=== PATIENT | male | born 1965 | race Caucasian/White ===

== ENCOUNTER 2016-11-23 16:35 | Emergency (ER) | payer OTHER ==
[2016-11-23] MEDS ORDERED: ACETAMINOPHEN 325 MG TABLET (FP) PO ONE (16:45)
[2016-11-23 16:46] VITALS: BP 141/89; PULSE 79; TEMP 98; BMI 30.9
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
[2016-11-23] MEDS ORDERED: ACETAMINOPHEN 325 MG TABLET (FP) ONE (17:52)
[2016-11-23] MEDS ORDERED: KETOROLAC TROMETHAMINE 60 MG/2 ML VIAL IM ONE (19:11)
[2016-11-23] MEDS ORDERED: oxyCODONE HCL 5 MG TABLET PO ONE (19:11)
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
[2016-11-23] MEDS ORDERED: KETOROLAC TROMETHAMINE 60 MG/2 ML VIAL ONE (19:21)
[2016-11-23] MEDS ORDERED: oxyCODONE HCL 5 MG TABLET ONE ×2 (19:23→19:39)
== END 2016-11-23 21:29 | disposition home or self-care (01) ==
LOC: JERFT 16:35
PROC: 3E0233Z Introduction of Anti-inflammatory into Muscle, Percutaneous Approach (ICD-10-PCS; principal; 2016-11-23)
DX: G44.309 Post-traumatic headache, unspecified, not intractable (principal); M25.562 Pain in left knee; M25.561 Pain in right knee; V43.62XA Car passenger injured in collision with other type car in traffic accident, initial encounter; Y92.414 Local residential or business street as the place of occurrence of the external cause; Y93.89 Activity, other specified; Y99.8 Other external cause status; I10 Essential (primary) hypertension; Z86.73 Personal history of transient ischemic attack (TIA), and cerebral infarction without residual deficits
CPT/HCPCS: 70450-TC; 73562-TC-RT; 96372; 99281-25

== ENCOUNTER 2017-01-16 14:52 | Emergency (ER) | payer OTHER ==
[2017-01-16 15:02] VITALS: BMI 30.9
--- NOTE | 2017-01-16 16:11 | PDOC ---
Attending Attestation - Resident Resident Name: Home Mitchell - ED Attending Attestation I have performed the following: I have examined & evaluated the patient, The case was reviewed & discussed with the resident, I agree w/resident's findings & plan, Exceptions are as noted - HPI HPI: 51 yo M s/p recent R knee replacement presents with R knee pain, significant leg swelling. He denies fever, chills. +Bloody drainage from the surgical site. He was evaluated by the clinic 2 days ago, but now it has become significantly more swollen with blistering of the skin. - Physicial Exam PE: GENERAL: Awake, alert, in no acute distress. Patient somnolent (intermittently falling asleep) c/w history of lack of sleep last night. HEAD: No signs of trauma EYES: PERRLA, EOMI, sclera anicteric, conjunctiva clear ENT: Auricles normal inspection, hearing grossly normal, nares patent, oropharynx clear without exudates. Moist mucosa NECK: Normal ROM, supple, no lymphadenopathy, JVD, or masses LUNGS: Breath sounds equal, clear to auscultation bilaterally. No wheezes, and no crackles HEART: Regular rate and rhythm, normal S1 and S2, no murmurs, rubs or gallops ABDOMEN: Soft, nontender, normoactive bowel sounds. No guarding, no rebound. No masses EXTREMITIES: RLE with significant edema, skin is tense. +Bloody drainage from the R knee wound. Dec ROM due to pain. Remainder of extremities with normal range of motion, no edema. No clubbing or cyanosis. No cords, erythema, or tenderness NEUROLOGICAL: Cranial nerves II through XII grossly intact. Normal speech, normal gait SKIN: Warm, Dry, normal turgor, no rashes or lesions noted. - Medical Decision Making Patient with significant swelling of the RLE s/p knee replacement. High suspicion for surgical site infection, possibly infected hardware. Will contact covering physician at [facility], as he had his surgery at [facility].
[2017-01-16 16:54] LABS: BASOPHIL 0.3 % (0-2.0); EOSINOPHIL 2.9 % (0-4.5); MCH 28.9 pg (25.7-33.7); MCHC 33.3 g/dl (32.0-35.9); MEAN CELL VOLUME 86.8 fl (80-96); NEUTROPHILS 57.6 % (42.8-82.8); PLATELET COUNT 195 K/MM3 (134-434); RDW 14.2 % (11.9-15.9); WHITE BLOOD COUNT 3.9 K/mm3 (4.0-10.0)
[2017-01-16 17:17] LABS: ANION GAP 7 (8-16); BILIRUBIN,TOTAL 0.3 mg/dL (0.2-1.0); CALCIUM 8.8 mg/dL (8.5-10.1); CO2 31 mmol/L (21-32); GLUCOSE,RANDOM 109 mg/dL (74-106); SGOT/AST 29 U/L (15-37); SGPT/ALT 22 U/L (12-78); TOT PROT 7.6 g/dl (6.4-8.2)
[2017-01-16 17:18] LABS: ALK PHOS 77 U/L (45-117)
--- NOTE | 2017-01-16 17:36 | PDOC ---
History of Present Illness - General Chief Complaint: Edema Stated Complaint: POST-SURG INFECTION Time Seen by Provider: 01/16/17 15:30 - History of Present Illness Initial Comments: 01/16/17 17:25 51M with pmh of TIA on plavix and HTN presents with right leg pain and edema following knee replacement surgery on Wednesday01/11/17. The patient complained of blisters 2 days ago on the right knee, claims that he went to the [facility] yesterday and was told he just needed to follow up with his appointment with his surgeon Dr. Fernandez on 01/21/2017. Because the swelling didn't go down he then went this am to the [place] ED where he was told that he might have a blood clot and that he should go the nearest ED fopr evaluation. He presented here afebrile but with right leg edema, erythema and warmth, with blisters draining fluid, and seemingly altered mental status due to sleepiness.. 01/16/17 17:48 01/16/17 19:01 Past History - Past Medical History Allergies/Adverse Reactions: Allergies Allergy/AdvReac Type Severity Reaction Status Date / Time No Known Drug Allergies Allergy Verified 01/16/17 17:49 bananas and vicoden together Allergy Uncoded 01/16/17 14:58 Home Medications: Ambulatory Orders Amlodipine Besylate 10 mg PO DAILY 01/16/17 Carvedilol 3.125 mg PO BID 01/16/17 Clopidogrel Bisulfate [Plavix] 150 mg PO DAILY 01/16/17 Hydrochlorothiazide 40 mg PO BID 01/16/17 CVA: Yes (tia) HTN: Yes - Psycho/Social/Smoking Cessation Hx Anxiety: No Suicidal Ideation: No Smoking History: Current some day smoker Have you smoked in the past 12 months: Yes Number of Cigarettes Smoked Daily: 20 Information on smoking cessation initiated: No 'Breaking Loose' booklet given: 11/23/16 Hx Alcohol Use: No Drug/Substance Use Hx: No Review of Systems - Review of Systems Constitutional: No: Chills, Diaphoresis, Fever HEENTM: No: Symptoms Reported Respiratory: No: Cough, Shortness of Breath, Stridor, Wheezing Cardiac (ROS): No: Chest Pain, Lightheadedness, Palpitations, Syncope, Chest Tightness ABD/GI: No: Symptoms Reported Musculoskeletal: Yes: See HPI Integumentary: Yes: See HPI Neurological: No: Headache, Paresthesia, Tingling *Physical Exam - Vital Signs Last Vital Signs Temp Pulse Resp BP Pulse Ox 98.0 F 75 18 114/63 100 01/16/17 14:58 01/16/17 14:58 01/16/17 14:58 01/16/17 14:58 01/16/17 14:58 - Physical Exam General Appearance: Yes: Nourished, Appropriately Dressed HEENT: positive: EOMI, REDDY, Normal ENT Inspection Respiratory/Chest: positive: Lungs Clear, Normal Breath Sounds. negative: Chest Tender Cardiovascular: positive: Regular Rhythm, Regular Rate, S1, S2 Vascular Pulses: Dorsalis-Pedis (R): 1+, Doralis-Pedis (L): 2+ Gastrointestinal/Abdominal: positive: Normal Bowel Sounds, Protuberent. negative: Tender Extremity: positive: Pedal Edema, Swelling, Erythema, Other (R knee with Warmth and drainage). negative: Coldness, Cyanosis ED Treatment Course - LABORATORY CBC & Chemistry Diagram: 01/16/17 16:13 01/16/17 16:13 - ADDITIONAL ORDERS Additional order review: Laboratory Results 01/16/17 16:13 Sodium 135 L Potassium 3.2 L Chloride 97 L Carbon Dioxide 31 Anion Gap 7 L BUN 21 H Creatinine 1.0 Creat Clearance w eGFR > 60 Random Glucose 109 H Calcium 8.8 Total Bilirubin 0.3 AST 29 ALT 22 Alkaline Phosphatase 77 Total Protein 7.6 Albumin 3.0 L 01/16/17 16:13 RBC 3.57 L MCV 86.8 MCHC 33.3 RDW 14.2 MPV 9.0 Neutrophils % 57.6 Lymphocytes % 19.7 Monocytes % 19.5 H Eosinophils % 2.9 Basophils % 0.3 - RADIOLOGY Radiology Studies Ordered: Category Date Time Status KNEE 2 POS-RIGHT [RAD] Stat Radiology 01/16/17 16:09 Taken Medical Decision Making - Medical Decision Making 01/16/17 17:48 51M with pmh of TIA on plavix and HTN presents with right leg pain, edema, drainage following knee replacement surgery on Wednesday01/11/17. Suspecting right knee septic joint. R/o with labs and imaging. Transfering to [facility] after talking to the to the Orthopedic surgeon occupational therapist's assistant Dr. Espinoza for surgery. Currently waiting for a bed. Patient put on 1g Vancomycin in the meantime Pain controled with Morphine IVPB 01/16/17 18:27 01/16/17 18:59 01/16/17 19:00 Potassium 3.2 corrected with 40meq Potassium acetate 270mls@62.5mls/hr Bed approved at [facility] waiting for transfer 01/16/17 19:01 01/16/17 19:03 PAtient signout out to Dr. Armando Moe *DC/Admit/Observation/Transfer Diagnosis at time of Disposition: Postoperative surgical complication involving skin, Postoperative surgical complication involving musculoskeletal system associated with musculoskeletal procedure Diagnosis at time of Disposition: (Ruled Out): Postoperative surgical complication involving skin associated with dermatologic procedure - Discharge Dispostion Disposition: TRANSFER ACUTE CARE/OTHER HOSP Condition at time of disposition: Stable - Referrals Referrals: STAFF,NOT ON [Primary Care Provider] - - Transfer to Acute Care Facility Receiving Facility: [facility] Accepting Physician:: Dr. Espinoza
[2017-01-16] MEDS ORDERED: VANCOMYCIN 1 GRAM (PRE-DOCKED) 250 ML IVPB ONE ×2 (17:42→18:02)
[2017-01-16] MEDS ORDERED: POTASSIUM ACETATE IVPB ONE (17:45)
[2017-01-16] MEDS ORDERED: SODIUM CHLORIDE IVPB ONE (17:45)
[2017-01-16] MEDS ORDERED: morphine CARPU-JECT 4 MG/1 ML DISP.SYRIN ONE (18:09)
[2017-01-16] MEDS ORDERED: morphine CARPU-JECT 4 MG/1 ML DISP.SYRIN IVPUSH ONE (18:10)
[2017-01-16 20:20] VITALS: BP 116/74; PULSE 72
[2017-01-16 20:24] VITALS: TEMP 98
--- NOTE | 2017-01-17 17:46 | EKG ---
Test Reason : Blood Pressure : / mmHG Vent. Rate : 069 BPM Atrial Rate : 069 BPM P-R Int : 166 ms QRS Dur : 110 ms QT Int : 426 ms P-R-T Axes : 059 046 049 degrees QTc Int : 456 ms NORMAL SINUS RHYTHM POSSIBLE LEFT ATRIAL ENLARGEMENT NONSPECIFIC T WAVE ABNORMALITY ABNORMAL ECG NO PREVIOUS ECGS AVAILABLE AND REPEAT INDICATED Confirmed by CHRISTY DORAN MD ([id number]) on 01/17/2017 5:46:17 PM Referred By: Confirmed By:CHRISTY DORAN MD
== END 2017-01-16 20:23 | disposition short-term general hospital (02) ==
LOC: JER 14:52
PROC: 3E03329 Introduction of Other Anti-infective into Peripheral Vein, Percutaneous Approach (ICD-10-PCS; principal; 2017-01-16)
PROC: 3E0337Z Introduction of Electrolytic and Water Balance Substance into Peripheral Vein, Percutaneous Approach (ICD-10-PCS; 2017-01-16)
PROC: 3E033NZ Introduction of Analgesics, Hypnotics, Sedatives into Peripheral Vein, Percutaneous Approach (ICD-10-PCS; 2017-01-16)
DX: M96.89 Other intraoperative and postprocedural complications and disorders of the musculoskeletal system (principal); Z96.651 Presence of right artificial knee joint
CPT/HCPCS: 36415; 73560-TC-RT; 80053; 85025; 85651; 87040; 87076; 87186; 93005; 93010; 96365; 96366; 96367; 96374; 99284-25

== ENCOUNTER 2017-02-14 13:28 | Observation (INO) | payer OTHER ==
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
[2017-02-14 14:05] VITALS: TEMP 97.8
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
[2017-02-14 14:34] LABS: BASOPHIL 1.1 % (0-2.0); EOSINOPHIL 1.2 % (0-4.5); MCH 28.7 pg (25.7-33.7); MCHC 33.2 g/dl (32.0-35.9); MEAN CELL VOLUME 86.3 fl (80-96); MEAN PLT VOLUME 9.2 fl (7.5-11.1); NEUTROPHILS 65.5 % (42.8-82.8); PLATELET COUNT 242 K/MM3 (134-434); RDW 14.2 % (11.9-15.9); WHITE BLOOD COUNT 6.7 K/mm3 (4.0-10.0)
[2017-02-14 15:00] LABS: ALBUMIN 1.1 g/dl (3.4-5.0); ANION GAP 6 (8-16); CALCIUM 9.4 mg/dL (8.5-10.1); CO2 33 mmol/L (21-32); GLUCOSE,RANDOM 89 mg/dL (74-106)
[2017-02-14 15:04] LABS: BILIRUBIN,TOTAL 0.5 mg/dL (0.2-1.0); CREATININE 1.4 mg/dL (0.7-1.3); SGOT/AST 13 U/L (15-37); SGPT/ALT 17 U/L (12-78); TOT PROT 8.3 g/dl (6.4-8.2)
[2017-02-14 15:06] LABS: ALK PHOS 45 U/L (45-117); CPK 109 IU/L (39-308); TROPONIN I 0.02 ng/ml (0.00-0.05)
[2017-02-14 15:13] LABS: INR 1.2 (0.82-1.09); PROTHROMBIN TIME (PATIENT) 13.2 SEC (9.98-11.88)
[2017-02-14 15:25] LABS: MAGNESIUM 2.2 mg/dL (1.8-2.4)
[2017-02-14] MEDS ORDERED: POTASSIUM CHLORIDE TABS 20 MEQ TABLET.ER (FP) PO ONE ×2 (16:03→16:21)
[2017-02-14] MEDS ORDERED: oxyCODONE HCL 5 MG TABLET PO ONE (16:09)
[2017-02-14] MEDS ORDERED: oxyCODONE HCL 5 MG TABLET ONE (16:20)
[2017-02-14] MEDS ORDERED: ASPIRIN 81 MG CHEWABLE TABLETS PO ONE (16:24)
[2017-02-14] MEDS ORDERED: ASPIRIN 81 MG CHEWABLE TABLETS ONE (16:30)
[2017-02-14 19:09] VITALS: BP 146/96; PULSE 76; BMI 30.9
--- NOTE | 2017-02-14 19:29 | EKG ---
Test Reason : Blood Pressure : / mmHG Vent. Rate : 074 BPM Atrial Rate : 074 BPM P-R Int : 166 ms QRS Dur : 110 ms QT Int : 428 ms P-R-T Axes : 037 011 034 degrees QTc Int : 475 ms NORMAL SINUS RHYTHM NON-SPECIFIC INTRA-VENTRICULAR CONDUCTION DELAY NONSPECIFIC T WAVE ABNORMALITY PROLONGED QT ABNORMAL ECG WHEN COMPARED WITH ECG OF 16-JAN-2017 16:26, NO SIGNIFICANT CHANGE WAS FOUND Confirmed by AMADO JOLLEY, KENNETH ([id number]) on 02/14/2017 7:28:41 PM Referred By: Confirmed By:KENNETH FISCHER MD
[2017-02-14 19:53] LABS: URINE MARIJUANA THC POSITIVE ng/ml (CUTOFF=50)
== END 2017-02-14 21:42 | disposition left against medical advice (07) ==
LOC: JER 13:28 → JERBED 17:35 → UNDOADMOB 17:58
PROVIDERS: ADMIT Family Medicine; ATTEND Family Medicine
DX: R79.89 Other specified abnormal findings of blood chemistry (principal); N17.9 Acute kidney failure, unspecified; I10 Essential (primary) hypertension; I25.2 Old myocardial infarction; M54.9 Dorsalgia, unspecified; G89.29 Other chronic pain; F17.210 Nicotine dependence, cigarettes, uncomplicated; Z86.73 Personal history of transient ischemic attack (TIA), and cerebral infarction without residual deficits; Z79.01 Long term (current) use of anticoagulants; Z98.61 Coronary angioplasty status; Z96.651 Presence of right artificial knee joint
CPT/HCPCS: 36415; 71010-TC; 80053; 80307; 83735; 84484; 85025; 85610; 93005; 93010; 99284-25; G0378

== ENCOUNTER 2017-04-09 16:45 | Emergency (ER) | payer OTHER ==
[2017-04-09 16:50] VITALS: BP 133/85; PULSE 90; TEMP 98.1; BMI 29.9
[2017-04-09] MEDS ORDERED: KETOROLAC TROMETHAMINE 60 MG/2 ML VIAL IM ONE (17:16)
--- NOTE | 2017-04-09 17:16 | PDOC ---
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 Patient states he knows his back when out and is requesting a Toradol injection. History of chronic left-sided sciatica now experiencing pain to left groin which he states he has frequently when his back was out. No neurosensory deficits, no bowel or bladder difficulty incontinence or urinary retention, no saddle anesthesia, no footdrop. No history of IVDU or history of cancer. Patient is on chronic pain management today he does not takes medication because he did not have pain this morning. REVIEW OF SYSTEMS: GENERAL: Afebrile, denies any weakness RESPIRATORY: No cough, wheezing, or hemoptysis. CARDIAC: No chest pain or shortness of breath MUSCULOSKELETAL: Pain to generalized lower back. No point tenderness. Pain worse on left and right SKIN : No erythema, no bruising, no deformity. GI/: Denies any abdominal pain, no urinary difficulty, incontinence or urinary retention. RECTAL: Denies any difficulty this A.m. NEUROLOGICAL: Denies any numbness or tingling. No neurosensory deficits. PHYSICAL EXAM: GENERAL: The patient is awake, alert, and fully oriented, in no acute distress. RESPIRATORY: Lungs clear bilaterally, no rhonchi wheezes or crackles CARDIAC: S1-S2 audible, no murmur rub or gallop MUSCULOSKELETAL: Pain to generalized lower back, nonradiating, no tingling or sensory deficit. Less than 2 second cap refill, +4 popliteal and pedal pulses. GI/: Abdomen soft, nontender, nondistended. No rebound tenderness. No masses palpable. MUSCULOSKELETAL: No spinal point tenderness. Normal reflexive and no deficits to sensation or strength. RECTAL: Patient refused SKIN: Warm, Dry, normal turgor, no erythema, no edema no bruising. Past History - Past Medical History Allergies/Adverse Reactions: Allergies Allergy/AdvReac Type Severity Reaction Status Date / Time No Known Drug Allergies Allergy Severe Verified 04/09/17 16:47 bananas and vicoden together Allergy Severe ANAPHYLAXIS Uncoded 04/09/17 16:47 . Home Medications: Ambulatory Orders Carvedilol 3.125 mg PO BID 01/16/17 Clopidogrel Bisulfate [Plavix] 150 mg PO DAILY 01/16/17 Hydrochlorothiazide 40 mg PO BID 01/16/17 Gabapentin [Neurontin -] 300 mg PO Q8H 02/14/17 Oxycodone HCl [Oxycodone HCl ER] 30 mg PO QID 02/14/17 CVA: Yes (tia) HTN: Yes Other medical history: SCIATICA. BACK PROBLEMS. - Suicide/Smoking/Psychosocial Hx Smoking History: Current every day smoker Have you smoked in the past 12 months: Yes Number of Cigarettes Smoked Daily: 10 Information on smoking cessation initiated: No 'Breaking Loose' booklet given: 11/23/16 Hx Alcohol Use: No Drug/Substance Use Hx: Yes (MARIJUANA.) Substance Use Type: Marijuana *Physical Exam - Vital Signs Last Vital Signs Temp Pulse Resp BP Pulse Ox 98.1 F 90 18 133/85 100 04/09/17 16:47 04/09/17 16:47 04/09/17 16:47 04/09/17 16:47 04/09/17 16:47 Medical Decision Making - Medical Decision Making 04/09/17 17:07 A/P, back pain chronic in nature with recent exacerbation 90 minutes prior to arrival. I stop checked his report was requested by: Shahnaz Maldonado | Reference #: [id number] You have not added a HYUN number. Keeping your HYUN number(s) up to date on the My HYUN Numbers page will enable the separation of your prescriptions from others ' in the search results. 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 01/12/2017 01/12/2017 oxycodone hcl 5 mg tablet 60 10 Dinah Welch Z OS [employer] PRO[employer]MER 12/14/2016 12/14/2016 oxycodone hcl 30 mg tablet 120 30 TriRamses morse A, M D 11/13/2016 11/14/2016 oxycodone hcl 30 mg tablet 120 30 Ramses Olivera A, M D 10/30/2016 10/30/2016 oxycodone hcl 30 mg tablet 60 15 Ramses Olivera A, M D 10/23/2016 10/23/2016 oxycodone hcl 30 mg tablet 21 7 Ramses Olivera A, M D 10/16/2016 10/17/2016 oxycodone hcl 15 mg tablet 42 7 Ramses Olivera A, M D 08/17/2016 08/17/2016 oxycodone-acetaminophen 5-325 mg tab 8 2 Rod Martínez S (RPA-C) 07/27/2016 07/28/2016 oxycodone-acetaminophen 10-325 mg tab 12 3 Rod Martínez S (RPA-C) 06/26/2016 06/27/2016 oxycodone-acetaminophen 5-325 mg tab 18 6 Ashanti Massey MD Patient Name: Damon Rob Date: 1965 Address: [address] [place] [address] Sex: Male Rx Written Rx Dispensed Drug Quantity Days Supply Prescriber Name 09/09/2016 09/11/2016 oxycodone-acetaminophen 10-325 mg tab 90 30 Tasca, Mitesh 08/19/2016 08/19/2016 oxycodone-acetaminophen 10-325 mg tab 90 30 Tasca, Mitesh 06/29/2016 07/22/2016 tramadol hcl 50 mg tablet 30 30 Marlon Banerjee 06/29/2016 06/29/2016 oxycodone-acetaminophen 10-325 mg tab 45 23 ChrissMarlon selby 05/29/2016 05/29/2016 tramadol hcl 50 mg tablet 30 30 ChrissMarlon selby 05/29/2016 05/29/2016 oxycodone-acetaminophen 10-325 mg tab 90 30 Chriss, Marlon George 04/30/2016 04/30/2016 tramadol hcl 50 mg tablet 30 30 Chriss, Marlon George 04/30/2016 04/30/2016 oxycodone-acetaminophen 10-325 mg tab 90 30 ChrissMarlon selby Patient Name: Damon Rob Date: 1965 Address: [address] [place] [address] Sex: Male 04/09/17 17:20 Toradol 60 mg IM and 2 Percocet given to patient while in emergency department will reassess and discharged home to continue chronic pain management. Patient states that this pain is chronic in nature and unchanged. Patient states he feels relief after given medication, will DC patient home to follow-up with his chronic pain medicine physician Patient ambulating with steady gait, no difficulty noted upon discharge. *DC/Admit/Observation/Transfer Diagnosis at time of Disposition: Chronic low back pain Qualifiers: Back pain laterality: bilateral Sciatica presence: without sciatica Qualified Code(s): M54.5 - Low back pain - Discharge Dispostion Disposition: HOME Condition at time of disposition: Good Admit: No - Patient Instructions Additional Instructions: 1. Please return to the emergency department with any numbness, tingling, weakness, numbness or tingling to groin or legs, or loss of bowel or bladder function. 2. Use pain medication as ordered. 3. Please is to followup in the office of for evaluation within a week if no improvement. 4. Ice or heat 5. Refrain from lifting anything above 10 pounds, until pain resolved."
[2017-04-09] MEDS ORDERED: KETOROLAC TROMETHAMINE 60 MG/2 ML VIAL ONE (17:28)
== END 2017-04-09 18:03 | disposition home or self-care (01) ==
LOC: JERFT 16:45
PROC: 3E0233Z Introduction of Anti-inflammatory into Muscle, Percutaneous Approach (ICD-10-PCS; principal; 2017-04-09)
DX: M54.5 Low back pain (principal); I10 Essential (primary) hypertension; X50.0XXA Overexertion from strenuous movement or load, initial encounter; Y93.89 Activity, other specified; Y92.89 Other specified places as the place of occurrence of the external cause; Y99.8 Other external cause status
CPT/HCPCS: 96372; 99281-25

== ENCOUNTER 2017-07-16 23:54 | Emergency (ER) | payer OTHER ==
[2017-07-17 00:40] VITALS: BP 152/96; PULSE 88; TEMP 98.1; BMI 30.6
--- NOTE | 2017-07-17 00:40 | PDOC ---
History of Present Illness - General Chief Complaint: Pain, Acute Stated Complaint: KNEE INJURY Time Seen by Provider: 07/17/17 00:38 History Source: Patient Exam Limitations: No Limitations - History of Present Illness Initial Comments: 07/17/17 01:20 Patient is a 52-year-old male with past medical history of hypertension, TIA on a/c, chronic back pain, who presents to the emergency department tonight complaining of left knee pain. Patient states that he felt a strain sensation in his knee yesterday when he stood up. He states that it felt like a stabbing pain. Denies fall or trauma. He states the pain got worse over the course of the day and that he can not take the pain anymore. Denies recent travel, currently on Plavix. Denies numbness and tingling in the foot, weakness, trauma. Pt has history of R total knee replacement. Past History - Travel Traveled outside of the country in the last 30 days: No Close contact w/someone who was outside of country & ill: No - Past Medical History Allergies/Adverse Reactions: Allergies Allergy/AdvReac Type Severity Reaction Status Date / Time No Known Drug Allergies Allergy Severe Verified 07/17/17 00:40 bananas and vicoden together Allergy Severe ANAPHYLAXIS Uncoded 07/17/17 00:40 . Home Medications: Ambulatory Orders Carvedilol 3.125 mg PO BID 01/16/17 Clopidogrel Bisulfate [Plavix] 150 mg PO DAILY 01/16/17 Hydrochlorothiazide 40 mg PO BID 01/16/17 Gabapentin [Neurontin -] 300 mg PO Q8H 02/14/17 Oxycodone HCl [Oxycodone HCl ER] 30 mg PO QID 02/14/17 Oxycodone HCl/Acetaminophen [Percocet 10-325 mg Tablet] 1 each PO Q6H PRN #12 tablet MDD 4 07/17/17 CVA: Yes (tia) HTN: Yes - Suicide/Smoking/Psychosocial Hx Smoking History: Current some day smoker Have you smoked in the past 12 months: Yes Number of Cigarettes Smoked Daily: 10 Information on smoking cessation initiated: No 'Breaking Loose' booklet given: 11/23/16 Hx Alcohol Use: No Drug/Substance Use Hx: No Substance Use Type: Marijuana Review of Systems - Review of Systems Able to Perform ROS?: Yes Comments:: 07/17/17 04:22 CONSTITUTIONAL: Absent: fever, chills, diaphoresis, generalized weakness, malaise, loss of appetite HEENT: Absent: rhinorrhea, nasal congestion, throat pain, throat swelling, difficulty swallowing, mouth swelling, ear pain, eye pain, visual Changes CARDIOVASCULAR: Absent: chest pain, loss of consciousness, palpitations, irregular heart rate, peripheral edema RESPIRATORY: Absent: cough, shortness of breath, dyspnea with exertion, orthopnea, wheezing, stridor, hemoptysis GASTROINTESTINAL: Absent: abdominal pain, abdominal distension, nausea, vomiting, diarrhea, constipation, melena, hematochezia GENITOURINARY: Absent: dysuria, frequency, urgency, hesitancy, hematuria, flank pain, genital pain MUSCULOSKELETAL: Present: L knee pain Absent: myalgia, arthralgia, joint swelling SKIN: Absent: rash, itching, pallor HEMATOLOGIC/IMMUNOLOGIC: Absent: easy bleeding, easy bruising, lymphadenopathy, frequent infections ENDOCRINE: Absent: unexplained weight gain, unexplained weight loss, heat intolerance, cold intolerance NEUROLOGIC: Absent: headache, focal weakness or paresthesias, dizziness, unsteady gait, seizure, mental status changes, bladder or bowel incontinence PSYCHIATRIC: Absent: anxiety, depression, suicidal or homicidal ideation, hallucinations. Is the patient limited Armenian proficient: No *Physical Exam - Vital Signs Last Vital Signs Temp Pulse Resp BP Pulse Ox 98.1 F 88 19 152/96 99 07/17/17 00:37 07/17/17 00:37 07/17/17 00:37 07/17/17 00:37 07/17/17 00:37 - Physical Exam Comments: 07/17/17 04:22 GENERAL: The patient is awake, alert, and fully oriented, in no acute distress. HEAD: Normal with no signs of trauma. EYES: Pupils equal, round and reactive to light, extraocular movements intact, sclera anicteric, conjunctiva clear. EXTREMITIES: TTP of the L Lateral knee. Pt. refuses special testing of knee d/t pain. Limited ROM with flexion and extension d/t pain. No calf pain, (-) patel test. No obvious swelling of the L knee. PMS intact with 2+ DP pulse. Normal range of motion at all other joints, no edema. NEUROLOGICAL: Normal speech, normal gait. PSYCH: Normal mood, normal affect. SKIN: Warm, Dry, normal turgor, no rashes or lesions noted. *DC/Admit/Observation/Transfer Diagnosis at time of Disposition: Knee pain, left Qualifiers: Chronicity: acute Qualified Code(s): M25.562 - Pain in left knee - Discharge Dispostion Disposition: HOME Condition at time of disposition: Good Admit: No - Prescriptions Prescriptions: Oxycodone HCl/Acetaminophen [Percocet 10-325 mg Tablet] 1 each PO Q6H PRN #12 tablet MDD 4 PRN Reason: Pain - Referrals - Patient Instructions Printed Discharge Instructions: DI for Knee Pain Additional Instructions: Your x-ray today showed no broken bones, there seems to be some decreased joint space. Please follow-up with your orthopedist this week (Dr. Fernandez). You were prescribed Percocet as needed for breakthrough pain. Please do not drive or operate heavy machinery after taking this medication as it may make you sleepy. He may use heat to the area to help with her pain is well. You were also given a knee immobilizer and crutches. Return to the emergency department if you have worsening pain, numbness and tingling in your foot, changes in the way you walk, or any new or concerning symptoms. - Post Discharge Activity Forms/Work/School Notes: Back to Work
[2017-07-17] MEDS ORDERED: KETOROLAC TROMETHAMINE 60 MG/2 ML VIAL IM ONE (01:04)
[2017-07-17] MEDS ORDERED: KETOROLAC TROMETHAMINE 60 MG/2 ML VIAL ONE (01:11)
== END 2017-07-17 04:16 | disposition home or self-care (01) ==
LOC: JER 23:54 → SUPCPDRO 23:54 → JER 07-17 04:16
PROC: 3E0233Z Introduction of Anti-inflammatory into Muscle, Percutaneous Approach (ICD-10-PCS; principal; 2017-07-16)
DX: M25.562 Pain in left knee (principal); I10 Essential (primary) hypertension; M54.89 Other dorsalgia; G89.29 Other chronic pain; Z86.73 Personal history of transient ischemic attack (TIA), and cerebral infarction without residual deficits; Z79.01 Long term (current) use of anticoagulants
CPT/HCPCS: 73560-TC-LT; 96372; 99282-25

== ENCOUNTER 2018-02-26 03:50 | Emergency (ER) | payer OTHER ==
[2018-02-26 04:09] VITALS: TEMP 98.4; BMI 28.5
[2018-02-26] MEDS ORDERED: oxyCODONE HCL 5 MG TABLET PO ONE (04:24)
[2018-02-26] MEDS ORDERED: KETOROLAC TROMETHAMINE 30 MG/1 ML VIAL IM ONE (04:24)
[2018-02-26] MEDS ORDERED: oxyCODONE HCL 5 MG TABLET ONE (04:27)
[2018-02-26] MEDS ORDERED: KETOROLAC TROMETHAMINE 30 MG/1 ML VIAL ONE (04:27)
--- NOTE | 2018-02-26 04:32 | PDOC ---
History of Present Illness - General Chief Complaint: Back Pain Stated Complaint: LOWER BACK PAIN Time Seen by Provider: 02/26/18 04:09 History Source: Patient Exam Limitations: No Limitations - History of Present Illness Initial Comments: 02/26/18 04:25 CHIEF COMPLAINT: Lower back pain HISTORY OF PRESENT ILLNESS: This is a 52-year-old male with past medical history of hypertension and lower back pain status post lumbar surgery presents emergency Department with acute on chronic lower back pain status post slipping off step. Patient states while walking on a step. Was loose's caused him to slip off the urine landing on the step below. Patient states when he tried to brace himself fall experienced a sudden onset sharp pain to his lower back. States the pain radiates from the back of his left leg. He denies any incontinence of bladder or bowel, urinary retention, saddle anesthesia, foot drop or numbness or tingling to bilateral lower extremities. REVIEW OF SYSTEMS: GENERAL: Afebrile, denies any weakness RESPIRATORY: No cough, wheezing, or hemoptysis. CARDIAC: No chest pain or shortness of breath MUSCULOSKELETAL: Pain to generalized lower back. No point tenderness. Pain worse on left compared to right. SKIN : No erythema, no bruising, no deformity. GI/: Denies any abdominal pain, no urinary difficulty, incontinence or urinary retention. RECTAL: Denies any difficulty this A.m. NEUROLOGICAL: Denies any numbness or tingling. No neurosensory deficits. PHYSICAL EXAM: GENERAL: The patient is awake, alert, and fully oriented, in no acute distress. RESPIRATORY: Lungs clear bilaterally, no rhonchi wheezes or crackles CARDIAC: S1-S2 audible, no murmur rub or gallop MUSCULOSKELETAL: Pain to generalized lower back, no tingling or sensory deficit. Less than 2 second cap refill, +2 pedal pulses. GI/: Abdomen soft, nontender, nondistended. No rebound tenderness. No masses palpable. MUSCULOSKELETAL: No spinal point tenderness. Normal reflexive and no deficits to sensation or strength. Pain to palpation of paraspinous muscles. RECTAL: Deferred patient with no neurological findings SKIN: Warm, Dry, normal turgor, no erythema, no edema no bruising. Past History - Past Medical History Allergies/Adverse Reactions: Allergies Allergy/AdvReac Type Severity Reaction Status Date / Time No Known Drug Allergies Allergy Severe Verified 02/26/18 04:09 bananas and vicoden together Allergy Severe ANAPHYLAXIS Uncoded 02/26/18 04:09 . Home Medications: Ambulatory Orders Carvedilol 3.125 mg PO BID 01/16/17 Clopidogrel Bisulfate [Plavix] 150 mg PO DAILY 01/16/17 Hydrochlorothiazide 40 mg PO BID 01/16/17 Gabapentin [Neurontin -] 300 mg PO Q8H 02/14/17 Oxycodone HCl/Acetaminophen [Percocet 10-325 mg Tablet] 1 each PO Q6H PRN #12 tablet MDD 4 07/17/17 CVA: Yes (tia) COPD: No HTN: Yes - Suicide/Smoking/Psychosocial Hx Smoking History: Never smoked Have you smoked in the past 12 months: No Number of Cigarettes Smoked Daily: 10 'Breaking Loose' booklet given: 11/23/16 Hx Alcohol Use: No Drug/Substance Use Hx: No Substance Use Type: Marijuana *Physical Exam - Vital Signs Last Vital Signs Temp Pulse Resp BP Pulse Ox 98.4 F 80 18 157/103 100 02/26/18 04:06 02/26/18 04:06 02/26/18 04:06 02/26/18 04:06 02/26/18 04:06 Medical Decision Making - Medical Decision Making 02/26/18 04:32 A/P: 52-year-old male with acute on chronic lower back pain Tender to palpation over bilateral paraspinous muscles No point tenderness over vertebral bodies. No step offs, deformities or crepitus present Full sensation noted to bilateral lower extremities Able to perform straight leg raises without difficulty I stop performed which reveals patient had a 30 day supply of oxycodone 30 mg tablets dispensed on 02/04/18. 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 He has not needed to take the medication frequently to control his pain. Patient is requesting Toradol injection and oxycodone for his back pain. Diagnosis acute on chronic lower back pain Toradol 30 mg IM now Oxycodone 10 mg orally now 02/26/18 05:37 Patient able to even unit. I will discharge patient home as he states his pain is currently 5/10 and describes as tolerable. 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 *DC/Admit/Observation/Transfer Diagnosis at time of Disposition: Low back pain Qualifiers: Chronicity: acute Back pain laterality: bilateral Sciatica presence: with sciatica Sciatica laterality: sciatica of left side Qualified Code(s): M54.42 - Lumbago with sciatica, left side - Discharge Dispostion Disposition: HOME Condition at time of disposition: Stable Decision to Admit order: No - Referrals - Patient Instructions Additional Instructions: Rest, no heavy lifting or exercise until pain is resolved Hot soaks to neck and low back as often as possible/hot showers or Jacuzzis Continue ibuprofen 2-200 mg tablets every 6 hours for the next 3 days then as needed for pain and swelling Follow up with Dr. Valle for continued evaluation of pain. If not significant improvement within 24 hours with medication and rest regime, followup with private physician for change in medications and /or therapy. - Post Discharge Activity
[2018-02-26 05:44] VITALS: BP 159/104; PULSE 72
== END 2018-02-26 05:44 | disposition home or self-care (01) ==
LOC: JER 03:50
PROC: 3E0233Z Introduction of Anti-inflammatory into Muscle, Percutaneous Approach (ICD-10-PCS; principal; 2018-02-26)
DX: M54.42 Lumbago with sciatica, left side (principal); W10.8XXA Fall (on) (from) other stairs and steps, initial encounter; Y93.89 Activity, other specified; Y92.89 Other specified places as the place of occurrence of the external cause; Y99.8 Other external cause status
CPT/HCPCS: 96372; 99282-25

== ENCOUNTER 2018-03-12 13:21 | Inpatient (IN) | payer OTHER ==
[2018-03-12 13:59] LABS: BASO % 0.8 % (0-2.0); EOS % 1.8 % (0-4.5); HEMATOCRIT 37.1 % (35.4-49); HEMOGLOBIN 12.9 GM/dL (11.7-16.9); LYMPH % 24.8 % (8-40); MCH 30.1 pg (25.7-33.7); MCHC 34.7 g/dl (32.0-35.9); MEAN CELL VOLUME 86.9 fl (80-96); MEAN PLT VOLUME 9.3 fl (7.5-11.1); MONO % 12.8 % (3.8-10.2); NEUT % 59.8 % (42.8-82.8); PLATELET COUNT 180 K/MM3 (134-434); RBC 4.27 M/mm3 (4.00-5.60); RDW 13.7 % (11.9-15.9); WHITE BLOOD COUNT 4.4 K/mm3 (4.0-10.0)
[2018-03-12 14:07] LABS: INR 1.08 (0.83-1.09); PROTHROMBIN TIME (PATIENT) 12.2 SEC (9.7-13.0)
[2018-03-12 14:09] LABS: ACTIVATED PTT 38.8 SECONDS (25.2-36.5)
[2018-03-12 14:24] LABS: ALBUMIN 3.4 g/dl (3.4-5.0); ALK PHOS 53 U/L (45-117); ANION GAP 5 MMOL/L (8-16); BILIRUBIN,TOTAL 0.3 mg/dL (0.2-1); BLOOD UREA NITROGEN 11 mg/dL (7-18); CALCIUM 8.5 mg/dL (8.5-10.1); CHLORIDE 104 mmol/L (98-107); CO2 30 mmol/L (21-32); GLUCOSE,RANDOM 91 mg/dL (74-106); MAGNESIUM 2.1 mg/dL (1.8-2.4); N-TERMINAL BNP 830.2 pg/ml (5-125); POTASSIUM 3.1 mmol/L (3.5-5.1); SGOT/AST 17 U/L (15-37); SGPT/ALT 17 U/L (13-61); SODIUM 139 mmol/L (136-145); TOT PROT 8.3 g/dl (6.4-8.2)
[2018-03-12] MEDS ORDERED: ALBUTEROL SO4 2.5/IPRATROPIUM 0.5 INH SOL 3 ML VIAL.NEB. NEB ONE ×4 (14:29→14:39)
[2018-03-12] MEDS ORDERED: KETOROLAC TROMETHAMINE 15 MG/ML VIAL IVPUSH ONE (14:31)
--- NOTE | 2018-03-12 14:31 | PDOC ---
History of Present Illness - General Chief Complaint: Shortness of Breath Stated Complaint: SOB Time Seen by Provider: 03/12/18 13:52 History Source: Patient Exam Limitations: No Limitations - History of Present Illness Initial Comments: 03/12/18 15:09 Liane is a 53 year old male with a past medical history of nonobstructive CAD s/p cath in 2009, hypertension, and lower back pain who presents to the emergency department for evaluation of a 2 day history of chest pain with associated productive cough and nasal congestion. The patient reports mild chest pain described as a pressure like sensation and tightness x 2 days. He states his chest pain is exacerbated with inspiration and states it feels like someone is sitting on my chest. Patient describes the sputum as clear in color. He reports associated symptoms of shortness of breath, dyspnea on exertion, nasal congestion, headache, nausea, and dizziness for the last 2 days. The patient also reports increasing lower back pain secondary to constant coughing. He reports smoking marijuana secondary to his chronic back pain. Patient reports taking Dayquil with minimal relief to his symptoms and endorses use of percocet 30mg for back pain, but denies taking percocet today. He states his pain felt similar to his symptoms when he had a heart attack prompting him to visit the emergency department for further evaluation. The patient denies sick contact, recent travels, blurry vision, changes to hearing, fevers, chills, vomiting, diarrhea, constipation, dysuria, hematuria, and urinary urgency/frequency. Allergies: NKDA, bananas and vicodin together. Social History: Patient admits smoking cigarettes daily. Reported marijuana use. No reported alcohol use. Surgical History: ankle, knee, shoulder. PCP: Not on staff. Past History - Past Medical History Allergies/Adverse Reactions: Allergies Allergy/AdvReac Type Severity Reaction Status Date / Time No Known Drug Allergies Allergy Severe Verified 02/26/18 04:09 bananas and vicoden together Allergy Severe ANAPHYLAXIS Uncoded 02/26/18 04:09 . Home Medications: Ambulatory Orders Carvedilol 3.125 mg PO BID 01/16/17 Clopidogrel Bisulfate [Plavix] 150 mg PO DAILY 01/16/17 Hydrochlorothiazide 40 mg PO BID 01/16/17 Gabapentin [Neurontin -] 300 mg PO Q8H 02/14/17 Oxycodone HCl/Acetaminophen [Percocet 10-325 mg Tablet] 1 each PO Q6H PRN #12 tablet MDD 4 07/17/17 CVA: Yes (tia) COPD: No HTN: Yes - Suicide/Smoking/Psychosocial Hx Smoking History: Current every day smoker Have you smoked in the past 12 months: Yes Number of Cigarettes Smoked Daily: 20 Information on smoking cessation initiated: No 'Breaking Loose' booklet given: 11/23/16 Hx Alcohol Use: No Drug/Substance Use Hx: Yes Substance Use Type: Marijuana Review of Systems - Review of Systems Able to Perform ROS?: Yes Comments:: 03/12/18 15:10 GENERAL/CONSTITUTIONAL: No fever or chills. No weakness. no sweats. HEAD, EYES, EARS, NOSE AND THROAT: (+)Nasal congestion. No change in vision or hearing. No ear pain or discharge. No sore throat or mouth pain. No difficulty swallowing. CARDIOVASCULAR: (+)chest pain. No palpitations, syncope or edema. RESPIRATORY: (+)SOB. (+)ARAGON. (+)cough. No wheezing, or hemoptysis. GASTROINTESTINAL (+)nausea. No vomiting. No diarrhea or constipation. No bloody stools. GENITOURINARY: No hematuria, dysuria, frequency, urgency or other changes. MUSCULOSKELETAL: (+)Lower back pain. No joint or muscle swelling or pain. No neck pain. SKIN: No rash or changes in skin color or lesions. NEUROLOGIC: (+)Headache. (+)Dizziness. No vertigo, loss of consciousness, or change in strength/sensation. No gait instability. HEMATOLOGIC/LYMPHATIC: No anemia, easy bruising/bleeding, or history of blood clots. ALLERGIC/IMMUNOLOGIC: No allergies All other systems reviewed and negative, or as documented in HPI. *Physical Exam - Vital Signs Last Vital Signs Temp Pulse Resp BP Pulse Ox 86 20 188/119 98 03/12/18 13:30 03/12/18 13:30 03/12/18 13:30 03/12/18 13:30 - Physical Exam Comments: 03/12/18 15:11 General: Well appearing, awake and alert, NAD. HEENT: NCAT, PERRL, EOMI, clear conjunctiva, anicteric, moist mucus membranes, clear oropharynx, no oral lesions.. Neck: neck supple, FROM Resp: (+)actively coughing. (+)poor inspiratory effort.(+)scant rhonchi with coughing. normal and even respirations. CVS: RRR, no murmurs, 2+ peripheral pulses throughout, no peripheral edema Abdomen: soft, NTND, no peritoneal signs. Back: nontender, normal inspection and ROM MSK: no edema, GARNETT x4, ROM intact. No clubbing or cyanosis. normal bulk and tone. Neuro: alert, oriented appropriately Skin: warm and well perfused, cap refill <2 sec, normal color ED Treatment Course - LABORATORY CBC & Chemistry Diagram: 03/12/18 13:44 03/12/18 13:44 - ADDITIONAL ORDERS Additional order review: Laboratory Results 03/12/18 03/12/18 13:44 13:44 PT with INR 12.20 INR 1.08 PTT (Actin FS) 38.8 H Sodium 139 Potassium 3.1 L Chloride 104 Carbon Dioxide 30 Anion Gap 5 L BUN 11 Creatinine 1.0 Creat Clearance w eGFR > 60 Random Glucose 91 Calcium 8.5 Magnesium 2.1 Total Bilirubin 0.3 AST 17 ALT 17 Alkaline Phosphatase 53 Troponin I 0.02 B-Natriuretic Peptide 830.2 H Total Protein 8.3 H Albumin 3.4 03/12/18 13:44 RBC 4.27 MCV 86.9 MCHC 34.7 RDW 13.7 MPV 9.3 Neutrophils % 59.8 D Lymphocytes % 24.8 D Monocytes % 12.8 H Eosinophils % 1.8 Basophils % 0.8 - RADIOLOGY Radiology Studies Ordered: Category Date Time Status CHEST X-RAY PORTABLE* [RAD] Stat Radiology 03/12/18 13:25 Taken Medical Decision Making - Medical Decision Making 03/12/18 15:14 53 YOM with h/o nonobstructive CAD, chronic back pain, HTN presenting with worsening nasal congestion, CP and SOB, cough x 2 days. DDx chest pain: ACS,angina. PUD, esophageal spasm, GERD, gastritis, costochondritis, pneumonia, pleurisy, viral syndrome/bronchitis, pericarditis/ myocarditis. dehydration, electrolyte/metabolic derangements. Vital signs reviewed, wnl. normal sats and no fevers Medical Plan: CBC, CMP, ECG, trops/card panel, CXR, bnp. sputum culture. Prior notes reviewed, including admissions, discharges and consultations. laboratory results and imaging reviewed, basic labs and lytes with mild hypo-K, which is repleted. also indeterminate bnp range, but no pulm edema/infiltrate on CXR. EKG normal sinus rhythm, no interval abnormalities, narrow QRS, ST and T wave segments and morphology normal. Nonspecific T wave abnormalities with new TWI in lateral leads in V5-6. CXR clear, no effusion, stable cardiac silhouette, no consolidation. ED course: given duonebs. potassium repleted. defer abx as no wbc ct, no fever, most likely viral etiology and symptoms, f/u sputum culture and respiratory support, monitoring and albuterol nebs Q4H for cough/SOB Dispo: Admit for acute bronchitis, cough/viral syndrome, CP/pleurisy and r/o ACS with CP on telemetry and serial trops/EKG. Discussed results and management plan with pt and family member at bedside, agree with impression and plan 03/12/18 16:53 *DC/Admit/Observation/Transfer Diagnosis at time of Disposition: URI (upper respiratory infection), Bronchitis Chest pain Qualifiers: Chest pain type: unspecified Qualified Code(s): R07.9 - Chest pain, unspecified - Discharge Dispostion Condition at time of disposition: Guarded Decision to Admit order: Yes Decision to Admit order Date/Time: 03/12/18 16:52 - Referrals - Patient Instructions - Post Discharge Activity
[2018-03-12] MEDS ORDERED: KETOROLAC TROMETHAMINE 15 MG/ML VIAL ONE (14:40)
[2018-03-12] MEDS ORDERED: POTASSIUM CHLORIDE TABS 20 MEQ TABLET.ER (FP) PO ONE ×2 (15:12→16:41)
--- NOTE | 2018-03-12 15:25 | EKG ---
Test Reason : Blood Pressure : / mmHG Vent. Rate : 081 BPM Atrial Rate : 081 BPM P-R Int : 158 ms QRS Dur : 108 ms QT Int : 408 ms P-R-T Axes : 056 033 058 degrees QTc Int : 473 ms NORMAL SINUS RHYTHM POSSIBLE LEFT ATRIAL ENLARGEMENT LEFT VENTRICULAR HYPERTROPHY NONSPECIFIC T WAVE ABNORMALITY PROLONGED QT ABNORMAL ECG WHEN COMPARED WITH ECG OF 11-JAN-2018 02:08, NO SIGNIFICANT CHANGE WAS FOUND Confirmed by MD Brian, Krunal ([id number]) on 03/12/2018 3:24:56 PM Referred By: Confirmed By:Krunal Torres MD
[2018-03-12] MEDS ORDERED: morphine CARPU-JECT 4 MG/1 ML DISP.SYRIN IVPUSH ONE (15:58)
[2018-03-12] MEDS ORDERED: ALBUTEROL SO4 0.5 % INH SOLN 2.5 MG/0.5 ML VIAL.NEB. NEB ONE (15:59)
[2018-03-12] MEDS ORDERED: ALBUTEROL SO4 0.5 % INH SOLN 2.5 MG/0.5 ML VIAL.NEB. NEB PRN (15:59)
--- NOTE | 2018-03-12 16:23 | HP ---
CHIEF COMPLAINT: shortness of breath, chest pain PCP: not on staff HISTORY OF PRESENT ILLNESS: Patient is a 53 year old male with a significant past medical history of nonobstructive CAD s/p cath in 2009, hypertension, chronic lower back pain and every day smoker. He presents of the ED today with chest pain, productive cough and chest congestion. He feels as though his chest is tight and coughs when attempting to take in a deep breath. Chest pain 9/10 and feels like something is sitting on his chest. He reports shortness of breath with physical exertion that began 2 days ago, worsened today. He is concerned over the chest pain as it feels like it did when he had an NC. Patient denies being around anyone sick, no recent travel, no recent surgeries, fever chills or any other discomfort. He smokes about 1 pack of cigarettes daily and also uses marijuana for chronic back pain. ER course was notable for: (1) negative trops (2) duonebs (3) EKG NSR narrow QRS, Nonspecific T wave abnormalities with new T wave inver. in lateral leads Recent Travel: denies PAST MEDICAL HISTORY: nonobstructive CAD s/p cath in 2009, hypertension, chronic lower back pain and every day smoker. PAST SURGICAL HISTORY: Social History: Smokin pack per day Alcohol: denies Drugs: marijuana Family History: Allergies No Known Drug Allergies Allergy (Severe, Verified 02/26/18 04:09) bananas and vicoden together Allergy (Severe, Uncoded 02/26/18 04:09) ANAPHYLAXIS. HOME MEDICATIONS: Home Medications Medication Instructions Recorded Carvedilol 3.125 mg PO BID 01/16/17 Clopidogrel Bisulfate [Plavix] 150 mg PO DAILY 01/16/17 Hydrochlorothiazide 40 mg PO BID 01/16/17 Gabapentin [Neurontin -] 300 mg PO Q8H 02/14/17 Oxycodone HCl/Acetaminophen 1 each PO Q6H PRN #12 tablet MDD 4 07/17/17 [Percocet 10-325 mg Tablet] PHYSICAL EXAMINATION Vital Signs - 24 hr 03/12/18 13:30 Pulse Rate 86 Respiratory 20 Rate Blood Pressure 188/119 O2 Sat by Pulse 98 Oximetry (%) GENERAL: Awake, alert, and fully oriented, in no acute distress. HEAD: Normal with no signs of trauma. EYES: Pupils equal, round and reactive to light, extraocular movements intact, sclera anicteric, conjunctiva clear. No lid lag. EARS, NOSE, THROAT: Ears normal, nares patent, oropharynx clear without exudates. Moist mucous membranes. NECK: Normal range of motion, supple without lymphadenopathy, JVD, or masses. LUNGS:wheezing anteriorly, chest tightness, diminished airway HEART: Regular rate and rhythm ABDOMEN: Soft, nontender, not distended, normoactive bowel sounds, no guarding, no rebound, no masses. No hepatomegaly or splenomegaly. MUSCULOSKELETAL: Normal range of motion at all joints. No bony deformities or tenderness. No CVA tenderness. UPPER EXTREMITIES: 2+ pulses, warm, well-perfused. No cyanosis. No clubbing. No peripheral edema. LOWER EXTREMITIES: 2+ pulses, warm, well-perfused. No calf tenderness. No peripheral edema. NEUROLOGICAL: Cranial nerves II-XII intact. Normal speech. Normal gait. PSYCHIATRIC: Cooperative. Good eye contact. Appropriate mood and affect. SKIN: Warm, dry, normal turgor, no rashes or lesions noted, normal capillary refill. Laboratory Results - last 24 hr 03/12/18 03/12/18 03/12/18 13:44 13:44 13:44 WBC 4.4 RBC 4.27 Hgb 12.9 Hct 37.1 MCV 86.9 MCH 30.1 MCHC 34.7 RDW 13.7 Plt Count 180 MPV 9.3 Absolute Neuts (auto) 2.6 Neutrophils % 59.8 D Lymphocytes % 24.8 D Monocytes % 12.8 H Eosinophils % 1.8 Basophils % 0.8 Nucleated RBC % 0 PT with INR 12.20 INR 1.08 PTT (Actin FS) 38.8 H Sodium 139 Potassium 3.1 L Chloride 104 Carbon Dioxide 30 Anion Gap 5 L BUN 11 Creatinine 1.0 Creat Clearance w eGFR > 60 Random Glucose 91 Calcium 8.5 Magnesium 2.1 Total Bilirubin 0.3 AST 17 ALT 17 Alkaline Phosphatase 53 Troponin I 0.02 B-Natriuretic Peptide 830.2 H Total Protein 8.3 H Albumin 3.4 ASSESSMENT/PLAN: Patient is a 53 year old male with a significant past medical history of nonobstructive CAD, chronic back pain, HTN presenting with worsening nasal congestion, chest pain and SOB with cough for two days. Card: ACS rule out/ Chest pain: monitor on tele trend troponins ASA 81mg daily echo consult cardiology. Pulm: Bronchitis/COPD exacerbation: Current everyday smoker. flu swab. start on solumedrol for wheezing and decreased airway on bilateral lungs. patient unable to take in a deep breath. gar[place] scheduled. Pulmonary consulted. fen tolerating po monitor K low salt diet prohy los <48 hours full code Visit type - Emergency Visit Emergency Visit: Yes ED Registration Date: 03/12/18 Care time: The patient presented to the Emergency Department on the above date and was hospitalized for further evaluation of their emergent condition. - New Patient This patient is new to me today: Yes Date on this admission: 03/12/18 - Critical Care Critical Care patient: No Hospitalist Screening - Colonoscopy Questionnaire Colonoscopy Questionnaire: Colonoscopy Questionnaire - Patient: 50 - 75 years old and never had a screening colonoscopy: Unknown History of colon or rectal polyps, or CA: Unknown History of IBD, Crohn's disease or UC: Unknown History of abdominal radiation therapy as a child: Unknown - Relative: 1 with colon or rectal CA, or polyps at age 60 or younger: Unknown Colon or rectal CA diagnosed at age 45 or younger: Unknown Multiple relatives with colon or rectal CA: Unknown - Outcome: Screening Result: Negative Screen
[2018-03-12] MEDS ORDERED: ALBUTEROL SO4 0.083% IH SOL 2.5 MG/3 ML VIAL.NEB. NEB ONE (16:41)
[2018-03-12] MEDS ORDERED: morphine SULFATE 4 MG/ML VIAL ONE (16:42)
[2018-03-12] MEDS ORDERED: ALBUTEROL SO4 0.083% IH SOL 2.5 MG/3 ML VIAL.NEB. NEB PRN (16:49)
[2018-03-12] MEDS ORDERED: oxyCODONE HCL 5 MG TABLET PO PRN (16:58)
[2018-03-12] MEDS ORDERED: LIDOCAINE 5% TOPICAL PATCH ONE (17:18)
[2018-03-12] MEDS: LIDOCAINE 5% TOPICAL PATCH TP SCH (17:22)
[2018-03-12] MEDS ORDERED: methylPREDNISolone NA SUCC 40 MG/1 ML VIAL ONE (18:42)
[2018-03-12] MEDS: methylPREDNISolone NA SUCC 40 MG/1 ML VIAL IVPUSH SCH (18:49)
[2018-03-12] MEDS ORDERED: oxyCODONE HCL 5 MG TABLET ONE (18:51)
[2018-03-12] MEDS ORDERED: oxyCODONE HCL 20 MG SUSTAINED ACTING TABLET PO SCH (20:20)
[2018-03-12] MEDS: ALBUTEROL SO4 0.083% IH SOL 2.5 MG/3 ML VIAL.NEB. NEB SCH (20:38)
[2018-03-12] MEDS: oxyCODONE HCL 20 MG SUSTAINED ACTING TABLET PO SCH (21:11)
[2018-03-12] MEDS: CARVEDILOL 3.125 MG TABLET (FP) PO SCH (21:11)
[2018-03-12] MEDS ORDERED: HYDROCHLOROTHIAZIDE 50 MG TABLET PO SCH (22:00)
[2018-03-13] MEDS: LIDOCAINE PATCH REMOVAL MC SCH ×2 (01:08→21:57)
[2018-03-13] MEDS: methylPREDNISolone NA SUCC 40 MG/1 ML VIAL IVPUSH SCH ×4 (01:40→20:59)
[2018-03-13] MEDS ORDERED: POTASSIUM CHLORIDE TABS 20 MEQ TABLET.ER (FP) PO ONE (07:39)
[2018-03-13] MEDS: ALBUTEROL SO4 0.083% IH SOL 2.5 MG/3 ML VIAL.NEB. NEB SCH (08:13)
[2018-03-13] MEDS ORDERED: FLU VACCINE QUAD 60 MCG/0.5 ML (MDV 18-19) IM ONE (10:00)
[2018-03-13] MEDS: oxyCODONE HCL 20 MG SUSTAINED ACTING TABLET PO SCH ×2 (10:09→21:01)
[2018-03-13] MEDS: LIDOCAINE 5% TOPICAL PATCH TP SCH (10:09)
[2018-03-13] MEDS: CLOPIDOGREL BISULFATE 75 MG TABLET (FP) PO SCH (10:09)
[2018-03-13] MEDS: amLODIPine BESYLATE 5 MG TABLET (FP) PO SCH (10:09)
[2018-03-13] MEDS: PANTOPRAZOLE 40 MG TABLET (FP) PO SCH (10:09)
[2018-03-13] MEDS: CARVEDILOL 3.125 MG TABLET (FP) PO SCH ×2 (10:09→20:59)
[2018-03-13 10:28] LABS: BASO % 0.4 % (0-2.0); EOS % 0.1 % (0-4.5); HEMATOCRIT 39.2 % (35.4-49); HEMOGLOBIN 13.4 GM/dL (11.7-16.9); LYMPH % 9.3 % (8-40); MCH 29.5 pg (25.7-33.7); MCHC 34.1 g/dl (32.0-35.9); MEAN CELL VOLUME 86.7 fl (80-96); MEAN PLT VOLUME 8.7 fl (7.5-11.1); MONO % 4.6 % (3.8-10.2); NEUT % 85.6 % (42.8-82.8); PLATELET COUNT 181 K/MM3 (134-434); RBC 4.52 M/mm3 (4.00-5.60); RDW 13.6 % (11.9-15.9); WHITE BLOOD COUNT 5.3 K/mm3 (4.0-10.0)
--- NOTE | 2018-03-13 10:38 | CON.CARD ---
Consult Consult Specialty:: Cardiology [facility] Reason for Consultation:: chest pain - History of Present Illness Chief Complaint: chest pain History of Present Illness: 53M h/o nonobstructive CAD s/p cath 2010, HTN, chronic low back pain, smoker p/ w chest pain, cough, chest congestion. Chest tightness happens with taking a deep breath or coughing and feels like something sitting on chest. He has dyspnea on exertion for the last two years that is worse on day of admission. Trop neg x 3. EKG showed LVH with nonspecific T wave changes, unchanged from prior. BP 188/119 in ER, improving. CXR no acute process. Has occasional chest pain when coughing. Sees semiconductor testing group leader Dr. Johnson as outpatient. Last stress test over a year and a half ago, does not remember last echo. - Past Medical History Cardio/Vascular: Yes: HTN - Alcohol/Substance Use Hx Alcohol Use: No - Smoking History Smoking history: Current every day smoker Have you smoked in the past 12 months: Yes Aproximately how many cigarettes per day: 20 Home Medications - Allergies Allergies/Adverse Reactions: Allergies Allergy/AdvReac Type Severity Reaction Status Date / Time No Known Drug Allergies Allergy Severe Verified 02/26/18 04:09 bananas and vicoden together Allergy Severe ANAPHYLAXIS Uncoded 02/26/18 04:09 . - Home Medications Home Medications: Ambulatory Orders Carvedilol 3.125 mg PO BID 01/16/17 Clopidogrel Bisulfate [Plavix] 150 mg PO DAILY 01/16/17 Hydrochlorothiazide 40 mg PO BID 01/16/17 Oxycodone HCl/Acetaminophen [Percocet 10-325 mg Tablet] 1 each PO Q6H PRN #12 tablet MDD 4 07/17/17 Amlodipine Besylate 5 mg PO DAILY 03/12/18 Family Disease History - Family Disease History Family History: Unremarkable Review of Systems - Review of Systems Constitutional: reports: No Symptoms Eyes: reports: No Symptoms HENT: reports: Nasal Congestion Neck: reports: No Symptoms Cardiovascular: reports: Chest Pain Respiratory: reports: Cough Gastrointestinal: reports: No Symptoms Genitourinary: reports: No Symptoms Musculoskeletal: reports: No Symptoms Integumentary: reports: No Symptoms Neurological: reports: No Symptoms Endocrine: reports: No Symptoms Hematology/Lymphatic: reports: No Symptoms Psychiatric: reports: No Symptoms Vital Signs: Vital Signs Temperature 98.8 F 03/13/18 01:44 Pulse Rate 75 03/13/18 05:19 Respiratory Rate 20 03/13/18 05:19 Blood Pressure 169/105 03/13/18 05:19 O2 Sat by Pulse Oximetry (%) 96 03/12/18 21:00 Constitutional: Yes: Well Nourished, No Distress Eyes: Yes: Conjunctiva Clear, EOM Intact HENT: Yes: Atraumatic, Normocephalic Neck: Yes: Supple, Trachea Midline Respiratory: Yes: Regular, Wheezes Gastrointestinal: Yes: Normal Bowel Sounds, Soft Cardiovascular: Yes: Regular Rate and Rhythm JVD: No Carotid Bruit: No Heart Sounds: Yes: S1, S2 Musculoskeletal: Yes: Back Pain Extremities: Yes: WNL Edema: No Peripheral Pulses WNL: No Peripheral Pulses: 2+ Left Doralis Pedis, 2+ Right Dorsalis Pedis Integumentary: Yes: WNL Neurological: Yes: Alert, Oriented ...Motor Strength: WNL Psychiatric: Yes: Alert, Oriented - Other Data Labs, Other Data: INR, PTT INR 1.08 (0.83-1.09) 03/12/18 13:44 Troponin, BNP 03/12/18 03/13/18 13:44 00:00 Troponin I 0.02 0.02 B-Natriuretic Peptide 830.2 H Troponin, BNP 03/12/18 03/13/18 13:44 00:00 Troponin I 0.02 0.02 B-Natriuretic Peptide 830.2 H Assessment/Plan EKG: LVH, nonspecific T wave changes, prolonged QTC 473 ms CXR: no acute process tele: sinus rhythm 53M h/o nonobstructive CAD s/p cath 2010, HTN, chronic low back pain, smoker p/ w chest pain, cough, chest congestion Chest pain, cough - neg trops, stable EKG without ischemic changes unlikely ACS - chest pain most likely pleuritic in setting of cough, less consistent with ACS - BNP 830 however clinical picture not c/w heart failure - on IV steroids, nebs for cough - echo ordered - pulm following, CT chest pending HTN - uncontrolled initially, now improving on home meds Current smoker - patient thinking about quitting Chronic low back pain - on pain meds per primary
--- NOTE | 2018-03-13 10:57 | PN ---
Progress Note (short form) - Note Progress Note: PULMONARY CONSULTATION DICTATED 03/13/18 IMP DYSPNEA ACUTE ASTHMATIC BRONCHITIS CHEST PAIN ASHD S/P [place] HTN TOBACCO ABUSE PLAN IV STEROIDS O2 INHALED BRONCHODILATORS ECHO TITRATE BP MEDS CHEST CT SMOKING CESSATION COUNSELED DR BENAVIDES Problem List - Problems (1) Acute asthmatic bronchitis Code(s): J45.909 - UNSPECIFIED ASTHMA, UNCOMPLICATED (2) URI (upper respiratory infection) Code(s): J06.9 - ACUTE UPPER RESPIRATORY INFECTION, UNSPECIFIED (3) Chronic low back pain Code(s): M54.5 - LOW BACK PAIN; G89.29 - OTHER CHRONIC PAIN Qualifiers: Back pain laterality: bilateral Sciatica presence: without sciatica Qualified Code(s): M54.5 - Low back pain (4) Tobacco abuse Code(s): Z72.0 - TOBACCO USE (5) Tobacco abuse counseling Code(s): Z71.6 - TOBACCO ABUSE COUNSELING (6) HTN (hypertension) Code(s): I10 - ESSENTIAL (PRIMARY) HYPERTENSION (7) Chest pain Code(s): R07.9 - CHEST PAIN, UNSPECIFIED Qualifiers: Chest pain type: unspecified Qualified Code(s): R07.9 - Chest pain, unspecified (8) Dyspnea Code(s): R06.00 - DYSPNEA, UNSPECIFIED (9) ASHD (arteriosclerotic heart disease) Code(s): I25.10 - ATHSCL HEART DISEASE OF [place] CORONARY ARTERY W/O ANG PCTRS
[2018-03-13 11:12] LABS: ANION GAP 6 MMOL/L (8-16); BLOOD UREA NITROGEN 13 mg/dL (7-18); CHLORIDE 104 mmol/L (98-107); CHOLESTEROL 160 mg/dL (50-200); CO2 29 mmol/L (21-32); CREATININE 0.9 mg/dL (0.55-1.3); GLUCOSE,RANDOM 138 mg/dL (74-106); MAGNESIUM 2.2 mg/dL (1.8-2.4); POTASSIUM 3.8 mmol/L (3.5-5.1); SODIUM 140 mmol/L (136-145); TRIGLYCERIDES 61 mg/dL (0-150)
[2018-03-13 11:13] LABS: ALBUMIN 3.1 g/dl (3.4-5.0); ALK PHOS 53 U/L (45-117); BILIRUBIN,TOTAL 0.3 mg/dL (0.2-1); HDL CHOLESTEROL 67 mg/dL (40-60); SGOT/AST 15 U/L (15-37); SGPT/ALT 17 U/L (13-61); TOT PROT 8.2 g/dl (6.4-8.2)
--- NOTE | 2018-03-13 12:30 | CONS ---
DATE OF CONSULTATION: 03/13/2018 REFERRING PROVIDER: ARIS Johnson The patient is a 53-year-old male with past medical history of nonobstructive cardiac disease, status post catheterization in 2009, status post [place], hypertension, chronic low back pain, history of tobacco use, approximately 1 pack per day for approximately 40 years, still smoking, admitted to [facility] with complaint of 2-day history of cough, chest congestion, and dyspnea. Patient states the symptoms started Wednesday. At the time, he developed cough and some chest tightness. He also he became markedly dyspneic with exertion, which he normally is able to ambulate without any problems, up inclines as well as at a rapid pace. He denies any chest pain but felt chest tightness. Denied any fevers, chills. Complained of some nausea, no vomiting. Denied any hemoptysis. His symptoms continued to worsen, at which time he presented to the emergency room. In the ER, he was found to be congested. He was started on IV steroids, inhaled bronchodilators. He was subsequently transferred up to medical telemetry for further management. As stated before, he has a history of tobacco use, currently still smoking. He denies any history of COPD or asthma. There is no history of pneumonia. He denies any history of occupational exposure to chemicals or fumes. There is no history of recent travel. There is no history of DVT or PE in the past. Medications prior to admission include Plavix, carvedilol, hydrochlorothiazide, gabapentin, oxycodone, and acetaminophen. Current medications include Lidoderm, Solu-Medrol 40 q.8, albuterol, Coreg, Norvasc, OxyContin, Plavix, Protonix, and hydrochlorothiazide. REVIEW OF SYSTEMS: Positive cough, positive chest congestion, positive dyspnea. No fever, no chills, no hemoptysis. No abdominal pain. No lower extremity edema. PHYSICAL EXAMINATION: General: The patient is a well-developed, well-nourished male, awake, alert, in no acute respiratory distress. Vital Signs: He is currently afebrile. Blood pressure is 169/105. Respiratory rate 20. O2 saturation is 96% on room air. HEENT: Normocephalic, atraumatic. Neck: Supple. Heart: Regular, S1, S2. Chest: Diffuse bilateral wheezes. Abdomen: Soft. Bowel sounds are positive. Extremities: No cyanosis, edema. LABORATORY DATA: WBC 5.3, hemoglobin 13.4, hematocrit 39.6, platelet count of 181,000. INR is 1.08. BUN is 11, creatinine 1.0. BNP is 830. Protein is 8.3. Troponin 0.02. Chest x-ray reveals no infiltrates and no effusions, poor inspiratory effort. IMPRESSION: 1. Chronic dyspnea, most likely acute asthmatic bronchitis, likely secondary to upper respiratory infection. 2. Chest pain. 3. Hypertension. 4. Tobacco abuse. PLAN: IV steroids, inhaled bronchodilators, supplemental O2, chest CT, continue cardiac workup. PFTs as outpatient. Smoking cessation counseled. MERLY BENAVIDES M.D. [id number]
--- NOTE | 2018-03-13 14:35 | PN ---
Physical Exam: SUBJECTIVE: Patient seen and examined at the bedside. Reports breathing improving, able to ambulate without getting short of breath. OBJECTIVE: Vital Signs Period Temp Pulse Resp BP Sys/Astorga Pulse Ox Last 24 Hr 97.9 F-98.8 F 75-89 18-20 145-172/78-105 96-97 GENERAL: Awake, alert, and fully oriented, in no acute distress. HEAD: Normal with no signs of trauma. EYES: Pupils equal, round and reactive to light, extraocular movements intact, sclera anicteric, conjunctiva clear. No lid lag. EARS, NOSE, THROAT: Ears normal, nares patent, oropharynx clear without exudates. Moist mucous membranes. NECK: Normal range of motion, supple without lymphadenopathy, JVD, or masses. LUNGS:wheezing anteriorly and posteriorly, chest tightness, diminished airway HEART: Regular rate and rhythm ABDOMEN: Soft, nontender, not distended, normoactive bowel sounds, no guarding, no rebound, no masses. No hepatomegaly or splenomegaly. MUSCULOSKELETAL: Normal range of motion at all joints. No bony deformities or tenderness. No CVA tenderness. UPPER EXTREMITIES: 2+ pulses, warm, well-perfused. No cyanosis. No clubbing. No peripheral edema. LOWER EXTREMITIES: 2+ pulses, warm, well-perfused. No calf tenderness. No peripheral edema. NEUROLOGICAL: Cranial nerves II-XII intact. Normal speech. Normal gait. PSYCHIATRIC: Cooperative. Good eye contact. Appropriate mood and affect. SKIN: Warm, dry, normal turgor, no rashes or lesions noted, normal capillary refill. Laboratory Results - last 24 hr 03/13/18 03/13/18 03/13/18 00:00 10:15 10:15 WBC 5.3 RBC 4.52 Hgb 13.4 Hct 39.2 MCV 86.7 MCH 29.5 MCHC 34.1 RDW 13.6 Plt Count 181 MPV 8.7 Absolute Neuts (auto) 4.5 Neutrophils % 85.6 H D Lymphocytes % 9.3 D Monocytes % 4.6 Eosinophils % 0.1 D Basophils % 0.4 Nucleated RBC % 0 Sodium 140 Potassium 3.8 Chloride 104 Carbon Dioxide 29 Anion Gap 6 L BUN 13 Creatinine 0.9 Creat Clearance w eGFR > 60 Random Glucose 138 H Calcium 9.0 Magnesium 2.2 Total Bilirubin 0.3 AST 15 ALT 17 Alkaline Phosphatase 53 Troponin I 0.02 Total Protein 8.2 Albumin 3.1 L Triglycerides 61 Cholesterol 160 Total LDL Cholesterol 88 HDL Cholesterol 67 H Active Medications Generic Name Dose Route Start Last Admin Trade Name Gaudencio PRN Reason Stop Dose Admin Albuterol/Ipratropium 1 amp 03/13/18 11:02 Duoneb - NEB Q4H PRN SHORTNESS OF BREATH Amlodipine Besylate 5 mg 03/13/18 10:00 03/13/18 10:09 Norvasc - PO 5 mg DAILY NILA Administration Budesonide/Formoterol Fumarate 2 puff 03/13/18 11:15 Symbicort 160/4.5mcg - IH BID NILA Carvedilol 3.125 mg 03/12/18 22:00 03/13/18 10:09 Coreg - PO 3.125 mg BID NILA Administration Clopidogrel Bisulfate 150 mg 03/13/18 10:00 03/13/18 10:09 Plavix - PO 150 mg DAILY NILA Administration Hydrochlorothiazide 40 mg 03/12/18 22:00 Hctz - PO BID [facility] Lidocaine 1 patch 03/12/18 17:00 03/13/18 10:09 Lidoderm Patch - TP 1 patch DAILY NILA Administration Methylprednisolone Sodium Succinate 60 mg 03/13/18 15:00 Solu-Medrol - IVPUSH Q6H-IV NILA Miscellaneous 1 each 03/12/18 22:00 03/13/18 01:08 Lidoderm Patch Removal MC Not Given DAILY@2200 [facility] Nicotine 14 mg 03/13/18 11:15 Nicoderm Patch - TD DAILY [facility] Oxycodone HCl 20 mg 03/12/18 22:00 03/13/18 10:09 Oxycontin - PO 20 mg BID NILA Administration Pantoprazole Sodium 40 mg 03/13/18 10:00 03/13/18 10:09 Protonix - PO 40 mg DAILY NILA Administration ASSESSMENT/PLAN: Patient is a 53 year old male with a significant past medical history of nonobstructive CAD, chronic back pain, HTN presenting with worsening nasal congestion, chest pain and SOB with cough for two days. Card: ACS rule out/ Chest pain: No events on telemonitoring. troponins negative to date. Echo for a.m. ASA 81mg daily Cardiology consulted, notes reviewed. Hypertension, elevated BP. start Hctz 25mg daily, increase Norvasc if no improvement.. Pulm: Bronchitis/COPD exacerbation: Current everyday smoker. flu swab negative On Solumedrol 60mg q8 per pulmonary. Patient breathing improved since admission but still having wheezing, on scheduled duonebs. CT chest ordered. Back pain, chronic On Lidoderm and oxycontin bid. fen tolerating po monitor K low salt diet prohy los <48 hours full code Visit type - Emergency Visit Emergency Visit: Yes ED Registration Date: 03/13/18 Care time: The patient presented to the Emergency Department on the above date and was hospitalized for further evaluation of their emergent condition. - New Patient This patient is new to me today: No - Critical Care Critical Care patient: No - Discharge Referral Referred to [facility] Med P.C.: No
[2018-03-13] MEDS: NICOTINE 14 MG/24 HOURS TOPICAL PATCH TD SCH ×2 (18:15→19:59)
[2018-03-13] MEDS: BUDESONIDE/FORMETEROL FUMARATE 160/4.5 mcg INHALER IH SCH ×2 (18:16→21:56)
[2018-03-13] MEDS: HYDROCHLOROTHIAZIDE 25 MG TABLET (FP) PO SCH (19:59)
[2018-03-13] MEDS: ALBUTEROL SO4 2.5/IPRATROPIUM 0.5 INH SOL 3 ML VIAL.NEB. NEB PRN (21:21)
[2018-03-14] MEDS: methylPREDNISolone NA SUCC 40 MG/1 ML VIAL IVPUSH SCH ×2 (03:25→22:43)
[2018-03-14] MEDS: ALBUTEROL SO4 2.5/IPRATROPIUM 0.5 INH SOL 3 ML VIAL.NEB. NEB PRN (06:40)
[2018-03-14 06:56] LABS: BASO % 0.1 % (0-2.0); HEMATOCRIT 38.4 % (35.4-49); LYMPH % 4.7 % (8-40); MCH 29.8 pg (25.7-33.7); MCHC 33.9 g/dl (32.0-35.9); MEAN CELL VOLUME 87.7 fl (80-96); MEAN PLT VOLUME 9.7 fl (7.5-11.1); NEUT % 93.2 % (42.8-82.8); PLATELET COUNT 189 K/MM3 (134-434); RBC 4.38 M/mm3 (4.00-5.60); RDW 14.2 % (11.9-15.9); WHITE BLOOD COUNT 10.4 K/mm3 (4.0-10.0)
[2018-03-14 07:38] LABS: BLOOD UREA NITROGEN 18 mg/dL (7-18); CREATININE 0.9 mg/dL (0.55-1.3); GLUCOSE,RANDOM 135 mg/dL (74-106); POTASSIUM 3.9 mmol/L (3.5-5.1); SODIUM 137 mmol/L (136-145)
[2018-03-14 07:39] LABS: ALBUMIN 3.1 g/dl (3.4-5.0); ALK PHOS 54 U/L (45-117); ANION GAP 8 MMOL/L (8-16); BILIRUBIN,TOTAL 0.2 mg/dL (0.2-1); CALCIUM 8.7 mg/dL (8.5-10.1); CHLORIDE 102 mmol/L (98-107); CO2 27 mmol/L (21-32); MAGNESIUM 2.2 mg/dL (1.8-2.4); SGOT/AST 12 U/L (15-37); SGPT/ALT 15 U/L (13-61); TOT PROT 8.2 g/dl (6.4-8.2)
[2018-03-14] MEDS: oxyCODONE HCL 20 MG SUSTAINED ACTING TABLET PO SCH ×2 (09:00→22:37)
[2018-03-14] MEDS ORDERED: oxyCODONE HCL 5 MG TABLET PO ONE (09:16)
--- NOTE | 2018-03-14 09:16 | PN ---
Physical Exam: SUBJECTIVE: Patient seen and examined at the bedside. feels well, in no acute distress. OBJECTIVE: Vital Signs Period Temp Pulse Resp BP Sys/Astorga Pulse Ox Last 24 Hr 98.3 F-98.5 F 75-79 18-20 170-178/100-113 96-96 GENERAL: Awake, alert, and fully oriented, in no acute distress. HEAD: Normal with no signs of trauma. EYES: Pupils equal, round and reactive to light, extraocular movements intact, sclera anicteric, conjunctiva clear. No lid lag. EARS, NOSE, THROAT: Ears normal, nares patent, oropharynx clear without exudates. Moist mucous membranes. NECK: Normal range of motion, supple without lymphadenopathy, JVD, or masses. LUNGS:wheezing anteriorly and posteriorly, chest tightness with coughing. HEART: Regular rate and rhythm ABDOMEN: Soft, nontender, not distended, normoactive bowel sounds, no guarding, no rebound, no masses. No hepatomegaly or splenomegaly. MUSCULOSKELETAL: Normal range of motion at all joints. No bony deformities or tenderness. No CVA tenderness. UPPER EXTREMITIES: 2+ pulses, warm, well-perfused. No cyanosis. No clubbing. No peripheral edema. LOWER EXTREMITIES: 2+ pulses, warm, well-perfused. No calf tenderness. No peripheral edema. NEUROLOGICAL: Cranial nerves II-XII intact. Normal speech. Normal gait. PSYCHIATRIC: Cooperative. Good eye contact. Appropriate mood and affect. SKIN: Warm, dry, normal turgor, no rashes or lesions noted, normal capillary refill. Laboratory Results - last 24 hr 03/13/18 03/13/18 03/14/18 10:15 10:15 05:30 WBC 5.3 10.4 H RBC 4.52 4.38 Hgb 13.4 13.0 Hct 39.2 38.4 MCV 86.7 87.7 MCH 29.5 29.8 MCHC 34.1 33.9 RDW 13.6 14.2 Plt Count 181 189 MPV 8.7 9.7 D Absolute Neuts (auto) 4.5 9.7 H Neutrophils % 85.6 H D 93.2 H Lymphocytes % 9.3 D 4.7 L D Monocytes % 4.6 2.0 L Eosinophils % 0.1 D 0.0 D Basophils % 0.4 0.1 Nucleated RBC % 0 0 Sodium 140 Potassium 3.8 Chloride 104 Carbon Dioxide 29 Anion Gap 6 L BUN 13 Creatinine 0.9 Creat Clearance w eGFR > 60 Random Glucose 138 H Calcium 9.0 Magnesium 2.2 Total Bilirubin 0.3 AST 15 ALT 17 Alkaline Phosphatase 53 Total Protein 8.2 Albumin 3.1 L Triglycerides 61 Cholesterol 160 Total LDL Cholesterol 88 HDL Cholesterol 67 H 03/14/18 06:00 WBC RBC Hgb Hct MCV MCH MCHC RDW Plt Count MPV Absolute Neuts (auto) Neutrophils % Lymphocytes % Monocytes % Eosinophils % Basophils % Nucleated RBC % Sodium 137 Potassium 3.9 Chloride 102 Carbon Dioxide 27 Anion Gap 8 BUN 18 Creatinine 0.9 Creat Clearance w eGFR > 60 Random Glucose 135 H Calcium 8.7 Magnesium 2.2 Total Bilirubin 0.2 AST 12 L ALT 15 Alkaline Phosphatase 54 Total Protein 8.2 Albumin 3.1 L Triglycerides Cholesterol Total LDL Cholesterol HDL Cholesterol Active Medications Generic Name Dose Route Start Last Admin Trade Name Freq PRN Reason Stop Dose Admin Albuterol/Ipratropium 1 amp 03/13/18 11:02 03/14/18 06:40 Duoneb - NEB 1 amp Q4H PRN Administration SHORTNESS OF BREATH Amlodipine Besylate 5 mg 03/13/18 10:00 03/13/18 10:09 Norvasc - PO 5 mg DAILY NILA Administration Budesonide/Formoterol Fumarate 2 puff 03/13/18 11:15 03/13/18 21:56 Symbicort 160/4.5mcg - IH 2 puff BID NILA Administration Carvedilol 3.125 mg 03/12/18 22:00 03/13/18 20:59 Coreg - PO 3.125 mg BID NILA Administration Clopidogrel Bisulfate 150 mg 03/13/18 10:00 03/13/18 10:09 Plavix - PO 150 mg DAILY NILA Administration Hydrochlorothiazide 25 mg 03/13/18 17:30 03/13/18 19:59 Hctz - PO 25 mg DAILY NILA Administration Lidocaine 1 patch 03/12/18 17:00 03/13/18 10:09 Lidoderm Patch - TP 1 patch DAILY NILA Administration Methylprednisolone Sodium Succinate 60 mg 03/13/18 15:00 03/14/18 03:25 Solu-Medrol - IVPUSH 60 mg Q6H-IV NILA Administration Miscellaneous 1 each 03/12/18 22:00 03/13/18 21:57 Lidoderm Patch Removal MC Not Given DAILY@2200 [facility] Nicotine 14 mg 03/13/18 11:15 03/13/18 19:59 Nicoderm Patch - TD 14 mg DAILY NILA Administration Oxycodone HCl 20 mg 03/12/18 22:00 03/13/18 21:01 Oxycontin - PO 20 mg BID NILA Administration Oxycodone HCl 10 mg 03/14/18 09:16 Roxicodone - PO 03/14/18 09:17 ONCE ONE Pantoprazole Sodium 40 mg 03/13/18 10:00 03/13/18 10:09 Protonix - PO 40 mg DAILY NILA Administration ASSESSMENT/PLAN: Patient is a 53 year old male with a significant past medical history of nonobstructive CAD, chronic back pain, HTN presenting with worsening nasal congestion, chest pain and SOB with cough for two days. Card: ACS ruled out Chest pain, resolved No events on telemonitoring. troponins negative to date. Echo pending. On ASA 81mg daily Cardiology following Hypertension, elevated BP. On Hctz 25mg daily, increased to Norvasc 10mg. Monitor BP Pulm: Bronchitis/COPD exacerbation: Current everyday smoker, states he will quit. flu swab negative On Solumedrol 60mg q6 per pulmonary. Patient breathing improved since admission but still having wheezing and coughing spells, on scheduled duonebs. Antitussives ordered. CT chest consistent with COPD exacerbation. Back pain, chronic On Lidoderm and oxycontin bid. fen tolerating po monitor K low salt diet prohy ambulatory heparin bid added since los >48 hours full code Visit type - Emergency Visit Emergency Visit: Yes ED Registration Date: 03/13/18 Care time: The patient presented to the Emergency Department on the above date and was hospitalized for further evaluation of their emergent condition. - New Patient This patient is new to me today: No - Critical Care Critical Care patient: No - Discharge Referral Referred to [facility] Med P.C.: No
--- NOTE | 2018-03-14 10:40 | PN ---
Progress Note (short form) - Note Progress Note: s: cough and congestion improving. no chest pain, palps, dizziness, edema tele: sinus rhythm Current Medications Albuterol/Ipratropium (Duoneb -) 1 amp NEB Q4H PRN PRN Reason: SHORTNESS OF BREATH Last Admin: 03/14/18 06:40 Dose: 1 amp Amlodipine Besylate (Norvasc -) 5 mg PO DAILY [facility] Last Admin: 03/13/18 10:09 Dose: 5 mg Budesonide/Formoterol Fumarate (Symbicort 160/4.5mcg -) 2 puff IH BID [facility] Last Admin: 03/13/18 21:56 Dose: 2 puff Carvedilol (Coreg -) 3.125 mg PO BID [facility] Last Admin: 03/13/18 20:59 Dose: 3.125 mg Clopidogrel Bisulfate (Plavix -) 150 mg PO DAILY [facility] Last Admin: 03/13/18 10:09 Dose: 150 mg Hydrochlorothiazide (Hctz -) 25 mg PO DAILY [facility] Last Admin: 03/13/18 19:59 Dose: 25 mg Lidocaine (Lidoderm Patch -) 1 patch TP DAILY [facility] Last Admin: 03/13/18 10:09 Dose: 1 patch Methylprednisolone Sodium Succinate (Solu-Medrol -) 60 mg IVPUSH Q6H-IV [facility] Last Admin: 03/14/18 03:25 Dose: 60 mg Miscellaneous (Lidoderm Patch Removal) 1 each MC DAILY@2200 [facility] Last Admin: 03/13/18 21:57 Dose: Not Given Nicotine (Nicoderm Patch -) 14 mg TD DAILY [facility] Last Admin: 03/13/18 19:59 Dose: 14 mg Oxycodone HCl (Oxycontin -) 20 mg PO BID [facility] Last Admin: 03/13/18 21:01 Dose: 20 mg Oxycodone HCl (Roxicodone -) 10 mg PO ONCE ONE Stop: 03/14/18 09:17 Pantoprazole Sodium (Protonix -) 40 mg PO DAILY [facility] Last Admin: 03/13/18 10:09 Dose: 40 mg Vital Signs: Vital Signs Period Temp Pulse Resp BP Sys/Astorga Pulse Ox Last 24 Hr 98.3 F-98.5 F 75-79 18-20 170-178/100-113 96-96 Constitutional: Yes: Well Nourished, No Distress Eyes: Yes: Conjunctiva Clear, EOM Intact HENT: Yes: Atraumatic, Normocephalic Neck: Yes: Supple, Trachea Midline Respiratory: Yes: Regular, Wheezes Gastrointestinal: Yes: Normal Bowel Sounds, Soft Cardiovascular: Yes: Regular Rate and Rhythm JVD: No Carotid Bruit: No Heart Sounds: Yes: S1, S2 Musculoskeletal: Yes: Back Pain Extremities: Yes: WNL Edema: No Peripheral Pulses WNL: No Peripheral Pulses: 2+ Left Doralis Pedis, 2+ Right Dorsalis Pedis Integumentary: Yes: WNL Neurological: Yes: Alert, Oriented ...Motor Strength: WNL Psychiatric: Yes: Alert, Oriented Assessment/Plan EKG: LVH, nonspecific T wave changes, prolonged QTC 473 ms CXR: no acute process tele: sinus rhythm 53M h/o nonobstructive CAD s/p cath 2010, HTN, chronic low back pain, smoker p/ w chest pain, cough, chest congestion Chest pain, cough - neg trops, stable EKG without ischemic changes unlikely ACS - chest pain most likely pleuritic in setting of cough, less consistent with ACS - BNP 830 however clinical picture not c/w heart failure - on IV steroids, nebs for cough - echo report pending - pulm following, CT chest shows mild COPD HTN - not controlled, HCTZ started yesterday, on amlodipine Current smoker - patient thinking about quitting Chronic low back pain - on pain meds per primary
--- NOTE | 2018-03-14 11:15 | PN ---
Progress Note, Physician History of Present Illness: PULMONARY ALERT,LESS CONGESTED,LESS DYSPNEIC.REMAINS HYPERTENSIVE - Current Medication List Current Medications: Active Medications Albuterol/Ipratropium (Duoneb -) 1 amp NEB Q4H PRN PRN Reason: SHORTNESS OF BREATH Last Admin: 03/14/18 06:40 Dose: 1 amp Amlodipine Besylate (Norvasc -) 5 mg PO DAILY [facility] Last Admin: 03/13/18 10:09 Dose: 5 mg Budesonide/Formoterol Fumarate (Symbicort 160/4.5mcg -) 2 puff IH BID [facility] Last Admin: 03/13/18 21:56 Dose: 2 puff Carvedilol (Coreg -) 3.125 mg PO BID [facility] Last Admin: 03/13/18 20:59 Dose: 3.125 mg Clopidogrel Bisulfate (Plavix -) 150 mg PO DAILY [facility] Last Admin: 03/13/18 10:09 Dose: 150 mg Hydrochlorothiazide (Hctz -) 25 mg PO DAILY [facility] Last Admin: 03/13/18 19:59 Dose: 25 mg Lidocaine (Lidoderm Patch -) 1 patch TP DAILY [facility] Last Admin: 03/13/18 10:09 Dose: 1 patch Methylprednisolone Sodium Succinate (Solu-Medrol -) 60 mg IVPUSH Q6H-IV [facility] Last Admin: 03/14/18 03:25 Dose: 60 mg Miscellaneous (Lidoderm Patch Removal) 1 each MC DAILY@2200 [facility] Last Admin: 03/13/18 21:57 Dose: Not Given Nicotine (Nicoderm Patch -) 14 mg TD DAILY [facility] Last Admin: 03/13/18 19:59 Dose: 14 mg Oxycodone HCl (Oxycontin -) 20 mg PO BID [facility] Last Admin: 03/13/18 21:01 Dose: 20 mg Oxycodone HCl (Roxicodone -) 10 mg PO ONCE ONE Stop: 03/14/18 09:17 Pantoprazole Sodium (Protonix -) 40 mg PO DAILY [facility] Last Admin: 03/13/18 10:09 Dose: 40 mg - Objective Vital Signs: Vital Signs Temperature 98.5 F 03/14/18 05:36 Pulse Rate 79 03/14/18 08:35 Respiratory Rate 18 03/14/18 08:36 Blood Pressure 175/103 03/14/18 08:35 O2 Sat by Pulse Oximetry (%) 96 03/14/18 08:36 Constitutional: Yes: Well Nourished, Calm Eyes: Yes: WNL HENT: Yes: WNL Neck: Yes: WNL Cardiovascular: Yes: Regular Rate and Rhythm, S1, S2 Respiratory: Yes: Wheezes (SCATTERED BILATERAL WHEEZES) Gastrointestinal: Yes: Normal Bowel Sounds, Soft Edema: No Labs: CBC, BMP 03/14/18 05:30 03/14/18 06:00 INR, PTT INR 1.08 (0.83-1.09) 03/12/18 13:44 Problem List - Problems (1) Acute asthmatic bronchitis Code(s): J45.909 - UNSPECIFIED ASTHMA, UNCOMPLICATED (2) URI (upper respiratory infection) Code(s): J06.9 - ACUTE UPPER RESPIRATORY INFECTION, UNSPECIFIED (3) Chronic low back pain Code(s): M54.5 - LOW BACK PAIN; G89.29 - OTHER CHRONIC PAIN Qualifiers: Back pain laterality: bilateral Sciatica presence: without sciatica Qualified Code(s): M54.5 - Low back pain (4) Tobacco abuse Code(s): Z72.0 - TOBACCO USE (5) Tobacco abuse counseling Code(s): Z71.6 - TOBACCO ABUSE COUNSELING (6) HTN (hypertension) Code(s): I10 - ESSENTIAL (PRIMARY) HYPERTENSION (7) Chest pain Code(s): R07.9 - CHEST PAIN, UNSPECIFIED Qualifiers: Chest pain type: unspecified Qualified Code(s): R07.9 - Chest pain, unspecified (8) Dyspnea Code(s): R06.00 - DYSPNEA, UNSPECIFIED (9) ASHD (arteriosclerotic heart disease) Code(s): I25.10 - ATHSCL HEART DISEASE OF [place] CORONARY ARTERY W/O ANG PCTRS Assessment/Plan IMP DYSPNEA improving ACUTE ASTHMATIC BRONCHITIS CHEST PAIN ASHD S/P FL HTN TOBACCO ABUSE PLAN STEROID TAPER O2 INHALED BRONCHODILATORS TITRATE BP MEDS SMOKING CESSATION COUNSELED YEARLY LOW DOSE CHEST CT FOR LUNG CANCER SCREENING OUTPATIENT PFTS DR BENAVIDES Problem List - Problems (1) Acute asthmatic bronchitis Code(s): J45.909 - UNSPECIFIED ASTHMA, UNCOMPLICATED (2) URI (upper respiratory infection) Code(s): J06.9 - ACUTE UPPER RESPIRATORY INFECTION, UNSPECIFIED (3) Chronic low back pain Code(s): M54.5 - LOW BACK PAIN; G89.29 - OTHER CHRONIC PAIN Qualifiers: Back pain laterality: bilateral Sciatica presence: without sciatica Qualified Code(s): M54.5 - Low back pain (4) Tobacco abuse Code(s): Z72.0 - TOBACCO USE (5) Tobacco abuse counseling Code(s): Z71.6 - TOBACCO ABUSE COUNSELING (6) HTN (hypertension) Code(s): I10 - ESSENTIAL (PRIMARY) HYPERTENSION (7) Chest pain Code(s): R07.9 - CHEST PAIN, UNSPECIFIED Qualifiers: Chest pain type: unspecified Qualified Code(s): R07.9 - Chest pain, unspecified (8) Dyspnea Code(s): R06.00 - DYSPNEA, UNSPECIFIED (9) ASHD (arteriosclerotic heart disease) Code(s): I25.10 - ATHSCL HEART DISEASE OF [place] CORONARY ARTERY W/O ANG PCTRS
[2018-03-14] MEDS: LIDOCAINE 5% TOPICAL PATCH TP SCH (11:20)
[2018-03-14] MEDS: amLODIPine BESYLATE 5 MG TABLET (FP) PO SCH (11:21)
[2018-03-14] MEDS: CARVEDILOL 3.125 MG TABLET (FP) PO SCH ×2 (11:21→22:38)
[2018-03-14] MEDS: HYDROCHLOROTHIAZIDE 25 MG TABLET (FP) PO SCH (11:21)
[2018-03-14] MEDS: NICOTINE 14 MG/24 HOURS TOPICAL PATCH TD SCH (11:21)
[2018-03-14] MEDS: CLOPIDOGREL BISULFATE 75 MG TABLET (FP) PO SCH (11:21)
[2018-03-14] MEDS: BUDESONIDE/FORMETEROL FUMARATE 160/4.5 mcg INHALER IH SCH ×2 (11:22→22:47)
[2018-03-14] MEDS: PANTOPRAZOLE 40 MG TABLET (FP) PO SCH (11:22)
[2018-03-14 12:06] LABS: ANISOCYTOSIS 0; MACROCYTOSIS 0; PLATELET ESTIMATE NORMAL
--- NOTE | 2018-03-14 16:41 | PN ---
Physical Exam: SUBJECTIVE: Patient seen and examined OBJECTIVE: Vital Signs Period Temp Pulse Resp BP Sys/Astorga Pulse Ox Last 24 Hr 97.8 F-98.5 F 75-89 18-20 173-185/102-113 96-96 GENERAL: The patient is awake, alert, and fully oriented, in no acute distress. HEAD: Normal with no signs of trauma. EYES: PERRL, extraocular movements intact, sclera anicteric, conjunctiva clear. No ptosis. ENT: Ears normal, nares patent, oropharynx clear without exudates, moist mucous membranes. NECK: Trachea midline, full range of motion, supple. LUNGS: Breath sounds equal, clear to auscultation bilaterally, no wheezes, no crackles, no accessory muscle use. HEART: Regular rate and rhythm, S1, S2 without murmur, rub or gallop. ABDOMEN: Soft, nontender, nondistended, normoactive bowel sounds, no guarding, no rebound, no hepatosplenomegaly, no masses. EXTREMITIES: 2+ pulses, warm, well-perfused, no edema. NEUROLOGICAL: Cranial nerves II through XII grossly intact. Normal speech, gait not observed. PSYCH: Normal mood, normal affect. SKIN: Warm, dry, normal turgor, no rashes or lesions noted Laboratory Results - last 24 hr 03/14/18 03/14/18 05:30 06:00 WBC 10.4 H RBC 4.38 Hgb 13.0 Hct 38.4 MCV 87.7 MCH 29.8 MCHC 33.9 RDW 14.2 Plt Count 189 MPV 9.7 D Absolute Neuts (auto) 9.7 H Neutrophils % 93.2 H Neutrophils % (Manual) 92.1 H Band Neutrophils % 0.0 Lymphocytes % 4.7 L D Lymphocytes % (Manual) 3.9 L Monocytes % 2.0 L Monocytes % (Manual) 4 Eosinophils % 0.0 D Eosinophils % (Manual) 0.0 Basophils % 0.1 Basophils % (Manual) 0.0 Myelocytes % (Man) 0 Promyelocytes % (Man) 0 Blast Cells % (Manual) 0 Nucleated RBC % 0 Metamyelocytes 0 Hypochromia 0 Platelet Estimate Normal Polychromasia 0 Poikilocytosis 0 Anisocytosis 0 Microcytosis 0 Macrocytosis 0 Sodium 137 Potassium 3.9 Chloride 102 Carbon Dioxide 27 Anion Gap 8 BUN 18 Creatinine 0.9 Creat Clearance w eGFR > 60 Random Glucose 135 H Calcium 8.7 Magnesium 2.2 Total Bilirubin 0.2 AST 12 L ALT 15 Alkaline Phosphatase 54 Total Protein 8.2 Albumin 3.1 L Active Medications Generic Name Dose Route Start Last Admin Trade Name Gaudencio PRN Reason Stop Dose Admin Albuterol/Ipratropium 1 amp 03/13/18 11:02 03/14/18 06:40 Duoneb - NEB 1 amp Q4H PRN Administration SHORTNESS OF BREATH Amlodipine Besylate 5 mg 03/13/18 10:00 03/14/18 11:21 Norvasc - PO 5 mg DAILY NILA Administration Budesonide/Formoterol Fumarate 2 puff 03/13/18 11:15 03/14/18 11:22 Symbicort 160/4.5mcg - IH 2 puff BID NILA Administration Carvedilol 3.125 mg 03/12/18 22:00 03/14/18 11:21 Coreg - PO 3.125 mg BID NILA Administration Clopidogrel Bisulfate 150 mg 03/13/18 10:00 03/14/18 11:21 Plavix - PO 150 mg DAILY NILA Administration Hydrochlorothiazide 25 mg 03/13/18 17:30 03/14/18 11:21 Hctz - PO 25 mg DAILY NILA Administration Lidocaine 1 patch 03/12/18 17:00 03/14/18 11:20 Lidoderm Patch - TP 1 patch DAILY NILA Administration Methylprednisolone Sodium Succinate 60 mg 03/14/18 18:00 Solu-Medrol - IVPUSH Q8H-IV NILA Miscellaneous 1 each 03/12/18 22:00 03/13/18 21:57 Lidoderm Patch Removal MC Not Given DAILY@2200 NILA Nicotine 14 mg 03/13/18 11:15 03/14/18 11:21 Nicoderm Patch - TD 14 mg DAILY NILA Administration Oxycodone HCl 20 mg 03/12/18 22:00 03/14/18 09:00 Oxycontin - PO 20 mg BID NILA Administration Pantoprazole Sodium 40 mg 03/13/18 10:00 03/14/18 11:22 Protonix - PO 40 mg DAILY NILA Administration ASSESSMENT/PLAN:
[2018-03-14] MEDS ORDERED: amLODIPine BESYLATE 5 MG TABLET (FP) PO ONE (16:44)
--- NOTE | 2018-03-14 17:32 | ECHO ---
Name: JIMMIE HARRELL Exam:Adult Echocardiogram Study Date: 03/14/2018 09:58 AM Age: 53 yrs Reason For Study: SOB Height: 72 in Weight: 220 lb BSA: 2.2 m2 MMode/2D Measurements & Calculations IVSd: 1.5 cm Ao root diam: 3.3 cm LVIDd: 5.2 cm LA dimension: 4.3 cm LVIDs: 3.6 cm LVPWd: 1.4 cm EDV(Teich): 126.7 ml LAV (MOD-bp): 98.6 ml ESV(Teich): 55.0 ml Doppler Measurements & Calculations MV E max kehinde: 84.4 cm/sec MR max kehinde: 467.7 cm/sec MV A max kehinde: 131.9 cm/sec MR max P.0 mmHg MV E/A: 0.64 MV dec time: 0.19 sec TR max kehinde: 230.8 cm/sec Med Peak E' Kehinde: 4.9 cm/sec TR max P.3 mmHg Med E/e': 17.1 Lat Peak E' Kehinde: 5.9 cm/sec Lat E/e': 14.4 PI Vmax: 161.5 cm/sec Procedure The study was technically adequate with some images being suboptimal in quality. Left Ventricle The left ventricle is normal in size. There is mild concentric left ventricular hypertrophy. The left ventricle is hyperdynamic. Ejection Fraction = >70%. Grade I diastolic dysfunction, (abnormal relaxat ion pattern). Right Ventricle The right ventricle is normal in size and function. Atria The left atrium is mildly dilated. Right atrial size is normal. Mitral Valve There is moderate to severe mitral annular calcification. The mitral valve is grossly normal. There i s trace to mild mitral regurgitation. Tricuspid Valve The tricuspid valve is not well visualized, but is grossly normal. There is trace tricuspid regurgita tion. There was insufficient TR detected to calculate RV systolic pressure. Aortic Valve The aortic valve opens well. The aortic valve is trileaflet. Trace aortic regurgitation. Pulmonic Valve The pulmonic valve is not well visualized. There is no pulmonic valvular regurgitation. Great Vessels The aortic root is normal size. Pericardium/Pleura There is no pericardial effusion. Interpretation Summary There is no comparison study available. The left ventricle is normal in size. Trace aortic regurgitation. The left atrium is mildly dilated. The right ventricle is normal in size and function. There is trace tricuspid regurgitation. There is trace to mild mitral regurgitation. Mikey Theodore MD 03/14/2018 05:32 PM
[2018-03-14] MEDS ORDERED: oxyCODONE HCL 5 MG TABLET ONE (17:37)
[2018-03-14] MEDS: LIDOCAINE PATCH REMOVAL MC SCH (22:38)
[2018-03-14] MEDS: HEPARIN NA (PORCINE) 5,000 UNITS/ML 1ML VIAL SQ SCH (22:38)
[2018-03-15] MEDS ORDERED: oxyCODONE HCL 5 MG TABLET PO ONE (00:41)
[2018-03-15] MEDS: methylPREDNISolone NA SUCC 40 MG/1 ML VIAL IVPUSH SCH ×3 (01:19→17:10)
[2018-03-15] MEDS: ALBUTEROL SO4 2.5/IPRATROPIUM 0.5 INH SOL 3 ML VIAL.NEB. NEB SCH ×4 (09:04→21:11)
[2018-03-15] MEDS: oxyCODONE HCL 20 MG SUSTAINED ACTING TABLET PO SCH (09:43)
[2018-03-15] MEDS: LIDOCAINE 5% TOPICAL PATCH TP SCH (09:50)
[2018-03-15] MEDS: amLODIPine BESYLATE 10 MG TABLET (FP) PO SCH (09:50)
[2018-03-15] MEDS: NICOTINE 14 MG/24 HOURS TOPICAL PATCH TD SCH (09:50)
[2018-03-15] MEDS: HEPARIN NA (PORCINE) 5,000 UNITS/ML 1ML VIAL SQ SCH ×2 (09:50→22:04)
[2018-03-15] MEDS: CLOPIDOGREL BISULFATE 75 MG TABLET (FP) PO SCH (09:50)
[2018-03-15] MEDS: CARVEDILOL 3.125 MG TABLET (FP) PO SCH (09:50)
[2018-03-15] MEDS: PANTOPRAZOLE 40 MG TABLET (FP) PO SCH (09:50)
[2018-03-15] MEDS: HYDROCHLOROTHIAZIDE 25 MG TABLET (FP) PO SCH (09:50)
--- NOTE | 2018-03-15 10:30 | PN ---
Progress Note (short form) - Note Progress Note: s: no chest pain, palps, dizziness, edema, dyspnea. improving cough tele: sinus rhythm, PVCs, sinus tachy Current Medications Albuterol/Ipratropium (Duoneb -) 1 amp NEB Q4H [facility] Last Admin: 03/15/18 09:04 Dose: 1 amp Amlodipine Besylate (Norvasc -) 10 mg PO DAILY [facility] Last Admin: 03/15/18 09:50 Dose: 10 mg Budesonide/Formoterol Fumarate (Symbicort 160/4.5mcg -) 2 puff IH BID [facility] Last Admin: 03/14/18 22:47 Dose: 2 puff Carvedilol (Coreg -) 3.125 mg PO BID [facility] Last Admin: 03/15/18 09:50 Dose: 3.125 mg Clopidogrel Bisulfate (Plavix -) 150 mg PO DAILY [facility] Last Admin: 03/15/18 09:50 Dose: 150 mg Guaifenesin (Robitussin Dm -) 10 ml PO Q8H PRN PRN Reason: COUGH Heparin Sodium (Porcine) (Heparin -) 5,000 unit SQ BID [facility] Last Admin: 03/15/18 09:50 Dose: 5,000 unit Hydrochlorothiazide (Hctz -) 25 mg PO DAILY [facility] Last Admin: 03/15/18 09:50 Dose: 25 mg Lidocaine (Lidoderm Patch -) 1 patch TP DAILY [facility] Last Admin: 03/15/18 09:50 Dose: 1 patch Miscellaneous (Lidoderm Patch Removal) 1 each MC DAILY@2200 [facility] Last Admin: 03/14/18 22:38 Dose: 1 each Nicotine (Nicoderm Patch -) 14 mg TD DAILY [facility] Last Admin: 03/15/18 09:50 Dose: 14 mg Oxycodone HCl (Oxycontin -) 20 mg PO BID [facility] Last Admin: 03/15/18 09:43 Dose: 20 mg Pantoprazole Sodium (Protonix -) 40 mg PO DAILY [facility] Last Admin: 03/15/18 09:50 Dose: 40 mg Prednisone (Deltasone -) 30 mg PO DAILY [facility] Stop: 03/17/18 10:01 Vital Signs: Vital Signs Period Temp Pulse Resp BP Sys/Astorga Pulse Ox Last 24 Hr 97.8 F-98.5 F 75-94 20-20 135-185/90-122 98 Constitutional: Yes: Well Nourished, No Distress Eyes: Yes: Conjunctiva Clear, EOM Intact HENT: Yes: Atraumatic, Normocephalic Neck: Yes: Supple, Trachea Midline Respiratory: Yes: Regular, Wheezes Gastrointestinal: Yes: Normal Bowel Sounds, Soft Cardiovascular: Yes: Regular Rate and Rhythm JVD: No Carotid Bruit: No Heart Sounds: Yes: S1, S2 Musculoskeletal: Yes: Back Pain Extremities: Yes: WNL Edema: No Peripheral Pulses WNL: No Peripheral Pulses: 2+ Left Doralis Pedis, 2+ Right Dorsalis Pedis Integumentary: Yes: WNL Neurological: Yes: Alert, Oriented ...Motor Strength: WNL Psychiatric: Yes: Alert, Oriented Assessment/Plan EKG: LVH, nonspecific T wave changes, prolonged QTC 473 ms CXR: no acute process echo: nl LV/RV size and function, tr AR, tr to mild MR tele: sinus rhythm 53M h/o nonobstructive CAD s/p cath 2010, HTN, chronic low back pain, smoker p/ w chest pain, cough, chest congestion Chest pain, cough - neg trops, stable EKG without ischemic changes unlikely ACS - chest pain most likely pleuritic in setting of cough, less consistent with ACS - BNP 830 however clinical picture not c/w heart failure - on IV steroids, nebs for cough - pulm following, CT chest shows mild COPD - echo nl LV function - no further cardiac workup as inpatient HTN - not controlled, HCTZ started yesterday, on amlodipine Current smoker - patient thinking about quitting Chronic low back pain - on pain meds per primary
--- NOTE | 2018-03-15 11:09 | PN ---
Progress Note, Physician History of Present Illness: pulmonary alert,feeling better,still congested - Current Medication List Current Medications: Active Medications Albuterol/Ipratropium (Duoneb -) 1 amp NEB Q4H [facility] Last Admin: 03/15/18 09:04 Dose: 1 amp Amlodipine Besylate (Norvasc -) 10 mg PO DAILY [facility] Last Admin: 03/15/18 09:50 Dose: 10 mg Budesonide/Formoterol Fumarate (Symbicort 160/4.5mcg -) 2 puff IH BID [facility] Last Admin: 03/14/18 22:47 Dose: 2 puff Carvedilol (Coreg -) 3.125 mg PO BID [facility] Last Admin: 03/15/18 09:50 Dose: 3.125 mg Clopidogrel Bisulfate (Plavix -) 150 mg PO DAILY [facility] Last Admin: 03/15/18 09:50 Dose: 150 mg Guaifenesin (Robitussin Dm -) 10 ml PO Q8H PRN PRN Reason: COUGH Heparin Sodium (Porcine) (Heparin -) 5,000 unit SQ BID [facility] Last Admin: 03/15/18 09:50 Dose: 5,000 unit Hydrochlorothiazide (Hctz -) 25 mg PO DAILY [facility] Last Admin: 03/15/18 09:50 Dose: 25 mg Lidocaine (Lidoderm Patch -) 1 patch TP DAILY [facility] Last Admin: 03/15/18 09:50 Dose: 1 patch Miscellaneous (Lidoderm Patch Removal) 1 each MC DAILY@2200 [facility] Last Admin: 03/14/18 22:38 Dose: 1 each Nicotine (Nicoderm Patch -) 14 mg TD DAILY [facility] Last Admin: 03/15/18 09:50 Dose: 14 mg Oxycodone HCl (Oxycontin -) 20 mg PO BID [facility] Last Admin: 03/15/18 09:43 Dose: 20 mg Pantoprazole Sodium (Protonix -) 40 mg PO DAILY [facility] Last Admin: 03/15/18 09:50 Dose: 40 mg Prednisone (Deltasone -) 30 mg PO DAILY [facility] Stop: 03/17/18 10:01 - Objective Vital Signs: Vital Signs Temperature 98.3 F 03/15/18 05:49 Pulse Rate 94 H 03/15/18 09:47 Respiratory Rate 20 03/15/18 05:49 Blood Pressure 135/90 03/15/18 05:49 O2 Sat by Pulse Oximetry (%) 98 03/15/18 09:47 Constitutional: Yes: Well Nourished, Calm Eyes: Yes: WNL HENT: Yes: WNL Neck: Yes: WNL Cardiovascular: Yes: Regular Rate and Rhythm, S1, S2 Respiratory: Yes: Wheezes (bilateral wheezes) Gastrointestinal: Yes: Normal Bowel Sounds, Soft Extremities: Yes: WNL Edema: No Labs: CBC, BMP 03/14/18 05:30 03/14/18 06:00 INR, PTT INR 1.08 (0.83-1.09) 03/12/18 13:44 Problem List - Problems (1) Acute asthmatic bronchitis Code(s): J45.909 - UNSPECIFIED ASTHMA, UNCOMPLICATED (2) URI (upper respiratory infection) Code(s): J06.9 - ACUTE UPPER RESPIRATORY INFECTION, UNSPECIFIED (3) Chronic low back pain Code(s): M54.5 - LOW BACK PAIN; G89.29 - OTHER CHRONIC PAIN Qualifiers: Back pain laterality: bilateral Sciatica presence: without sciatica Qualified Code(s): M54.5 - Low back pain (4) Tobacco abuse Code(s): Z72.0 - TOBACCO USE (5) Tobacco abuse counseling Code(s): Z71.6 - TOBACCO ABUSE COUNSELING (6) HTN (hypertension) Code(s): I10 - ESSENTIAL (PRIMARY) HYPERTENSION (7) Chest pain Code(s): R07.9 - CHEST PAIN, UNSPECIFIED Qualifiers: Chest pain type: unspecified Qualified Code(s): R07.9 - Chest pain, unspecified (8) Dyspnea Code(s): R06.00 - DYSPNEA, UNSPECIFIED (9) ASHD (arteriosclerotic heart disease) Code(s): I25.10 - ATHSCL HEART DISEASE OF [place] CORONARY ARTERY W/O ANG PCTRS Assessment/Plan IMP DYSPNEA improving ACUTE ASTHMATIC BRONCHITIS CHEST PAIN ASHD S/P CO HTN TOBACCO ABUSE PLAN STEROIDS O2 INHALED BRONCHODILATORS TITRATE BP MEDS SMOKING CESSATION COUNSELED YEARLY LOW DOSE CHEST CT FOR LUNG CANCER SCREENING OUTPATIENT PFTS DR BENAVIDES Problem List - Problems (1) Acute asthmatic bronchitis Code(s): J45.909 - UNSPECIFIED ASTHMA, UNCOMPLICATED (2) URI (upper respiratory infection) Code(s): J06.9 - ACUTE UPPER RESPIRATORY INFECTION, UNSPECIFIED (3) Chronic low back pain Code(s): M54.5 - LOW BACK PAIN; G89.29 - OTHER CHRONIC PAIN Qualifiers: Back pain laterality: bilateral Sciatica presence: without sciatica Qualified Code(s): M54.5 - Low back pain (4) Tobacco abuse Code(s): Z72.0 - TOBACCO USE (5) Tobacco abuse counseling Code(s): Z71.6 - TOBACCO ABUSE COUNSELING (6) HTN (hypertension) Code(s): I10 - ESSENTIAL (PRIMARY) HYPERTENSION (7) Chest pain Code(s): R07.9 - CHEST PAIN, UNSPECIFIED Qualifiers: Chest pain type: unspecified Qualified Code(s): R07.9 - Chest pain, unspecified (8) Dyspnea Code(s): R06.00 - DYSPNEA, UNSPECIFIED (9) ASHD (arteriosclerotic heart disease) Code(s): I25.10 - ATHSCL HEART DISEASE OF [place] CORONARY ARTERY W/O ANG PCTRS
[2018-03-15] MEDS: BUDESONIDE/FORMETEROL FUMARATE 160/4.5 mcg INHALER IH SCH ×2 (11:34→21:59)
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
--- NOTE | 2018-03-15 14:42 | PN ---
"Physical Exam: SUBJECTIVE: Patient seen and examined oob to chair. Concern he is not getting the amount of oxycodone he is prescribed at home. Verified his dosing with ISTOP. Still with cough productive of clear sputum. OBJECTIVE: Vital Signs Period Temp Pulse Resp BP Sys/Astorga Pulse Ox Last 24 Hr 98 F-98.5 F 75-94 20-28 135-180/90-122 98-98 GENERAL: The patient is awake, alert, and fully oriented, in no acute distress. LUNGS: Diffuse inspiratory and expiratory wheezing; cough with inspiration HEART: Regular rate and rhythm, S1, S2 ABDOMEN: Soft, nontender, nondistended EXTREMITIES: 2+ pulses, warm, well-perfused, no edema. NEUROLOGICAL: Cranial nerves II through XII grossly intact. Normal speech, steady gait Current Medications Generic Name Dose Route Start Last Admin Trade Name Freq PRN Reason Stop Dose Admin Albuterol/Ipratropium 1 amp 03/15/18 08:15 03/15/18 16:41 Duoneb - NEB 1 amp Q4H [facility] Administration Amlodipine Besylate 10 mg 03/15/18 10:00 03/15/18 09:50 Norvasc - PO 10 mg DAILY [facility] Administration Aspirin 81 mg 03/15/18 15:15 03/15/18 15:22 Ecotrin - PO 81 mg DAILY [facility] Administration Atorvastatin Calcium 40 mg 03/16/18 22:00 Lipitor - PO HS [facility] Budesonide/Formoterol Fumarate 2 puff 03/13/18 11:15 03/15/18 11:34 Symbicort 160/4.5mcg - IH 2 puff BID [facility] Administration Carvedilol 25 mg 03/15/18 22:00 Coreg - PO BID [facility] Cefuroxime Axetil 500 mg 03/15/18 22:00 Ceftin - PO BID [facility] Chlorthalidone 25 mg 03/15/18 17:45 [place] - PO DAILY [facility] Clopidogrel Bisulfate 75 mg 03/16/18 10:00 Plavix - PO DAILY [facility] Guaifenesin 10 ml 03/14/18 16:43 Robitussin Dm - PO Q8H PRN COUGH Heparin Sodium (Porcine) 5,000 unit 03/14/18 22:00 03/15/18 09:50 Heparin - SQ 5,000 unit BID [facility] Administration Lidocaine 1 patch 03/12/18 17:00 03/15/18 09:50 Lidoderm Patch - TP 1 patch DAILY [facility] Administration Methylprednisolone Sodium Succinate 40 mg 03/15/18 11:15 03/15/18 17:10 Solu-Medrol - IVPUSH 40 mg Q8H-IV [facility] Administration Miscellaneous 1 each 03/12/18 22:00 03/14/18 22:38 Lidoderm Patch Removal MC 1 each DAILY@2200 [facility] Administration Nicotine 14 mg 03/13/18 11:15 03/15/18 09:50 Nicoderm Patch - TD 14 mg DAILY [facility] Administration Oxycodone HCl 30 mg 03/15/18 15:00 03/15/18 15:22 Roxicodone - PO 30 mg TID [facility] Administration Pantoprazole Sodium 40 mg 03/13/18 10:00 03/15/18 09:50 Protonix - PO 40 mg DAILY [facility] Administration ASSESSMENT/PLAN 53 year-old male with a PMH significant for HTN, non-obstructive CAD (cath 2009) , chronic lower back pain, current smoker. Admitted for chest pain and COPD exacerbation/asthmatic bronchitis. Also with hypertensive urgency. Chest pain --serial troponins negative --ECG not suggestive of acute ischemic event --CXR unremarkable --ACS ruled out --Echo: mild cLVH, LV hyperdynamic EF 70%, Grade I diastolic dysfunction; RV normal; LAE; trace to mild MR; trace TR; trace AI --seen and evaluated by cardiology COPD exacerbation/asthmatic bronchitis --03/13 CT chest: mild to moderate COPD --still wheezing --continue IV steroids, Symbicort, duonebs --afebrile and no leukocytosis but sputum culture from 03/12 +beta hemolytic strep, pending further isolation; seen and evaluated by ID, start ceftin 500mg BID Hypertension --verified cardiac meds with hotel service supervisor's office and made changes to home med list --carvedilol 25mg BID, amlodipine 10mg daily, chlorthalidone 25mg daily Coronary artery disease --continue Plavix 75mg daily, ASA 81mg daily, atorvastatin, carvedilol Chronic low back pain --oxycodone 30mg q8h (see ISTOP below) Tobacco cessation --nicotine patch FEN Fluids: PO intake adequate ELectrolytes: replete as indicated Nutrition: low sodium DVT prophylaxis: subq heparin Dispo: continues to require inpatient care. Full code. This report was requested by: Enriqueta Park | Reference #: [id number] Others' Prescriptions Patient Name: Yasir Rob Date: 1965 Address: [address] [place] [address] Sex: Male Rx Written Rx Dispensed Drug Quantity Days Supply Prescriber Name 02/23/2018 03/03/2018 oxycodone hcl 30 mg tablet 90 30 Tasca, Mitesh JOLLEY 02/02/2018 02/04/2018 oxycodone hcl 30 mg tablet 90 30 Tasca, Mitesh JOLLEY 01/12/2018 01/12/2018 oxycodone hcl 30 mg tablet 90 30 Tasca, Mitesh JOLLEY 12/16/2017 12/16/2017 oxycodone hcl 30 mg tablet 90 30 Tasca, Mitesh 11/17/2017 11/22/2017 oxycodone hcl 30 mg tablet 90 30 Tasca, Mitesh JOLLEY 10/27/2017 10/27/2017 oxycodone hcl 30 mg tablet 90 30 Tasca, Mitesh JOLLEY 09/29/2017 09/29/2017 oxycodone hcl 30 mg tablet 90 30 Tasca, Mitesh JOLLEY 09/01/2017 09/01/2017 oxycodone hcl 30 mg tablet 90 30 Tasca, Mitesh 08/04/2017 08/04/2017 oxycodone hcl 30 mg tablet 90 30 Tasca, Mitesh JOLLEY 07/17/2017 07/17/2017 oxycodone-acetaminophen 10-325 mg tab 12 3 ScilianoAle (RPA-C) 07/02/2017 07/02/2017 oxycodone hcl 30 mg tablet 110 30 Ramses Olivera A, M D 06/02/2017 06/02/2017 oxycodone hcl 30 mg tablet 110 30 Damon Singh NP 05/03/2017 05/03/2017 oxycodone hcl 30 mg tablet 110 30 Damon Singh NP 04/02/2017 04/02/2017 oxycodone hcl 30 mg tablet 120 30 Damon Singh NP Visit type - Emergency Visit Emergency Visit: Yes ED Registration Date: 03/13/18 Care time: The patient presented to the Emergency Department on the above date and was hospitalized for further evaluation of their emergent condition. - New Patient This patient is new to me today: Yes Date on this admission: 03/15/18 - Critical Care Critical Care patient: No"
[2018-03-15] MEDS ORDERED: CARVEDILOL 6.25 MG TABLET (FP) PO SCH (14:45)
[2018-03-15] MEDS ORDERED: CARVEDILOL 25 MG TABLET (FP) PO SCH (14:59)
[2018-03-15] MEDS: ASPIRIN COATED 81 MG TABLET.EC PO SCH (15:22)
[2018-03-15] MEDS: oxyCODONE HCL 5 MG TABLET PO SCH ×2 (15:22→22:00)
[2018-03-15] MEDS ORDERED: CARVEDILOL 25 MG TABLET (FP) PO ONE (17:30)
[2018-03-15] MEDS ORDERED: CARVEDILOL 25 MG TABLET (FP) PO STA (17:30)
[2018-03-15] MEDS ORDERED: CHLORTHALIDONE 25 MG TABLET PO STA (17:31)
[2018-03-15] MEDS ORDERED: CHLORTHALIDONE 25 MG TABLET PO SCH ×2 (17:45)
[2018-03-15] MEDS ORDERED: PT OWN MED DRAWER 7, Y5N ONE (20:45)
[2018-03-15] MEDS: LIDOCAINE PATCH REMOVAL MC SCH (22:00)
[2018-03-15] MEDS: CARVEDILOL 25 MG TABLET (FP) PO SCH (22:01)
[2018-03-15] MEDS: CEFUROXIME AXETIL 500 MG TABLET PO SCH (22:01)
[2018-03-15] MEDS: CHLORTHALIDONE 25 MG TABLET PO SCH (22:02)
[2018-03-16] MEDS: ALBUTEROL SO4 2.5/IPRATROPIUM 0.5 INH SOL 3 ML VIAL.NEB. NEB SCH ×2 (00:07→05:34)
[2018-03-16] MEDS: methylPREDNISolone NA SUCC 40 MG/1 ML VIAL IVPUSH SCH ×3 (01:52→18:16)
[2018-03-16] MEDS: oxyCODONE HCL 5 MG TABLET PO SCH ×3 (05:49→21:25)
[2018-03-16 06:15] LABS: BASO % 0.1 % (0-2.0); HEMATOCRIT 39.7 % (35.4-49); HEMOGLOBIN 13.2 GM/dL (11.7-16.9); LYMPH % 10.7 % (8-40); MCH 29.2 pg (25.7-33.7); MCHC 33.2 g/dl (32.0-35.9); MEAN CELL VOLUME 88.1 fl (80-96); MEAN PLT VOLUME 9.6 fl (7.5-11.1); MONO % 5.1 % (3.8-10.2); NEUT % 84.1 % (42.8-82.8); PLATELET COUNT 185 K/MM3 (134-434); RBC 4.51 M/mm3 (4.00-5.60); RDW 13.6 % (11.9-15.9); WHITE BLOOD COUNT 8.8 K/mm3 (4.0-10.0)
[2018-03-16 06:47] LABS: ALBUMIN 3.1 g/dl (3.4-5.0); ALK PHOS 50 U/L (45-117); ANION GAP 8 MMOL/L (8-16); BILIRUBIN,TOTAL 0.2 mg/dL (0.2-1); BLOOD UREA NITROGEN 22 mg/dL (7-18); CALCIUM 9.1 mg/dL (8.5-10.1); CHLORIDE 102 mmol/L (98-107); CO2 30 mmol/L (21-32); CREATININE 0.8 mg/dL (0.55-1.3); GLUCOSE,RANDOM 108 mg/dL (74-106); MAGNESIUM 2.3 mg/dL (1.8-2.4); POTASSIUM 3.7 mmol/L (3.5-5.1); SGOT/AST 21 U/L (15-37); SGPT/ALT 28 U/L (13-61); SODIUM 139 mmol/L (136-145); TOT PROT 7.6 g/dl (6.4-8.2)
[2018-03-16] MEDS ORDERED: predniSONE 10 MG TABLET (UD) PO SCH (10:00)
[2018-03-16] MEDS ORDERED: CHLORTHALIDONE 25 MG TABLET PO SCH (10:00)
[2018-03-16] MEDS: ASPIRIN COATED 81 MG TABLET.EC PO SCH (10:10)
[2018-03-16] MEDS: amLODIPine BESYLATE 10 MG TABLET (FP) PO SCH (10:10)
[2018-03-16] MEDS: HEPARIN NA (PORCINE) 5,000 UNITS/ML 1ML VIAL SQ SCH ×2 (10:10→21:25)
[2018-03-16] MEDS: CLOPIDOGREL BISULFATE 75 MG TABLET (FP) PO SCH (10:10)
[2018-03-16] MEDS: CARVEDILOL 25 MG TABLET (FP) PO SCH ×2 (10:10→21:26)
[2018-03-16] MEDS: PANTOPRAZOLE 40 MG TABLET (FP) PO SCH (10:10)
[2018-03-16] MEDS: LIDOCAINE 5% TOPICAL PATCH TP SCH (10:11)
[2018-03-16] MEDS: CHLORTHALIDONE 25 MG TABLET PO SCH (10:11)
[2018-03-16] MEDS: NICOTINE 14 MG/24 HOURS TOPICAL PATCH TD SCH (10:11)
[2018-03-16] MEDS: BUDESONIDE/FORMETEROL FUMARATE 160/4.5 mcg INHALER IH SCH ×2 (10:12→21:27)
[2018-03-16] MEDS: CEFUROXIME AXETIL 500 MG TABLET PO SCH ×2 (10:12→21:27)
[2018-03-16] MEDS: ALBUTEROL SO4 0.083% IH SOL 2.5 MG/3 ML VIAL.NEB. NEB PRN (10:35)
--- NOTE | 2018-03-16 10:38 | PN ---
Progress Note (short form) - Note Progress Note: s: no chest pain, palps, dizziness, edema, dyspnea. improving cough tele: sinus rhythm, PVCs, sinus tachy Current Medications Albuterol/Ipratropium (Duoneb -) 1 amp NEB Q4H [facility] Last Admin: 03/16/18 05:34 Dose: Not Given Amlodipine Besylate (Norvasc -) 10 mg PO DAILY [facility] Last Admin: 03/16/18 10:10 Dose: 10 mg Aspirin (Ecotrin -) 81 mg PO DAILY [facility] Last Admin: 03/16/18 10:10 Dose: 81 mg Atorvastatin Calcium (Lipitor -) 40 mg PO HS [facility] Budesonide/Formoterol Fumarate (Symbicort 160/4.5mcg -) 2 puff IH BID [facility] Last Admin: 03/16/18 10:12 Dose: 2 puff Carvedilol (Coreg -) 25 mg PO BID [facility] Last Admin: 03/16/18 10:10 Dose: 25 mg Cefuroxime Axetil (Ceftin -) 500 mg PO BID [facility] Last Admin: 03/16/18 10:12 Dose: 500 mg Chlorthalidone (Hygroton -) 25 mg PO DAILY [facility] Last Admin: 03/16/18 10:11 Dose: 25 mg Clopidogrel Bisulfate (Plavix -) 75 mg PO DAILY [facility] Last Admin: 03/16/18 10:10 Dose: 75 mg Guaifenesin (Robitussin Dm -) 10 ml PO Q8H PRN PRN Reason: COUGH Heparin Sodium (Porcine) (Heparin -) 5,000 unit SQ BID [facility] Last Admin: 03/16/18 10:10 Dose: 5,000 unit Lidocaine (Lidoderm Patch -) 1 patch TP DAILY [facility] Last Admin: 03/16/18 10:11 Dose: 1 patch Methylprednisolone Sodium Succinate (Solu-Medrol -) 40 mg IVPUSH Q8H-IV [facility] Last Admin: 03/16/18 10:11 Dose: 40 mg Miscellaneous (Lidoderm Patch Removal) 1 each MC DAILY@2200 [facility] Last Admin: 03/15/18 22:00 Dose: 1 each Nicotine (Nicoderm Patch -) 14 mg TD DAILY [facility] Last Admin: 03/16/18 10:11 Dose: 14 mg Oxycodone HCl (Roxicodone -) 30 mg PO TID [facility] Last Admin: 03/16/18 05:49 Dose: 30 mg Pantoprazole Sodium (Protonix -) 40 mg PO DAILY [facility] Last Admin: 03/16/18 10:10 Dose: 40 mg Vital Signs: Vital Signs Period Temp Pulse Resp BP Sys/Astorga Pulse Ox Last 24 Hr 98.2 F-98.5 F 68-92 17-20 153-189/92-144 98 Constitutional: Yes: Well Nourished, No Distress Eyes: Yes: Conjunctiva Clear, EOM Intact HENT: Yes: Atraumatic, Normocephalic Neck: Yes: Supple, Trachea Midline Respiratory: Yes: Regular, Wheezes Gastrointestinal: Yes: Normal Bowel Sounds, Soft Cardiovascular: Yes: Regular Rate and Rhythm JVD: No Carotid Bruit: No Heart Sounds: Yes: S1, S2 Musculoskeletal: Yes: Back Pain Extremities: Yes: WNL Edema: No Peripheral Pulses WNL: No Peripheral Pulses: 2+ Left Doralis Pedis, 2+ Right Dorsalis Pedis Integumentary: Yes: WNL Neurological: Yes: Alert, Oriented ...Motor Strength: WNL Psychiatric: Yes: Alert, Oriented Assessment/Plan EKG: LVH, nonspecific T wave changes, prolonged QTC 473 ms CXR: no acute process echo: nl LV/RV size and function, tr AR, tr to mild MR tele: sinus rhythm 53M h/o nonobstructive CAD s/p cath 2010, HTN, chronic low back pain, smoker p/ w chest pain, cough, chest congestion Chest pain, cough - neg trops, stable EKG without ischemic changes unlikely ACS - chest pain most likely pleuritic in setting of cough, less consistent with ACS - BNP 830 however clinical picture not c/w heart failure - on IV steroids, nebs for cough - pulm following, CT chest shows mild COPD - echo nl LV function - no further cardiac workup as inpatient, stable from cardiac perspective HTN - not controlled, HCTZ started yesterday, on amlodipine Current smoker - patient wants to quit Chronic low back pain - on pain meds per primary
--- NOTE | 2018-03-16 10:51 | PN ---
Progress Note, Physician History of Present Illness: pulmonary alert,feeling better,less dyspneic,less cough - Current Medication List Current Medications: Active Medications Albuterol/Ipratropium (Duoneb -) [address] [facility] Last Admin: 03/16/18 05:34 Dose: Not Given Amlodipine Besylate (Norvasc -) [address] [facility] Last Admin: 03/16/18 10:10 Dose: 10 mg Aspirin (Ecotrin -) [address] [facility] Last Admin: 03/16/18 10:10 Dose: 81 mg Atorvastatin Calcium (Lipitor -) 40 mg PO [facility] Budesonide/Formoterol Fumarate (Symbicort 160/4.5mcg -) [address] [facility] Last Admin: 03/16/18 10:12 Dose: 2 puff Carvedilol (Coreg -) [address] [facility] Last Admin: 03/16/18 10:10 Dose: 25 mg Cefuroxime Axetil (Ceftin -) [address] [facility] Last Admin: 03/16/18 10:12 Dose: 500 mg Chlorthalidone (Hygroton -) [address] [facility] Last Admin: 03/16/18 10:11 Dose: 25 mg Clopidogrel Bisulfate (Plavix -) [address] [facility] Last Admin: 03/16/18 10:10 Dose: 75 mg Guaifenesin (Robitussin Dm -) 10 ml PO Q8H PRN PRN Reason: COUGH Heparin Sodium (Porcine) (Heparin -) 5,[address] [facility] Last Admin: 03/16/18 10:10 Dose: 5,000 unit Lidocaine (Lidoderm Patch -) [address] [facility] Last Admin: 03/16/18 10:11 Dose: 1 patch Methylprednisolone Sodium Succinate (Solu-Medrol -) 40 mg IVPUSH Q8H-IV [facility] Last Admin: 03/16/18 10:11 Dose: 40 mg Miscellaneous (Lidoderm Patch Removal) 1 each MC DAILY@2200 [facility] Last Admin: 03/15/18 22:00 Dose: 1 each Nicotine (Nicoderm Patch -) [address] [facility] Last Admin: 03/16/18 10:11 Dose: 14 mg Oxycodone HCl (Roxicodone -) [address] [facility] Last Admin: 03/16/18 05:49 Dose: 30 mg Pantoprazole Sodium (Protonix -) 40 mg PO DAILY [facility] Last Admin: 03/16/18 10:10 Dose: 40 mg - Objective Vital Signs: Vital Signs Temperature 98.5 F 03/16/18 10:08 Pulse Rate 77 03/16/18 10:08 Respiratory Rate 20 03/16/18 10:08 Blood Pressure 163/116 H 03/16/18 10:08 O2 Sat by Pulse Oximetry (%) 98 03/16/18 09:00 Constitutional: Yes: Well Nourished, Calm Eyes: Yes: WNL HENT: Yes: WNL Neck: Yes: WNL Cardiovascular: Yes: Regular Rate and Rhythm, S1, S2 Respiratory: Yes: Wheezes (less wheezes bilaterally) Gastrointestinal: Yes: Normal Bowel Sounds, Soft Extremities: Yes: WNL Edema: No Labs: CBC, BMP 03/16/18 05:30 03/16/18 05:30 INR, PTT INR 1.08 (0.83-1.09) 03/12/18 13:44 Problem List - Problems (1) Acute asthmatic bronchitis Code(s): J45.909 - UNSPECIFIED ASTHMA, UNCOMPLICATED (2) URI (upper respiratory infection) Code(s): J06.9 - ACUTE UPPER RESPIRATORY INFECTION, UNSPECIFIED (3) Chronic low back pain Code(s): M54.5 - LOW BACK PAIN; G89.29 - OTHER CHRONIC PAIN Qualifiers: Back pain laterality: bilateral Sciatica presence: without sciatica Qualified Code(s): M54.5 - Low back pain (4) Tobacco abuse Code(s): Z72.0 - TOBACCO USE (5) Tobacco abuse counseling Code(s): Z71.6 - TOBACCO ABUSE COUNSELING (6) HTN (hypertension) Code(s): I10 - ESSENTIAL (PRIMARY) HYPERTENSION (7) Chest pain Code(s): R07.9 - CHEST PAIN, UNSPECIFIED Qualifiers: Chest pain type: unspecified Qualified Code(s): R07.9 - Chest pain, unspecified (8) Dyspnea Code(s): R06.00 - DYSPNEA, UNSPECIFIED (9) ASHD (arteriosclerotic heart disease) Code(s): I25.10 - ATHSCL HEART DISEASE OF [place] CORONARY ARTERY W/O ANG PCTRS Assessment/Plan IMP DYSPNEA improving ACUTE ASTHMATIC BRONCHITIS improving LIKELY COPD CHEST PAIN ASHD S/P [place] HTN TOBACCO ABUSE PLAN STEROIDS SAME DOSE , START PREDNISONE 60 mg IN AM IF CONDITION CONTINUES TO IMPROVE O2 INHALED BRONCHODILATORS TITRATE BP MEDS SMOKING CESSATION COUNSELED YEARLY LOW DOSE CHEST CT FOR LUNG CANCER SCREENING OUTPATIENT PFTS DR BENAVIDES Problem List - Problems (1) Acute asthmatic bronchitis Code(s): J45.909 - UNSPECIFIED ASTHMA, UNCOMPLICATED (2) URI (upper respiratory infection) Code(s): J06.9 - ACUTE UPPER RESPIRATORY INFECTION, UNSPECIFIED (3) Chronic low back pain Code(s): M54.5 - LOW BACK PAIN; G89.29 - OTHER CHRONIC PAIN Qualifiers: Back pain laterality: bilateral Sciatica presence: without sciatica Qualified Code(s): M54.5 - Low back pain (4) Tobacco abuse Code(s): Z72.0 - TOBACCO USE (5) Tobacco abuse counseling Code(s): Z71.6 - TOBACCO ABUSE COUNSELING (6) HTN (hypertension) Code(s): I10 - ESSENTIAL (PRIMARY) HYPERTENSION (7) Chest pain Code(s): R07.9 - CHEST PAIN, UNSPECIFIED Qualifiers: Chest pain type: unspecified Qualified Code(s): R07.9 - Chest pain, unspecified (8) Dyspnea Code(s): R06.00 - DYSPNEA, UNSPECIFIED (9) ASHD (arteriosclerotic heart disease) Code(s): I25.10 - ATHSCL HEART DISEASE OF [place] CORONARY ARTERY W/O ANG PCTRS
[2018-03-16] MEDS: guaiFENesin/D-METHORPHAN HB 10 ML UNIT-DOSE CUPS PO PRN (13:36)
[2018-03-16] MEDS ORDERED: hydrALAZINE HCL 10 MG TABLET PO SCH (14:00)
[2018-03-16] MEDS: TIOTROPIUM BROMIDE 2.5 MCG (SPIRIVA) RESPIMAT INHALER IH SCH (15:48)
--- NOTE | 2018-03-16 20:24 | PN ---
Physical Exam: SUBJECTIVE: Patient seen and examined. Cough is better. OBJECTIVE: Vital Signs Period Temp Pulse Resp BP Sys/[place] Pulse Ox Last 24 Hr 79.1 F-98.5 F 68-83 16-20 153-180/102-116 98-98 GENERAL: The patient is awake, alert, and fully oriented, in no acute distress. LUNGS: Expiratory wheezing and rhonchi; no cough HEART: Regular rate and rhythm, S1, S2 ABDOMEN: Soft, nontender, nondistended EXTREMITIES: 2+ pulses, warm, well-perfused, no edema. NEUROLOGICAL: Cranial nerves II through XII grossly intact. Normal speech, steady gait Laboratory Results - last 24 hr 03/16/18 03/16/18 05:30 05:30 WBC 8.8 RBC 4.51 Hgb 13.2 Hct 39.7 MCV 88.1 MCH 29.2 MCHC 33.2 RDW 13.6 Plt Count 185 MPV 9.6 Absolute Neuts (auto) 7.4 Neutrophils % 84.1 H Lymphocytes % 10.7 D Monocytes % 5.1 D Eosinophils % 0.0 Basophils % 0.1 Nucleated RBC % 0 Sodium 139 Potassium 3.7 Chloride 102 Carbon Dioxide 30 Anion Gap 8 BUN 22 H Creatinine 0.8 Creat Clearance w eGFR > 60 Random Glucose 108 H Calcium 9.1 Magnesium 2.3 Total Bilirubin 0.2 AST 21 ALT 28 Alkaline Phosphatase 50 Total Protein 7.6 Albumin 3.1 L Active Medications Generic Name Dose Route Start Last Admin Trade Name Freq PRN Reason Stop Dose Admin Albuterol Sulfate 1 amp 03/16/18 10:52 03/16/18 10:35 Ventolin 0.083% Nebulizer Soln - NEB 1 amp Q4H PRN Administration SHORT OF BREATH/WHEEZING Amlodipine Besylate 10 mg 03/15/18 10:00 03/16/18 10:10 Norvasc - PO 10 mg DAILY [facility] Administration Aspirin 81 mg 03/15/18 15:15 03/16/18 10:10 Ecotrin - PO 81 mg DAILY [facility] Administration Atorvastatin Calcium 40 mg 03/16/18 22:00 Lipitor - PO HS [facility] Budesonide/Formoterol Fumarate 2 puff 03/13/18 11:15 03/16/18 10:12 Symbicort 160/4.5mcg - IH 2 puff BID [facility] Administration Carvedilol 25 mg 03/15/18 22:00 03/16/18 10:10 Coreg - PO 25 mg BID [facility] Administration Cefuroxime Axetil 500 mg 03/15/18 22:00 03/16/18 10:12 Ceftin - PO 500 mg BID [facility] Administration Chlorthalidone 50 mg 03/17/18 10:00 [place] - PO DAILY [facility] Clopidogrel Bisulfate 75 mg 03/16/18 10:00 03/16/18 10:10 Plavix - PO 75 mg DAILY [facility] Administration Guaifenesin 10 ml 03/14/18 16:43 03/16/18 13:36 Robitussin Dm - PO 10 ml Q8H PRN Administration COUGH Heparin Sodium (Porcine) 5,000 unit 03/14/18 22:00 03/16/18 10:10 Heparin - SQ 5,000 unit BID [facility] Administration Hydralazine HCl 10 mg 03/16/18 14:00 03/16/18 14:34 Apresoline - PO 10 mg TID [facility] Administration Lidocaine 1 patch 03/12/18 17:00 03/16/18 10:11 Lidoderm Patch - TP 1 patch DAILY [facility] Administration Methylprednisolone Sodium Succinate 40 mg 03/15/18 11:15 03/16/18 18:16 Solu-Medrol - IVPUSH 40 mg Q8H-IV [facility] Administration Miscellaneous 1 each 03/12/18 22:00 03/15/18 22:00 Lidoderm Patch Removal MC 1 each DAILY@2200 [facility] Administration Nicotine 14 mg 03/13/18 11:15 03/16/18 10:11 Nicoderm Patch - TD 14 mg DAILY [facility] Administration Oxycodone HCl 30 mg 03/15/18 15:00 03/16/18 13:36 Roxicodone - PO 30 mg TID [facility] Administration Pantoprazole Sodium 40 mg 03/13/18 10:00 03/16/18 10:10 Protonix - PO 40 mg DAILY [facility] Administration Tiotropium [place] 2 puff 03/16/18 11:00 03/16/18 15:48 Spiriva Respimat IH 2 puff DAILY [facility] Administration ASSESSMENT/PLAN 53 year-old male with a PMH significant for HTN, non-obstructive CAD (cath 2009) , chronic lower back pain, current smoker. Admitted for chest pain and COPD exacerbation/asthmatic bronchitis. Also with hypertensive urgency. Chest pain --serial troponins negative --ECG not suggestive of acute ischemic event --CXR unremarkable --ACS ruled out --Echo: mild cLVH, LV hyperdynamic EF 70%, Grade I diastolic dysfunction; RV normal; LAE; trace to mild MR; trace TR; trace AI --seen and evaluated by cardiology COPD exacerbation/asthmatic bronchitis --03/13 CT chest: mild to moderate COPD --continue IV steroids, Symbicort, duonebs --afebrile and no leukocytosis but sputum culture from 03/12 +beta hemolytic strep, pending further isolation; seen and evaluated by ID, continue ceftin 500mg BID (day #2) Hypertension --verified cardiac meds with [employer] office and made changes to home med list --carvedilol 25mg BID, amlodipine 10mg daily, chlorthalidone 25mg daily --start hydralazine 10mg q6h Coronary artery disease --continue Plavix 75mg daily, ASA 81mg daily, atorvastatin, carvedilol Chronic low back pain --oxycodone 30mg q8h Tobacco cessation --nicotine patch FEN Fluids: PO intake adequate ELectrolytes: replete as indicated Nutrition: low sodium DVT prophylaxis: subq heparin Dispo: continues to require inpatient care. Full code. Visit type - Emergency Visit Emergency Visit: Yes ED Registration Date: 03/13/18 Care time: The patient presented to the Emergency Department on the above date and was hospitalized for further evaluation of their emergent condition. - New Patient This patient is new to me today: No - Critical Care Critical Care patient: No
[2018-03-16] MEDS: LIDOCAINE PATCH REMOVAL MC SCH (21:25)
[2018-03-16] MEDS: hydrALAZINE HCL 10 MG TABLET PO SCH (21:26)
[2018-03-16] MEDS: ATORVASTATIN CA 40 MG TABLET (FP) PO SCH (21:26)
[2018-03-17] MEDS: methylPREDNISolone NA SUCC 40 MG/1 ML VIAL IVPUSH SCH ×3 (04:35→17:37)
[2018-03-17] MEDS: oxyCODONE HCL 5 MG TABLET PO SCH ×3 (06:04→21:25)
[2018-03-17] MEDS: hydrALAZINE HCL 10 MG TABLET PO SCH (06:05)
[2018-03-17] MEDS: CARVEDILOL 25 MG TABLET (FP) PO SCH ×3 (06:06→21:26)
[2018-03-17] MEDS ORDERED: hydrALAZINE HCL 50 MG TABLET (FP) PO STA (07:40)
[2018-03-17] MEDS ORDERED: PT OWN MED DRAWER 7, Y5N ONE (08:47)
[2018-03-17] MEDS: TIOTROPIUM BROMIDE 2.5 MCG (SPIRIVA) RESPIMAT INHALER IH SCH (10:37)
[2018-03-17] MEDS: BUDESONIDE/FORMETEROL FUMARATE 160/4.5 mcg INHALER IH SCH ×2 (10:37→21:30)
[2018-03-17] MEDS: LIDOCAINE 5% TOPICAL PATCH TP SCH (10:38)
--- NOTE | 2018-03-17 10:38 | PN ---
Progress Note, Physician History of Present Illness: PULMONARY ALERT,LESS CONGESTED,LESS COUGH - Current Medication List Current Medications: Active Medications Albuterol Sulfate (Ventolin 0.083% Nebulizer Soln -) 1 amp NEB Q4H PRN PRN Reason: SHORT OF BREATH/WHEEZING Last Admin: 03/16/18 10:35 Dose: 1 amp Amlodipine Besylate (Norvasc -) 10 mg PO DAILY [facility] Last Admin: 03/16/18 10:10 Dose: 10 mg Aspirin (Ecotrin -) 81 mg PO DAILY [facility] Last Admin: 03/16/18 10:10 Dose: 81 mg Atorvastatin Calcium (Lipitor -) 40 mg PO HS [facility] Last Admin: 03/16/18 21:26 Dose: 40 mg Budesonide/Formoterol Fumarate (Symbicort 160/4.5mcg -) 2 puff IH BID [facility] Last Admin: 03/16/18 21:27 Dose: 2 puff Carvedilol (Coreg -) 25 mg PO BID [facility] Last Admin: 03/17/18 06:06 Dose: 25 mg Cefuroxime Axetil (Ceftin -) 500 mg PO BID [facility] Last Admin: 03/16/18 21:27 Dose: 500 mg Chlorthalidone (Hygroton -) 50 mg PO DAILY [facility] Clopidogrel Bisulfate (Plavix -) 75 mg PO DAILY [facility] Last Admin: 03/16/18 10:10 Dose: 75 mg Guaifenesin (Robitussin Dm -) 10 ml PO Q8H PRN PRN Reason: COUGH Last Admin: 03/16/18 13:36 Dose: 10 ml Heparin Sodium (Porcine) (Heparin -) 5,000 unit SQ BID [facility] Last Admin: 03/16/18 21:25 Dose: 5,000 unit Hydralazine HCl (Apresoline -) 50 mg PO TID [facility] Lidocaine (Lidoderm Patch -) 1 patch TP DAILY [facility] Last Admin: 03/16/18 10:11 Dose: 1 patch Methylprednisolone Sodium Succinate (Solu-Medrol -) 40 mg IVPUSH Q8H-IV [facility] Last Admin: 03/17/18 04:35 Dose: 40 mg Miscellaneous (Lidoderm Patch Removal) 1 each MC DAILY@2200 [facility] Last Admin: 03/16/18 21:25 Dose: 1 each Nicotine (Nicoderm Patch -) 14 mg TD DAILY [facility] Last Admin: 03/16/18 10:11 Dose: 14 mg Oxycodone HCl (Roxicodone -) 30 mg PO TID [facility] Last Admin: 03/17/18 06:04 Dose: 30 mg Pantoprazole Sodium (Protonix -) 40 mg PO DAILY [facility] Last Admin: 03/16/18 10:10 Dose: 40 mg Tiotropium [place] (Spiriva Respimat) 2 puff IH DAILY [facility] Last Admin: 03/16/18 15:48 Dose: 2 puff - Objective Vital Signs: Vital Signs Temperature 98.2 F 03/17/18 05:55 Pulse Rate 79 03/17/18 09:07 Respiratory Rate 20 03/17/18 09:07 Blood Pressure 150/100 03/17/18 09:07 O2 Sat by Pulse Oximetry (%) 98 03/17/18 09:00 Constitutional: Yes: Well Nourished, Calm, Moderate Distress Eyes: Yes: WNL HENT: Yes: WNL Neck: Yes: WNL Cardiovascular: Yes: Regular Rate and Rhythm, S1, S2 Respiratory: Yes: Wheezes (SCATTERED MARIAM WHEEZES) Gastrointestinal: Yes: Normal Bowel Sounds, Soft Extremities: Yes: WNL Edema: No Labs: CBC, BMP Problem List - Problems (1) Acute asthmatic bronchitis Code(s): J45.909 - UNSPECIFIED ASTHMA, UNCOMPLICATED (2) URI (upper respiratory infection) Code(s): J06.9 - ACUTE UPPER RESPIRATORY INFECTION, UNSPECIFIED (3) Chronic low back pain Code(s): M54.5 - LOW BACK PAIN; G89.29 - OTHER CHRONIC PAIN Qualifiers: Back pain laterality: bilateral Sciatica presence: without sciatica Qualified Code(s): M54.5 - Low back pain (4) Tobacco abuse Code(s): Z72.0 - TOBACCO USE (5) Tobacco abuse counseling Code(s): Z71.6 - TOBACCO ABUSE COUNSELING (6) HTN (hypertension) Code(s): I10 - ESSENTIAL (PRIMARY) HYPERTENSION (7) Chest pain Code(s): R07.9 - CHEST PAIN, UNSPECIFIED Qualifiers: Chest pain type: unspecified Qualified Code(s): R07.9 - Chest pain, unspecified (8) Dyspnea Code(s): R06.00 - DYSPNEA, UNSPECIFIED (9) ASHD (arteriosclerotic heart disease) Code(s): I25.10 - ATHSCL HEART DISEASE OF [place] CORONARY ARTERY W/O ANG PCTRS Assessment/Plan IMP DYSPNEA improving ACUTE ASTHMATIC BRONCHITIS improving LIKELY COPD CHEST PAIN ASHD S/P [place] HTN TOBACCO ABUSE PLAN STEROIDS SAME DOSE O2 INHALED BRONCHODILATORS TITRATE BP MEDS SMOKING CESSATION COUNSELED YEARLY LOW DOSE CHEST CT FOR LUNG CANCER SCREENING OUTPATIENT PFTS DR BENAVIDES Problem List - Problems (1) Acute asthmatic bronchitis Code(s): J45.909 - UNSPECIFIED ASTHMA, UNCOMPLICATED (2) URI (upper respiratory infection) Code(s): J06.9 - ACUTE UPPER RESPIRATORY INFECTION, UNSPECIFIED (3) Chronic low back pain Code(s): M54.5 - LOW BACK PAIN; G89.29 - OTHER CHRONIC PAIN Qualifiers: Back pain laterality: bilateral Sciatica presence: without sciatica Qualified Code(s): M54.5 - Low back pain (4) Tobacco abuse Code(s): Z72.0 - TOBACCO USE (5) Tobacco abuse counseling Code(s): Z71.6 - TOBACCO ABUSE COUNSELING (6) HTN (hypertension) Code(s): I10 - ESSENTIAL (PRIMARY) HYPERTENSION (7) Chest pain Code(s): R07.9 - CHEST PAIN, UNSPECIFIED Qualifiers: Chest pain type: unspecified Qualified Code(s): R07.9 - Chest pain, unspecified (8) Dyspnea Code(s): R06.00 - DYSPNEA, UNSPECIFIED (9) ASHD (arteriosclerotic heart disease) Code(s): I25.10 - ATHSCL HEART DISEASE OF [place] CORONARY ARTERY W/O ANG PCTRS
[2018-03-17] MEDS: HEPARIN NA (PORCINE) 5,000 UNITS/ML 1ML VIAL SQ SCH ×2 (10:40→21:27)
[2018-03-17] MEDS: NICOTINE 14 MG/24 HOURS TOPICAL PATCH TD SCH (10:40)
[2018-03-17] MEDS: amLODIPine BESYLATE 10 MG TABLET (FP) PO SCH (10:41)
[2018-03-17] MEDS: CEFUROXIME AXETIL 500 MG TABLET PO SCH ×2 (10:45→21:31)
[2018-03-17] MEDS: PANTOPRAZOLE 40 MG TABLET (FP) PO SCH (10:46)
[2018-03-17] MEDS: ASPIRIN COATED 81 MG TABLET.EC PO SCH (10:46)
[2018-03-17] MEDS: CLOPIDOGREL BISULFATE 75 MG TABLET (FP) PO SCH (10:46)
[2018-03-17] MEDS: CHLORTHALIDONE 25 MG TABLET PO SCH (10:47)
--- NOTE | 2018-03-17 10:50 | PN ---
Progress Note (short form) - Note Progress Note: s: no chest pain, palps, dizziness, edema, dyspnea. improving cough tele: sinus rhythm Current Medications Generic Name Dose Route Start Last Admin Trade Name Freq PRN Reason Stop Dose Admin Albuterol Sulfate 1 amp 03/16/18 10:52 03/16/18 10:35 Ventolin 0.083% Nebulizer Soln - NEB 1 amp Q4H PRN Administration SHORT OF BREATH/WHEEZING Amlodipine Besylate 10 mg 03/15/18 10:00 03/16/18 10:10 Norvasc - PO 10 mg DAILY [facility] Administration Aspirin 81 mg 03/15/18 15:15 03/16/18 10:10 Ecotrin - PO 81 mg DAILY [facility] Administration Atorvastatin Calcium 40 mg 03/16/18 22:00 03/16/18 21:26 Lipitor - PO 40 mg HS [facility] Administration Budesonide/Formoterol Fumarate 2 puff 03/13/18 11:15 03/16/18 21:27 Symbicort 160/4.5mcg - IH 2 puff BID [facility] Administration Carvedilol 25 mg 03/15/18 22:00 03/17/18 06:06 Coreg - PO 25 mg BID [facility] Administration Cefuroxime Axetil 500 mg 03/15/18 22:00 03/16/18 21:27 Ceftin - PO 500 mg BID [facility] Administration Chlorthalidone 50 mg 03/17/18 10:00 [place] - PO DAILY [facility] Clopidogrel Bisulfate 75 mg 03/16/18 10:00 03/16/18 10:10 Plavix - PO 75 mg DAILY [facility] Administration Guaifenesin 10 ml 03/14/18 16:43 03/16/18 13:36 Robitussin Dm - PO 10 ml Q8H PRN Administration COUGH Heparin Sodium (Porcine) 5,000 unit 03/14/18 22:00 03/16/18 21:25 Heparin - SQ 5,000 unit BID [facility] Administration Hydralazine HCl 50 mg 03/17/18 14:00 Apresoline - PO TID [facility] Lidocaine 1 patch 03/12/18 17:00 03/16/18 10:11 Lidoderm Patch - TP 1 patch DAILY [facility] Administration Methylprednisolone Sodium Succinate 40 mg 03/15/18 11:15 03/17/18 04:35 Solu-Medrol - IVPUSH 40 mg Q8H-IV [facility] Administration Miscellaneous 1 each 03/12/18 22:00 03/16/18 21:25 Lidoderm Patch Removal MC 1 each DAILY@2200 [facility] Administration Nicotine 14 mg 03/13/18 11:15 03/16/18 10:11 Nicoderm Patch - TD 14 mg DAILY [facility] Administration Oxycodone HCl 30 mg 03/15/18 15:00 03/17/18 06:04 Roxicodone - PO 30 mg TID [facility] Administration Pantoprazole Sodium 40 mg 03/13/18 10:00 03/16/18 10:10 Protonix - PO 40 mg DAILY [facility] Administration Tiotropium [place] 2 puff 03/16/18 11:00 03/16/18 15:48 Spiriva Respimat IH 2 puff DAILY [facility] Administration Vital Signs: Vital Signs Period Temp Pulse Resp BP Sys/[place] Pulse Ox Last 24 Hr 79.1 F-98.6 F 74-84 16-20 148-184/100-116 98-98 Constitutional: Yes: Well Nourished, No Distress Eyes: Yes: Conjunctiva Clear Neck: Yes: Supple, Trachea Midline Respiratory: Yes: Regular, mild Wheezes Gastrointestinal: Yes: Normal Bowel Sounds, Soft Cardiovascular: Yes: Regular Rate and Rhythm JVD: No Heart Sounds: Yes: S1, S2 Edema: No Peripheral Pulses: 2+ Left Doralis Pedis, 2+ Right Dorsalis Pedis Integumentary: Yes:no jaundice diaphoresis Neurological: Yes: Alert, Oriented CBC, BMP 03/16/18 05:30 03/16/18 05:30 EKG: LVH, nonspecific T wave changes, prolonged QTC 473 ms CXR: no acute process echo: nl LV/RV size and function, tr AR, tr to mild MR a/p: 53M h/o nonobstructive CAD s/p cath 2010, HTN, chronic low back pain, smoker p/w chest pain, cough, chest congestion Chest pain, cough, copd - neg trops, stable EKG without ischemic changes unlikely ACS - chest pain most likely pleuritic in setting of cough, less consistent with ACS - BNP 830 however clinical picture not c/w heart failure - on IV steroids, nebs for cough - pulm following, CT chest shows mild COPD - echo nl LV function - no further cardiac workup as inpatient HTN - still elevated, agree with adding hydralazine to current meds Current smoker - patient wants to quit
[2018-03-17] MEDS: ALBUTEROL SO4 0.083% IH SOL 2.5 MG/3 ML VIAL.NEB. NEB PRN ×2 (11:20→22:21)
--- NOTE | 2018-03-17 11:28 | PN ---
Physical Exam: SUBJECTIVE: Patient seen and examined. Ambulating in the hallway earlier. OBJECTIVE: Vital Signs Period Temp Pulse Resp BP Sys/[place] Pulse Ox Last 24 Hr 79.1 F-98.6 F 74-84 16-20 148-184/100-116 98-98 GENERAL: The patient is awake, alert, and fully oriented, in no acute distress. LUNGS: Expiratory wheezing and rhonchi; no cough HEART: Regular rate and rhythm, S1, S2 ABDOMEN: Soft, nontender, nondistended EXTREMITIES: 2+ pulses, warm, well-perfused, no edema. NEUROLOGICAL: Cranial nerves II through XII grossly intact. Normal speech, steady gait Active Medications Generic Name Dose Route Start Last Admin Trade Name Freq PRN Reason Stop Dose Admin Albuterol Sulfate 1 amp 03/16/18 10:52 03/16/18 10:35 Ventolin 0.083% Nebulizer Soln - NEB 1 amp Q4H PRN Administration SHORT OF BREATH/WHEEZING Amlodipine Besylate 10 mg 03/15/18 10:00 03/17/18 10:41 Norvasc - PO 10 mg DAILY [facility] Administration Aspirin 81 mg 03/15/18 15:15 03/17/18 10:46 Ecotrin - PO 81 mg DAILY [facility] Administration Atorvastatin [place] 40 mg 03/16/18 22:00 03/16/18 21:26 Lipitor - PO 40 mg HS [facility] Administration Budesonide/Formoterol Fumarate 2 puff 03/13/18 11:15 03/17/18 10:37 Symbicort 160/4.5mcg - IH 2 puff BID [facility] Administration Carvedilol 25 mg 03/15/18 22:00 03/17/18 10:46 Coreg - PO 25 mg BID [facility] Administration Cefuroxime Axetil 500 mg 03/15/18 22:00 03/17/18 10:45 Ceftin - PO 500 mg BID [facility] Administration Chlorthalidone 50 mg 03/17/18 10:00 03/17/18 10:47 [place] - PO 50 mg DAILY [facility] Administration Clopidogrel Bisulfate 75 mg 03/16/18 10:00 03/17/18 10:46 Plavix - PO 75 mg DAILY [facility] Administration Guaifenesin 10 ml 03/14/18 16:43 03/16/18 13:36 Robitussin Dm - PO 10 ml Q8H PRN Administration COUGH Heparin Sodium (Porcine) 5,000 unit 03/14/18 22:00 03/17/18 10:40 Heparin - SQ 5,000 unit BID [facility] Administration Hydralazine HCl 50 mg 03/17/18 14:00 Apresoline - PO TID [facility] Lidocaine 1 patch 03/12/18 17:00 03/17/18 10:38 Lidoderm Patch - TP 1 patch DAILY [facility] Administration Methylprednisolone Sodium Succinate 40 mg 03/15/18 11:15 03/17/18 10:47 Solu-Medrol - IVPUSH 40 mg Q8H-IV [facility] Administration Miscellaneous 1 each 03/12/18 22:00 03/16/18 21:25 Lidoderm Patch Removal MC 1 each DAILY@2200 [facility] Administration Nicotine 14 mg 03/13/18 11:15 03/17/18 10:40 Nicoderm Patch - TD 14 mg DAILY [facility] Administration Oxycodone HCl 30 mg 03/15/18 15:00 03/17/18 06:04 Roxicodone - PO 30 mg TID [facility] Administration Pantoprazole Sodium 40 mg 03/13/18 10:00 03/17/18 10:46 Protonix - PO 40 mg DAILY [facility] Administration Tiotropium [place] 2 puff 03/16/18 11:00 03/17/18 10:37 Spiriva Respimat IH 2 puff DAILY [facility] Administration ASSESSMENT/PLAN: 53 year-old male with a PMH significant for HTN, non-obstructive CAD (cath 2009) , chronic lower back pain, current smoker. Admitted for chest pain and COPD exacerbation/asthmatic bronchitis. Also with refractory HTN. Chest pain --serial troponins negative --ECG not suggestive of acute ischemic event --CXR unremarkable --ACS ruled out --Echo: mild cLVH, LV hyperdynamic EF 70%, Grade I diastolic dysfunction; RV normal; LAE; trace to mild MR; trace TR; trace AI --seen and evaluated by cardiology COPD exacerbation/asthmatic bronchitis --03/13 CT chest: mild to moderate COPD --continue IV steroids, Symbicort, duonebs --afebrile and no leukocytosis --03/12 sputum culture +beta hemolytic strep, difficult to isolate group, micro still working on --continue ceftin 500mg BID (day #3) Hypertension --carvedilol 25mg BID, amlodipine 10mg daily, increase chlorthalidone to 50 daily --increase hydralazine to 50mg TID Coronary artery disease --continue Plavix 75mg daily, ASA 81mg daily, atorvastatin, carvedilol Chronic low back pain --oxycodone 30mg q8h Tobacco cessation --nicotine patch FEN Fluids: PO intake adequate ELectrolytes: replete as indicated Nutrition: low sodium DVT prophylaxis: subq heparin Dispo: continues to require inpatient care. Full code. Visit type - Emergency Visit Emergency Visit: Yes ED Registration Date: 03/13/18 Care time: The patient presented to the Emergency Department on the above date and was hospitalized for further evaluation of their emergent condition. - New Patient This patient is new to me today: No - Critical Care Critical Care patient: No
[2018-03-17] MEDS: hydrALAZINE HCL 50 MG TABLET (FP) PO SCH ×2 (13:22→21:27)
[2018-03-17] MEDS: guaiFENesin/D-METHORPHAN HB 10 ML UNIT-DOSE CUPS PO PRN (13:22)
[2018-03-17] MEDS: ATORVASTATIN CA 40 MG TABLET (FP) PO SCH (21:25)
[2018-03-17] MEDS: LIDOCAINE PATCH REMOVAL MC SCH (21:27)
[2018-03-18] MEDS: methylPREDNISolone NA SUCC 40 MG/1 ML VIAL IVPUSH SCH ×2 (03:41→10:12)
[2018-03-18] MEDS: guaiFENesin/D-METHORPHAN HB 10 ML UNIT-DOSE CUPS PO PRN (05:02)
[2018-03-18] MEDS: oxyCODONE HCL 5 MG TABLET PO SCH ×3 (05:54→21:24)
[2018-03-18] MEDS: hydrALAZINE HCL 50 MG TABLET (FP) PO SCH ×3 (05:55→21:23)
[2018-03-18] MEDS: TIOTROPIUM BROMIDE 2.5 MCG (SPIRIVA) RESPIMAT INHALER IH SCH (10:11)
[2018-03-18] MEDS: BUDESONIDE/FORMETEROL FUMARATE 160/4.5 mcg INHALER IH SCH ×2 (10:11→21:23)
[2018-03-18] MEDS: LIDOCAINE 5% TOPICAL PATCH TP SCH (10:12)
[2018-03-18] MEDS: NICOTINE 14 MG/24 HOURS TOPICAL PATCH TD SCH (10:12)
[2018-03-18] MEDS: HEPARIN NA (PORCINE) 5,000 UNITS/ML 1ML VIAL SQ SCH ×2 (10:12→21:24)
[2018-03-18] MEDS: CARVEDILOL 25 MG TABLET (FP) PO SCH ×2 (10:13→21:23)
[2018-03-18] MEDS: amLODIPine BESYLATE 10 MG TABLET (FP) PO SCH (10:14)
[2018-03-18] MEDS: CEFUROXIME AXETIL 500 MG TABLET PO SCH ×2 (10:14→21:24)
[2018-03-18] MEDS: ASPIRIN COATED 81 MG TABLET.EC PO SCH (10:14)
[2018-03-18] MEDS: CLOPIDOGREL BISULFATE 75 MG TABLET (FP) PO SCH (10:14)
[2018-03-18] MEDS: PANTOPRAZOLE 40 MG TABLET (FP) PO SCH (10:14)
[2018-03-18] MEDS: CHLORTHALIDONE 25 MG TABLET PO SCH (10:15)
--- NOTE | 2018-03-18 11:11 | PN ---
Physical Exam: SUBJECTIVE: Patient seen and examined. Sitting up in bed eating lunch. OBJECTIVE: Vital Signs Period Temp Pulse Resp BP Sys/Astorga Pulse Ox Last 24 Hr 98.0 F-98.4 F 80-92 18-20 151-176/106-115 97-97 GENERAL: The patient is awake, alert, and fully oriented, in no acute distress. LUNGS: Expiratory wheezing and rhonchi improved; no cough HEART: Regular rate and rhythm, S1, S2 ABDOMEN: Soft, nontender, nondistended EXTREMITIES: 2+ pulses, warm, well-perfused, no edema. NEUROLOGICAL: Cranial nerves II through XII grossly intact. Normal speech, steady gait Active Medications Generic Name Dose Route Start Last Admin Trade Name Freq PRN Reason Stop Dose Admin Albuterol Sulfate 1 amp 03/16/18 10:52 03/17/18 22:21 Ventolin 0.083% Nebulizer Soln - NEB 1 amp Q4H PRN Administration SHORT OF BREATH/WHEEZING Amlodipine Besylate 10 mg 03/15/18 10:00 03/18/18 10:14 Norvasc - PO 10 mg DAILY NILA Administration Aspirin 81 mg 03/15/18 15:15 03/18/18 10:14 Ecotrin - PO 81 mg DAILY NILA Administration Atorvastatin Calcium 40 mg 03/16/18 22:00 03/17/18 21:25 Lipitor - PO 40 mg HS NILA Administration Budesonide/Formoterol Fumarate 2 puff 03/13/18 11:15 03/18/18 10:11 Symbicort 160/4.5mcg - IH 2 puff BID NILA Administration Carvedilol 25 mg 03/15/18 22:00 03/18/18 10:13 Coreg - PO 25 mg BID NILA Administration Cefuroxime Axetil 500 mg 03/15/18 22:00 03/18/18 10:14 Ceftin - PO 500 mg BID NILA Administration Chlorthalidone 50 mg 03/17/18 10:00 03/18/18 10:15 [place]gro[place] - PO 50 mg DAILY NILA Administration Clopidogrel Bisulfate 75 mg 03/16/18 10:00 03/18/18 10:14 Plavix - PO 75 mg DAILY NILA Administration Guaifenesin 10 ml 03/14/18 16:43 03/18/18 05:02 Robitussin Dm - PO 10 ml Q8H PRN Administration COUGH Heparin Sodium (Porcine) 5,000 unit 03/14/18 22:00 03/18/18 10:12 Heparin - SQ 5,000 unit BID NILA Administration Hydralazine HCl 100 mg 03/18/18 09:20 Apresoline - PO TID NILA Lidocaine 1 patch 03/12/18 17:00 03/18/18 10:12 Lidoderm Patch - TP 1 patch DAILY NILA Administration Methylprednisolone Sodium Succinate 40 mg 03/19/18 06:00 Solu-Medrol - IVPUSH 03/19/18 18:01 Q12H NILA Miscellaneous 1 each 03/12/18 22:00 03/17/18 21:27 Lidoderm Patch Removal MC 1 each DAILY@2200 NILA Administration Nicotine 14 mg 03/13/18 11:15 03/18/18 10:12 Nicoderm Patch - TD 14 mg DAILY NILA Administration Oxycodone HCl 30 mg 03/15/18 15:00 03/18/18 05:54 Roxicodone - PO 30 mg TID NILA Administration Pantoprazole Sodium 40 mg 03/13/18 10:00 03/18/18 10:14 Protonix - PO 40 mg DAILY NILA Administration Tiotropium [place] 2 puff 03/16/18 11:00 03/18/18 10:11 Spiriva Respimat IH 2 puff DAILY NILA Administration ASSESSMENT/PLAN: 53 year-old male with a PMH significant for HTN, non-obstructive CAD (cath 2009) , chronic lower back pain, current smoker. Admitted for chest pain and COPD exacerbation/asthmatic bronchitis. Also with refractory HTN. Chest pain --serial troponins negative --ECG not suggestive of acute ischemic event --CXR unremarkable --ACS ruled out --Echo: mild cLVH, LV hyperdynamic EF 70%, Grade I diastolic dysfunction; RV normal; LAE; trace to mild MR; trace TR; trace AI --seen and evaluated by cardiology COPD exacerbation/asthmatic bronchitis --03/13 CT chest: mild to moderate COPD --tapering steroids, Symbicort, duonebs --afebrile and no leukocytosis --03/12 sputum culture +beta hemolytic strep, difficult to isolate group, micro still working on --continue ceftin 500mg BID (day #3) Hypertension, refractory --discussed with Dr. Coffey, increase hydralazine to 100mg TID, add ACEI so started lisinopril --continue carvedilol 25mg BID, amlodipine 10mg daily, chlorthalidone to 50 daily Coronary artery disease --continue Plavix 75mg daily, ASA 81mg daily, atorvastatin, carvedilol Chronic low back pain --oxycodone 30mg q8h Tobacco cessation --nicotine patch FEN Fluids: PO intake adequate ELectrolytes: replete as indicated Nutrition: low sodium DVT prophylaxis: subq heparin Dispo: continues to require inpatient care. Full code. Visit type - Emergency Visit Emergency Visit: Yes ED Registration Date: 03/13/18 Care time: The patient presented to the Emergency Department on the above date and was hospitalized for further evaluation of their emergent condition. - New Patient This patient is new to me today: No - Critical Care Critical Care patient: No
[2018-03-18] MEDS ORDERED: LISINOPRIL 10 MG TABLET (FP) PO SCH (11:15)
--- NOTE | 2018-03-18 11:17 | PN ---
Progress Note (short form) - Note Progress Note: s: no chest pain, palps, dizziness, edema, dyspnea. improving cough tele: sinus rhythm Current Medications Generic Name Dose Route Start Last Admin Trade Name Freq PRN Reason Stop Dose Admin Albuterol Sulfate 1 amp 03/16/18 10:52 03/17/18 22:21 Ventolin 0.083% Nebulizer Soln - NEB 1 amp Q4H PRN Administration SHORT OF BREATH/WHEEZING Amlodipine Besylate 10 mg 03/15/18 10:00 03/18/18 10:14 Norvasc - PO 10 mg DAILY NILA Administration Aspirin 81 mg 03/15/18 15:15 03/18/18 10:14 Ecotrin - PO 81 mg DAILY NILA Administration Atorvastatin Calcium 40 mg 03/16/18 22:00 03/17/18 21:25 Lipitor - PO 40 mg HS NILA Administration Budesonide/Formoterol Fumarate 2 puff 03/13/18 11:15 03/18/18 10:11 Symbicort 160/4.5mcg - IH 2 puff BID NILA Administration Carvedilol 25 mg 03/15/18 22:00 03/18/18 10:13 Coreg - PO 25 mg BID NILA Administration Cefuroxime Axetil 500 mg 03/15/18 22:00 03/18/18 10:14 Ceftin - PO 500 mg BID NILA Administration Chlorthalidone 50 mg 03/17/18 10:00 03/18/18 10:15 [place] - PO 50 mg DAILY NILA Administration Clopidogrel Bisulfate 75 mg 03/16/18 10:00 03/18/18 10:14 Plavix - PO 75 mg DAILY NILA Administration Guaifenesin 10 ml 03/14/18 16:43 03/18/18 05:02 Robitussin Dm - PO 10 ml Q8H PRN Administration COUGH Heparin Sodium (Porcine) 5,000 unit 03/14/18 22:00 03/18/18 10:12 Heparin - SQ 5,000 unit BID NILA Administration Hydralazine HCl 100 mg 03/18/18 09:20 Apresoline - PO TID [facility] Lidocaine 1 patch 03/12/18 17:00 03/18/18 10:12 Lidoderm Patch - TP 1 patch DAILY NILA Administration Lisinopril 10 mg 03/18/18 11:15 Prinivil PO DAILY [facility] Methylprednisolone Sodium Succinate 40 mg 03/19/18 06:00 Solu-Medrol - IVPUSH 03/19/18 18:01 Q12H [facility] Miscellaneous 1 each 03/12/18 22:00 03/17/18 21:27 Lidoderm Patch Removal MC 1 each DAILY@2200 NILA Administration Nicotine 14 mg 03/13/18 11:15 03/18/18 10:12 Nicoderm Patch - TD 14 mg DAILY NILA Administration Oxycodone HCl 30 mg 03/15/18 15:00 03/18/18 05:54 Roxicodone - PO 30 mg TID NILA Administration Pantoprazole Sodium 40 mg 03/13/18 10:00 03/18/18 10:14 Protonix - PO 40 mg DAILY NILA Administration Tiotropium [place] 2 puff 03/16/18 11:00 03/18/18 10:11 Spiriva Respimat IH 2 puff DAILY NILA Administration Vital Signs: Vital Signs Period Temp Pulse Resp BP Sys/[place]org[place] Pulse Ox Last 24 Hr 98.0 F-98.4 F 80-92 18-20 151-176/106-115 97-97 Constitutional: Yes: Well Nourished, No Distress Eyes: Yes: Conjunctiva Clear Neck: Yes: Supple, Trachea Midline Respiratory: Yes: Regular, mild Wheezes Gastrointestinal: Yes: Normal Bowel Sounds, Soft Cardiovascular: Yes: Regular Rate and Rhythm JVD: No Heart Sounds: Yes: S1, S2 Edema: No Peripheral Pulses: 2+ Left Doralis Pedis, 2+ Right Dorsalis Pedis Integumentary: Yes:no jaundice diaphoresis Neurological: Yes: Alert, Oriented CBC, BMP 03/16/18 05:30 03/16/18 05:30 EKG: LVH, nonspecific T wave changes, prolonged QTC 473 ms CXR: no acute process echo: nl LV/RV size and function, tr AR, tr to mild MR a/p: 53M h/o nonobstructive CAD s/p cath 2010, HTN, chronic low back pain, smoker p/w chest pain, cough, chest congestion Chest pain, cough, copd - neg trops, stable EKG without ischemic changes unlikely ACS - chest pain most likely pleuritic in setting of cough, less consistent with ACS - BNP 830 however clinical picture not c/w heart failure - on IV steroids, nebs for cough - pulm following, CT chest shows mild COPD - echo nl LV function - no further cardiac workup as inpatient HTN - still elevated, will increase hydralazine. can add lisinopril next if needed. Current smoker - patient wants to quit
--- NOTE | 2018-03-18 11:41 | PN ---
Progress Note, Physician History of Present Illness: PULMONARY ALERT,NO DISTRESS,-SOB,-COUGH.BP 176/106 - Current Medication List Current Medications: Active Medications Albuterol Sulfate (Ventolin 0.083% Nebulizer Soln -) 1 amp NEB Q4H PRN PRN Reason: SHORT OF BREATH/WHEEZING Last Admin: 03/17/18 22:21 Dose: 1 amp Amlodipine Besylate (Norvasc -) 10 mg PO DAILY [facility] Last Admin: 03/18/18 10:14 Dose: 10 mg Aspirin (Ecotrin -) 81 mg PO DAILY [facility] Last Admin: 03/18/18 10:14 Dose: 81 mg Atorvastatin Calcium (Lipitor -) 40 mg PO HS [facility] Last Admin: 03/17/18 21:25 Dose: 40 mg Budesonide/Formoterol Fumarate (Symbicort 160/4.5mcg -) 2 puff IH BID [facility] Last Admin: 03/18/18 10:11 Dose: 2 puff Carvedilol (Coreg -) 25 mg PO BID [facility] Last Admin: 03/18/18 10:13 Dose: 25 mg Cefuroxime Axetil (Ceftin -) 500 mg PO BID [facility] Last Admin: 03/18/18 10:14 Dose: 500 mg Chlorthalidone (Hygroton -) 50 mg PO DAILY [facility] Last Admin: 03/18/18 10:15 Dose: 50 mg Clopidogrel Bisulfate (Plavix -) 75 mg PO DAILY [facility] Last Admin: 03/18/18 10:14 Dose: 75 mg Guaifenesin (Robitussin Dm -) 10 ml PO Q8H PRN PRN Reason: COUGH Last Admin: 03/18/18 05:02 Dose: 10 ml Heparin Sodium (Porcine) (Heparin -) 5,000 unit SQ BID [facility] Last Admin: 03/18/18 10:12 Dose: 5,000 unit Hydralazine HCl (Apresoline -) 100 mg PO TID [facility] Lidocaine (Lidoderm Patch -) 1 patch TP DAILY [facility] Last Admin: 03/18/18 10:12 Dose: 1 patch Lisinopril (Prinivil) 10 mg PO DAILY [facility] Methylprednisolone Sodium Succinate (Solu-Medrol -) 40 mg IVPUSH Q12H [facility] Stop: 03/19/18 18:01 Miscellaneous (Lidoderm Patch Removal) 1 each MC DAILY@2200 [facility] Last Admin: 03/17/18 21:27 Dose: 1 each Nicotine (Nicoderm Patch -) 14 mg TD DAILY [facility] Last Admin: 03/18/18 10:12 Dose: 14 mg Oxycodone HCl (Roxicodone -) 30 mg PO TID [facility] Last Admin: 03/18/18 05:54 Dose: 30 mg Pantoprazole Sodium (Protonix -) 40 mg PO DAILY [facility] Last Admin: 03/18/18 10:14 Dose: 40 mg Tiotropium [place] (Spiriva Respimat) 2 puff IH DAILY [facility] Last Admin: 03/18/18 10:11 Dose: 2 puff - Objective Vital Signs: Vital Signs Temperature 98.3 F 03/18/18 05:27 Pulse Rate 80 03/18/18 05:27 Respiratory Rate 20 03/18/18 07:50 Blood Pressure 176/106 H 03/18/18 05:27 O2 Sat by Pulse Oximetry (%) 97 03/18/18 07:50 Constitutional: Yes: Well Nourished, Calm Eyes: Yes: WNL HENT: Yes: WNL Neck: Yes: WNL Cardiovascular: Yes: Regular Rate and Rhythm, S1, S2 Respiratory: Yes: Wheezes (FEW SCATTERED WHEEZES) Gastrointestinal: Yes: Normal Bowel Sounds, Soft Extremities: Yes: WNL Edema: No Labs: CBC, BMP 03/16/18 05:30 03/16/18 05:30 INR, PTT INR 1.08 (0.83-1.09) 03/12/18 13:44 Problem List - Problems (1) Acute asthmatic bronchitis Code(s): J45.909 - UNSPECIFIED ASTHMA, UNCOMPLICATED (2) URI (upper respiratory infection) Code(s): J06.9 - ACUTE UPPER RESPIRATORY INFECTION, UNSPECIFIED (3) Chronic low back pain Code(s): M54.5 - LOW BACK PAIN; G89.29 - OTHER CHRONIC PAIN Qualifiers: Back pain laterality: bilateral Sciatica presence: without sciatica Qualified Code(s): M54.5 - Low back pain (4) Tobacco abuse Code(s): Z72.0 - TOBACCO USE (5) Tobacco abuse counseling Code(s): Z71.6 - TOBACCO ABUSE COUNSELING (6) HTN (hypertension) Code(s): I10 - ESSENTIAL (PRIMARY) HYPERTENSION (7) Chest pain Code(s): R07.9 - CHEST PAIN, UNSPECIFIED Qualifiers: Chest pain type: unspecified Qualified Code(s): R07.9 - Chest pain, unspecified (8) Dyspnea Code(s): R06.00 - DYSPNEA, UNSPECIFIED (9) ASHD (arteriosclerotic heart disease) Code(s): I25.10 - ATHSCL HEART DISEASE OF [place] CORONARY ARTERY W/O ANG PCTRS Assessment/Plan IMP DYSPNEA improved ACUTE ASTHMATIC BRONCHITIS improved LIKELY COPD CHEST PAIN ASHD S/P [place] HTN TOBACCO ABUSE H/O MICHAELA PLAN PREDNISONE 60 PO DAILY O2 INHALED BRONCHODILATORS TITRATE BP MEDS SMOKING CESSATION COUNSELED YEARLY LOW DOSE CHEST CT FOR LUNG CANCER SCREENING OUTPATIENT PFTS SLEEP SCREEN DR BENAVIDES Problem List - Problems (1) Acute asthmatic bronchitis Code(s): J45.909 - UNSPECIFIED ASTHMA, UNCOMPLICATED (2) URI (upper respiratory infection) Code(s): J06.9 - ACUTE UPPER RESPIRATORY INFECTION, UNSPECIFIED (3) Chronic low back pain Code(s): M54.5 - LOW BACK PAIN; G89.29 - OTHER CHRONIC PAIN Qualifiers: Back pain laterality: bilateral Sciatica presence: without sciatica Qualified Code(s): M54.5 - Low back pain (4) Tobacco abuse Code(s): Z72.0 - TOBACCO USE (5) Tobacco abuse counseling Code(s): Z71.6 - TOBACCO ABUSE COUNSELING (6) HTN (hypertension) Code(s): I10 - ESSENTIAL (PRIMARY) HYPERTENSION (7) Chest pain Code(s): R07.9 - CHEST PAIN, UNSPECIFIED Qualifiers: Chest pain type: unspecified Qualified Code(s): R07.9 - Chest pain, unspecified (8) Dyspnea Code(s): R06.00 - DYSPNEA, UNSPECIFIED (9) ASHD (arteriosclerotic heart disease) Code(s): I25.10 - ATHSCL HEART DISEASE OF [place] CORONARY ARTERY W/O ANG PCTRS
[2018-03-18] MEDS ORDERED: LORazepam 0.5 MG TABLET PO ONE (12:46)
[2018-03-18] MEDS: VENLAFAXINE HCL 37.5 MG E.R. CAPSULE (FP) PO SCH (13:24)
[2018-03-18] MEDS: ALBUTEROL SO4 0.083% IH SOL 2.5 MG/3 ML VIAL.NEB. NEB PRN (20:42)
[2018-03-18] MEDS ORDERED: PT OWN MED DRAWER 7, Y5N ONE (21:12)
[2018-03-18] MEDS: ATORVASTATIN CA 40 MG TABLET (FP) PO SCH (21:23)
[2018-03-18] MEDS: LORazepam 0.5 MG TABLET PO SCH (21:24)
[2018-03-18] MEDS: LIDOCAINE PATCH REMOVAL MC SCH (21:44)
[2018-03-19] MEDS: CEFUROXIME INJECTION 750 MG in DEXTROSE 5%-WATER - 50 ML IVPB SCH ×2 (02:00→18:05)
[2018-03-19] MEDS ORDERED: methylPREDNISolone NA SUCC 40 MG/1 ML VIAL IVPUSH SCH (06:00)
[2018-03-19] MEDS: hydrALAZINE HCL 50 MG TABLET (FP) PO SCH (06:13)
[2018-03-19] MEDS: oxyCODONE HCL 5 MG TABLET PO SCH (06:13)
--- NOTE | 2018-03-19 09:22 | PN ---
Progress Note, Physician Chief Complaint: abdominal pain History of Present Illness: pt developed acute, severe localized epigastric pain this AM. feels like he is going to . no cp or back pain. abd pain not radiating. denies sob, palpitations, presyncope - Current Medication List Current Medications: Active Medications Albuterol Sulfate (Ventolin 0.083% Nebulizer Soln -) 1 amp NEB Q4H PRN PRN Reason: SHORT OF BREATH/WHEEZING Last Admin: 03/18/18 20:42 Dose: 1 amp Amlodipine Besylate (Norvasc -) 10 mg PO DAILY [facility] Last Admin: 03/18/18 10:14 Dose: 10 mg Aspirin (Ecotrin -) 81 mg PO DAILY [facility] Last Admin: 03/18/18 10:14 Dose: 81 mg Atorvastatin Calcium (Lipitor -) 40 mg PO HS [facility] Last Admin: 03/18/18 21:23 Dose: 40 mg Budesonide/Formoterol Fumarate (Symbicort 160/4.5mcg -) 2 puff IH BID [facility] Last Admin: 03/18/18 21:23 Dose: 2 puff Carvedilol (Coreg -) 25 mg PO BID [facility] Last Admin: 03/18/18 21:23 Dose: 25 mg Cefuroxime Axetil (Ceftin -) 500 mg PO BID [facility] Last Admin: 03/18/18 21:24 Dose: 500 mg Chlorthalidone (Hygroton -) 50 mg PO DAILY [facility] Last Admin: 03/18/18 10:15 Dose: 50 mg Clopidogrel Bisulfate (Plavix -) 75 mg PO DAILY [facility] Last Admin: 03/18/18 10:14 Dose: 75 mg Guaifenesin (Robitussin Dm -) 10 ml PO Q8H PRN PRN Reason: COUGH Last Admin: 03/18/18 05:02 Dose: 10 ml Heparin Sodium (Porcine) (Heparin -) 5,000 unit SQ BID [facility] Last Admin: 03/18/18 21:24 Dose: 5,000 unit Hydralazine HCl (Apresoline -) 100 mg PO TID [facility] Last Admin: 03/19/18 06:13 Dose: 100 mg Lidocaine (Lidoderm Patch -) 1 patch TP DAILY [facility] Last Admin: 03/18/18 10:12 Dose: 1 patch Lisinopril (Prinivil) 10 mg PO DAILY [facility] Last Admin: 03/18/18 12:11 Dose: 10 mg Lorazepam (Ativan -) 0.5 mg PO BID [facility] Last Admin: 03/18/18 21:24 Dose: 0.5 mg Miscellaneous (Lidoderm Patch Removal) 1 each MC DAILY@2200 [facility] Last Admin: 03/18/18 21:44 Dose: 1 each Nicotine (Nicoderm Patch -) 14 mg TD DAILY [facility] Last Admin: 03/18/18 10:12 Dose: 14 mg Oxycodone HCl (Roxicodone -) 30 mg PO TID [facility] Last Admin: 03/19/18 06:13 Dose: 30 mg Pantoprazole Sodium (Protonix -) 40 mg PO DAILY [facility] Last Admin: 03/18/18 10:14 Dose: 40 mg Tiotropium [place] (Spiriva Respimat) 2 puff IH DAILY [facility] Last Admin: 03/18/18 10:11 Dose: 2 puff Venlafaxine HCl (Effexor Xr -) 37.5 mg PO DAILY [facility] Last Admin: 03/18/18 13:24 Dose: Not Given - Objective Vital Signs: Vital Signs Temperature 98.2 F 03/19/18 06:00 Pulse Rate 83 03/19/18 06:00 Respiratory Rate 18 03/19/18 08:35 Blood Pressure 160/100 03/19/18 06:00 O2 Sat by Pulse Oximetry (%) 96 03/19/18 08:35 Constitutional: Yes: Well Nourished, Severe Distress Cardiovascular: Yes: Regular Rate and Rhythm, S1, S2. No: Gallop, Murmur Respiratory: Yes: Regular, CTA Bilaterally. No: Accessory Muscle Use Gastrointestinal: Yes: Tenderness, Epigastrium (severe). No: Distention, Palpable Mass, Pulsatile Mass Extremities: No: Cold Neurological: Yes: Alert, Oriented Psychiatric: No: Agitated Labs: CBC, BMP 03/16/18 05:30 03/16/18 05:30 INR, PTT INR 1.08 (0.83-1.09) 03/12/18 13:44 Assessment/Plan EKG: LVH, nonspecific T wave changes, prolonged QTC 473 ms CXR: no acute process echo 03/08: nl LV/RV size and function, tr AR, tr to mild MR tele: NSR a/p: 53M h/o nonobstructive CAD s/p cath 2009, HTN, chronic low back pain, smoker p/w chest pain, cough, chest congestion acute abdominal pain and tenderness: -localized pain with severe localized tenderness -BP 190s/100s at time of episode. repeate ECG (10:40 am): no ST-T abnormalities -pt in severe, acute distress with fear of impending doom -no palpable AAA and no thoracic or abdominal aorta aneurysm noted on CT chest done here during this admit -acute IV hydralazine given, and STAT CT chest/abd/pelvis with iv contrast ordered--pt on way down at time of this note (r/o acute dissection) -further plan depending on CT results Chest pain, cough, acute asthmatic bronchitis - neg trops, stable EKG without ischemic changes unlikely ACS - chest pain most likely pleuritic in setting of cough, less consistent with ACS - BNP 830 however clinical picture not c/w heart failure - on IV steroids, nebs for cough--tx per pulmonary team - pulm following, CT chest shows mild COPD - echo nl LV function - no further cardiac workup as inpatient resistant HTN with hypertensive urgency: - sbp's to 180s here, diastolics frequently in 110s range - currently on carvedilol 25 bid, hydralazine 100 TID (increased on 03/18), chlorthalidone 50 qd, lisinopril 10 qd, amlodipine 10 qd - will change lisinopril to high dose ARB (valsartan 320 while here--should go home on benicar (olmesartan) 40 qd for better efficacy/24 hr drug levels) - would like to add spironolactone for bp control, but will first draw plasma renin and aldosterone levels to screen for hyperaldo syndrome (prior to initiating spirono) - will change amlodipine to nifedipine ER 60 bid for more potency - consider change carvedilol to labetalol next for greater potency - prn iv hydralazine ordered to avoid excessive BP elevations - once pt bp controlled (suspect he may require spironolactone for adequate control), would rec titrating down hydralazine to lowest dose that controls bp, given unpredictable but known risk of severe auto-immune SAADIA with higher doses of hydralazine - needs outpt f/u with us to complete w/u for secondary causes of HTN, including would recommend renal artery dopplers Current smoker - patient wants to quit, cessation counselled here d/w'd plan with hospitalist kayleigh oleary
[2018-03-19] MEDS ORDERED: hydrALAZINE HCL 20 MG/ML VIAL IVPUSH PRN (09:34)
[2018-03-19] MEDS: CLOPIDOGREL BISULFATE 75 MG TABLET (FP) PO SCH (09:50)
[2018-03-19] MEDS: CHLORTHALIDONE 25 MG TABLET PO SCH (09:50)
[2018-03-19] MEDS: VENLAFAXINE HCL 37.5 MG E.R. CAPSULE (FP) PO SCH (09:51)
[2018-03-19] MEDS: CARVEDILOL 25 MG TABLET (FP) PO SCH (09:51)
[2018-03-19] MEDS: LORazepam 0.5 MG TABLET PO SCH (09:51)
[2018-03-19] MEDS: CEFUROXIME AXETIL 500 MG TABLET PO SCH (09:53)
[2018-03-19] MEDS: LIDOCAINE 5% TOPICAL PATCH TP SCH (09:54)
[2018-03-19] MEDS: NICOTINE 14 MG/24 HOURS TOPICAL PATCH TD SCH (09:55)
[2018-03-19] MEDS: PANTOPRAZOLE 40 MG TABLET (FP) PO SCH (09:55)
[2018-03-19] MEDS: TIOTROPIUM BROMIDE 2.5 MCG (SPIRIVA) RESPIMAT INHALER IH SCH (09:56)
[2018-03-19] MEDS: BUDESONIDE/FORMETEROL FUMARATE 160/4.5 mcg INHALER IH SCH ×2 (09:56→21:37)
[2018-03-19] MEDS: HEPARIN NA (PORCINE) 5,000 UNITS/ML 1ML VIAL SQ SCH ×2 (09:58→21:41)
[2018-03-19] MEDS: ASPIRIN COATED 81 MG TABLET.EC PO SCH (09:58)
[2018-03-19] MEDS ORDERED: NIFEdipine E.R 60 MG TABLET (UD) PO SCH (10:00)
[2018-03-19] MEDS ORDERED: SPIRONOLACTONE 25 MG TABLET (FP) PO SCH (10:00)
[2018-03-19] MEDS ORDERED: amLODIPine BESYLATE 10 MG TABLET (FP) PO SCH (10:00)
[2018-03-19] MEDS ORDERED: hydrALAZINE HCL 20 MG/ML VIAL ONE (10:33)
--- NOTE | 2018-03-19 11:26 | RAPID ---
Physical Examination Vital Signs: Vital Signs Temperature 98.2 F 03/19/18 06:00 Pulse Rate 83 03/19/18 06:00 Respiratory Rate 18 03/19/18 08:35 Blood Pressure 160/100 03/19/18 06:00 O2 Sat by Pulse Oximetry (%) 96 03/19/18 08:35 Patient seen and examined. BP 200/110, HR 77 A&Ox3, in extreme distress secondary to mid-epigastric pain, diaphoretic, vomiting Abd: exquisite tenderness over mid-epigastrum, +guarding ECG: sinus rhythm @ [address] chest, abdomen, pelvis Hydralazine 10mg IVP Morphine 4mg x 2 Preliminary wet read: no obvious bleeding or dissection Possible SBO v. ileus? Transfer to ICU BP management - nicardipine drip NGT Surgery consult Labs: CBC, BMP 03/16/18 05:30 03/16/18 05:30 Critical Care Total Critical Care Time (in minutes): 90 Critical Care Statement: The care of this patient involved high complexity decision making to prevent further life threatening deterioration of the patient 's condition and/or to evaluate & treat vital organ system(s) failure or risk of failure.
[2018-03-19] MEDS ORDERED: ONDANSETRON 4 MG/2 ML VIAL IVPUSH PRN (11:32)
--- NOTE | 2018-03-19 11:55 | CONSULT ---
Consultation: REQUESTING PROVIDER: Xavier CONSULT REQUEST: We have been asked to medically evaluate this patient for admission to the ICU. HISTORY OF PRESENT ILLNESS: Yasir Rob is a 53yo man with a H non-obstructive CAD s/p cath (2009), difficult to control HTN, current smoking, COPD diagnosed this admission. He initially presented to the ED on 03/12 complaining of chest pain/tightness. ACS workup at that time was negative, but he was found to be in a COPD exacerbation. His hospital course has been complicated by difficulty with blood pressure control. This morning, Mr Rob began to have severe 9/10 epigastric pain and retching , though he did not vomit. A rapid response was called on the floor. He was noted to be hypertensive to SBP in the 220s, diaphoretic, and appeared to be in distress. Due to concern for dissection, he was sent for immediate CT chest/abd/ pelvis and then transferred to the ICU. CT read was negative for acute aortic, cardiac, or pulmonary pathology but an enlarged stomach and dilated small bowel consistent with SBO vs ileus was noted. On arrival to the ICU, was hypertensive to 170/113, HR 82. An EKG was obtained without acute changes. An NGT was placed with initial output of copious clear gastric contents. REVIEW OF SYSTEMS: General: No fevers, no chills, no weight or appetite change, no malaise HEENT: No changes in vision, no changes in hearing, no congestion, no sore throat CV: See HPI, difficulty to control HTN Pulm: New COPD diagnosis, see HPI GI: +vomiting, +epigastric pain : No frequency, no urgency, no dysuria Musc: No back pain, no joint swelling, no recent injury Skin: No rash, no lesions, no erythema Endo: No excessive thirst, no heat/cold intolerance Heme: No unusual bruising or bleeding, no swollen glands Neuro: No syncope, no numbness/tingling, no focal weakness Vasc: No claudication Psych: No recent change in mood, no SI or HI PHYSICAL EXAMINATION Vital Signs - 24 hr 03/18/18 03/18/18 03/19/18 14:00 21:00 01:59 Temperature 98.4 F 98.2 F 98.2 F Pulse Rate 83 99 H 87 Respiratory 20 18 20 Rate Blood Pressure 155/98 152/119 H 140/83 O2 Sat by Pulse 93 L Oximetry (%) 03/19/18 03/19/18 03/19/18 06:00 08:35 11:33 Temperature 98.2 F 99.4 F Pulse Rate 83 82 Respiratory 18 18 18 Rate Blood Pressure 160/100 170/113 H O2 Sat by Pulse 96 Oximetry (%) 03/19/18 11:36 Temperature Pulse Rate Respiratory Rate Blood Pressure 169/102 H O2 Sat by Pulse Oximetry (%) General: Uncomfortable HEENT: PERRL, EOMI, MMM, voice normal Cards: RRR, hypertensive to 160's Pulm: Comfortable on room air Abd: Distended, mild diffuse tenderness. No rebound, no involuntary guarding, no sign of peritonitis : No CVA tenderness Ext: Atraumatic. No LE edema. ROM intact. Strength 5/5 and equal bilaterally Vasc: Extremities WWP. Skin: Normal color, no rashes or lesions Neuro: A&Ox3, CN grossly intact, normal speech, motor/sensory grossly intact and symmetric Psych: Mood appropriate to situation Laboratory Results - last 24 hr 03/19/18 03/19/18 10:18 10:39 POC Glucometer 109 TSH 4.01 H Active Medications Generic Name Dose Route Start Last Admin Trade Name Freq PRN Reason Stop Dose Admin Albuterol Sulfate 1 amp 03/16/18 10:52 03/18/18 20:42 Ventolin 0.083% Nebulizer Soln - NEB 1 amp Q4H PRN Administration SHORT OF BREATH/WHEEZING Aspirin 81 mg 03/15/18 15:15 03/19/18 09:58 Ecotrin - PO 81 mg DAILY NILA Administration Atorvastatin Calcium 40 mg 03/16/18 22:00 03/18/18 21:23 Lipitor - PO 40 mg HS NILA Administration Budesonide/Formoterol Fumarate 2 puff 03/13/18 11:15 03/19/18 09:56 Symbicort 160/4.5mcg - IH 2 puff BID NILA Administration Carvedilol 25 mg 03/15/18 22:00 03/19/18 09:51 Coreg - PO 25 mg BID NILA Administration Cefuroxime Axetil 500 mg 03/15/18 22:00 03/19/18 09:53 Ceftin - PO 500 mg BID NILA Administration Chlorthalidone 50 mg 03/17/18 10:00 03/19/18 09:50 Hygroton - PO 50 mg DAILY NILA Administration Clopidogrel Bisulfate 75 mg 03/16/18 10:00 03/19/18 09:50 Plavix - PO 75 mg DAILY NILA Administration Guaifenesin 10 ml 03/14/18 16:43 03/18/18 05:02 Robitussin Dm - PO 10 ml Q8H PRN Administration COUGH Heparin Sodium (Porcine) 5,000 unit 03/14/18 22:00 03/19/18 09:58 Heparin - SQ Not Given BID NILA Hydralazine HCl 100 mg 03/18/18 09:20 03/19/18 06:13 Apresoline - PO 100 mg TID NILA Administration Hydralazine HCl 10 mg 03/19/18 09:34 03/19/18 11:32 Apresoline Injection - IVPUSH 10 mg Q1H PRN Administration HYPERTENSION Nicardipine HCl 25 mg/ 250 mls @ 25 mls/hr 03/19/18 11:45 Dextrose IVPB TITR NILA Protocol 2.5 MG/HR Famotidine/Sodium Chloride 20 mg in 50 mls @ 100 mls/hr 03/19/18 12:00 Pepcid 20 Mg Premixed Ivpb - IVPB 03/19/18 12:29 ONCE ONE Lidocaine 1 patch 03/12/18 17:00 03/19/18 09:54 Lidoderm Patch - TP 1 patch DAILY NILA Administration Lorazepam 0.5 mg 03/18/18 22:00 03/19/18 09:51 Ativan - PO 0.5 mg BID NILA Administration Miscellaneous 1 each 03/12/18 22:00 03/18/18 21:44 Lidoderm Patch Removal MC 1 each DAILY@2200 NILA Administration Nicotine 14 mg 03/13/18 11:15 03/19/18 09:55 Nicoderm Patch - TD 14 mg DAILY NILA Administration Nifedipine 60 mg 03/19/18 10:00 Procardia Xl - PO BID NILA Oxycodone HCl 30 mg 03/15/18 15:00 03/19/18 06:13 Roxicodone - PO 30 mg TID NILA Administration Pantoprazole Sodium 40 mg 03/13/18 10:00 03/19/18 09:55 Protonix - PO 40 mg DAILY NILA Administration Tiotropium [place] 2 puff 03/16/18 11:00 09/29/18 09:56 Spiriva Respimat IH 2 puff DAILY NILA Administration Valsartan 320 mg 03/19/18 10:00 Diovan - PO DAILY NILA Venlafaxine HCl 37.5 mg 03/18/18 13:00 03/19/18 09:51 Effexor Xr - PO 37.5 mg DAILY NILA Administration ASSESSMENT/PLAN: Yasir Rob is a 53yo man with a PMH of CAD s/p cath, difficult to control HTN, current smoking, admitted on 03/12 with an exacerbation of previously diagnosed COPD. A rapid response was called this morning for severe epigastric pain, diaphoresis, SBP in the 220's. There was initially concern for aortic dissection, but CT indicated dilated small bowel concerning for obstruction vs ileus. He was transferred to the ICU for BP control and monitoring. Neuro: - Has been on oxycodone 30mg TID scheduled for chronic low back pain. Morphine 2mg Q4hr PRN while NPO. Limit narcotics as tolerated to encourage bowel motility as a large stool burden could be seen on CT. - Acetaminophen IV Q6 PRN for pain - Toradol 30 Q6 PRN if normal kidney function - Nicotine patch CV: - h/o CAD and persistent HTN - Initially SBP in the 200s on the floor, improved somewhat to 170/113 on arrival to the ICU. - Hydralazine 10 IV given with improvement to 169/102 - Hold ASA, plavix, atorvastatin while NPO - Holding carvedilol 25 BID, hydralazine 100 TID, nifedipine 60 BID, valsartan 320 daily, chlorthalidone - Nicardipine drip ordered. Goal SBP around 160. With chronic HTN, do not want to lower excessively - Lasix 20 IV daily - Continuous monitoring. Pulm: - New COPD diagnosis - Continue albuterol, symbicort, spiriva, cefuroxime 500 BID - IS 10x per hour Heme: - Monitor daily CBC - Repeat CBC, coags, type and screen sent GI: - c/o epigastric pain today with retching/vomiting - CT abd/pelvis with dilated small bowel concerning for SBO v ileus. No transition point noted - NGT placed, continue to wall suction. - NPO - Dr Napoles consulted - Famotidine IV given on arrival to ICU. Anti-emetics held due to QTc of 477 - Continue daily PPI while NGT in place - LFTs sent Renal: - Voiding spontaneously ID: - Cefuroxime for COPD exacerbation; switched to IV (750 Q8hr per pharmacy) - Final cultures pending Endo: - No issues Psych: - Started on venlafaxine yesterday for symptoms of anxiety and depression - Will hold while NPO, plan to restart - Restart IV ativan if needed for anxiety; was on 0.5mg BID on floor Musc: - OOB as tolerated PPx: - SQH - pantoprazole FEN: - NPO - SLIV, may consider fluids in the future - Replete lytes PRN. Repeat BMP sent. Dispo: - Monitor in ICU To be discussed with Dr Wall. Mouna Collado PGY1 Visit type - Emergency Visit Emergency Visit: No - New Patient This patient is new to me today: Yes Date on this admission: 03/19/18 - Critical Care Critical Care patient: Yes Total Critical Care Time (in minutes): 45 Critical Care Statement: The care of this patient involved high complexity decision making to prevent further life threatening deterioration of the patient 's condition and/or to evaluate & treat vital organ system(s) failure or risk of failure.
[2018-03-19] MEDS ORDERED: FAMOTIDINE 20 MG/50 ML IVPB 20 MG/50 ML MG IVPB ONE (12:00)
[2018-03-19] MEDS: NICARDIPINE 25 MG in DEXTROSE 5%-WATER - 240 ML IVPB SCH (12:00)
[2018-03-19] MEDS: NIFEdipine E.R 60 MG TABLET (UD) PO SCH (12:45)
[2018-03-19] MEDS: VALSARTAN 160 MG TABLET (UD) PO SCH (12:45)
[2018-03-19 12:54] LABS: HEMATOCRIT 46.5 % (35.4-49); HEMOGLOBIN 15.5 GM/dL (11.7-16.9); MCH 29.1 pg (25.7-33.7); MCHC 33.3 g/dl (32.0-35.9); MEAN CELL VOLUME 87.4 fl (80-96); MEAN PLT VOLUME 9.3 fl (7.5-11.1); PLATELET COUNT 237 K/MM3 (134-434); RBC 5.32 M/mm3 (4.00-5.60); RDW 13.9 % (11.9-15.9); WHITE BLOOD COUNT 14.6 K/mm3 (4.0-10.0)
[2018-03-19 12:56] LABS: COCAINE, UR NEGATIVE ng/ml (CUTOFF=300); METHADONE, UR NEGATIVE ng/ml (CUTOFF=300); PHENCYCLIDINE,URINE NEGATIVE ng/ml (CUTOFF=25); URINE AMPHETAMINES NEGATIVE ng/ml (CUTOFF=500); URINE BARBITURATES NEGATIVE ng/ml (CUTOFF=200); URINE BENZODIAZEPINES NEGATIVE ng/ml (CUTOFF=200)
[2018-03-19 13:07] LABS: OPIATES, URI POSITIVE ng/ml (CUTOFF=300)
[2018-03-19 13:08] LABS: INR 0.89 (0.83-1.09); PROTHROMBIN TIME (PATIENT) 10.5 SEC (9.7-13.0)
[2018-03-19] MEDS ORDERED: KETOROLAC TROMETHAMINE 30 MG/1 ML VIAL IVPUSH PRN (13:09)
[2018-03-19 13:10] LABS: ACTIVATED PTT 28.7 SECONDS (25.2-36.5)
[2018-03-19] MEDS ORDERED: BENZOCAINE/MENTH/CETYLPYRD CL 1 EACH LOZENGE MM PRN (13:13)
[2018-03-19] MEDS ORDERED: BISACODYL 10 MG SUPP.RECT RC ONE (13:18)
[2018-03-19 13:38] LABS: ALBUMIN 3.1 g/dl (3.4-5.0); ALK PHOS 50 U/L (45-117); ANION GAP 8 MMOL/L (8-16); BILIRUBIN,DIRECT 0.2 mg/dL (0.0-0.2); BILIRUBIN,TOTAL 0.3 mg/dL (0.2-1); BLOOD UREA NITROGEN 30 mg/dL (7-18); CALCIUM 8.9 mg/dL (8.5-10.1); CHLORIDE 98 mmol/L (98-107); CO2 30 mmol/L (21-32); CREATININE 0.9 mg/dL (0.55-1.3); GLUCOSE,RANDOM 112 mg/dL (74-106); MAGNESIUM 2.2 mg/dL (1.8-2.4); PHOSPHOROUS 3.4 mg/dL (2.5-4.9); POTASSIUM 3.3 mmol/L (3.5-5.1); SGOT/AST 20 U/L (15-37); SGPT/ALT 44 U/L (13-61); SODIUM 136 mmol/L (136-145); TOT PROT 7.6 g/dl (6.4-8.2)
[2018-03-19] MEDS: ACETAMINOPHEN 1000 MG/100 ML VIAL (NON FORMULARY) IVPB PRN ×2 (13:48→23:41)
[2018-03-19] MEDS ORDERED: KCL 10 MEQ IVPB 10 MEQ/100 ML INFUS.BAG IVPB SCH (14:15)
[2018-03-19] MEDS ORDERED: SODIUM CHLORIDE 1,000 ML IV SCH (14:30)
[2018-03-19] MEDS ORDERED: SODIUM CHLORIDE 1,000 ML with POTASSIUM CHLORIDE 40 MEQ IVPB SCH (14:30)
[2018-03-19] MEDS ORDERED: LACTATED RINGERS SOLUTION 1000 ML INFUS.BAG IV ONE (15:03)
[2018-03-19] MEDS ORDERED: POTASSIUM CHLORIDE 20 MEQ PREMIX IVPB 100 ML IVPB ONE (15:04)
[2018-03-19] MEDS ORDERED: morphine CARPU-JECT 2 MG/1 ML DISP.SYRIN IVPUSH PRN (15:05)
[2018-03-19] MEDS ORDERED: morphine SULFATE 4 MG/ML VIAL ONE (16:08)
[2018-03-19] MEDS: MORPHINE SULFATE 2 MG/ML VIAL IVPUSH PRN ×2 (16:37→20:26)
[2018-03-19] MEDS: SODIUM CHLORIDE 1,000 ML with POTASSIUM CHLORIDE 40 MEQ IV SCH (16:42)
--- NOTE | 2018-03-19 18:17 | CONSULT ---
Consult Consult Specialty:: General Surgery Referred by:: Dinah Park Reason for Consultation:: abdominal pain, CT with dilated small bowel and stomach - History of Present Illness Chief Complaint: epigastric pain, nausea, retching History of Present Illness: 53yoM smoker with nonobstructive CAD s/p cath/stent on asa/plavix, difficult to control HTN, HLD, chronic back pain, s/p lap chas and shoulder surgeries, was admitted last week with chest pain and SOB without GI complaints. Workup excluded acute cardiac source, and he was diagnosed with COPD with acute exacerbation and treated with antibiotics and steroids with improvement/ resolution of acute pulmonary issues. This morning, he had sudden onset of severe epigastric pain and tenderness with diaphoresis, acutely higher BP, with retching but no vomiting. CT C/A/P ruled out dissection, and he has no aneurysms. CT did show very dilated stomach and some small bowel, without clear transition point, and large stool burden distally. NGT was placed with clear output (volume unclear), and he was transferred to ICU for BP control with IV drips, which has improved some. Surgery was asked to evaluate. He is seen in the ICU with chacorta present. He describes epigastric localized pain and tenderness and states, "I have a hernia there too." On exam, diastasis is appreciated in the upper midline with localized tenderness. He feels dry/thirsty , and was sweating earlier, but is not febrile. He admits to using Rolaids at home sometimes, which he takes when he gets "hunger pains" in his upper mid and right abdomen if he hasn't eaten for a while, "to tide me over." He had colonoscopy about 5 years ago, and may be due for repeat, but has never had upper endoscopy. - History Source History Provided By: Patient, Medical Record, Caregiver Limitations to Obtaining History: No Limitations - Past Medical History Cardio/Vascular: Yes: CAD, HTN, Hyperlipdemia Pulmonary: Yes: COPD (new diagnosis this admission) Gastrointestinal: Yes: Constipation, GERD Musculoskeletal: Yes: Chronic low back pain - Past Surgical History Past Surgical History: Yes: Cholecystectomy (laparoscopic), Colonoscopy, Joint Replacement (right knee), Stent (coronary) Additional Surgical History: Left shoulder rotator cuff surgery. 2 back surgeries - Alcohol/Substance Use Hx Alcohol Use: Yes (rarely) History of Substance Use: reports: Marijuana (every other day), Prescription ( on chronic narcotics for back pain) - Smoking History Smoking history: Current every day smoker Have you smoked in the past 12 months: Yes Aproximately how many cigarettes per day: 20 - Social History Usual Living Arrangement: With Child ADL: Independent Occupation: disability, 2 kids History of Recent Travel: No Home Medications - Allergies Allergies/Adverse Reactions: Allergies Allergy/AdvReac Type Severity Reaction Status Date / Time No Known Drug Allergies Allergy Severe Verified 02/26/18 04:09 bananas and vicoden together Allergy Severe ANAPHYLAXIS Uncoded 02/26/18 04:09 . - Home Medications Home Medications: Ambulatory Orders Carvedilol 3.125 mg PO BID 01/16/17 Clopidogrel Bisulfate [Plavix] 150 mg PO DAILY 01/16/17 Hydrochlorothiazide 40 mg PO BID 01/16/17 Oxycodone HCl/Acetaminophen [Percocet 10-325 mg Tablet] 1 each PO Q6H PRN #12 tablet MDD 4 07/17/17 Amlodipine Besylate 5 mg PO DAILY 03/12/18 Family Disease History - Family Disease History Family History: Unable to Obtain Review of Systems - Review of Systems Constitutional: reports: Diaphoresis. denies: Chills, Fever Eyes: denies: Blurred Vision, Recent Change in Vision HENT: denies: Difficult Swallowing, Throat Pain Cardiovascular: denies: Chest Pain (not since admission), Palpitations Respiratory: reports: Cough (on admission/smoker's cough). denies: SOB (not like on admission) Gastrointestinal: reports: Abdominal Pain, Bloating, Constipation, Nausea. denies: Vomiting Genitourinary: denies: Burning, Dysuria Musculoskeletal: reports: Back Pain. denies: Joint Pain, Muscle Pain Integumentary: denies: Change in Color, Rash Neurological: denies: Dizziness, Headache Physical Exam Vital Signs: Vital Signs Temperature 99.4 F 03/19/18 11:33 Pulse Rate 78 03/19/18 17:30 Respiratory Rate 18 03/19/18 17:30 Blood Pressure 143/96 03/19/18 17:30 O2 Sat by Pulse Oximetry (%) 100 03/19/18 13:38 Constitutional: Yes: Well Nourished, Anxious, Mild Distress Eyes: Yes: Conjunctiva Clear, EOM Intact HENT: Yes: Atraumatic, Normocephalic, Other (NGT in place - advanced ~10cm to 70 at nares and resecured) Neck: Yes: Supple, Trachea Midline Cardiovascular: Yes: Pulse Irregular. No: Bradycardia, Tachycardia Respiratory: Yes: Regular, CTA Bilaterally. No: Wheezes Gastrointestinal: Yes: Normal Bowel Sounds, Soft, Distention, Hernia (tiny umbilical defect palpable), Tenderness, Epigastrium (focally epigastric - no rebound, worse with valsalva), Other (rectus diastasis in upper abdomen - not true hernia) ...Rectal Exam: Yes: Deferred Renal/: No: CVA Tenderness - Left, CVA Tenderness - Right Musculoskeletal: No: Joint Stiffness, Joint Swelling Extremities: No: Cool, Cyanosis Edema: No Peripheral Pulses WNL: Yes Integumentary: Yes: Tattoos. No: Jaundice, Rash Neurological: Yes: Alert, Oriented Psychiatric: Yes: Alert, Oriented Labs: CBC, BMP 03/19/18 12:42 03/19/18 12:42 CMP Sodium 136 mmol/L (136-145) 03/19/18 12:42 Potassium 3.3 mmol/L (3.5-5.1) L 03/19/18 12:42 Chloride 98 mmol/L (98-107) 03/19/18 12:42 Carbon Dioxide 30 mmol/L (21-32) 03/19/18 12:42 Anion Gap 8 MMOL/L (8-16) 03/19/18 12:42 BUN 30 mg/dL (7-18) H 03/19/18 12:42 Creatinine 0.9 mg/dL (0.55-1.3) 03/19/18 12:42 Creat Clearance w eGFR > 60 (>60) 03/19/18 12:42 POC Glucometer 109 UNITS (80-120) 03/19/18 10:39 Random Glucose 112 mg/dL (74-106) H 03/19/18 12:42 Lactic Acid 1.7 mmol/L (0.4-2.0) 03/19/18 15:45 Calcium 8.9 mg/dL (8.5-10.1) 03/19/18 12:42 Phosphorus 3.4 mg/dL (2.5-4.9) 03/19/18 12:42 Magnesium 2.2 mg/dL (1.8-2.4) 03/19/18 12:42 Total Bilirubin 0.3 mg/dL (0.2-1) 03/19/18 12:42 Direct Bilirubin 0.2 mg/dL (0.0-0.2) 03/19/18 12:42 AST 20 U/L (15-37) 03/19/18 12:42 ALT 44 U/L (13-61) 03/19/18 12:42 Alkaline Phosphatase 50 U/L (45-117) 03/19/18 12:42 Troponin I 0.02 ng/ml (0.00-0.05) 03/19/18 12:42 B-Natriuretic Peptide 830.2 pg/ml (5-125) H 03/12/18 13:44 Total Protein 7.6 g/dl (6.4-8.2) 03/19/18 12:42 Albumin 3.1 g/dl (3.4-5.0) L 03/19/18 12:42 Triglycerides 61 mg/dL (0-150) 03/13/18 10:15 Cholesterol 160 mg/dL (50-200) 03/13/18 10:15 Total LDL Cholesterol 88 mg/dL (5-100) 03/13/18 10:15 HDL Cholesterol 67 mg/dL (40-60) H 03/13/18 10:15 TSH 4.01 uIU/ml (0.358-3.74) H 03/19/18 10:18 lactate was 3.2, down after IVF bolus K+ low BUN elevated from 22 3 days ago, from normal prior to that wbc up a bit - steroids tapered off recently INR, PTT INR 0.89 (0.83-1.09) 03/19/18 12:42 Imaging - Results X-ray: Report Reviewed, Image Reviewed (NGT in stomach) Cat Scan: Report Reviewed, Image Reviewed (images personally reviewed - dilated , fluid-filled stomach with dilated proximal small bowel, no clear transition point or obstructing lesion, lots of stool in colon, no clear hiatal hernia, no free air or fluid) Problem List - Problems (1) Epigastric pain Code(s): R10.13 - EPIGASTRIC PAIN (2) Nausea alone Code(s): R11.0 - NAUSEA (3) Dehydration Code(s): E86.0 - DEHYDRATION (4) Hypokalemia Code(s): E87.6 - HYPOKALEMIA (5) HTN (hypertension) Code(s): I10 - ESSENTIAL (PRIMARY) HYPERTENSION Qualifiers: Hypertension type: essential hypertension Qualified Code(s): I10 - Essential (primary) hypertension (6) COPD (chronic obstructive pulmonary disease) Code(s): J44.9 - CHRONIC OBSTRUCTIVE PULMONARY DISEASE, UNSPECIFIED Qualifiers: COPD type: COPD with acute exacerbation Qualified Code(s): J44.1 - Chronic obstructive pulmonary disease with (acute) exacerbation (7) ASHD (arteriosclerotic heart disease) Code(s): I25.10 - ATHSCL HEART DISEASE OF [place] CORONARY ARTERY W/O ANG PCTRS (8) Tobacco abuse Assessment/Plan: would wean nicotine patch to off - may be contributing to hypertension Code(s): Z72.0 - TOBACCO USE (9) Chronic low back pain Code(s): M54.5 - LOW BACK PAIN; G89.29 - OTHER CHRONIC PAIN Qualifiers: Back pain laterality: bilateral Sciatica presence: without sciatica Qualified Code(s): M54.5 - Low back pain; G89.29 - Other chronic pain Assessment/Plan CT with distended stomach and proximal small bowel without clear transition point NG placed with ? "copious" clear output now with ~300ml clear/garcia output in canister still with nausea occasionally but much better than before pt does have h/o abdominal surgery (luna doherty 2005), so if element of obstruction present, NPO/NGT/IVF are appropriate treatment focal pain and tenderness present epigastrically - pt also has marked diastasis there pt is dehydrated significantly over 3 days since last labs - responded well to IV fluid bolus lactate down from 3.2 to 1.7, good urine output hypokalemia - needs IV replacement and trend labs also high TSH noted - ?hypothyroidism unclear if recent steroid course could somehow be related - ?PUD, increased wbc? also constipated on chronic narcotics - had BM after dulcolax suppository CT also showed large stool burden NGT courses with bowing to left of mediastinal structures - unclear why no clear hiatal hernia on CT blood pressure under better control on IV drips QT prolonged - limited ability to use antiemetics no clear acute indication for surgery at this time will follow with you Thank you for the opportunity to participate in the care of this patient. This patient is critically ill. Time spent reviewing chart, examining patient, talking with providers and/or family and documentation is 50 minutes.
[2018-03-19] MEDS: LIDOCAINE PATCH REMOVAL MC SCH (21:37)
[2018-03-19] MEDS: CHLORHEXIDINE GLUCONATE 4% CLEANSER FOR DECOLONIZATION TP SCH (21:38)
[2018-03-19] MEDS: MUPIROCIN 2% TOPICAL OINTMENT FOR DECOLONIZATION NS SCH (21:41)
[2018-03-19] MEDS ORDERED: CEFUROXIME INJECTION 750 MG in DEXTROSE 5%-WATER - 50 ML IVPB SCH (22:00)
--- NOTE | 2018-03-19 23:03 | EKG ---
Test Reason : Blood Pressure : / mmHG Vent. Rate : 079 BPM Atrial Rate : 079 BPM P-R Int : 150 ms QRS Dur : 112 ms QT Int : 416 ms P-R-T Axes : 057 033 057 degrees QTc Int : 477 ms NORMAL SINUS RHYTHM POSSIBLE LEFT ATRIAL ENLARGEMENT LEFT VENTRICULAR HYPERTROPHY NONSPECIFIC T WAVE ABNORMALITY PROLONGED QT ABNORMAL ECG WHEN COMPARED WITH ECG OF 12-MAR-2018 13:31, NO SIGNIFICANT CHANGE WAS FOUND Confirmed by DAVID JOLLEY, MICHEAL ([id number]) on 03/19/2018 11:02:56 PM Referred By: Norma FLORES Confirmed By:MICHEAL HERNANDEZ MD
[2018-03-20] MEDS: MORPHINE SULFATE 2 MG/ML VIAL IVPUSH PRN ×7 (02:00→22:15)
[2018-03-20 06:03] LABS: HEMATOCRIT 45.5 % (35.4-49); HEMOGLOBIN 15.2 GM/dL (11.7-16.9); MCH 29.4 pg (25.7-33.7); MCHC 33.4 g/dl (32.0-35.9); MEAN CELL VOLUME 88.2 fl (80-96); MEAN PLT VOLUME 9.1 fl (7.5-11.1); PLATELET COUNT 209 K/MM3 (134-434); RBC 5.16 M/mm3 (4.00-5.60); WHITE BLOOD COUNT 7.1 K/mm3 (4.0-10.0)
[2018-03-20 06:23] LABS: ALK PHOS 53 U/L (45-117); ANION GAP 4 MMOL/L (8-16); BILIRUBIN,TOTAL 0.5 mg/dL (0.2-1); BLOOD UREA NITROGEN 20 mg/dL (7-18); CALCIUM 8.6 mg/dL (8.5-10.1); CHLORIDE 96 mmol/L (98-107); CO2 33 mmol/L (21-32); CREATININE 0.8 mg/dL (0.55-1.3); GLUCOSE,RANDOM 80 mg/dL (74-106); MAGNESIUM 2.2 mg/dL (1.8-2.4); PHOSPHOROUS 4.6 mg/dL (2.5-4.9); POTASSIUM 4.1 mmol/L (3.5-5.1); SGOT/AST 58 U/L (15-37); SGPT/ALT 134 U/L (13-61); SODIUM 134 mmol/L (136-145); TOT PROT 7.3 g/dl (6.4-8.2)
[2018-03-20] MEDS: SODIUM CHLORIDE 1,000 ML with POTASSIUM CHLORIDE 40 MEQ IV SCH ×3 (09:34→19:07)
[2018-03-20] MEDS: CEFUROXIME INJECTION 750 MG in DEXTROSE 5%-WATER - 50 ML IVPB SCH (09:42)
[2018-03-20] MEDS: PANTOPRAZOLE SODIUM 40 MG VIAL IVPUSH SCH (09:43)
[2018-03-20] MEDS: BUDESONIDE/FORMETEROL FUMARATE 160/4.5 mcg INHALER IH SCH ×2 (09:43→22:14)
[2018-03-20] MEDS: FUROSEMIDE 40 MG/4 ML INJECTABLE VIAL IVPUSH SCH (09:43)
[2018-03-20] MEDS: HEPARIN NA (PORCINE) 5,000 UNITS/ML 1ML VIAL SQ SCH ×2 (09:44→22:12)
[2018-03-20] MEDS: LIDOCAINE 5% TOPICAL PATCH TP SCH (09:49)
[2018-03-20] MEDS ORDERED: PT OWN MED DRAWER 7, Y5N ONE ×3 (10:04→23:08)
[2018-03-20] MEDS: NICOTINE 14 MG/24 HOURS TOPICAL PATCH TD SCH (10:06)
[2018-03-20] MEDS: MUPIROCIN 2% TOPICAL OINTMENT FOR DECOLONIZATION NS SCH ×2 (10:06→22:08)
--- NOTE | 2018-03-20 11:11 | PN ---
Teaching Attending Note Name of Resident: Krunal Herman ATTENDING PHYSICIAN STATEMENT I saw and evaluated the patient. I reviewed the resident's note and discussed the case with the resident. I agree with the resident's findings and plan as documented. SUBJECTIVE: Pt seen and examined in the ICU. NGT in place, abdominal pain resolved. Denies shortness of breath or chest pain. No flatus or bowel movement. Remains on cardene gtt. OBJECTIVE: Vital Signs Period Temp Pulse Resp BP Sys/Astorga Pulse Ox Last 24 Hr 97.8 F-99.4 F 78-98 04-07 126-170/80-113 100-100 Intake & Output 03/17/18 03/18/18 03/19/18 03/20/18 23:59 23:59 23:59 23:59 Intake Total 689 741 7331 856 Output Total 3 1520 1520 Balance 430 417 -814 -829 Weight 97.386 kg Gen: NAD at rest Heart: RRR Lung: decreased breath sounds at the bases Abd: soft, nontender Ext: no edema CBC, BMP 03/20/18 05:30 03/20/18 05:30 Active Medications Acetaminophen (Ofirmev Injection -) 1,000 mg IVPB Q6H PRN PRN Reason: PAIN Last Admin: 03/19/18 23:41 Dose: 1,000 mg Albuterol Sulfate (Ventolin 0.083% Nebulizer Soln -) 1 amp NEB Q4H PRN PRN Reason: SHORT OF BREATH/WHEEZING Last Admin: 03/18/18 20:42 Dose: 1 amp Aspirin (Ecotrin -) 81 mg PO DAILY [facility] Last Admin: 03/19/18 09:58 Dose: 81 mg Atorvastatin Calcium (Lipitor -) 40 mg PO HS [facility] Last Admin: 03/18/18 21:23 Dose: 40 mg Benzocaine/Menthol (Cepacol Lozenge -) 1 each MM PRN PRN PRN Reason: SORE THROAT Budesonide/Formoterol Fumarate (Symbicort 160/4.5mcg -) 2 puff IH BID [facility] Last Admin: 03/20/18 09:43 Dose: 2 puff Carvedilol (Coreg -) 25 mg PO BID [facility] Last Admin: 03/19/18 09:51 Dose: 25 mg Cefuroxime Axetil (Ceftin -) 500 mg PO BID [facility] Last Admin: 03/19/18 09:53 Dose: 500 mg Chlorhexidine Gluconate (Hibiclens For Decolonization -) 1 applic TP HS [facility] Last Admin: 03/19/18 21:38 Dose: 1 applic Chlorthalidone (Hygroton -) 50 mg PO DAILY [facility] Last Admin: 03/19/18 09:50 Dose: 50 mg Clopidogrel Bisulfate (Plavix -) 75 mg PO DAILY [facility] Last Admin: 03/19/18 09:50 Dose: 75 mg Furosemide (Lasix Injection -) 20 mg IVPUSH DAILY [facility] Last Admin: 03/20/18 09:43 Dose: 20 mg Guaifenesin (Robitussin Dm -) 10 ml PO Q8H PRN PRN Reason: COUGH Last Admin: 03/18/18 05:02 Dose: 10 ml Heparin Sodium (Porcine) (Heparin -) 5,000 unit SQ BID [facility] Last Admin: 03/20/18 09:44 Dose: 5,000 unit Hydralazine HCl (Apresoline -) 100 mg PO TID [facility] Last Admin: 03/19/18 06:13 Dose: 100 mg Hydralazine HCl (Apresoline Injection -) 10 mg IVPUSH Q1H PRN PRN Reason: HYPERTENSION Last Admin: 03/19/18 11:32 Dose: 10 mg Nicardipine HCl 25 mg/ (Dextrose) 250 mls @ 25 mls/hr IVPB TITR [facility]; Protocol Last Titration: 03/19/18 16:00 Dose: 1.25 mg/hr, 12.5 mls/hr Cefuroxime Sodium 750 mg/ (Dextrose) 50 mls @ 100 mls/hr IVPB Q8H-IV NILA Last Admin: 03/20/18 09:42 Dose: 100 mls/hr Potassium Chloride 40 meq/ (Sodium Chloride) 1,020 mls @ 75 mls/hr IV ASDIR [facility] Last Admin: 03/20/18 09:34 Dose: 75 mls/hr Lidocaine (Lidoderm Patch -) 1 patch TP DAILY [facility] Last Admin: 03/20/18 09:49 Dose: 1 patch Lorazepam (Ativan -) 0.5 mg PO BID [facility] Last Admin: 03/19/18 09:51 Dose: 0.5 mg Miscellaneous (Lidoderm Patch Removal) 1 each MC DAILY@2200 [facility] Last Admin: 03/19/18 21:37 Dose: 1 each Morphine Sulfate (Morphine Sulfate) 2 mg IVPUSH Q4H PRN PRN Reason: PAIN LEVEL 7 - 10 Last Admin: 03/20/18 10:07 Dose: 2 mg Mupirocin (Bactroban Ointment (For Decolonization) -) 1 applic NS BID [facility] Stop: 03/24/18 21:59 Last Admin: 03/20/18 10:06 Dose: 1 applic Nicotine (Nicoderm Patch -) 14 mg TD DAILY [facility] Last Admin: 03/20/18 10:06 Dose: 14 mg Nifedipine (Procardia Xl -) 60 mg PO BID [facility] Last Admin: 03/19/18 12:45 Dose: Not Given Oxycodone HCl (Roxicodone -) 30 mg PO TID [facility] Last Admin: 03/19/18 06:13 Dose: 30 mg Pantoprazole Sodium (Protonix -) 40 mg PO DAILY [facility] Last Admin: 03/19/18 09:55 Dose: 40 mg Pantoprazole Sodium (Protonix Iv) 40 mg IVPUSH DAILY [facility] Last Admin: 03/20/18 09:43 Dose: 40 mg Tiotropium [place] (Spiriva Respimat) 2 puff IH DAILY [facility] Last Admin: 03/19/18 09:56 Dose: 2 puff Valsartan (Diovan -) 320 mg PO DAILY [facility] Last Admin: 03/19/18 12:45 Dose: Not Given Venlafaxine HCl (Effexor Xr -) 37.5 mg PO DAILY [facility] Last Admin: 03/19/18 09:51 Dose: 37.5 mg ASSESSMENT AND PLAN: Small Bowel Obstruction Acute Bronchitis improved COPD CAD h/o MICHAELA Smoker - continue NGT to low wall suction - pain control - titrate cardene gtt - inhaled bronchodilators - DVT prophylaxis - ICU monitoring while on cardene gtt
--- NOTE | 2018-03-20 11:22 | PN ---
Progress Note (short form) - Note Progress Note: s: no chest pain, palps, dizziness, edema, dyspnea. yesterday found to have sbo/ileus, now npo with ngt, abd pain a little better +cigs tele: sinus rhythm, occ pvcs Current Medications Generic Name Dose Route Start Last Admin Trade Name Freq PRN Reason Stop Dose Admin Acetaminophen 1,000 mg 03/19/18 13:09 03/19/18 23:41 Ofirmev Injection - IVPB 1,000 mg Q6H PRN Administration PAIN Albuterol Sulfate 1 amp 03/16/18 10:52 03/18/18 20:42 Ventolin 0.083% Nebulizer Soln - NEB 1 amp Q4H PRN Administration SHORT OF BREATH/WHEEZING Aspirin 81 mg 03/15/18 15:15 03/19/18 09:58 Ecotrin - PO 81 mg DAILY NILA Administration Atorvastatin Calcium 40 mg 03/16/18 22:00 03/18/18 21:23 Lipitor - PO 40 mg HS NILA Administration Benzocaine/Menthol 1 each 03/19/18 13:13 Cepacol Lozenge - MM PRN PRN SORE THROAT Budesonide/Formoterol Fumarate 2 puff 03/13/18 11:15 03/20/18 09:43 Symbicort 160/4.5mcg - IH 2 puff BID NILA Administration Carvedilol 25 mg 03/15/18 22:00 03/19/18 09:51 Coreg - PO 25 mg BID NILA Administration Cefuroxime Axetil 500 mg 03/15/18 22:00 03/19/18 09:53 Ceftin - PO 500 mg BID NILA Administration Chlorhexidine Gluconate 1 applic 03/19/18 22:00 03/19/18 21:38 Hibiclens For Decolonization - TP 1 applic HS NILA Administration Chlorthalidone 50 mg 03/17/18 10:00 03/19/18 09:50 Hygro[place] - PO 50 mg DAILY NILA Administration Clopidogrel Bisulfate 75 mg 03/16/18 10:00 03/19/18 09:50 Plavix - PO 75 mg DAILY NILA Administration Furosemide 20 mg 03/20/18 10:00 03/20/18 09:43 Lasix Injection - IVPUSH 20 mg DAILY NILA Administration Guaifenesin 10 ml 03/14/18 16:43 03/18/18 05:02 Robitussin Dm - PO 10 ml Q8H PRN Administration COUGH Heparin Sodium (Porcine) 5,000 unit 03/14/18 22:00 03/20/18 09:44 Heparin - SQ 5,000 unit BID NILA Administration Hydralazine HCl 100 mg 03/18/18 09:20 03/19/18 06:13 Apresoline - PO 100 mg TID NILA Administration Hydralazine HCl 10 mg 03/19/18 09:34 03/19/18 11:32 Apresoline Injection - IVPUSH 10 mg Q1H PRN Administration HYPERTENSION Nicardipine HCl 25 mg/ 250 mls @ 25 mls/hr 03/19/18 11:45 03/19/18 16:00 Dextrose IVPB 1.25 mg/hr TITR NILA 12.5 mls/hr Titration Protocol 2.5 MG/HR Cefuroxime Sodium 750 mg/ 50 mls @ 100 mls/hr 03/19/18 18:00 03/20/18 09:42 Dextrose IVPB 100 mls/hr Q8H-IV NILA Administration Potassium Chloride 40 meq/ 1,020 mls @ 75 mls/hr 03/19/18 15:21 03/20/18 09: 34 Sodium Chloride IV 75 mls/hr ASDIR NILA Administration Lidocaine 1 patch 03/12/18 17:00 03/20/18 09:49 Lidoderm Patch - TP 1 patch DAILY NILA Administration Lorazepam 0.5 mg 03/18/18 22:00 03/19/18 09:51 Ativan - PO 0.5 mg BID NILA Administration Miscellaneous 1 each 03/12/18 22:00 03/19/18 21:37 Lidoderm Patch Removal MC 1 each DAILY@2200 NILA Administration Morphine Sulfate 2 mg 03/19/18 16:10 03/20/18 10:07 Morphine Sulfate IVPUSH 2 mg Q4H PRN Administration PAIN LEVEL 7 - 10 Mupirocin 1 applic 03/19/18 22:00 03/20/18 10:06 Bactroban Ointment (For Decolonization) - NS 03/24/18 21:59 1 applic BID NILA Administration Nicotine 14 mg 03/13/18 11:15 03/20/18 10:06 Nicoderm Patch - TD 14 mg DAILY NILA Administration Nifedipine 60 mg 03/19/18 10:00 03/19/18 12:45 Procardia Xl - PO Not Given BID NILA Oxycodone HCl 30 mg 03/15/18 15:00 03/19/18 06:13 Roxicodone - PO 30 mg TID NILA Administration Pantoprazole Sodium 40 mg 03/13/18 10:00 03/19/18 09:55 Protonix - PO 40 mg DAILY NILA Administration Pantoprazole Sodium 40 mg 03/20/18 10:00 03/20/18 09:43 Protonix Iv IVPUSH 40 mg DAILY NILA Administration Tiotropium [place] 2 puff 03/16/18 11:00 03/19/18 09:56 Spiriva Respimat IH 2 puff DAILY NILA Administration Valsartan 320 mg 03/19/18 10:00 03/19/18 12:45 Diovan - PO Not Given DAILY NILA Venlafaxine HCl 37.5 mg 03/18/18 13:00 03/19/18 09:51 Effexor Xr - PO 37.5 mg DAILY NILA Administration Vital Signs: Vital Signs Period Temp Pulse Resp BP Sys/Astorga Pulse Ox Last 24 Hr 97.8 F-99.4 F 78-98 - 126-170/80-113 100-100 Constitutional: Yes: Well Nourished, No Distress Eyes: Yes: Conjunctiva Clear Neck: Yes: Supple, Trachea Midline Respiratory: Yes: Regular, mild Wheezes Gastrointestinal: Yes: abd mild tender, nd Cardiovascular: Yes: Regular Rate and Rhythm JVD: No Heart Sounds: Yes: S1, S2 Edema: No Peripheral Pulses: 2+ Left Doralis Pedis, 2+ Right Dorsalis Pedis Integumentary: Yes:no jaundice diaphoresis Neurological: Yes: Alert, Oriented CBC, BMP 03/20/18 05:30 03/20/18 05:30 EKG: LVH, nonspecific T wave changes, prolonged QTC 473 ms CXR: no acute process echo: nl LV/RV size and function, tr AR, tr to mild MR a/p: 53M h/o nonobstructive CAD s/p cath 2009, HTN, chronic low back pain, smoker p/w chest pain, cough, chest congestion sbo/ileus: -ngt in place, abd pain improving -plans per surgery Chest pain, cough, copd - neg trops, stable EKG without ischemic changes unlikely ACS - chest pain most likely pleuritic in setting of cough, less consistent with ACS - BNP 830 however clinical picture not c/w heart failure - on IV steroids, nebs for cough - pulm following, CT chest shows mild COPD - echo nl LV function - no further cardiac workup as inpatient resistant HTN with hypertensive urgency: - now npo so continue iv nicardipine gtt for now - resume po meds and transition off gtt when possible. was on carvedilol 25 bid , hydralazine 100 TID, chlorthalidone 50 qd, valsartan 320 (should go home on benicar (olmesartan) 40 qd for better efficacy/24 hr drug levels), nifedipine ER 60 bid - consider change carvedilol to labetalol next for greater potency - needs outpt f/u with us to complete w/u for secondary causes of HTN, including would recommend renal artery dopplers Current smoker - patient wants to quit
[2018-03-20] MEDS: TIOTROPIUM BROMIDE 2.5 MCG (SPIRIVA) RESPIMAT INHALER IH SCH (11:27)
[2018-03-20] MEDS ORDERED: SODIUM CHLORIDE 1,000 ML IV SCH (11:45)
--- NOTE | 2018-03-20 11:53 | PN ---
Physical Exam: SUBJECTIVE: Patient seen and examined wants NG tube out. Has not passed gas. low grade fever; cardene ggt OBJECTIVE: Vital Signs Period Temp Pulse Resp BP Sys/Astorga Pulse Ox Last 24 Hr 97.8 F-98.6 F 78-98 10- 126-169/80-108 100-100 GENERAL: The patient is awake, alert, and fully oriented, in no acute distress. with NGT LUNGS: decreased breath sounds bilatera HEART: Regular rate and rhythm, S1, S2 without murmur, rub or gallop. ABDOMEN: Soft, nontender, nondistended, no bowel sounds EXTREMITIES: 2+ pulses, warm, well-perfused, no edema. NEUROLOGICAL: Cranial nerves II through XII grossly intact. Normal speech, gait not observed. SKIN: Warm, dry, normal turgor, no rashes or lesions noted Laboratory Results - last 24 hr 03/19/18 03/19/18 03/19/18 11:30 12:42 12:42 WBC RBC Hgb Hct MCV MCH MCHC RDW Plt Count MPV PT with INR INR PTT (Actin FS) Sodium Potassium Chloride Carbon Dioxide Anion Gap BUN Creatinine Creat Clearance w eGFR Random Glucose Lactic Acid Calcium Phosphorus Magnesium Total Bilirubin Direct Bilirubin AST ALT Alkaline Phosphatase Troponin I 0.02 Total Protein Albumin Opiates Screen Positive A* Methadone Screen Negative Barbiturate Screen Negative Phencyclidine Screen Negative Ur Amphetamines Screen Negative MDMA (Ecstasy) Screen Negative Benzodiazepines Screen Negative Cocaine Screen Negative U Marijuana (THC) Screen Negative Blood Type O POSITIVE Antibody Screen Negative 03/19/18 03/19/18 03/19/18 12:42 12:42 12:42 WBC 14.6 H RBC 5.32 Hgb 15.5 Hct 46.5 D MCV 87.4 MCH 29.1 MCHC 33.3 RDW 13.9 Plt Count 237 D MPV 9.3 PT with INR INR PTT (Actin FS) Sodium 136 Potassium 3.3 L Chloride 98 Carbon Dioxide 30 Anion Gap 8 BUN 30 H Creatinine 0.9 Creat Clearance w eGFR > 60 Random Glucose 112 H Lactic Acid 3.2 H* Calcium 8.9 Phosphorus 3.4 Magnesium 2.2 Total Bilirubin 0.3 Direct Bilirubin 0.2 AST 20 ALT 44 Alkaline Phosphatase 50 Troponin I Total Protein 7.6 Albumin 3.1 L Opiates Screen Methadone Screen Barbiturate Screen Phencyclidine Screen Ur Amphetamines Screen MDMA (Ecstasy) Screen Benzodiazepines Screen Cocaine Screen U Marijuana (THC) Screen Blood Type Antibody Screen 03/19/18 03/19/18 03/19/18 12:42 15:45 15:45 WBC RBC Hgb Hct MCV MCH MCHC RDW Plt Count MPV PT with INR 10.50 INR 0.89 PTT (Actin FS) 28.7 Sodium Potassium Chloride Carbon Dioxide Anion Gap BUN Creatinine Creat Clearance w eGFR Random Glucose Lactic Acid 1.7 Calcium Phosphorus Magnesium Total Bilirubin Direct Bilirubin AST ALT Alkaline Phosphatase Troponin I Total Protein Albumin Opiates Screen Methadone Screen Barbiturate Screen Phencyclidine Screen Ur Amphetamines Screen MDMA (Ecstasy) Screen Benzodiazepines Screen Cocaine Screen U Marijuana (THC) Screen Blood Type O POSITIVE Antibody Screen 03/19/18 03/20/18 03/20/18 18:40 05:30 05:30 WBC 7.1 RBC 5.16 Hgb 15.2 Hct 45.5 MCV 88.2 MCH 29.4 MCHC 33.4 RDW 14.0 Plt Count 209 MPV 9.1 PT with INR INR PTT (Actin FS) Sodium 134 L Potassium 4.1 Chloride 96 L Carbon Dioxide 33 H Anion Gap 4 L BUN 20 H Creatinine 0.8 Creat Clearance w eGFR > 60 Random Glucose 80 Lactic Acid Calcium 8.6 Phosphorus 4.6 Magnesium 2.2 Total Bilirubin 0.5 Direct Bilirubin AST 58 H ALT 134 H Alkaline Phosphatase 53 Troponin I 0.02 Total Protein 7.3 Albumin 3.0 L Opiates Screen Methadone Screen Barbiturate Screen Phencyclidine Screen Ur Amphetamines Screen MDMA (Ecstasy) Screen Benzodiazepines Screen Cocaine Screen U Marijuana (THC) Screen Blood Type Antibody Screen Active Medications Generic Name Dose Route Start Last Admin Trade Name Freq PRN Reason Stop Dose Admin Acetaminophen 1,000 mg 03/19/18 13:09 03/19/18 23:41 Ofirmev Injection - IVPB 1,000 mg Q6H PRN Administration PAIN Albuterol Sulfate 1 amp 03/16/18 10:52 03/18/18 20:42 Ventolin 0.083% Nebulizer Soln - NEB 1 amp Q4H PRN Administration SHORT OF BREATH/WHEEZING Aspirin 81 mg 03/15/18 15:15 03/19/18 09:58 Ecotrin - PO 81 mg DAILY NILA Administration Atorvastatin Calcium 40 mg 03/16/18 22:00 03/18/18 21:23 Lipitor - PO 40 mg HS NILA Administration Benzocaine/Menthol 1 each 03/19/18 13:13 Cepacol Lozenge - MM PRN PRN SORE THROAT Budesonide/Formoterol Fumarate 2 puff 03/13/18 11:15 03/20/18 09:43 Symbicort 160/4.5mcg - IH 2 puff BID NILA Administration Carvedilol 25 mg 03/15/18 22:00 03/19/18 09:51 Coreg - PO 25 mg BID NILA Administration Cefuroxime Axetil 500 mg 03/15/18 22:00 03/19/18 09:53 Ceftin - PO 500 mg BID NILA Administration Chlorhexidine Gluconate 1 applic 03/19/18 22:00 03/19/18 21:38 Hibiclens For Decolonization - TP 1 applic HS NILA Administration Chlorthalidone 50 mg 03/17/18 10:00 03/19/18 09:50 [place] - PO 50 mg DAILY NILA Administration Clopidogrel Bisulfate 75 mg 03/16/18 10:00 03/19/18 09:50 Plavix - PO 75 mg DAILY NILA Administration Furosemide 20 mg 03/20/18 10:00 03/20/18 09:43 Lasix Injection - IVPUSH 20 mg DAILY NILA Administration Guaifenesin 10 ml 03/14/18 16:43 03/18/18 05:02 Robitussin Dm - PO 10 ml Q8H PRN Administration COUGH Heparin Sodium (Porcine) 5,000 unit 03/14/18 22:00 03/20/18 09:44 Heparin - SQ 5,000 unit BID NILA Administration Hydralazine HCl 100 mg 03/18/18 09:20 03/19/18 06:13 Apresoline - PO 100 mg TID NILA Administration Hydralazine HCl 10 mg 03/19/18 09:34 03/19/18 11:32 Apresoline Injection - IVPUSH 10 mg Q1H PRN Administration HYPERTENSION Nicardipine HCl 25 mg/ 250 mls @ 25 mls/hr 03/19/18 11:45 03/19/18 16:00 Dextrose IVPB 1.25 mg/hr TITR NILA 12.5 mls/hr Titration Protocol 2.5 MG/HR Cefuroxime Sodium 750 mg/ 50 mls @ 100 mls/hr 03/19/18 18:00 03/20/18 09:42 Dextrose IVPB 100 mls/hr Q8H-IV NILA Administration Potassium Chloride 40 meq/ 1,020 mls @ 75 mls/hr 03/19/18 15:21 03/20/18 09: 34 Sodium Chloride IV 75 mls/hr ASDIR NILA Administration Sodium Chloride 1,000 mls @ 125 mls/hr 03/20/18 11:45 Normal Saline - IV ASDIR NILA Lidocaine 1 patch 03/12/18 17:00 03/20/18 09:49 Lidoderm Patch - TP 1 patch DAILY NILA Administration Lorazepam 0.5 mg 03/18/18 22:00 03/19/18 09:51 Ativan - PO 0.5 mg BID NILA Administration Miscellaneous 1 each 03/12/18 22:00 03/19/18 21:37 Lidoderm Patch Removal MC 1 each DAILY@2200 NILA Administration Morphine Sulfate 2 mg 03/20/18 11:33 Morphine Sulfate IVPUSH Q3H PRN PAIN LEVEL 7 - 10 Mupirocin 1 applic 03/19/18 22:00 03/20/18 10:06 Bactroban Ointment (For Decolonization) - NS 03/24/18 21:59 1 applic BID NILA Administration Nicotine 14 mg 03/13/18 11:15 03/20/18 10:06 Nicoderm Patch - TD 14 mg DAILY NILA Administration Nifedipine 60 mg 03/19/18 10:00 03/19/18 12:45 Procardia Xl - PO Not Given BID NILA Oxycodone HCl 30 mg 03/15/18 15:00 03/19/18 06:13 Roxicodone - PO 30 mg TID NILA Administration Pantoprazole Sodium 40 mg 03/13/18 10:00 03/19/18 09:55 Protonix - PO 40 mg DAILY NILA Administration Pantoprazole Sodium 40 mg 03/20/18 10:00 03/20/18 09:43 Protonix Iv IVPUSH 40 mg DAILY NILA Administration Tiotropium [place] 2 puff 03/16/18 11:00 03/20/18 11:27 Spiriva Respimat IH 2 puff DAILY NILA Administration Valsartan 320 mg 03/19/18 10:00 03/19/18 12:45 Diovan - PO Not Given DAILY NILA Venlafaxine HCl 37.5 mg 03/18/18 13:00 03/19/18 09:51 Effexor Xr - PO 37.5 mg DAILY NILA Administration ASSESSMENT/PLAN: This is a 53 year old female with a history of hypertension, non obstructing CAD , COPD, + smoker who presented with cough and chest tightness. ACS ruled out. Found to have SBO. Currently with NGT, still draining bilious fluid. Surgery eval, no indication for surgery at this time. NPO. On nicardipine drip for HTN. #SBO #Acute bronchitis #COPD #CAD #HTN #tobacco use -cont NGT/suction -NPO -pain control -monitor for flatus -inhaled bronchodilators -cont nicardipine ggt while npo -empiric antibiotics for broncospasm -nicotine patch -low grade temp; monitor for up trend; -dvt ppl -GI ppl Disposiiton: ICU monitoring while on cardene drip Visit type - Emergency Visit Emergency Visit: Yes ED Registration Date: 03/13/18 Care time: The patient presented to the Emergency Department on the above date and was hospitalized for further evaluation of their emergent condition. - New Patient This patient is new to me today: Yes Date on this admission: 03/20/18 - Critical Care Critical Care patient: Yes Total Critical Care Time (in minutes): 45 Critical Care Statement: The care of this patient involved high complexity decision making to prevent further life threatening deterioration of the patient 's condition and/or to evaluate & treat vital organ system(s) failure or risk of failure.
[2018-03-20 13:53] VITALS: BMI 29.0
[2018-03-20] MEDS: hydrALAZINE HCL 50 MG TABLET (FP) PO SCH ×2 (14:00→22:09)
[2018-03-20] MEDS: oxyCODONE HCL 5 MG TABLET PO SCH ×2 (14:00→22:07)
--- NOTE | 2018-03-20 16:57 | PN ---
Physical Exam: SUBJECTIVE: Patient seen and examined at bedside. Fiancee present. NGT very uncomfortable. Hungry. OBJECTIVE: Vital Signs Period Temp Pulse Resp BP Sys/Astorga Pulse Ox Last 24 Hr 97.8 F-100.1 F 78-96 04-07 134-161/92-111 100 GENERAL: The patient is awake, alert, and fully oriented, in no acute distress. NGT in place. LUNGS: Expiratory wheezing and rhonchi; no cough HEART: Regular rate and rhythm, S1, S2 ABDOMEN: Soft, nontender, nondistended EXTREMITIES: 2+ pulses, warm, well-perfused, no edema. NEUROLOGICAL: Cranial nerves II through XII grossly intact. Normal speech Laboratory Results - last 24 hr 03/19/18 03/20/18 03/20/18 18:40 05:30 05:30 WBC 7.1 RBC 5.16 Hgb 15.2 Hct 45.5 MCV 88.2 MCH 29.4 MCHC 33.4 RDW 14.0 Plt Count 209 MPV 9.1 Sodium 134 L Potassium 4.1 Chloride 96 L Carbon Dioxide 33 H Anion Gap 4 L BUN 20 H Creatinine 0.8 Creat Clearance w eGFR > 60 Random Glucose 80 Calcium 8.6 Phosphorus 4.6 Magnesium 2.2 Total Bilirubin 0.5 AST 58 H ALT 134 H Alkaline Phosphatase 53 Troponin I 0.02 Total Protein 7.3 Albumin 3.0 L Active Medications Generic Name Dose Route Start Last Admin Trade Name Freq PRN Reason Stop Dose Admin Acetaminophen 1,000 mg 03/19/18 13:09 03/19/18 23:41 Ofirmev Injection - IVPB 1,000 mg Q6H PRN Administration PAIN Albuterol Sulfate 1 amp 03/16/18 10:52 03/18/18 20:42 Ventolin 0.083% Nebulizer Soln - NEB 1 amp Q4H PRN Administration SHORT OF BREATH/WHEEZING Aspirin 81 mg 03/15/18 15:15 03/19/18 09:58 Ecotrin - PO 81 mg DAILY NILA Administration Atorvastatin Calcium 40 mg 03/16/18 22:00 03/18/18 21:23 Lipitor - PO 40 mg HS NILA Administration Benzocaine/Menthol 1 each 03/19/18 13:13 Cepacol Lozenge - MM PRN PRN SORE THROAT Budesonide/Formoterol Fumarate 2 puff 03/13/18 11:15 03/20/18 09:43 Symbicort 160/4.5mcg - IH 2 puff BID NILA Administration Carvedilol 25 mg 03/15/18 22:00 03/19/18 09:51 Coreg - PO 25 mg BID NILA Administration Chlorhexidine Gluconate 1 applic 03/19/18 22:00 03/19/18 21:38 Hibiclens For Decolonization - TP 1 applic HS NILA Administration Chlorthalidone 50 mg 03/17/18 10:00 03/19/18 09:50 [place] - PO 50 mg DAILY NILA Administration Clopidogrel Bisulfate 75 mg 03/16/18 10:00 03/19/18 09:50 Plavix - PO 75 mg DAILY NILA Administration Furosemide 20 mg 03/20/18 10:00 03/20/18 09:43 Lasix Injection - IVPUSH 20 mg DAILY NILA Administration Guaifenesin 10 ml 03/14/18 16:43 03/18/18 05:02 Robitussin Dm - PO 10 ml Q8H PRN Administration COUGH Heparin Sodium (Porcine) 5,000 unit 03/14/18 22:00 03/20/18 09:44 Heparin - SQ 5,000 unit BID NILA Administration Hydralazine HCl 100 mg 03/18/18 09:20 03/20/18 14:00 Apresoline - PO Not Given TID NILA Nicardipine HCl 25 mg/ 250 mls @ 25 mls/hr 03/19/18 11:45 03/20/18 16:06 Dextrose IVPB 2 mg/hr TITR NILA 20 mls/hr Titration Protocol 2.5 MG/HR Potassium Chloride 40 meq/ 1,020 mls @ 75 mls/hr 03/19/18 15:21 03/20/18 16: 15 Sodium Chloride IV Not Given ASDIR NILA Lidocaine 1 patch 03/12/18 17:00 03/20/18 09:49 Lidoderm Patch - TP 1 patch DAILY NILA Administration Lorazepam 0.5 mg 03/18/18 22:00 03/19/18 09:51 Ativan - PO 0.5 mg BID NILA Administration Miscellaneous 1 each 03/12/18 22:00 03/19/18 21:37 Lidoderm Patch Removal MC 1 each DAILY@2200 NILA Administration Morphine Sulfate 2 mg 03/20/18 11:33 03/20/18 16:05 Morphine Sulfate IVPUSH 2 mg Q3H PRN Administration PAIN LEVEL 7 - 10 Mupirocin 1 applic 03/19/18 22:00 03/20/18 10:06 Bactroban Ointment (For Decolonization) - NS 03/24/18 21:59 1 applic BID NILA Administration Nicotine 14 mg 03/13/18 11:15 03/20/18 10:06 Nicoderm Patch - TD 14 mg DAILY NILA Administration Nifedipine 60 mg 03/19/18 10:00 03/19/18 12:45 Procardia Xl - PO Not Given BID NILA Oxycodone HCl 30 mg 03/15/18 15:00 03/20/18 14:00 Roxicodone - PO Not Given TID NILA Pantoprazole Sodium 40 mg 03/13/18 10:00 03/19/18 09:55 Protonix - PO 40 mg DAILY NILA Administration Pantoprazole Sodium 40 mg 03/20/18 10:00 03/20/18 09:43 Protonix Iv IVPUSH 40 mg DAILY NILA Administration Tiotropium [place] 2 puff 03/16/18 11:00 03/20/18 11:27 Spiriva Respimat IH 2 puff DAILY NILA Administration Valsartan 320 mg 03/19/18 10:00 03/19/18 12:45 Diovan - PO Not Given DAILY NILA Venlafaxine HCl 37.5 mg 03/18/18 13:00 03/19/18 09:51 Effexor Xr - PO 37.5 mg DAILY NILA Administration ASSESSMENT/PLAN 53 year-old male with a PMH significant for HTN, non-obstructive CAD (cath 2009) , chronic lower back pain, current smoker. Admitted for chest pain and COPD exacerbation/asthmatic bronchitis. Also with refractory HTN. Hospital course complicated by SBO and hospital-acquired pneumonia. Possible SBO --03/19 significant distension of stomach and left sided abdomen and small bowel; ileus v SBO --NGT put out total 2L dark brown fluid --surgery following --NPO --daily KUB Hospital-acquired pneumonia --new patchy infiltrate seen on 03/19 CT and 03/20 CXR --blood cultures, urine antigens to be collected and sent --stop cefuroxime, start vanc and zosyn Hypertension, refractory --on nicardipine drip COPD exacerbation/asthmatic bronchitis --03/13 CT chest: mild to moderate COPD --steroids tapered; continue Symbicort, duonebs Coronary artery disease --holding PO meds due to possible SBO Chest pain --serial troponins negative --ECG not suggestive of acute ischemic event --CXR unremarkable --ACS ruled out --Echo: mild cLVH, LV hyperdynamic EF 70%, Grade I diastolic dysfunction; RV normal; LAE; trace to mild MR; trace TR; trace AI --seen and evaluated by cardiology Chronic low back pain --oxycodone 30mg q8h Tobacco cessation --nicotine patch FEN Fluids: NS@125mL/hr ELectrolytes: replete as indicated Nutrition: NPO DVT prophylaxis: holding subq heparin in event of surgery; SCDs Dispo: continues to require inpatient care. Full code. Visit type - Emergency Visit Emergency Visit: Yes ED Registration Date: 03/13/18 Care time: The patient presented to the Emergency Department on the above date and was hospitalized for further evaluation of their emergent condition. - New Patient This patient is new to me today: No - Critical Care Critical Care patient: Yes Total Critical Care Time (in minutes): 45 Critical Care Statement: The care of this patient involved high complexity decision making to prevent further life threatening deterioration of the patient 's condition and/or to evaluate & treat vital organ system(s) failure or risk of failure.
--- NOTE | 2018-03-20 18:30 | PN ---
Progress Note, Physician History of Present Illness: Pt with epigastric pain and possible SB obstructive picture, with NG draining little less than a liter since yesterday's evaluation. Pt seen in bed in ICU, fiancee at bedside. States feeling better, less distended, less pain, passing gas, is hungry. BP has been better as well. No acute events overnight. - Current Medication List Current Medications: Active Medications Acetaminophen (Ofirmev Injection -) 1,000 mg IVPB Q6H PRN PRN Reason: PAIN Last Admin: 03/19/18 23:41 Dose: 1,000 mg Albuterol Sulfate (Ventolin 0.083% Nebulizer Soln -) 1 amp NEB Q4H PRN PRN Reason: SHORT OF BREATH/WHEEZING Last Admin: 03/18/18 20:42 Dose: 1 amp Aspirin (Ecotrin -) 81 mg PO DAILY [facility] Last Admin: 03/19/18 09:58 Dose: 81 mg Atorvastatin Calcium (Lipitor -) 40 mg PO HS [facility] Last Admin: 03/18/18 21:23 Dose: 40 mg Benzocaine/Menthol (Cepacol Lozenge -) 1 each MM PRN PRN PRN Reason: SORE THROAT Budesonide/Formoterol Fumarate (Symbicort 160/4.5mcg -) 2 puff IH BID [facility] Last Admin: 03/20/18 09:43 Dose: 2 puff Carvedilol (Coreg -) 25 mg PO BID [facility] Last Admin: 03/19/18 09:51 Dose: 25 mg Chlorhexidine Gluconate (Hibiclens For Decolonization -) 1 applic TP HS [facility] Last Admin: 03/19/18 21:38 Dose: 1 applic Chlorthalidone (Hygroton -) 50 mg PO DAILY [facility] Last Admin: 03/19/18 09:50 Dose: 50 mg Clopidogrel Bisulfate (Plavix -) 75 mg PO DAILY [facility] Last Admin: 03/19/18 09:50 Dose: 75 mg Furosemide (Lasix Injection -) 20 mg IVPUSH DAILY [facility] Last Admin: 03/20/18 09:43 Dose: 20 mg Guaifenesin (Robitussin Dm -) 10 ml PO Q8H PRN PRN Reason: COUGH Last Admin: 03/18/18 05:02 Dose: 10 ml Heparin Sodium (Porcine) (Heparin -) 5,000 unit SQ BID [facility] Last Admin: 03/20/18 09:44 Dose: 5,000 unit Hydralazine HCl (Apresoline -) 100 mg PO TID [facility] Last Admin: 03/20/18 14:00 Dose: Not Given Nicardipine HCl 25 mg/ (Dextrose) 250 mls @ 25 mls/hr IVPB TITR [facility]; Protocol Last Titration: 03/20/18 16:06 Dose: 2 mg/hr, 20 mls/hr Potassium Chloride 40 meq/ (Sodium Chloride) 1,020 mls @ 125 mls/hr IV ASDIR [facility] Vancomycin HCl 1,500 mg/ (Dextrose) 250 mls @ 166.667 mls/hr IVPB Q12H [facility]; Protocol Piperacillin Sod/Tazobactam (Sod 3.375 gm/ Dextrose) 50 mls @ 100 mls/hr IVPB Q8H-IV [facility]; Protocol Vancomycin HCl 1,500 mg/ (Dextrose) 500 mls @ 250 mls/hr IVPB Q12H [facility] Stop: 03/21/18 07:29 Piperacillin Sod/Tazobactam (Sod 3.375 gm/ Dextrose) 50 mls @ 100 mls/hr IVPB Q8H-IV [facility] Stop: 03/21/18 10:29 Lidocaine (Lidoderm Patch -) 1 patch TP DAILY [facility] Last Admin: 03/20/18 09:49 Dose: 1 patch Lorazepam (Ativan -) 0.5 mg PO BID [facility] Last Admin: 03/19/18 09:51 Dose: 0.5 mg Miscellaneous (Lidoderm Patch Removal) 1 each MC DAILY@2200 [facility] Last Admin: 03/19/18 21:37 Dose: 1 each Morphine Sulfate (Morphine Sulfate) 2 mg IVPUSH Q3H PRN PRN Reason: PAIN LEVEL 7 - 10 Last Admin: 03/20/18 16:05 Dose: 2 mg Mupirocin (Bactroban Ointment (For Decolonization) -) 1 applic NS BID [facility] Stop: 03/24/18 21:59 Last Admin: 03/20/18 10:06 Dose: 1 applic Nicotine (Nicoderm Patch -) 14 mg TD DAILY [facility] Last Admin: 03/20/18 10:06 Dose: 14 mg Nifedipine (Procardia Xl -) 60 mg PO BID [facility] Last Admin: 03/19/18 12:45 Dose: Not Given Oxycodone HCl (Roxicodone -) 30 mg PO TID [facility] Last Admin: 03/20/18 14:00 Dose: Not Given Pantoprazole Sodium (Protonix Iv) 40 mg IVPUSH DAILY [facility] Last Admin: 03/20/18 09:43 Dose: 40 mg Tiotropium [place]armco (Spiriva Respimat) 2 puff IH DAILY [facility] Last Admin: 03/20/18 11:27 Dose: 2 puff Valsartan (Diovan -) 320 mg PO DAILY [facility] Last Admin: 03/19/18 12:45 Dose: Not Given Venlafaxine HCl (Effexor Xr -) 37.5 mg PO DAILY [facility] Last Admin: 03/19/18 09:51 Dose: 37.5 mg - Objective Vital Signs: Vital Signs Temperature 99.2 F 03/20/18 14:00 Pulse Rate 85 03/20/18 16:00 Respiratory Rate 12 03/20/18 16:00 Blood Pressure 149/100 03/20/18 16:06 O2 Sat by Pulse Oximetry (%) 100 03/19/18 19:50 Vital Signs Period Temp Pulse Resp BP Sys/Astorga Pulse Ox Last 24 Hr 97.8 F-100.1 F 81-96 10-18 134-161/92-111 100 Constitutional: Yes: Well Nourished, No Distress, Calm Eyes: Yes: Conjunctiva Clear, EOM Intact HENT: Yes: Atraumatic, Normocephalic, Other (NG in place) Cardiovascular: Yes: Regular Rate and Rhythm (with PVC every 4th beat) Respiratory: Yes: Regular, CTA Bilaterally Gastrointestinal: Yes: Normal Bowel Sounds (increased in RLQ), Soft. No: Distention (minimal), Tenderness, Tenderness, Epigastrium (not truly tender along epigastric midline today) ...Rectal Exam: Yes: Deferred Extremities: No: Cool, Cyanosis Integumentary: Yes: Tattoos. No: Jaundice, Rash Neurological: Yes: Alert, Oriented Labs: CBC, BMP 03/20/18 05:30 03/20/18 05:30 INR, PTT INR 0.89 (0.83-1.09) 03/19/18 12:42 - ....Imaging Chest X-ray: Report Reviewed, Image Reviewed (image from am reviewed - NG in place, rotated; less inspiration than yesterday) Problem List - Problems (1) Epigastric pain Code(s): R10.13 - EPIGASTRIC PAIN (2) Nausea alone Assessment/Plan: resolved Code(s): R11.0 - NAUSEA (3) Dehydration Code(s): E86.0 - DEHYDRATION (4) Hypokalemia Code(s): E87.6 - HYPOKALEMIA (5) HTN (hypertension) Code(s): I10 - ESSENTIAL (PRIMARY) HYPERTENSION Qualifiers: Hypertension type: essential hypertension Qualified Code(s): I10 - Essential (primary) hypertension (6) COPD (chronic obstructive pulmonary disease) Code(s): J44.9 - CHRONIC OBSTRUCTIVE PULMONARY DISEASE, UNSPECIFIED Qualifiers: COPD type: COPD with acute exacerbation Qualified Code(s): J44.1 - Chronic obstructive pulmonary disease with (acute) exacerbation (7) ASHD (arteriosclerotic heart disease) Code(s): I25.10 - ATHSCL HEART DISEASE OF [place] CORONARY ARTERY W/O ANG PCTRS (8) Tobacco abuse Assessment/Plan: would wean nicotine patch to off - may be contributing to hypertension Code(s): Z72.0 - TOBACCO USE (9) Chronic low back pain Code(s): M54.5 - LOW BACK PAIN; G89.29 - OTHER CHRONIC PAIN Qualifiers: Back pain laterality: bilateral Sciatica presence: without sciatica Qualified Code(s): M54.5 - Low back pain; G89.29 - Other chronic pain Assessment/Plan CT with distended stomach and proximal small bowel without clear transition point NG with total ~1150ml mostly clear output, sumping well abdomen much less distended no further nausea, passing gas pt does have h/o abdominal surgery (luna doherty 2005), so if element of obstruction present, NPO/NGT/IVF are appropriate treatment focal pain and tenderness much improved pt was dehydrated significantly over 3 days since previous labs - responded well to IV fluid bolus yesterday BUN/Cr down a bit today but Lasix now ordered hypokalemia - needs IV replacement and trend labs also high TSH noted - ?hypothyroidism wbc back down also constipated on chronic narcotics - had BM after dulcolax suppository yesterday CT also showed large stool burden NGT courses with bowing to left of mediastinal structures - unclear why no clear hiatal hernia on CT blood pressure under better control on IV drips QT prolonged - limited ability to use antiemetics no clear acute indication for surgery at this time will follow with you will get AXR now if gas pattern still suspicious for possible obstructive process, will use enteral contrast down NGT in am and repeat films, possibly CT if contrast does not reach colon This patient is critically ill. Time spent reviewing chart, examining patient, talking with providers and/or family and documentation is 35 minutes.
[2018-03-20] MEDS ORDERED: PIPERACILLIN/TAZOBACTAM 3.375 GM VIAL IVPB ONE (19:02)
[2018-03-20] MEDS ORDERED: DEXTROSE 5%-WATER - 50 ML IVPB ONE (19:02)
[2018-03-20] MEDS: VANCOMYCIN 1,500 MG in DEXTROSE 5%-WATER - 500 ML IVPB SCH (19:08)
[2018-03-20] MEDS: PIPERACILLIN/TAZOB 3.375 GM 3.375 GM in DEXTROSE 5%-WATER - 50 ML IVPB SCH (19:08)
[2018-03-20 20:07] LABS: URINE APPEARANCE CLEAR; URINE BILIRUBIN NEGATIVE (<2.0 mg/dL); URINE COLOR LTYELLOW; URINE GLUCOSE (UA) NEGATIVE (NEGATIVE); URINE KETONE NEGATIVE (NEGATIVE); URINE LEUK ESTERASE NEGATIVE (NEGATIVE); URINE NITRITE NEGATIVE (NEGATIVE); URINE PROTEIN NEGATIVE (NEGATIVE); URINE UROBILINOGEN NEGATIVE mg/dL (0.2-1.0)
[2018-03-20] MEDS: CHLORHEXIDINE GLUCONATE 4% CLEANSER FOR DECOLONIZATION TP SCH (22:09)
[2018-03-20] MEDS: LORazepam 0.5 MG TABLET PO SCH (22:09)
[2018-03-20] MEDS: CARVEDILOL 25 MG TABLET (FP) PO SCH (22:09)
[2018-03-20] MEDS: NIFEdipine E.R 60 MG TABLET (UD) PO SCH (22:13)
[2018-03-20] MEDS: ATORVASTATIN CA 40 MG TABLET (FP) PO SCH (22:13)
[2018-03-20] MEDS: LIDOCAINE PATCH REMOVAL MC SCH (22:27)
[2018-03-21] MEDS ORDERED: DEXTROSE 5%-WATER - 50 ML IVPB ONE ×2 (00:32→10:29)
[2018-03-21] MEDS ORDERED: PIPERACILLIN/TAZOBACTAM 3.375 GM VIAL IVPB ONE ×2 (00:32→10:28)
[2018-03-21] MEDS: MORPHINE SULFATE 2 MG/ML VIAL IVPUSH PRN ×4 (01:37→10:35)
[2018-03-21] MEDS: PIPERACILLIN/TAZOB 3.375 GM 3.375 GM in DEXTROSE 5%-WATER - 50 ML IVPB SCH ×3 (02:47→18:19)
[2018-03-21] MEDS: VANCOMYCIN 1,500 MG in DEXTROSE 5%-WATER - 500 ML IVPB SCH (04:56)
[2018-03-21] MEDS: NICARDIPINE 25 MG in DEXTROSE 5%-WATER - 240 ML IVPB SCH ×2 (05:04→05:05)
[2018-03-21 05:41] LABS: BASO % 0.7 % (0-2.0); EOS % 0.8 % (0-4.5); HEMATOCRIT 45.4 % (35.4-49); HEMOGLOBIN 15.3 GM/dL (11.7-16.9); LYMPH % 15.4 % (8-40); MCH 29.5 pg (25.7-33.7); MCHC 33.8 g/dl (32.0-35.9); MEAN CELL VOLUME 87.4 fl (80-96); MEAN PLT VOLUME 9.1 fl (7.5-11.1); MONO % 15.8 % (3.8-10.2); NEUT % 67.3 % (42.8-82.8); PLATELET COUNT 233 K/MM3 (134-434); RBC 5.19 M/mm3 (4.00-5.60); RDW 13.9 % (11.9-15.9); WHITE BLOOD COUNT 9.4 K/mm3 (4.0-10.0)
--- NOTE | 2018-03-21 06:09 | EKG ---
Test Reason : Blood Pressure : / mmHG Vent. Rate : 082 BPM Atrial Rate : 082 BPM P-R Int : 150 ms QRS Dur : 102 ms QT Int : 410 ms P-R-T Axes : 041 001 055 degrees QTc Int : 479 ms SINUS RHYTHM WITH FREQUENT PREMATURE VENTRICULAR COMPLEXES POSSIBLE LEFT ATRIAL ENLARGEMENT LEFT VENTRICULAR HYPERTROPHY ABNORMAL ECG WHEN COMPARED WITH ECG OF 19-MAR-2018 11:36, PREMATURE VENTRICULAR COMPLEXES ARE NOW PRESENT Confirmed by DAVID JOLLEY, MICHEAL ([id number]) on 03/21/2018 6:09:13 AM Referred By: Norma FLORES Confirmed By:MICHEAL HERNANDEZ MD
[2018-03-21 06:19] LABS: ALK PHOS 53 U/L (45-117); ANION GAP 7 MMOL/L (8-16); BILIRUBIN,TOTAL 0.5 mg/dL (0.2-1); BLOOD UREA NITROGEN 19 mg/dL (7-18); CALCIUM 8.7 mg/dL (8.5-10.1); CHLORIDE 97 mmol/L (98-107); CO2 31 mmol/L (21-32); CREATININE 0.8 mg/dL (0.55-1.3); GLUCOSE,RANDOM 103 mg/dL (74-106); POTASSIUM 3.8 mmol/L (3.5-5.1); SGOT/AST 26 U/L (15-37); SGPT/ALT 86 U/L (13-61); SODIUM 135 mmol/L (136-145); TOT PROT 7.2 g/dl (6.4-8.2)
--- NOTE | 2018-03-21 06:31 | EKG ---
Test Reason : Blood Pressure : / mmHG Vent. Rate : 077 BPM Atrial Rate : 077 BPM P-R Int : 158 ms QRS Dur : 110 ms QT Int : 436 ms P-R-T Axes : 047 039 059 degrees QTc Int : 493 ms NORMAL SINUS RHYTHM PROLONGED QT ABNORMAL ECG WHEN COMPARED WITH ECG OF 12-MAR-2018 13:31, NO SIGNIFICANT CHANGE WAS FOUND Confirmed by MICHEAL HERNANDEZ MD ([id number]) on 03/21/2018 6:30:51 AM Referred By: Confirmed By:MICHEAL HERNANDEZ MD
[2018-03-21] MEDS: oxyCODONE HCL 5 MG TABLET PO SCH ×3 (06:38→16:17)
[2018-03-21] MEDS: hydrALAZINE HCL 50 MG TABLET (FP) PO SCH ×3 (06:38→21:31)
--- NOTE | 2018-03-21 07:42 | PN ---
Physical Exam: SUBJECTIVE: Patient seen and examined. Resting comfortably. Abdominal pain and nausea improved. OBJECTIVE: Vital Signs Period Temp Pulse Resp BP Sys/Astorga Pulse Ox Last 24 Hr 99 F-100.1 F 81-100 12-18 128-154/90-111 100-100 GENERAL: The patient is awake, alert, and fully oriented, in no acute distress. LUNGS: CTA, no cough HEART: Regular rate and rhythm, S1, S2 ABDOMEN: Soft, nontender, nondistended EXTREMITIES: 2+ pulses, warm, well-perfused, no edema. NEUROLOGICAL: Cranial nerves II through XII grossly intact. Normal speech Laboratory Results - last 24 hr 03/20/18 03/21/18 03/21/18 18:30 05:30 05:30 WBC 9.4 RBC 5.19 Hgb 15.3 Hct 45.4 MCV 87.4 MCH 29.5 MCHC 33.8 RDW 13.9 Plt Count 233 MPV 9.1 Absolute Neuts (auto) 6.3 Neutrophils % 67.3 Lymphocytes % 15.4 D Monocytes % 15.8 H D Eosinophils % 0.8 D Basophils % 0.7 D Nucleated RBC % 0 Sodium 135 L Potassium 3.8 Chloride 97 L Carbon Dioxide 31 Anion Gap 7 L BUN 19 H Creatinine 0.8 Creat Clearance w eGFR > 60 Random Glucose 103 Calcium 8.7 Total Bilirubin 0.5 AST 26 ALT 86 H Alkaline Phosphatase 53 Total Protein 7.2 Albumin 3.0 L Free T4 1.28 H Urine Color Ltyellow Urine Appearance Clear Urine pH 7.0 D Ur Specific [place] 1.015 Urine Protein Negative Urine Glucose (UA) Negative Urine Ketones Negative Urine Blood Negative Urine Nitrite Negative Urine Bilirubin Negative Urine Urobilinogen Negative Ur Leukocyte Esterase Negative Active Medications Generic Name Dose Route Start Last Admin Trade Name Freq PRN Reason Stop Dose Admin Acetaminophen 1,000 mg 03/19/18 13:09 03/19/18 23:41 Ofirmev Injection - IVPB 1,000 mg Q6H PRN Administration PAIN Albuterol Sulfate 1 amp 03/16/18 10:52 03/18/18 20:42 Ventolin 0.083% Nebulizer Soln - NEB 1 amp Q4H PRN Administration SHORT OF BREATH/WHEEZING Aspirin 81 mg 03/15/18 15:15 03/19/18 09:58 Ecotrin - PO 81 mg DAILY [facility] Administration Atorvastatin Calcium 40 mg 03/16/18 22:00 03/20/18 22:13 Lipitor - PO Not Given HS [facility] Benzocaine/Menthol 1 each 03/19/18 13:13 Cepacol Lozenge - MM PRN PRN SORE THROAT Budesonide/Formoterol Fumarate 2 puff 03/13/18 11:15 03/20/18 22:14 Symbicort 160/4.5mcg - IH 2 puff BID [facility] Administration Carvedilol 25 mg 03/15/18 22:00 03/20/18 22:09 Coreg - PO Not Given BID [facility] Chlorhexidine Gluconate 1 applic 03/19/18 22:00 03/20/18 22:09 Hibiclens For Decolonization - TP 1 applic HS [facility] Administration Chlorthalidone 50 mg 03/17/18 10:00 03/19/18 09:50 [place] - PO 50 mg DAILY [facility] Administration Clopidogrel Bisulfate 75 mg 03/16/18 10:00 03/19/18 09:50 Plavix - PO 75 mg DAILY [facility] Administration Furosemide 20 mg 03/20/18 10:00 03/20/18 09:43 Lasix Injection - IVPUSH 20 mg DAILY [facility] Administration Guaifenesin 10 ml 03/14/18 16:43 03/18/18 05:02 Robitussin Dm - PO 10 ml Q8H PRN Administration COUGH Heparin Sodium (Porcine) 5,000 unit 03/14/18 22:00 03/20/18 22:12 Heparin - SQ 5,000 unit BID [facility] Administration Hydralazine HCl 100 mg 03/18/18 09:20 03/21/18 06:38 Apresoline - PO Not Given TID [facility] Nicardipine HCl 25 mg/ 250 mls @ 25 mls/hr 03/19/18 11:45 03/21/18 05:05 Dextrose IVPB Not Given TITR [facility] Protocol 2.5 MG/HR Potassium Chloride 40 meq/ 1,020 mls @ 125 mls/hr 03/20/18 16:57 03/20/18 19: 07 Sodium Chloride IV 125 mls/hr ASDIR [facility] Administration Vancomycin HCl 1,500 mg/ 250 mls @ 166.667 mls/hr 03/20/18 17:15 Dextrose IVPB Q12H [facility] Protocol Piperacillin Sod/Tazobactam 50 mls @ 100 mls/hr 03/20/18 18:00 Sod 3.375 gm/ Dextrose IVPB Q8H-IV [facility] Protocol Piperacillin Sod/Tazobactam 50 mls @ 100 mls/hr 03/20/18 18:00 03/21/18 02:47 Sod 3.375 gm/ Dextrose IVPB 03/21/18 10:29 100 mls/hr Q8H-IV [facility] Administration Lidocaine 1 patch 03/12/18 17:00 03/20/18 09:49 Lidoderm Patch - TP 1 patch DAILY [facility] Administration Lorazepam 0.5 mg 03/18/18 22:00 03/20/18 22:09 Ativan - PO Not Given BID [facility] Miscellaneous 1 each 03/12/18 22:00 03/20/18 22:27 Lidoderm Patch Removal MC Not Given DAILY@2200 [facility] Morphine Sulfate 2 mg 03/20/18 11:33 03/21/18 05:03 Morphine Sulfate IVPUSH 2 mg Q3H PRN Administration PAIN LEVEL 7 - 10 Mupirocin 1 applic 03/19/18 22:00 03/20/18 22:08 Bactroban Ointment (For Decolonization) - NS 03/24/18 21:59 1 applic BID [facility] Administration Nicotine 14 mg 03/13/18 11:15 03/20/18 10:06 Nicoderm Patch - TD 14 mg DAILY [facility] Administration Nifedipine 60 mg 03/19/18 10:00 03/20/18 22:13 Procardia Xl - PO Not Given BID [facility] Oxycodone HCl 30 mg 03/15/18 15:00 03/21/18 06:38 Roxicodone - PO Not Given TID [facility] Pantoprazole Sodium 40 mg 03/20/18 10:00 03/20/18 09:43 Protonix Iv IVPUSH 40 mg DAILY [facility] Administration Tiotropium [place] 2 puff 03/16/18 11:00 03/20/18 11:27 Spiriva Respimat IH 2 puff DAILY [facility] Administration Valsartan 320 mg 03/19/18 10:00 03/19/18 12:45 Diovan - PO Not Given DAILY [facility] Venlafaxine HCl 37.5 mg 03/18/18 13:00 03/19/18 09:51 Effexor Xr - PO 37.5 mg DAILY [facility] Administration ASSESSMENT/PLAN: 53 year-old male with a PMH significant for HTN, non-obstructive CAD (cath 2009) , chronic lower back pain, current smoker. Admitted for chest pain and COPD exacerbation/asthmatic bronchitis. Also with refractory HTN. Hospital course complicated by SBO and hospital-acquired pneumonia. Possible SBO --03/19 significant distension of stomach and left sided abdomen and small bowel; ileus v SBO --NGT tube in place --repeat KUB pending --surgery following --NPO --daily KUB Hospital-acquired pneumonia --new patchy infiltrate seen on 03/19 CT and 03/20 CXR --blood cultures, urine antigens to be collected and sent --ICU team stopped antibiotics today Hypertension, refractory --on nicardipine drip, titrate off, then restart PO antihypertensives COPD exacerbation/asthmatic bronchitis --03/13 CT chest: mild to moderate COPD --steroids tapered; continue Symbicort, duonebs Coronary artery disease --holding PO meds due to possible SBO Chest pain --serial troponins negative --ECG not suggestive of acute ischemic event --CXR unremarkable --ACS ruled out --Echo: mild cLVH, LV hyperdynamic EF 70%, Grade I diastolic dysfunction; RV normal; LAE; trace to mild MR; trace TR; trace AI --seen and evaluated by cardiology Chronic low back pain --oxycodone 30mg q8h Tobacco cessation --nicotine patch FEN Fluids: NS@125mL/hr ELectrolytes: replete as indicated Nutrition: NPO DVT prophylaxis: holding subq heparin in event of surgery; SCDs Dispo: continues to require inpatient care. Full code. Visit type - Emergency Visit Emergency Visit: Yes ED Registration Date: 03/13/18 Care time: The patient presented to the Emergency Department on the above date and was hospitalized for further evaluation of their emergent condition. - New Patient This patient is new to me today: No - Critical Care Critical Care patient: Yes Total Critical Care Time (in minutes): 35 Critical Care Statement: The care of this patient involved high complexity decision making to prevent further life threatening deterioration of the patient 's condition and/or to evaluate & treat vital organ system(s) failure or risk of failure.
[2018-03-21] MEDS ORDERED: KCL 10 MEQ IVPB 10 MEQ/100 ML INFUS.BAG IVPB ONE (08:45)
[2018-03-21] MEDS ORDERED: NICOTINE 7 MG/24 HOURS TOPICAL PATCH TD SCH (10:00)
[2018-03-21] MEDS: PANTOPRAZOLE SODIUM 40 MG VIAL IVPUSH SCH (10:34)
[2018-03-21] MEDS: LORazepam 0.5 MG TABLET PO SCH ×2 (10:35→21:31)
[2018-03-21] MEDS: LIDOCAINE 5% TOPICAL PATCH TP SCH (10:35)
[2018-03-21] MEDS: MUPIROCIN 2% TOPICAL OINTMENT FOR DECOLONIZATION NS SCH (10:36)
[2018-03-21] MEDS ORDERED: NICARDIPINE 25 MG in DEXTROSE 5%-WATER - 240 ML IVPB SCH (11:21)
--- NOTE | 2018-03-21 11:33 | PN ---
Progress Note (short form) - Note Progress Note: s: no chest pain, palps, dizziness, edema, dyspnea. still has ngt for sbo/ ileus +cigs tele: sinus rhythm, occ pvcs Current Medications Generic Name Dose Route Start Last Admin Trade Name Freq PRN Reason Stop Dose Admin Acetaminophen 1,000 mg 03/19/18 13:09 03/19/18 23:41 Ofirmev Injection - IVPB 1,000 mg Q6H PRN Administration PAIN Albuterol Sulfate 1 amp 03/16/18 10:52 03/18/18 20:42 Ventolin 0.083% Nebulizer Soln - NEB 1 amp Q4H PRN Administration SHORT OF BREATH/WHEEZING Aspirin 81 mg 03/15/18 15:15 03/19/18 09:58 Ecotrin - PO 81 mg DAILY NILA Administration Atorvastatin Calcium 40 mg 03/16/18 22:00 03/20/18 22:13 Lipitor - PO Not Given HS NILA Benzocaine/Menthol 1 each 03/19/18 13:13 Cepacol Lozenge - MM PRN PRN SORE THROAT Bisacodyl 10 mg 03/21/18 11:18 Dulcolax Suppository - [place] 03/21/18 11:19 ONCE ONE Budesonide/Formoterol Fumarate 2 puff 03/13/18 11:15 03/20/18 22:14 Symbicort 160/4.5mcg - IH 2 puff BID NILA Administration Carvedilol 25 mg 03/15/18 22:00 03/20/18 22:09 Coreg - PO Not Given BID NILA Chlorhexidine Gluconate 1 applic 03/19/18 22:00 03/20/18 22:09 Hibiclens For Decolonization - TP 1 applic HS NILA Administration Chlorthalidone 50 mg 03/17/18 10:00 03/19/18 09:50 Hygroton - PO 50 mg DAILY NILA Administration Clopidogrel Bisulfate 75 mg 03/16/18 10:00 03/19/18 09:50 Plavix - PO 75 mg DAILY NILA Administration Furosemide 20 mg 03/20/18 10:00 03/20/18 09:43 Lasix Injection - IVPUSH 20 mg DAILY NILA Administration Guaifenesin 10 ml 03/14/18 16:43 03/18/18 05:02 Robitussin Dm - PO 10 ml Q8H PRN Administration COUGH Heparin Sodium (Porcine) 5,000 unit 03/14/18 22:00 03/20/18 22:12 Heparin - SQ 5,000 unit BID NILA Administration Hydralazine HCl 100 mg 03/18/18 09:20 03/21/18 06:38 Apresoline - PO Not Given TID NILA Potassium Chloride 40 meq/ 1,020 mls @ 125 mls/hr 03/20/18 16:57 03/20/18 19: 07 Sodium Chloride IV 125 mls/hr ASDIR NILA Administration Vancomycin HCl 1,500 mg/ 250 mls @ 166.667 mls/hr 03/20/18 17:15 Dextrose IVPB Q12H NILA Protocol Piperacillin Sod/Tazobactam 50 mls @ 100 mls/hr 03/20/18 18:00 Sod 3.375 gm/ Dextrose IVPB Q8H-IV NILA Protocol Potassium Chloride 10 meq in 100 mls @ 25 mls/hr 03/21/18 08:45 Potassium Chloride 10 Meq Premix Ivpb - IVPB 03/21/18 12:44 ONCE ONE Nicardipine HCl 25 mg/ 250 mls @ 25 mls/hr 03/21/18 11:21 Dextrose IVPB TITR NILA Protocol 2.5 MG/HR Lidocaine 1 patch 03/12/18 17:00 03/21/18 10:35 Lidoderm Patch - TP 1 patch DAILY NILA Administration Lorazepam 0.5 mg 03/18/18 22:00 03/21/18 10:35 Ativan - PO 0.5 mg BID NILA Administration Miscellaneous 1 each 03/12/18 22:00 03/20/18 22:27 Lidoderm Patch Removal MC Not Given DAILY@2200 [facility] Morphine Sulfate 2 mg 03/20/18 11:33 03/21/18 10:35 Morphine Sulfate IVPUSH 2 mg Q3H PRN Administration PAIN LEVEL 7 - 10 Mupirocin 1 applic 03/19/18 22:00 03/21/18 10:36 Bactroban Ointment (For Decolonization) - NS 03/24/18 21:59 1 applic BID NILA Administration Nicotine 7 mg 03/21/18 10:00 Nicoderm Patch - TD DAILY [facility] Nifedipine 60 mg 03/19/18 10:00 03/20/18 22:13 Procardia Xl - PO Not Given BID NILA Oxycodone HCl 30 mg 03/15/18 15:00 03/21/18 06:38 Roxicodone - PO Not Given TID NILA Pantoprazole Sodium 40 mg 03/20/18 10:00 03/21/18 10:34 Protonix Iv IVPUSH 40 mg DAILY NILA Administration Tiotropium [place] 2 puff 03/16/18 11:00 03/20/18 11:27 Spiriva Respimat IH 2 puff DAILY NILA Administration Valsartan 320 mg 03/19/18 10:00 03/19/18 12:45 Diovan - PO Not Given DAILY NILA Venlafaxine HCl 37.5 mg 03/18/18 13:00 03/19/18 09:51 Effexor Xr - PO 37.5 mg DAILY NILA Administration Vital Signs: Vital Signs Temp 98.7 F 03/21/18 10:00 Pulse 91 H 03/21/18 10:00 Resp 20 03/21/18 10:00 BP 151/98 03/21/18 10:00 Pulse Ox 100 03/21/18 09:00 Intake & Output 03/20/18 03/20/18 03/21/18 11:59 23:59 11:59 Intake Total 856 2010 1140 Output Total 1520 2000 800 Balance -664 10 340 Weight 214 lb 11.2 oz 214 lb 212 lb 3.2 oz Intake: IV 706 1960 840 Cardene - 25 mg In D5w - 106 260 240 ml @ 2.5 MG/HR 25 mls /hr IVPB TITR NILA Rx#: [id number] Normal Saline - 1,000 ml 1700 840 @ 125 mls/hr IV ASDIR NILA Rx#:[id number] Normal Saline - 1,000 ml 600 @ 75 mls/hr IVPB ASDIR NILA with KCl - 40 Meq Rx# :[id number] IVPB 150 50 300 Output: Gastric Drainage 520 400 300 Urine 1000 1600 500 Void 1000 1600 500 Other: Voiding Method Bedside Commode Urinal Urinal Height 6 ft Body Mass Index (BMI) 29.0 Weight Measurement Method Built [facility] Constitutional: Yes: Well Nourished, No Distress Eyes: Yes: Conjunctiva Clear Neck: Yes: Supple, Trachea Midline Respiratory: Yes: Regular, mild Wheezes Gastrointestinal: Yes: abd mild tender, nd Cardiovascular: Yes: Regular Rate and Rhythm JVD: No Heart Sounds: Yes: S1, S2 Edema: No Peripheral Pulses: 2+ Left Doralis Pedis, 2+ Right Dorsalis Pedis Integumentary: Yes:no jaundice diaphoresis Neurological: Yes: Alert, Oriented Laboratory Last Values WBC 9.4 K/mm3 (4.0-10.0) 03/21/18 05:30 RBC 5.19 M/mm3 (4.00-5.60) 03/21/18 05:30 Hgb 15.3 GM/dL (11.7-16.9) 03/21/18 05:30 Hct 45.4 % (35.4-49) 03/21/18 05:30 MCV 87.4 fl (80-96) 03/21/18 05:30 MCH 29.5 pg (25.7-33.7) 03/21/18 05:30 MCHC 33.8 g/dl (32.0-35.9) 03/21/18 05:30 RDW 13.9 % (11.9-15.9) 03/21/18 05:30 Plt Count 233 K/MM3 (134-434) 03/21/18 05:30 MPV 9.1 fl (7.5-11.1) 03/21/18 05:30 Absolute Neuts (auto) 6.3 K/mm3 (1.5-8.0) 03/21/18 05:30 Neutrophils % 67.3 % (42.8-82.8) 03/21/18 05:30 Neutrophils % (Manual) 92.1 % (42.8-82.8) H 03/14/18 05:30 Band Neutrophils % 0.0 % 03/14/18 05:30 Lymphocytes % 15.4 % (8-40) D 03/21/18 05:30 Lymphocytes % (Manual) 3.9 % (8-40) L 03/14/18 05:30 Monocytes % 15.8 % (3.8-10.2) H D 03/21/18 05:30 Monocytes % (Manual) 4 % (3.8-10.2) 03/14/18 05:30 Eosinophils % 0.8 % (0-4.5) D 03/21/18 05:30 Eosinophils % (Manual) 0.0 % (0-4.5) 03/14/18 05:30 Basophils % 0.7 % (0-2.0) D 03/21/18 05:30 Basophils % (Manual) 0.0 % (0-2.0) 03/14/18 05:30 Myelocytes % (Man) 0 % (0-2) 03/14/18 05:30 Promyelocytes % (Man) 0 % (0-2) 03/14/18 05:30 Blast Cells % (Manual) 0 % (0-0) 03/14/18 05:30 Nucleated RBC % 0 % (0-0) 03/21/18 05:30 Metamyelocytes 0 % (0-2) 03/14/18 05:30 Hypochromia 0 03/14/18 05:30 Platelet Estimate Normal 03/14/18 05:30 Polychromasia 0 03/14/18 05:30 Poikilocytosis 0 03/14/18 05:30 Anisocytosis 0 03/14/18 05:30 Microcytosis 0 03/14/18 05:30 Macrocytosis 0 03/14/18 05:30 PT with INR 10.50 SEC (9.7-13.0) 03/19/18 12:42 INR 0.89 (0.83-1.09) 03/19/18 12:42 PTT (Actin FS) 28.7 SECONDS (25.2-36.5) 03/19/18 12:42 Sodium 135 mmol/L (136-145) L 03/21/18 05:30 Potassium 3.8 mmol/L (3.5-5.1) 03/21/18 05:30 Chloride 97 mmol/L (98-107) L 03/21/18 05:30 Carbon Dioxide 31 mmol/L (21-32) 03/21/18 05:30 Anion Gap 7 MMOL/L (8-16) L 03/21/18 05:30 BUN 19 mg/dL (7-18) H 03/21/18 05:30 Creatinine 0.8 mg/dL (0.55-1.3) 03/21/18 05:30 Creat Clearance w eGFR > 60 (>60) 03/21/18 05:30 POC Glucometer 109 UNITS (80-120) 09/29/18 10:39 Random Glucose 103 mg/dL (74-106) 03/21/18 05:30 Lactic Acid 1.7 mmol/L (0.4-2.0) 03/19/18 15:45 Calcium 8.7 mg/dL (8.5-10.1) 03/21/18 05:30 Phosphorus 4.6 mg/dL (2.5-4.9) 03/20/18 05:30 Magnesium 2.2 mg/dL (1.8-2.4) 03/20/18 05:30 Total Bilirubin 0.5 mg/dL (0.2-1) 03/21/18 05:30 Direct Bilirubin 0.2 mg/dL (0.0-0.2) 03/19/18 12:42 AST 26 U/L (15-37) 03/21/18 05:30 ALT 86 U/L (13-61) H 03/21/18 05:30 Alkaline Phosphatase 53 U/L (45-117) 03/21/18 05:30 Troponin I 0.02 ng/ml (0.00-0.05) 03/19/18 18:40 B-Natriuretic Peptide 830.2 pg/ml (5-125) H 03/12/18 13:44 Total Protein 7.2 g/dl (6.4-8.2) 03/21/18 05:30 Albumin 3.0 g/dl (3.4-5.0) L 03/21/18 05:30 Triglycerides 61 mg/dL (0-150) 03/13/18 10:15 Cholesterol 160 mg/dL (50-200) 03/13/18 10:15 Total LDL Cholesterol 88 mg/dL (5-100) 03/13/18 10:15 HDL Cholesterol 67 mg/dL (40-60) H 03/13/18 10:15 TSH 4.01 uIU/ml (0.358-3.74) H 03/19/18 10:18 Free T4 1.28 ng/dl (0.76-1.16) H 03/21/18 05:30 Urine Color Ltyellow 03/20/18 18:30 Urine Appearance Clear 03/20/18 18:30 Urine pH 7.0 (5.0-8.0) D 03/20/18 18:30 Ur Specific [place] 1.015 (1.001-1.035) 03/20/18 18:30 Urine Protein Negative (NEGATIVE) 03/20/18 18:30 Urine Glucose (UA) Negative (NEGATIVE) 03/20/18 18:30 Urine Ketones Negative (NEGATIVE) 03/20/18 18:30 Urine Blood Negative (NEGATIVE) 03/20/18 18:30 Urine Nitrite Negative (NEGATIVE) 03/20/18 18:30 Urine Bilirubin Negative (<2.0 mg/dL) 03/20/18 18:30 Urine Urobilinogen Negative mg/dL (0.2-1.0) 03/20/18 18:30 Ur Leukocyte Esterase Negative (NEGATIVE) 03/20/18 18:30 Opiates Screen Positive ng/ml (RTCOON=195) A* 03/19/18 11:30 Methadone Screen Negative ng/ml (TYDFSY=178) 03/19/18 11:30 Barbiturate Screen Negative ng/ml (NCZRQR=835) 03/19/18 11:30 Phencyclidine Screen Negative ng/ml (CUTOFF=25) 03/19/18 11:30 Ur Amphetamines Screen Negative ng/ml (SOCIHX=117) 03/19/18 11:30 MDMA (Ecstasy) Screen Negative ng/ml (PKYGCK=666) 03/19/18 11:30 Benzodiazepines Screen Negative ng/ml (UIFKRB=581) 03/19/18 11:30 Cocaine Screen Negative ng/ml (NWQUEI=722) 03/19/18 11:30 U Marijuana (THC) Screen Negative ng/ml (CUTOFF=50) 03/19/18 11:30 Blood Type O POSITIVE 03/19/18 15:45 Antibody Screen Negative 03/19/18 12:42 EKG: LVH, nonspecific T wave changes, prolonged QTC 473 ms CXR: no acute process echo: nl LV/RV size and function, tr AR, tr to mild MR a/p: 53M h/o nonobstructive CAD s/p cath 2009, HTN, chronic low back pain, smoker p/w chest pain, cough, chest congestion sbo/ileus: -ngt in place, abd pain improving -plans per surgery Chest pain, cough, copd - neg trops, stable EKG without ischemic changes unlikely ACS - chest pain most likely pleuritic in setting of cough, less consistent with ACS - BNP 830 however clinical picture not c/w heart failure - on IV steroids, nebs for cough - pulm following, CT chest shows mild COPD - echo nl LV function - no further cardiac workup for now resistant HTN with hypertensive urgency: - now npo so continue iv nicardipine gtt for now - resume po meds and transition off gtt when possible. was on carvedilol 25 bid , hydralazine 100 TID, chlorthalidone 50 qd, valsartan 320 (should go home on benicar (olmesartan) 40 qd for better efficacy/24 hr drug levels), nifedipine ER 60 bid - consider change carvedilol to labetalol next for greater potency - needs outpt f/u with us to complete w/u for secondary causes of HTN, including would recommend renal artery dopplers Current smoker - patient wants to quit
[2018-03-21] MEDS: FUROSEMIDE 40 MG/4 ML INJECTABLE VIAL IVPUSH SCH (11:56)
[2018-03-21] MEDS: NIFEdipine E.R 60 MG TABLET (UD) PO SCH ×2 (11:57→21:32)
[2018-03-21] MEDS: ASPIRIN COATED 81 MG TABLET.EC PO SCH (11:57)
[2018-03-21] MEDS: VALSARTAN 160 MG TABLET (UD) PO SCH (11:57)
[2018-03-21] MEDS: HEPARIN NA (PORCINE) 5,000 UNITS/ML 1ML VIAL SQ SCH ×2 (11:58→21:39)
[2018-03-21] MEDS: CARVEDILOL 25 MG TABLET (FP) PO SCH ×2 (11:58→21:31)
[2018-03-21] MEDS ORDERED: BISACODYL 10 MG SUPP.RECT RC ONE (12:00)
--- NOTE | 2018-03-21 12:00 | PN ---
Teaching Attending Note Name of Resident: Mouna Collado ATTENDING PHYSICIAN STATEMENT I saw and evaluated the patient. I reviewed the resident's note and discussed the case with the resident. I agree with the resident's findings and plan as documented. SUBJECTIVE: Pt seen and examined in the ICU. Abdominal pain resolved. +flatus. Throat discomfort due to NGT. OBJECTIVE: Vital Signs Period Temp Pulse Resp BP Sys/Astorga Pulse Ox Last 24 Hr 98.7 F-99.2 F 81-100 12-20 128-151/90-111 100-100 Intake & Output 03/18/18 03/19/18 03/20/18 03/21/18 23:59 23:59 23:59 23:59 Intake Total 281 2517 2866 1140 Output Total 3 2800 3520 800 Balance 495 -882 -948 340 Weight 97.069 kg 96.252 kg Gen: NAD at rest Heart: RRR Lung: decreased breath sounds at the bases Abd: soft, nontender Ext: no edema CBC, BMP 03/21/18 05:30 03/21/18 05:30 Active Medications Acetaminophen (Ofirmev Injection -) 1,000 mg IVPB Q6H PRN PRN Reason: PAIN Last Admin: 03/19/18 23:41 Dose: 1,000 mg Albuterol Sulfate (Ventolin 0.083% Nebulizer Soln -) 1 amp NEB Q4H PRN PRN Reason: SHORT OF BREATH/WHEEZING Last Admin: 03/18/18 20:42 Dose: 1 amp Aspirin (Ecotrin -) 81 mg PO DAILY [facility] [place] Last Admin: 03/19/18 09:58 Dose: 81 mg Atorvastatin Calcium (Lipitor -) 40 mg PO HS [facility] Last Admin: 03/20/18 22:13 Dose: Not Given Benzocaine/Menthol (Cepacol Lozenge -) 1 each MM PRN PRN PRN Reason: SORE THROAT Bisacodyl (Dulcolax Suppository -) 10 mg RC ONCE ONE Stop: 03/21/18 12:01 Budesonide/Formoterol Fumarate (Symbicort 160/4.5mcg -) 2 puff IH BID [facility] [place] Last Admin: 03/20/18 22:14 Dose: 2 puff Carvedilol (Coreg -) 25 mg PO BID [facility] Last Admin: 03/20/18 22:09 Dose: Not Given Chlorhexidine Gluconate (Hibiclens For Decolonization -) 1 applic TP HS [facility] [place] Last Admin: 03/20/18 22:09 Dose: 1 applic Chlorthalidone (Hygroton -) 50 mg PO DAILY [facility] Last Admin: 03/19/18 09:50 Dose: 50 mg Clopidogrel Bisulfate (Plavix -) 75 mg PO DAILY [facility] [place] Last Admin: 03/19/18 09:50 Dose: 75 mg Furosemide (Lasix Injection -) 20 mg IVPUSH DAILY [facility] [place] Last Admin: 03/20/18 09:43 Dose: 20 mg Guaifenesin (Robitussin Dm -) 10 ml PO Q8H PRN PRN Reason: COUGH Last Admin: 03/18/18 05:02 Dose: 10 ml Heparin Sodium (Porcine) (Heparin -) 5,000 unit SQ BID [facility] [place] Last Admin: 03/20/18 22:12 Dose: 5,000 unit Hydralazine HCl (Apresoline -) 100 mg PO TID [facility] [place] Last Admin: 03/21/18 06:38 Dose: Not Given Potassium Chloride 40 meq/ (Sodium Chloride) 1,020 mls @ 125 mls/hr IV ASDIR [facility] [place] Last Admin: 03/20/18 19:07 Dose: 125 mls/hr Vancomycin HCl 1,500 mg/ (Dextrose) 250 mls @ 166.667 mls/hr IVPB Q12H [facility]; Protocol Piperacillin Sod/Tazobactam (Sod 3.375 gm/ Dextrose) 50 mls @ 100 mls/hr IVPB Q8H-IV NILA; Protocol Potassium Chloride (Potassium Chloride 10 Meq Premix Ivpb -) 10 meq in 100 mls @ 25 mls/hr IVPB ONCE ONE Stop: 03/21/18 12:44 Nicardipine HCl 25 mg/ (Dextrose) 250 mls @ 25 mls/hr IVPB TITR [facility] [place]; Protocol Lidocaine (Lidoderm Patch -) 1 patch TP DAILY [facility] Last Admin: 03/21/18 10:35 Dose: 1 patch Lorazepam (Ativan -) 0.5 mg PO BID [facility] Last Admin: 03/21/18 10:35 Dose: 0.5 mg Miscellaneous (Lidoderm Patch Removal) 1 each MC DAILY@2200 [facility] Last Admin: 03/20/18 22:27 Dose: Not Given Morphine Sulfate (Morphine Sulfate) 2 mg IVPUSH Q3H PRN PRN Reason: PAIN LEVEL 7 - 10 Last Admin: 03/21/18 10:35 Dose: 2 mg Mupirocin (Bactroban Ointment (For Decolonization) -) 1 applic NS BID [facility] [place] Stop: 03/24/18 21:59 Last Admin: 03/21/18 10:36 Dose: 1 applic Nicotine (Nicoderm Patch -) 7 mg TD DAILY [facility] [place] Nifedipine (Procardia Xl -) 60 mg PO BID [facility] [place] Last Admin: 03/20/18 22:13 Dose: Not Given Oxycodone HCl (Roxicodone -) 30 mg PO TID [facility] [place] Last Admin: 03/21/18 06:38 Dose: Not Given Pantoprazole Sodium (Protonix Iv) 40 mg IVPUSH DAILY [facility] [place] Last Admin: 03/21/18 10:34 Dose: 40 mg Tiotropium [place] (Spiriva Respimat) 2 puff IH DAILY [facility] Last Admin: 03/20/18 11:27 Dose: 2 puff Valsartan (Diovan -) 320 mg PO DAILY [facility] [place] Last Admin: 03/19/18 12:45 Dose: Not Given Venlafaxine HCl (Effexor Xr -) 37.5 mg PO DAILY [facility] [place] Last Admin: 03/19/18 09:51 Dose: 37.5 mg ASSESSMENT AND PLAN: Small Bowel Obstruction Acute Bronchitis improved COPD CAD h/o MICHAELA Smoker - contrast study today - pain control - start PO meds - titrate off cardene gtt - inhaled bronchodilators - DVT prophylaxis - can monitor on floor when off cardene gtt
[2018-03-21] MEDS ORDERED: PT OWN MED DRAWER 7, Y5N ONE ×2 (12:09→21:04)
[2018-03-21] MEDS: VENLAFAXINE HCL 37.5 MG E.R. CAPSULE (FP) PO SCH (12:13)
[2018-03-21] MEDS: CHLORTHALIDONE 25 MG TABLET PO SCH (12:14)
[2018-03-21] MEDS: CLOPIDOGREL BISULFATE 75 MG TABLET (FP) PO SCH (13:15)
[2018-03-21] MEDS: BUDESONIDE/FORMETEROL FUMARATE 160/4.5 mcg INHALER IH SCH ×2 (13:17→23:07)
[2018-03-21] MEDS: TIOTROPIUM BROMIDE 2.5 MCG (SPIRIVA) RESPIMAT INHALER IH SCH (13:17)
--- NOTE | 2018-03-21 14:40 | PN ---
Physical Exam: SUBJECTIVE: - Complains of being hungry, wants something to eat - No additional BM since the first evening in the ICU but passing flatus - Nausea and abdominal discomfort significantly improved OBJECTIVE: Vital Signs Period Temp Pulse Resp BP Sys/Astorga Pulse Ox Last 24 Hr 98.7 F-99 F 81-100 12-20 128-151/90-108 100-100 General: Uncomfortable HEENT: PERRL, EOMI, MMM, voice normal. NGT in place, blood-tinged output. Cards: RRR, no murmur noted Pulm: Comfortable on room air Abd: Mildly distended, soft, non-tender. No rebound or guarding. Ext: No LE edema. ROM intact. Strength 5/5 and equal bilaterally Vasc: Extremities WWP. Skin: Normal color, no rashes or lesions Neuro: A&Ox3, CN grossly intact, normal speech, motor/sensory grossly intact and symmetric Psych: Mood appropriate to situation Laboratory Results - last 24 hr 03/20/18 03/21/18 03/21/18 18:30 05:30 05:30 WBC 9.4 RBC 5.19 Hgb 15.3 Hct 45.4 MCV 87.4 MCH 29.5 MCHC 33.8 RDW 13.9 Plt Count 233 MPV 9.1 Absolute Neuts (auto) 6.3 Neutrophils % 67.3 Lymphocytes % 15.4 D Monocytes % 15.8 H D Eosinophils % 0.8 D Basophils % 0.7 D Nucleated RBC % 0 Sodium 135 L Potassium 3.8 Chloride 97 L Carbon Dioxide 31 Anion Gap 7 L BUN 19 H Creatinine 0.8 Creat Clearance w eGFR > 60 Random Glucose 103 Calcium 8.7 Total Bilirubin 0.5 AST 26 ALT 86 H Alkaline Phosphatase 53 Total Protein 7.2 Albumin 3.0 L Free T4 1.28 H Urine Color Ltyellow Urine Appearance Clear Urine pH 7.0 D Ur Specific [place] 1.015 Urine Protein Negative Urine Glucose (UA) Negative Urine Ketones Negative Urine Blood Negative Urine Nitrite Negative Urine Bilirubin Negative Urine Urobilinogen Negative Ur Leukocyte Esterase Negative Active Medications Generic Name Dose Route Start Last Admin Trade Name Freq PRN Reason Stop Dose Admin Acetaminophen 1,000 mg 03/19/18 13:09 03/19/18 23:41 Ofirmev Injection - IVPB 1,000 mg Q6H PRN Administration PAIN Albuterol Sulfate 1 amp 03/16/18 10:52 03/18/18 20:42 Ventolin 0.083% Nebulizer Soln - NEB 1 amp Q4H PRN Administration SHORT OF BREATH/WHEEZING Aspirin 81 mg 03/15/18 15:15 03/21/18 11:57 Ecotrin - PO 81 mg DAILY NILA Administration Atorvastatin Calcium 40 mg 03/16/18 22:00 03/20/18 22:13 Lipitor - PO Not Given HS NILA Benzocaine/Menthol 1 each 03/19/18 13:13 Cepacol Lozenge - MM PRN PRN SORE THROAT Budesonide/Formoterol Fumarate 2 puff 03/13/18 11:15 03/21/18 13:17 Symbicort 160/4.5mcg - IH 2 puff BID NILA Administration Carvedilol 25 mg 03/15/18 22:00 03/21/18 11:58 Coreg - PO 25 mg BID NILA Administration Chlorhexidine Gluconate 1 applic 03/19/18 22:00 03/20/18 22:09 Hibiclens For Decolonization - TP 1 applic HS NILA Administration Chlorthalidone 50 mg 03/17/18 10:00 03/21/18 12:14 [place] - PO 50 mg DAILY NILA Administration Clopidogrel Bisulfate 75 mg 03/16/18 10:00 03/21/18 13:15 Plavix - PO Not Given DAILY NILA Furosemide 20 mg 03/20/18 10:00 03/21/18 11:56 Lasix Injection - IVPUSH 20 mg DAILY NILA Administration Guaifenesin 10 ml 03/14/18 16:43 03/18/18 05:02 Robitussin Dm - PO 10 ml Q8H PRN Administration COUGH Heparin Sodium (Porcine) 5,000 unit 03/14/18 22:00 03/21/18 11:58 Heparin - SQ 5,000 unit BID NILA Administration Hydralazine HCl 100 mg 03/18/18 09:20 03/21/18 14:36 Apresoline - PO 100 mg TID NILA Administration Potassium Chloride 40 meq/ 1,020 mls @ 125 mls/hr 03/20/18 16:57 03/20/18 19: 07 Sodium Chloride IV 125 mls/hr ASDIR NILA Administration Vancomycin HCl 1,500 mg/ 250 mls @ 166.667 mls/hr 03/20/18 17:15 Dextrose IVPB Q12H NILA Protocol Piperacillin Sod/Tazobactam 50 mls @ 100 mls/hr 03/20/18 18:00 Sod 3.375 gm/ Dextrose IVPB Q8H-IV NILA Protocol Lidocaine 1 patch 03/12/18 17:00 03/21/18 10:35 Lidoderm Patch - TP 1 patch DAILY [facility]IL[facility] Administration Lorazepam 0.5 mg 03/18/18 22:00 03/21/18 10:35 Ativan - PO 0.5 mg BID NILA Administration Miscellaneous 1 each 03/12/18 22:00 03/20/18 22:27 Lidoderm Patch Removal MC Not Given DAILY@2200 [facility] Morphine Sulfate 2 mg 03/20/18 11:33 03/21/18 10:35 Morphine Sulfate IVPUSH 2 mg Q3H PRN Administration PAIN LEVEL 7 - 10 Mupirocin 1 applic 03/19/18 22:00 03/21/18 10:36 Bactroban Ointment (For Decolonization) - NS 03/24/18 21:59 1 applic BID NILA Administration Nicotine 7 mg 03/21/18 10:00 03/21/18 12:15 Nicoderm Patch - TD Not Given DAILY [facility] Nifedipine 60 mg 03/19/18 10:00 03/21/18 11:57 Procardia Xl - PO 60 mg BID NILA Administration Oxycodone HCl 30 mg 03/15/18 15:00 03/21/18 12:11 Roxicodone - PO 30 mg TID NILA Administration Pantoprazole Sodium 40 mg 03/20/18 10:00 03/21/18 10:34 Protonix Iv IVPUSH 40 mg DAILY NILA Administration Tiotropium [place] 2 puff 03/16/18 11:00 03/21/18 13:17 Spiriva Respimat IH 2 puff DAILY [facility]ILA Administration Valsartan 320 mg 03/19/18 10:00 03/21/18 11:57 Diovan - PO 320 mg DAILY [facility] Administration Venlafaxine HCl 37.5 mg 03/18/18 13:00 03/21/18 12:13 Effexor Xr - PO 37.5 mg DAILY [facility]ILA Administration ASSESSMENT/PLAN: Yasir Rob is a 53yo man with a PMH of CAD s/p cath, difficult to control HTN, current smoking, admitted on 03/12 with an exacerbation of previously diagnosed COPD. A rapid response was called this morning for severe epigastric pain, diaphoresis, SBP in the 220's. There was initially concern for aortic dissection, but CT indicated dilated small bowel concerning for obstruction vs ileus. He was transferred to the ICU for BP control and monitoring and has improved significantly over the past 2 days. His abdominal complaints have resolved, and his BP has been well controlled. If he is able to tolerate oral medications and transition off the nicardipine drip, he will be ready for transfer out of the ICU. Neuro: - Has been on oxycodone 30mg TID scheduled for chronic low back pain. Morphine 2mg Q4hr PRN while NPO. - Will trial oxycodone with NGT clamped today. d/c morphine if tolerating PO meds - Acetaminophen IV Q6 PRN for pain. Transition to PO as able - Nicotine patch decreased to 7 from 14 as pt reports wanting to quit smoking. CV: - h/o CAD and persistent HTN - Restart ASA, plavix, atorvastatin, carvedilol 25 BID, hydralazine 100 TID, nifedipine 60 BID, valsartan 320 daily, chlorthalidone - to be given with tube clamped - Nicardipine drip discontinued - Goal SBP around 160. With chronic HTN, do not want to lower excessively - Diuretics held as patient appeared dehydrated on arrival to the ICU - Continuous monitoring. Pulm: - COPD exacerbation - Continue albuterol, symbicort, spiriva - Per primary team, on vanc/zosyn for empiric pneumonia treatment but no obvious pneumonia on CXR - IS 10x per hour Heme: - Monitor daily CBC GI: - CT abd/pelvis with dilated small bowel concerning for SBO v ileus. No transition point noted - NGT placed on Wednesday. - Patient reports flatus. NGT clamped today to give meds, tolerating well. - KUB with contrast planned for today. Contrast given this morning; will obtain xray after 6-8 hours to allow for transition to colon. - Continue NPO except for meds. If no obstruction noted on KUB this evening, likely to start clears - Dr Napoles consulted - Continue daily PPI while NGT in place - Per patient, would like to restart home docusate and metamucil once on a diet Renal: - Voiding spontaneously ID: - Vanc/zosyn started per primary - Will d/c as no sign of pneumonia on chest xray Endo: - No issues Psych: - Restart venlafaxine for anxiety/depression - PO ativan PRN Musc: - OOB as tolerated PPx: - SQH - pantoprazole FEN: - NPO - SLIV, may consider fluids in the future - Replete lytes PRN. Repeat BMP sent. Dispo: - If successfully transitioned off nicardipine drip, transfer to floor. To be discussed with Dr Wall. Mouna Collado PGY1 Visit type - Emergency Visit Emergency Visit: No - New Patient This patient is new to me today: No - Critical Care Critical Care patient: Yes Total Critical Care Time (in minutes): 45 Critical Care Statement: The care of this patient involved high complexity decision making to prevent further life threatening deterioration of the patient 's condition and/or to evaluate & treat vital organ system(s) failure or risk of failure.
[2018-03-21] MEDS: SODIUM CHLORIDE 1,000 ML with POTASSIUM CHLORIDE 40 MEQ IV SCH ×2 (15:35→18:20)
[2018-03-21] MEDS ORDERED: BENZOCAINE/MENTH/CETYLPYRD CL 1 EACH LOZENGE MM PRN (17:31)
[2018-03-21] MEDS ORDERED: SODIUM CHLORIDE 1,000 ML with POTASSIUM CHLORIDE 40 MEQ IV SCH (17:31)
[2018-03-21] MEDS ORDERED: guaiFENesin/D-METHORPHAN HB 10 ML UNIT-DOSE CUPS PO PRN (17:31)
[2018-03-21] MEDS ORDERED: ALBUTEROL SO4 0.083% IH SOL 2.5 MG/3 ML VIAL.NEB. NEB PRN (17:31)
[2018-03-21] MEDS: VANCOMYCIN 1,500 MG in DEXTROSE 5%-WATER - 250 ML IVPB SCH (18:19)
--- NOTE | 2018-03-21 18:57 | PN ---
Progress Note, Physician History of Present Illness: Pt with epigastric pain and possible SB obstructive picture, with NG draining some clear/tejinder fluid. Pt seen in bed on floor, transferred from ICU, family at bedside. States feeling better, less distended, less pain, passing gas, is hungry. No acute events overnight. AXR after contrast given earlier today shows contrast in colon and some in small bowel, without obstructive gas pattern. - Current Medication List Current Medications: Active Medications Albuterol Sulfate (Ventolin 0.083% Nebulizer Soln -) 1 amp NEB Q4H PRN PRN Reason: SHORT OF BREATH/WHEEZING Aspirin (Ecotrin -) 81 mg PO DAILY [facility] Atorvastatin Calcium (Lipitor -) 40 mg PO HS NILA Benzocaine/Menthol (Cepacol Lozenge -) 1 each MM PRN PRN PRN Reason: SORE THROAT Budesonide/Formoterol Fumarate (Symbicort 160/4.5mcg -) 2 puff IH BID NIL[facility] Carvedilol (Coreg -) 25 mg PO BID N[facility] Clopidogrel Bisulfate (Plavix -) 75 mg PO DAILY [facility] Guaifenesin (Robitussin Dm -) 10 ml PO Q8H PRN PRN Reason: COUGH Heparin Sodium (Porcine) (Heparin -) 5,000 unit SQ BID N[facility] Hydralazine HCl (Apresoline -) 100 mg PO TID [facility] Potassium Chloride 40 meq/ (Sodium Chloride) 1,020 mls @ 125 mls/hr IV ASDIR NILA Last Admin: 03/21/18 18:18 Dose: Not Given Lorazepam (Ativan -) 0.5 mg PO BID [facility] Nicotine (Nicoderm Patch -) 7 mg TD DAILY [facility] Nifedipine (Procardia Xl -) 60 mg PO BID [facility] Oxycodone HCl (Roxicodone -) 30 mg PO TID [facility] Pantoprazole Sodium (Protonix Iv) 40 mg IVPUSH DAILY [facility] Tiotropium [place] (Spiriva Respimat) 2 puff IH DAILY [facility] Valsartan (Diovan -) 320 mg PO DAILY [facility] Venlafaxine HCl (Effexor Xr -) 37.5 mg PO DAILY [facility] - Objective Vital Signs: Vital Signs Temperature 98.1 F 03/21/18 18:01 Pulse Rate 84 03/21/18 18:01 Respiratory Rate 20 03/21/18 18:01 Blood Pressure 110/78 03/21/18 18:01 O2 Sat by Pulse Oximetry (%) 100 03/21/18 09:00 Constitutional: Yes: Well Nourished, No Distress, Calm Eyes: Yes: Conjunctiva Clear, EOM Intact HENT: Yes: Atraumatic, Normocephalic, Other (NG clamped - removed at bedside) Gastrointestinal: Yes: Soft, Other (diastasis in upper midline). No: Distention , Tenderness, Tenderness, Epigastrium ...Rectal Exam: Yes: Deferred Extremities: No: Cool, Cyanosis Integumentary: Yes: Tattoos. No: Jaundice, Rash Neurological: Yes: Alert, Oriented Labs: CBC, BMP 03/21/18 05:30 03/21/18 05:30 still relatively dehydrated - ....Imaging X-ray: Report Reviewed, Image Reviewed (images personally reviewed - contrast in right colon and some transverse, air in rectum, no dilated sb loops; discussed with Dr Benavides, XR) Problem List - Problems (1) Epigastric pain Assessment/Plan: not distended, no more pain or tenderness no further nausea, passing gas also constipated on chronic narcotics - no more BM since 2d ago, but had contrast this am, so loose stool anticipated NGT removed will start po - clears tonight and advance slowly as tolerated would stop IV fluids in am if tolerating po no surgery indicated will follow up for diet tolerance tomorrow Code(s): R10.13 - EPIGASTRIC PAIN (2) Dehydration Code(s): E86.0 - DEHYDRATION (3) Hypokalemia Code(s): E87.6 - HYPOKALEMIA (4) HTN (hypertension) Code(s): I10 - ESSENTIAL (PRIMARY) HYPERTENSION Qualifiers: Hypertension type: essential hypertension Qualified Code(s): I10 - Essential (primary) hypertension (5) COPD (chronic obstructive pulmonary disease) Code(s): J44.9 - CHRONIC OBSTRUCTIVE PULMONARY DISEASE, UNSPECIFIED Qualifiers: COPD type: COPD with acute exacerbation Qualified Code(s): J44.1 - Chronic obstructive pulmonary disease with (acute) exacerbation (6) ASHD (arteriosclerotic heart disease) Code(s): I25.10 - ATHSCL HEART DISEASE OF [place] CORONARY ARTERY W/O ANG PCTRS (7) Tobacco abuse Assessment/Plan: would wean nicotine patch to off - may be contributing to hypertension Code(s): Z72.0 - TOBACCO USE (8) Chronic low back pain Code(s): M54.5 - LOW BACK PAIN; G89.29 - OTHER CHRONIC PAIN Qualifiers: Back pain laterality: bilateral Sciatica presence: without sciatica Qualified Code(s): M54.5 - Low back pain; G89.29 - Other chronic pain
[2018-03-21] MEDS ORDERED: ACETAMINOPHEN 325 MG TABLET (FP) PO PRN (21:16)
[2018-03-21] MEDS: ATORVASTATIN CA 40 MG TABLET (FP) PO SCH (21:32)
[2018-03-21] MEDS ORDERED: oxyCODONE HCL 5 MG TABLET PO SCH (22:00)
[2018-03-22] MEDS: oxyCODONE HCL 5 MG TABLET PO PRN ×3 (02:40→20:13)
[2018-03-22] MEDS ORDERED: PT OWN MED DRAWER 7, Y5N ONE ×2 (02:50→08:56)
[2018-03-22] MEDS: hydrALAZINE HCL 50 MG TABLET (FP) PO SCH ×3 (06:32→22:25)
[2018-03-22 07:44] LABS: BASO % 0.6 % (0-2.0); EOS % 1.1 % (0-4.5); HEMATOCRIT 41.4 % (35.4-49); HEMOGLOBIN 13.5 GM/dL (11.7-16.9); LYMPH % 19.9 % (8-40); MCH 28.8 pg (25.7-33.7); MCHC 32.6 g/dl (32.0-35.9); MEAN CELL VOLUME 88.4 fl (80-96); MONO % 18.1 % (3.8-10.2); NEUT % 60.3 % (42.8-82.8); PLATELET COUNT 197 K/MM3 (134-434); RBC 4.69 M/mm3 (4.00-5.60); RDW 14.2 % (11.9-15.9); WHITE BLOOD COUNT 8.2 K/mm3 (4.0-10.0)
[2018-03-22 08:02] LABS: ANION GAP 12 MMOL/L (8-16); BLOOD UREA NITROGEN 30 mg/dL (7-18); CALCIUM 8.3 mg/dL (8.5-10.1); CHLORIDE 101 mmol/L (98-107); CO2 25 mmol/L (21-32); CREATININE 1.1 mg/dL (0.55-1.3); GLUCOSE,RANDOM 107 mg/dL (74-106); MAGNESIUM 2.6 mg/dL (1.8-2.4); PHOSPHOROUS 4.5 mg/dL (2.5-4.9); SODIUM 138 mmol/L (136-145)
[2018-03-22] MEDS: NIFEdipine E.R 60 MG TABLET (UD) PO SCH ×2 (09:10→22:25)
[2018-03-22] MEDS: PANTOPRAZOLE SODIUM 40 MG VIAL IVPUSH SCH (09:10)
[2018-03-22] MEDS: VALSARTAN 160 MG TABLET (UD) PO SCH (09:10)
[2018-03-22] MEDS: CLOPIDOGREL BISULFATE 75 MG TABLET (FP) PO SCH (09:10)
[2018-03-22] MEDS: CARVEDILOL 25 MG TABLET (FP) PO SCH ×2 (09:11→22:25)
[2018-03-22] MEDS: HEPARIN NA (PORCINE) 5,000 UNITS/ML 1ML VIAL SQ SCH ×2 (09:11→22:28)
[2018-03-22] MEDS: BUDESONIDE/FORMETEROL FUMARATE 160/4.5 mcg INHALER IH SCH ×2 (09:11→22:29)
[2018-03-22] MEDS: ASPIRIN COATED 81 MG TABLET.EC PO SCH (09:11)
[2018-03-22] MEDS: VENLAFAXINE HCL 37.5 MG E.R. CAPSULE (FP) PO SCH (09:11)
[2018-03-22] MEDS: NICOTINE 7 MG/24 HOURS TOPICAL PATCH TD SCH (09:11)
[2018-03-22] MEDS: LORazepam 0.5 MG TABLET PO SCH ×2 (09:11→22:28)
--- NOTE | 2018-03-22 10:59 | PN ---
Progress Note (short form) - Note Progress Note: Overall feeling better. Breathing feels at baseline. No abdominal pain. OBJECTIVE: Intake & Output 03/19/18 03/20/18 03/21/18 03/22/18 23:59 23:59 23:59 23:59 Intake Total 9327 2866 1640 625 Output Total 2803 1320 1999 Balance -449 -654 -100 625 Weight 214 lb 212 lb 3.2 oz 212 lb 14.4 oz Last Vital Signs Temp Pulse Resp BP Pulse Ox 98.5 F 79 20 106/64 98 03/22/18 05:45 03/22/18 05:45 03/22/18 05:45 03/22/18 05:45 03/21/18 21:00 Active Medications Acetaminophen (Tylenol -) 650 mg PO Q6H PRN PRN Reason: FEVER Albuterol Sulfate (Ventolin 0.083% Nebulizer Soln -) 1 amp NEB Q4H PRN PRN Reason: SHORT OF BREATH/WHEEZING Aspirin (Ecotrin -) 81 mg PO DAILY [facility] Last Admin: 03/22/18 09:11 Dose: 81 mg Atorvastatin Calcium (Lipitor -) 40 mg PO HS [facility] Last Admin: 03/21/18 21:32 Dose: 40 mg Benzocaine/Menthol (Cepacol Lozenge -) 1 each MM PRN PRN PRN Reason: SORE THROAT Budesonide/Formoterol Fumarate (Symbicort 160/4.5mcg -) 2 puff IH BID [facility] Last Admin: 03/22/18 09:11 Dose: 2 puff Carvedilol (Coreg -) 25 mg PO BID [facility] Last Admin: 03/22/18 09:11 Dose: 25 mg Clopidogrel Bisulfate (Plavix -) 75 mg PO DAILY [facility] Last Admin: 03/22/18 09:10 Dose: 75 mg Guaifenesin (Robitussin Dm -) 10 ml PO Q8H PRN PRN Reason: COUGH Heparin Sodium (Porcine) (Heparin -) 5,000 unit SQ BID [facility] Last Admin: 03/22/18 09:11 Dose: 5,000 unit Hydralazine HCl (Apresoline -) 100 mg PO TID [facility] Last Admin: 03/22/18 06:32 Dose: 100 mg Lorazepam (Ativan -) 0.5 mg PO BID [facility] Last Admin: 03/22/18 09:11 Dose: 0.5 mg Nicotine (Nicoderm Patch -) 7 mg TD DAILY [facility] Last Admin: 03/22/18 09:11 Dose: 7 mg Nifedipine (Procardia Xl -) 60 mg PO BID [facility] Last Admin: 03/22/18 09:10 Dose: 60 mg Oxycodone HCl (Roxicodone -) 30 mg PO TID PRN PRN Reason: PAIN LEVEL 7 - 10 Last Admin: 03/22/18 02:40 Dose: 30 mg Pantoprazole Sodium (Protonix Iv) 40 mg IVPUSH DAILY [facility] Last Admin: 03/22/18 09:10 Dose: 40 mg Tiotropium [place] (Spiriva Respimat) 2 puff IH DAILY [facility] Valsartan (Diovan -) 320 mg PO DAILY [facility] Last Admin: 03/22/18 09:10 Dose: 320 mg Venlafaxine HCl (Effexor Xr -) 37.5 mg PO DAILY [facility] Last Admin: 03/22/18 09:11 Dose: 37.5 mg Gen: NAD at rest Heart: RRR Lung: decreased breath sounds at the bases Abd: soft, nontender Ext: no edema Laboratory Results - last 24 hr 03/19/18 03/21/18 03/22/18 10:00 05:30 06:45 WBC 8.2 RBC 4.69 Hgb 13.5 Hct 41.4 MCV 88.4 MCH 28.8 MCHC 32.6 RDW 14.2 Plt Count 197 MPV 9.0 Absolute Neuts (auto) 4.9 Neutrophils % 60.3 Lymphocytes % 19.9 D Monocytes % 18.1 H Eosinophils % 1.1 Basophils % 0.6 Nucleated RBC % 0 Sodium Potassium Chloride Carbon Dioxide Anion Gap BUN Creatinine Creat Clearance w eGFR Random Glucose Calcium Phosphorus Magnesium Aldosterone 5.8 Free T3 2.5 03/22/18 06:45 WBC RBC Hgb Hct MCV MCH MCHC RDW Plt Count MPV Absolute Neuts (auto) Neutrophils % Lymphocytes % Monocytes % Eosinophils % Basophils % Nucleated RBC % Sodium 138 Potassium 4.0 Chloride 101 Carbon Dioxide 25 Anion Gap 12 BUN 30 H Creatinine 1.1 Creat Clearance w eGFR > 60 Random Glucose 107 H Calcium 8.3 L Phosphorus 4.5 Magnesium 2.6 H Aldosterone Free T3 ASSESSMENT AND PLAN: Resolved Small Bowel Obstruction Acute Bronchitis improved COPD CAD h/o MICHAELA Smoker - pain control - PO per surgery - BD TX - DVT prophylaxis - No smoking - On D/C: LAMA monotherapy or LAMA/LABA combination. Will need PFTs Dr Moreno
--- NOTE | 2018-03-22 11:25 | PN ---
Progress Note (short form) - Note Progress Note: s: no chest pain, palps, dizziness, edema, dyspnea. tolerating PO +cigs Current Medications Acetaminophen (Tylenol -) 650 mg PO Q6H PRN PRN Reason: FEVER Albuterol Sulfate (Ventolin 0.083% Nebulizer Soln -) 1 amp NEB Q4H PRN PRN Reason: SHORT OF BREATH/WHEEZING Aspirin (Ecotrin -) 81 mg PO DAILY [facility] Last Admin: 03/22/18 09:11 Dose: 81 mg Atorvastatin Calcium (Lipitor -) 40 mg PO HS [facility] Last Admin: 03/21/18 21:32 Dose: 40 mg Benzocaine/Menthol (Cepacol Lozenge -) 1 each MM PRN PRN PRN Reason: SORE THROAT Budesonide/Formoterol Fumarate (Symbicort 160/4.5mcg -) 2 puff IH BID [facility] Last Admin: 03/22/18 09:11 Dose: 2 puff Carvedilol (Coreg -) 25 mg PO BID [facility] Last Admin: 03/22/18 09:11 Dose: 25 mg Clopidogrel Bisulfate (Plavix -) 75 mg PO DAILY [facility] Last Admin: 03/22/18 09:10 Dose: 75 mg Guaifenesin (Robitussin Dm -) 10 ml PO Q8H PRN PRN Reason: COUGH Heparin Sodium (Porcine) (Heparin -) 5,000 unit SQ BID [facility] Last Admin: 03/22/18 09:11 Dose: 5,000 unit Hydralazine HCl (Apresoline -) 100 mg PO TID [facility] Last Admin: 03/22/18 06:32 Dose: 100 mg Lorazepam (Ativan -) 0.5 mg PO BID [facility] Last Admin: 03/22/18 09:11 Dose: 0.5 mg Nicotine (Nicoderm Patch -) 7 mg TD DAILY [facility] Last Admin: 03/22/18 09:11 Dose: 7 mg Nifedipine (Procardia Xl -) 60 mg PO BID [facility] Last Admin: 03/22/18 09:10 Dose: 60 mg Oxycodone HCl (Roxicodone -) 30 mg PO TID PRN PRN Reason: PAIN LEVEL 7 - 10 Last Admin: 03/22/18 11:04 Dose: 30 mg Pantoprazole Sodium (Protonix Iv) 40 mg IVPUSH DAILY [facility] Last Admin: 03/22/18 09:10 Dose: 40 mg Tiotropium [place] (Spiriva Respimat) 2 puff IH DAILY [facility] Valsartan (Diovan -) 320 mg PO DAILY [facility] Last Admin: 03/22/18 09:10 Dose: 320 mg Venlafaxine HCl (Effexor Xr -) 37.5 mg PO DAILY [facility] Last Admin: 03/22/18 09:11 Dose: 37.5 mg Vital Signs: Vital Signs Period Temp Pulse Resp BP Sys/[place]a Pulse Ox Last 24 Hr 98.1 F-98.8 F 79-90 20-20 106-139/64-98 98 Constitutional: Yes: Well Nourished, No Distress Eyes: Yes: Conjunctiva Clear Neck: Yes: Supple, Trachea Midline Respiratory: Yes: Regular, mild Wheezes Gastrointestinal: Yes: abd mild tender, nd Cardiovascular: Yes: Regular Rate and Rhythm JVD: No Heart Sounds: Yes: S1, S2 Edema: No Peripheral Pulses: 2+ Left Doralis Pedis, 2+ Right Dorsalis Pedis Integumentary: Yes:no jaundice diaphoresis Neurological: Yes: Alert, Oriented EKG: LVH, nonspecific T wave changes, prolonged QTC 473 ms CXR: no acute process echo: nl LV/RV size and function, tr AR, tr to mild MR a/p: 53M h/o nonobstructive CAD s/p cath 2009, HTN, chronic low back pain, smoker p/w chest pain, cough, chest congestion sbo/ileus: -ngt removed, pt taking PO, abd pain improving -plans per surgery Chest pain, cough, copd - neg trops, stable EKG without ischemic changes unlikely ACS - chest pain most likely pleuritic in setting of cough, less consistent with ACS - BNP 830 however clinical picture not c/w heart failure - on IV steroids, nebs for cough - pulm following, CT chest shows mild COPD - echo nl LV function - no further cardiac workup for now resistant HTN with hypertensive urgency: - now taking PO meds with improved BP control - was on carvedilol 25 bid, hydralazine 100 TID, chlorthalidone 50 qd, valsartan 320 (should go home on benicar (olmesartan) 40 qd for better efficacy/ 24 hr drug levels), nifedipine ER 60 bid - all resumed except chlorthalidone, monitor BP today, has been controlled - consider change carvedilol to labetalol if BP not controlled - needs outpt f/u with us to complete w/u for secondary causes of HTN, including would recommend renal artery dopplers Current smoker - patient wants to quit
--- NOTE | 2018-03-22 12:32 | PN ---
Progress Note, Physician History of Present Illness: Pt with epigastric pain and possible SB obstructive picture, now with NG out, no further pain or tenderness. Contrast went through on XR. Pt seen in bed on floor, feeling well. Tolerated clears and fulls, awaiting regular lunch. - Current Medication List Current Medications: Active Medications Acetaminophen (Tylenol -) 650 mg PO Q6H PRN PRN Reason: FEVER Albuterol Sulfate (Ventolin 0.083% Nebulizer Soln -) 1 amp NEB Q4H PRN PRN Reason: SHORT OF BREATH/WHEEZING Aspirin (Ecotrin -) 81 mg PO DAILY [facility] Last Admin: 03/22/18 09:11 Dose: 81 mg Atorvastatin Calcium (Lipitor -) 40 mg PO HS [facility] Last Admin: 03/21/18 21:32 Dose: 40 mg Benzocaine/Menthol (Cepacol Lozenge -) 1 each MM PRN PRN PRN Reason: SORE THROAT Budesonide/Formoterol Fumarate (Symbicort 160/4.5mcg -) 2 puff IH BID [facility] Last Admin: 03/22/18 09:11 Dose: 2 puff Carvedilol (Coreg -) 25 mg PO BID [facility] Last Admin: 03/22/18 09:11 Dose: 25 mg Clopidogrel Bisulfate (Plavix -) 75 mg PO DAILY [facility] Last Admin: 03/22/18 09:10 Dose: 75 mg Guaifenesin (Robitussin Dm -) 10 ml PO Q8H PRN PRN Reason: COUGH Heparin Sodium (Porcine) (Heparin -) 5,000 unit SQ BID [facility] Last Admin: 03/22/18 09:11 Dose: 5,000 unit Hydralazine HCl (Apresoline -) 100 mg PO TID [facility] Last Admin: 03/22/18 06:32 Dose: 100 mg Lorazepam (Ativan -) 0.5 mg PO BID [facility] Last Admin: 03/22/18 09:11 Dose: 0.5 mg Nicotine (Nicoderm Patch -) 7 mg TD DAILY [facility] Last Admin: 03/22/18 09:11 Dose: 7 mg Nifedipine (Procardia Xl -) 60 mg PO BID [facility] Last Admin: 03/22/18 09:10 Dose: 60 mg Oxycodone HCl (Roxicodone -) 30 mg PO TID PRN PRN Reason: PAIN LEVEL 7 - 10 Last Admin: 10/02/18 11:04 Dose: 30 mg Pantoprazole Sodium (Protonix Iv) 40 mg IVPUSH DAILY [facility] Last Admin: 03/22/18 09:10 Dose: 40 mg Tiotropium [place] (Spiriva Respimat) 2 puff IH DAILY [facility] Valsartan (Diovan -) 320 mg PO DAILY [facility] Last Admin: 03/22/18 09:10 Dose: 320 mg Venlafaxine HCl (Effexor Xr -) 37.5 mg PO DAILY [facility] Last Admin: 03/22/18 09:11 Dose: 37.5 mg - Objective Vital Signs: Vital Signs Temperature 98.5 F 03/22/18 09:00 Pulse Rate 82 03/22/18 09:00 Respiratory Rate 20 03/22/18 09:00 Blood Pressure 115/70 03/22/18 09:00 O2 Sat by Pulse Oximetry (%) 98 03/21/18 21:00 Constitutional: Yes: Well Nourished, No Distress, Calm Eyes: Yes: Conjunctiva Clear, EOM Intact HENT: Yes: Atraumatic, Normocephalic Gastrointestinal: Yes: Normal Bowel Sounds, Soft, Other (upper midline diastasis ). No: Distention, Tenderness, Tenderness, Epigastrium Extremities: No: Cool, Cyanosis Integumentary: Yes: Tattoos. No: Jaundice, Rash Neurological: Yes: Alert, Oriented Labs: CBC, BMP 03/22/18 06:45 03/22/18 06:45 better hydrated, Hb back to 13, but BUN/Cr up had diuretics yesterday Problem List - Problems (1) Epigastric pain Assessment/Plan: not distended, no more pain or tenderness no further nausea, passing gas tolerating po no surgery indicated will sign off, please recall if needed Code(s): R10.13 - EPIGASTRIC PAIN (2) Dehydration Code(s): E86.0 - DEHYDRATION (3) Hypokalemia Code(s): E87.6 - HYPOKALEMIA (4) HTN (hypertension) Code(s): I10 - ESSENTIAL (PRIMARY) HYPERTENSION Qualifiers: Hypertension type: essential hypertension Qualified Code(s): I10 - Essential (primary) hypertension (5) COPD (chronic obstructive pulmonary disease) Code(s): J44.9 - CHRONIC OBSTRUCTIVE PULMONARY DISEASE, UNSPECIFIED Qualifiers: COPD type: COPD with acute exacerbation Qualified Code(s): J44.1 - Chronic obstructive pulmonary disease with (acute) exacerbation (6) ASHD (arteriosclerotic heart disease) Code(s): I25.10 - ATHSCL HEART DISEASE OF [place] CORONARY ARTERY W/O ANG PCTRS (7) Tobacco abuse Assessment/Plan: would wean nicotine patch to off - may be contributing to hypertension Code(s): Z72.0 - TOBACCO USE (8) Chronic low back pain Code(s): M54.5 - LOW BACK PAIN; G89.29 - OTHER CHRONIC PAIN Qualifiers: Back pain laterality: bilateral Sciatica presence: without sciatica Qualified Code(s): M54.5 - Low back pain; G89.29 - Other chronic pain
--- NOTE | 2018-03-22 14:14 | PN ---
Physical Exam: SUBJECTIVE: Patient seen and examined. denies shortness of breath, no abdominal pain. tolerating diet. Tolerated clears and full diet, awaiting regular lunch. OBJECTIVE: Vital Signs Period Temp Pulse Resp BP Sys/[place] Pulse Ox Last 24 Hr 97.8 F-98.5 F 79-87 18-20 106-116/64-78 98 GENERAL: Awake, alert, and fully oriented, in no acute distress. HEAD: Normal with no signs of trauma. EYES: Pupils equal, round and reactive to light, extraocular movements intact, sclera anicteric, conjunctiva clear. No lid lag. EARS, NOSE, THROAT: Ears normal, nares patent, oropharynx clear without exudates. Moist mucous membranes. LUNGS: clear to auscultation bilaterally HEART: Regular rate and rhythm ABDOMEN: Soft, nontender, not distended, normoactive bowel sounds, no guarding, no rebound, no masses. No hepatomegaly or splenomegaly. MUSCULOSKELETAL: Normal range of motion at all joints. No bony deformities or tenderness. No CVA tenderness. UPPER EXTREMITIES: 2+ pulses, warm, well-perfused. No cyanosis. No clubbing. No peripheral edema. LOWER EXTREMITIES: 2+ pulses, warm, well-perfused. No calf tenderness. No peripheral edema. NEUROLOGICAL: Normal speech. Normal gait. PSYCHIATRIC: Cooperative. Good eye contact. Appropriate mood and affect. SKIN: Warm, dry, normal turgor, no rashes or lesions noted, normal capillary refill. Laboratory Results - last 24 hr 03/19/18 03/21/18 03/22/18 10:00 05:30 06:45 WBC 8.2 RBC 4.69 Hgb 13.5 Hct 41.4 MCV 88.4 MCH 28.8 MCHC 32.6 RDW 14.2 Plt Count 197 MPV 9.0 Absolute Neuts (auto) 4.9 Neutrophils % 60.3 Lymphocytes % 19.9 D Monocytes % 18.1 H Eosinophils % 1.1 Basophils % 0.6 Nucleated RBC % 0 Sodium Potassium Chloride Carbon Dioxide Anion Gap BUN Creatinine Creat Clearance w eGFR Random Glucose Calcium Phosphorus Magnesium Aldosterone 5.8 Free T3 2.5 03/22/18 06:45 WBC RBC Hgb Hct MCV MCH MCHC RDW Plt Count MPV Absolute Neuts (auto) Neutrophils % Lymphocytes % Monocytes % Eosinophils % Basophils % Nucleated RBC % Sodium 138 Potassium 4.0 Chloride 101 Carbon Dioxide 25 Anion Gap 12 BUN 30 H Creatinine 1.1 Creat Clearance w eGFR > 60 Random Glucose 107 H Calcium 8.3 L Phosphorus 4.5 Magnesium 2.6 H Aldosterone Free T3 Active Medications Generic Name Dose Route Start Last Admin Trade Name Freq PRN Reason Stop Dose Admin Acetaminophen 650 mg 03/21/18 21:16 Tylenol - PO Q6H PRN FEVER Albuterol Sulfate 1 amp 03/21/18 17:31 Ventolin 0.083% Nebulizer Soln - NEB Q4H PRN SHORT OF BREATH/WHEEZING Aspirin 81 mg 03/22/18 10:00 03/22/18 09:11 Ecotrin - PO 81 mg DAILY NILA Administration Atorvastatin Calcium 40 mg 03/21/18 22:00 03/21/18 21:32 Lipitor - PO 40 mg HS NILA Administration Benzocaine/Menthol 1 each 03/21/18 17:31 Cepacol Lozenge - MM PRN PRN SORE THROAT Budesonide/Formoterol Fumarate 2 puff 03/21/18 22:00 03/22/18 09:11 Symbicort 160/4.5mcg - IH 2 puff BID NILA Administration Carvedilol 25 mg 03/21/18 22:00 03/22/18 09:11 Coreg - PO 25 mg BID NILA Administration Clopidogrel Bisulfate 75 mg 03/22/18 10:00 03/22/18 09:10 Plavix - PO 75 mg DAILY NILA Administration Guaifenesin 10 ml 03/21/18 17:31 Robitussin Dm - PO Q8H PRN COUGH Heparin Sodium (Porcine) 5,000 unit 03/21/18 22:00 03/22/18 09:11 Heparin - SQ 5,000 unit BID NILA Administration Hydralazine HCl 100 mg 03/21/18 22:00 03/22/18 06:32 Apresoline - PO 100 mg TID NILA Administration Lorazepam 0.5 mg 03/21/18 22:00 03/22/18 09:11 Ativan - PO 0.5 mg BID NILA Administration Nicotine 7 mg 03/22/18 10:00 03/22/18 09:11 Nicoderm Patch - TD 7 mg DAILY [facility] Administration Nifedipine 60 mg 03/21/18 22:00 03/22/18 09:10 Procardia Xl - PO 60 mg BID NILA Administration Oxycodone HCl 30 mg 03/22/18 00:06 03/22/18 11:04 Roxicodone - PO 30 mg TID PRN Administration PAIN LEVEL 7 - 10 Pantoprazole Sodium 40 mg 03/22/18 10:00 03/22/18 09:10 Protonix Iv IVPUSH 40 mg DAILY NILA Administration Tiotropium [place] 2 puff 03/22/18 10:00 Spiriva Respimat IH DAILY [facility] Valsartan 320 mg 03/22/18 10:00 03/22/18 09:10 Diovan - PO 320 mg DAILY [facility] Administration Venlafaxine HCl 37.5 mg 03/22/18 10:00 03/22/18 09:11 Effexor Xr - PO 37.5 mg DAILY NIL[facility] Administration ASSESSMENT/PLAN: Patient is a 53 year old male with a significant past medical history of nonobstructive CAD, chronic back pain, and hypertension. Patient presents with COPD exacerbation on 03/13/2018. Hospitalization complicated after patient developed acute abdominal pain and was found to have an SBO. Patient was transferred to the ICU for close monitoring of both SBO and hypertensive urgency. Card: Chest pain, cough, resolved. no ekg changes. trops negative. no chest pain. echo reviewed. Hypertension, controlled. s/p nicardipine drip. On Diovan 320mg daily, Effexor XR 37.5mg daily, procardia 60mg XL bid, hydralazine 100mg tid, coreq 25mg bid. as per cardiology note, patient should go home on on benicar (olmesartan) 40 qd. Cardiology outpatient follow up to further explore cause of hypertension, will need renal artery dopplers. CAD: on Plavix 75mg daily, asa 81mg daily Pulm: Bronchitis/COPD exacerbation. resolved. Not short of breath. tolerating room air. treated with solumedrol during hospitalization. On bronchodilators. Current everyday smoker: cessation discussed. Muscular/skeletal: Back pain, chronic On Lidoderm and oxycontin 30 tid prn based on pain levels. GI: SBO, resolved. abdominal kub shows resolved SBO. No abdominal pain, no nausea or vomiting. tolerating PO meds. abodmen soft. fen tolerating po monitor K low salt diet prohy ambulatory heparin bid Visit type - Emergency Visit Emergency Visit: Yes ED Registration Date: 03/13/18 Care time: The patient presented to the Emergency Department on the above date and was hospitalized for further evaluation of their emergent condition. - New Patient This patient is new to me today: No - Critical Care Critical Care patient: No - Discharge Referral Referred to [facility] Med [facility] No
[2018-03-22] MEDS: DOCUSATE SODIUM 100 MG CAPSULE (FP) PO SCH (16:42)
[2018-03-22] MEDS: TIOTROPIUM BROMIDE 2.5 MCG (SPIRIVA) RESPIMAT INHALER IH SCH (16:43)
[2018-03-22] MEDS: LIDOCAINE 5% TOPICAL PATCH TP SCH (16:43)
[2018-03-22] MEDS ORDERED: LIDOCAINE PATCH REMOVAL MC SCH (22:00)
[2018-03-22] MEDS: ATORVASTATIN CA 40 MG TABLET (FP) PO SCH (22:28)
[2018-03-23 00:12] LABS: RENIN ACTIVITY(PRA) 0.59 ng/mL/hr (0.167-5.380)
[2018-03-23] MEDS: hydrALAZINE HCL 50 MG TABLET (FP) PO SCH ×2 (06:30→14:04)
[2018-03-23] MEDS: oxyCODONE HCL 5 MG TABLET PO PRN (06:33)
[2018-03-23 09:02] VITALS: BP 129/79; PULSE 92; TEMP 99.1
[2018-03-23] MEDS: HEPARIN NA (PORCINE) 5,000 UNITS/ML 1ML VIAL SQ SCH (09:16)
[2018-03-23] MEDS: ASPIRIN COATED 81 MG TABLET.EC PO SCH (09:17)
[2018-03-23] MEDS: VALSARTAN 160 MG TABLET (UD) PO SCH (09:17)
[2018-03-23] MEDS: NICOTINE 7 MG/24 HOURS TOPICAL PATCH TD SCH (09:17)
[2018-03-23] MEDS: PANTOPRAZOLE SODIUM 40 MG VIAL IVPUSH SCH (09:17)
[2018-03-23] MEDS: DOCUSATE SODIUM 100 MG CAPSULE (FP) PO SCH (09:17)
[2018-03-23] MEDS: LORazepam 0.5 MG TABLET PO SCH (09:17)
[2018-03-23] MEDS: CLOPIDOGREL BISULFATE 75 MG TABLET (FP) PO SCH (09:17)
[2018-03-23] MEDS: NIFEdipine E.R 60 MG TABLET (UD) PO SCH (09:17)
[2018-03-23] MEDS: LIDOCAINE 5% TOPICAL PATCH TP SCH (09:17)
[2018-03-23] MEDS: CARVEDILOL 25 MG TABLET (FP) PO SCH (09:17)
[2018-03-23] MEDS: BUDESONIDE/FORMETEROL FUMARATE 160/4.5 mcg INHALER IH SCH (09:18)
[2018-03-23] MEDS: VENLAFAXINE HCL 37.5 MG E.R. CAPSULE (FP) PO SCH (09:18)
[2018-03-23] MEDS: TIOTROPIUM BROMIDE 2.5 MCG (SPIRIVA) RESPIMAT INHALER IH SCH (09:18)
[2018-03-23 09:58] LABS: BASO % 0.3 % (0-2.0); HEMATOCRIT 40.1 % (35.4-49); HEMOGLOBIN 13.1 GM/dL (11.7-16.9); LYMPH % 14.2 % (8-40); MCH 28.8 pg (25.7-33.7); MCHC 32.6 g/dl (32.0-35.9); MEAN CELL VOLUME 88.4 fl (80-96); MEAN PLT VOLUME 8.9 fl (7.5-11.1); MONO % 13.6 % (3.8-10.2); NEUT % 70.9 % (42.8-82.8); PLATELET COUNT 194 K/MM3 (134-434); RBC 4.53 M/mm3 (4.00-5.60); RDW 14.3 % (11.9-15.9); WHITE BLOOD COUNT 9.2 K/mm3 (4.0-10.0)
[2018-03-23 10:43] LABS: ALBUMIN 2.9 g/dl (3.4-5.0); ALK PHOS 64 U/L (45-117); ANION GAP 12 MMOL/L (8-16); BILIRUBIN,TOTAL 0.5 mg/dL (0.2-1); BLOOD UREA NITROGEN 26 mg/dL (7-18); CALCIUM 8.3 mg/dL (8.5-10.1); CHLORIDE 102 mmol/L (98-107); CO2 24 mmol/L (21-32); CREATININE 1.1 mg/dL (0.55-1.3); GLUCOSE,RANDOM 131 mg/dL (74-106); MAGNESIUM 2.2 mg/dL (1.8-2.4); SGOT/AST 34 U/L (15-37); SGPT/ALT 62 U/L (13-61); SODIUM 138 mmol/L (136-145); TOT PROT 6.9 g/dl (6.4-8.2)
--- NOTE | 2018-03-23 10:53 | PN ---
Progress Note (short form) - Note Progress Note: s: no chest pain, palps, dizziness, edema, dyspnea. has cough, improving +cigs Current Medications Acetaminophen (Tylenol -) 650 mg PO Q6H PRN PRN Reason: FEVER Albuterol Sulfate (Ventolin 0.083% Nebulizer Soln -) 1 amp NEB Q4H PRN PRN Reason: SHORT OF BREATH/WHEEZING Aspirin (Ecotrin -) 81 mg PO DAILY [facility] Last Admin: 03/23/18 09:17 Dose: 81 mg Atorvastatin Calcium (Lipitor -) 40 mg PO HS [facility] Last Admin: 03/22/18 22:28 Dose: 40 mg Benzocaine/Menthol (Cepacol Lozenge -) 1 each MM PRN PRN PRN Reason: SORE THROAT Budesonide/Formoterol Fumarate (Symbicort 160/4.5mcg -) 2 puff IH BID [facility] Last Admin: 03/23/18 09:18 Dose: 2 puff Carvedilol (Coreg -) 25 mg PO BID [facility] Last Admin: 03/23/18 09:17 Dose: 25 mg Clopidogrel Bisulfate (Plavix -) 75 mg PO DAILY [facility] Last Admin: 03/23/18 09:17 Dose: 75 mg Docusate Sodium (Colace -) 100 mg PO DAILY [facility] Last Admin: 03/23/18 09:17 Dose: 100 mg Guaifenesin (Robitussin Dm -) 10 ml PO Q8H PRN PRN Reason: COUGH Heparin Sodium (Porcine) (Heparin -) 5,000 unit SQ BID [facility] Last Admin: 03/23/18 09:16 Dose: 5,000 unit Hydralazine HCl (Apresoline -) 100 mg PO TID [facility] Last Admin: 03/23/18 06:30 Dose: 100 mg Lidocaine (Lidoderm Patch -) 1 patch TP DAILY [facility] Last Admin: 03/23/18 09:17 Dose: 1 patch Lorazepam (Ativan -) 0.5 mg PO BID [facility] Last Admin: 03/23/18 09:17 Dose: 0.5 mg Miscellaneous (Lidoderm Patch Removal) 1 each MC DAILY@2200 [facility] Last Admin: 03/22/18 22:29 Dose: 1 each Nicotine (Nicoderm Patch -) 7 mg TD DAILY [facility] Last Admin: 03/23/18 09:17 Dose: 7 mg Nifedipine (Procardia Xl -) 60 mg PO BID [facility] Last Admin: 03/23/18 09:17 Dose: 60 mg Oxycodone HCl (Roxicodone -) 30 mg PO TID PRN PRN Reason: PAIN LEVEL 7 - 10 Last Admin: 03/23/18 06:33 Dose: 30 mg Pantoprazole Sodium (Protonix Iv) 40 mg IVPUSH DAILY [facility] Last Admin: 03/23/18 09:17 Dose: 40 mg Tiotropium [place] (Spiriva Respimat) 2 puff IH DAILY [facility] Last Admin: 03/23/18 09:18 Dose: 2 puff Valsartan (Diovan -) 320 mg PO DAILY [facility] Last Admin: 03/23/18 09:17 Dose: 320 mg Venlafaxine HCl (Effexor Xr -) 37.5 mg PO DAILY [facility] Last Admin: 03/23/18 09:18 Dose: 37.5 mg Vital Signs: Vital Signs Period Temp Pulse Resp BP Sys/[place]a Pulse Ox Last 24 Hr 97.8 F-99.1 F 72-92 18-18 99-129/54-79 Constitutional: Yes: Well Nourished, No Distress Eyes: Yes: Conjunctiva Clear Neck: Yes: Supple, Trachea Midline Respiratory: Yes: Regular, mild Wheezes Gastrointestinal: Yes: abd mild tender, nd Cardiovascular: Yes: Regular Rate and Rhythm JVD: No Heart Sounds: Yes: S1, S2 Edema: No Peripheral Pulses: 2+ Left Doralis Pedis, 2+ Right Dorsalis Pedis Integumentary: Yes:no jaundice diaphoresis Neurological: Yes: Alert, Oriented EKG: LVH, nonspecific T wave changes, prolonged QTC 473 ms CXR: no acute process echo: nl LV/RV size and function, tr AR, tr to mild MR a/p: 53M h/o nonobstructive CAD s/p cath 2010, HTN, chronic low back pain, smoker p/w chest pain, cough, chest congestion sbo/ileus: -ngt removed, pt taking PO, abd pain improving -plans per surgery Chest pain, cough, copd - neg trops, stable EKG without ischemic changes unlikely ACS - chest pain most likely pleuritic in setting of cough, less consistent with ACS - BNP 830 however clinical picture not c/w heart failure - on IV steroids, nebs for cough - pulm following, CT chest shows mild COPD - echo nl LV function - no further cardiac workup for now resistant HTN with hypertensive urgency: - now taking PO meds with improved BP control - was on carvedilol 25 bid, hydralazine 100 TID, chlorthalidone 50 qd, valsartan 320 (should go home on benicar (olmesartan) 40 qd for better efficacy/ 24 hr drug levels), nifedipine ER 60 bid - all resumed except chlorthalidone, monitor BP today, has been controlled - consider change carvedilol to labetalol if BP not controlled - needs outpt f/u with us to complete w/u for secondary causes of HTN, including would recommend renal artery dopplers Current smoker - patient wants to quit
--- NOTE | 2018-03-23 11:10 | DS ---
Physical Exam: SUBJECTIVE: Patient seen and examined. feels well, no nausea, no shortness of breath, tolerating diet. OBJECTIVE: Vital Signs Period Temp Pulse Resp BP Sys/[place]a Pulse Ox Last 24 Hr 97.8 F-99.1 F 72-92 18-18 99-129/54-79 98 PHYSICAL EXAM GENERAL: Awake, alert, and fully oriented, in no acute distress. HEAD: Normal with no signs of trauma. EYES: Pupils equal, round and reactive to light, extraocular movements intact, sclera anicteric, conjunctiva clear. No lid lag. EARS, NOSE, THROAT: Ears normal, nares patent, oropharynx clear without exudates. Moist mucous membranes. LUNGS: clear to auscultation bilaterally HEART: Regular rate and rhythm ABDOMEN: Soft, nontender, not distended, normoactive bowel sounds, no guarding, no rebound, no masses. No hepatomegaly or splenomegaly. MUSCULOSKELETAL: Normal range of motion at all joints. No bony deformities or tenderness. No CVA tenderness. UPPER EXTREMITIES: 2+ pulses, warm, well-perfused. No cyanosis. No clubbing. No peripheral edema. LOWER EXTREMITIES: 2+ pulses, warm, well-perfused. No calf tenderness. No peripheral edema. NEUROLOGICAL: Normal speech. Normal gait. PSYCHIATRIC: Cooperative. Good eye contact. Appropriate mood and affect. SKIN: Warm, dry, normal turgor, no rashes or lesions noted, normal capillary refill. LABS Laboratory Results - last 24 hr 03/19/18 03/23/18 03/23/18 10:00 09:35 09:35 WBC 9.2 RBC 4.53 Hgb 13.1 Hct 40.1 MCV 88.4 MCH 28.8 MCHC 32.6 RDW 14.3 Plt Count 194 MPV 8.9 Absolute Neuts (auto) 6.5 Neutrophils % 70.9 Lymphocytes % 14.2 D Monocytes % 13.6 H Eosinophils % 1.0 Basophils % 0.3 Nucleated RBC % 0 Sodium 138 Potassium 4.0 Chloride 102 Carbon Dioxide 24 Anion Gap 12 BUN 26 H Creatinine 1.1 Creat Clearance w eGFR > 60 Random Glucose 131 H Calcium 8.3 L Magnesium 2.2 Total Bilirubin 0.5 AST 34 ALT 62 H Alkaline Phosphatase 64 Total Protein 6.9 Albumin 2.9 L Renin Activity 0.590 HOSPITAL COURSE: Date of Admission:03/13/18 Date of Discharge: 03/23/18 ASSESSMENT/PLAN: Patient is a 53 year old male with a significant past medical history of nonobstructive CAD, chronic back pain, and hypertension. Patient presents with COPD exacerbation on 03/13/2018. Hospitalization complicated after patient developed acute abdominal pain and was found to have an SBO. Patient was transferred to the ICU for close monitoring of both SBO and hypertensive urgency. Hospitalization by problem list. Card: Chest pain, cough, resolved. no ekg changes. trops negative. no chest pain. echo nl LV/RV size and function, tr AR, tr to mild MR Hypertension, controlled. s/p nicardipine drip. will be sent home on Benicar, Effexor XR 37.5mg daily, procardia 60mg XL bid, hydralazine 100mg tid, coreq 25mg bid. Cardiology outpatient follow up to further explore cause of hypertension, will need renal artery dopplers. CAD: on Plavix 75mg daily, asa 81mg daily Pulm: Bronchitis/COPD exacerbation. resolved. Current everyday smoker: cessation discussed. Muscular/skeletal: Back pain, chronic On Lidoderm and oxycontin 30 tid prn based on pain levels. GI: SBO, resolved. abdominal kub shows resolved SBO. No abdominal pain, no nausea or vomiting. tolerating PO meds. abodmen soft. discharge home. full code. Will need close cardiology outpatient follow up. Minutes to complete discharge: 60 Discharge Summary Reason For Visit: CHEST PAIN Current Active Problems ASHD (arteriosclerotic heart disease) (Acute) Acute asthmatic bronchitis (Acute) Bronchitis (Acute) COPD (chronic obstructive pulmonary disease) (Acute) Chest pain (Acute) Dyspnea (Acute) Epigastric pain (Acute) HTN (hypertension) (Acute) Nausea alone (Acute) Tobacco abuse (Acute) Tobacco abuse counseling (Acute) URI (upper respiratory infection) (Acute) Condition: Improved - Instructions Diet, Activity, Other Instructions: Mr. Rob: You were admitted for COPD exacerbation and treated steriods. Your breathing has improved and you have completed treatment. Please follow up with Dr. Jaramillo as an outpatient for continued follow up of COPD. New medications: carvedilol 25mg twice daily - for high blood pressure treatment hydralazine 100mg three times per day 8 am 2pm and 8pm - - for high blood pressure treatment benicar (olmesartan) 40mg daily - - for high blood pressure treatment procardia/nifedipine ER 60mg twice daily - - for high blood pressure treatment plavix 75mg daily spiriva inhaler - for COPD symbicort inhaler for COPD Lipitor 40mg, high cholesterol medication Please discontinue taking any other blood pressure medications you have at home and follow up with Dr. Johnson for further workup. Please see Dr. Johnson, for workup of secondary causes of hypertension. Thank you. Please trevor me with any questions you may have. Nini Junior [place] [employer] [phone] [facility] Referrals: Miguel A Johnson MD [Non Staff, Medical] - ON STAFF,NOT [Primary Care Provider] - Disposition: HOME - Home Medications Comprehensive Discharge Medication List: Ambulatory Orders Carvedilol 3.125 mg PO BID 01/16/17 Clopidogrel Bisulfate [Plavix] 150 mg PO DAILY 01/16/17 Hydrochlorothiazide 40 mg PO BID 01/16/17 Oxycodone HCl/Acetaminophen [Percocet 10-325 mg Tablet] 1 each PO Q6H PRN #12 tablet MDD 4 07/17/17 Amlodipine Besylate 5 mg PO DAILY 03/12/18 This patient is new to me today: No Emergency Visit: Yes ED Registration Date: 03/13/18 Care time: The patient presented to the Emergency Department on the above date and was hospitalized for further evaluation of their emergent condition. Critical Care patient: No - Discharge Referral Referred to [facility] No
== END 2018-03-23 14:54 | disposition home or self-care (01) | DRG 191 ==
LOC: JER 13:21 → JERBED 15:58 → J4W 20:15 → OBSVTOIN 03-13 14:39 → JICU 03-19 11:15 → J7W 03-21 18:16
PROVIDERS: ADMIT Internal Medicine; ATTEND Nurse Practitioner Family
PROC: 0D9670Z Drainage of Stomach with Drainage Device, Via Natural or Artificial Opening (ICD-10-PCS; principal; 2018-03-19)
PROC: 0DP6X0Z Removal of Drainage Device from Stomach, External Approach (ICD-10-PCS; 2018-03-21)
DX: J44.0 Chronic obstructive pulmonary disease with (acute) lower respiratory infection (principal); K56.7 Ileus, unspecified; K56.699 Other intestinal obstruction unspecified as to partial versus complete obstruction; J44.1 Chronic obstructive pulmonary disease with (acute) exacerbation; I25.10 Atherosclerotic heart disease of native coronary artery without angina pectoris; I10 Essential (primary) hypertension; F17.210 Nicotine dependence, cigarettes, uncomplicated; M54.5 Low back pain; J20.9 Acute bronchitis, unspecified; I16.0 Hypertensive urgency; I34.0 Nonrheumatic mitral (valve) insufficiency; E86.0 Dehydration; E87.6 Hypokalemia; G47.33 Obstructive sleep apnea (adult) (pediatric); R07.9 Chest pain, unspecified; Y95 Nosocomial condition
CPT/HCPCS: 36415; 71045-TC-FY; 71250-TC; 71260-TC; 74018-TC-FY; 74177-TC; 80048; 80053; 80061; 80076; 80307; 81003; 82088; 82962; 83605; 83721; 83735; 83880; 84100; 84244; 84439; 84443; 84481; 84484; 85025; 85027; 85610; 85730; 86850; 86900; 86901; 87040; 87070; 87205; 87804; 93005; 93010; 93306-TC; 94640; 94761; 97116-GP; 97161-GP; 99283-25; G0378; J0131; J1644; J7030; J7620

== ENCOUNTER 2018-06-23 07:26 | Emergency (ER) | payer OTHER ==
[2018-06-23 07:53] VITALS: BMI 28.3
[2018-06-23] MEDS ORDERED: KETOROLAC TROMETHAMINE 60 MG/2 ML VIAL IM ONE (08:28)
--- NOTE | 2018-06-23 08:38 | PDOC ---
History of Present Illness - General Chief Complaint: Pain Stated Complaint: HIP LOWER BACK & GROIN PAIN Time Seen by Provider: 06/23/18 07:54 History Source: Patient Exam Limitations: No Limitations - History of Present Illness Initial Comments: 06/23/18 08:32 53-year-old male with history of hypertension, chronic low back pain presents with 1 day of atraumatic left hip pain. Patient was in his usual state of health , awoke yesterday morning with left hip discomfort described a sharp pain that radiates from his groin to his lateral hip and left low back, worse with movement and ambulation, only relieved with sitting or standing still. No injury , no strain, no fevers or chills, no history of recurring hip pain. This is unlike his chronic low back pain, the pain was unrelieved by meloxicam and Tylenol which he took this morning. Patient drove from [place] 2 days ago, as he often does. Presents for evaluation secondary to persistent pain. Denies any dysuria/hematuria/frequency/flank pain, no abdominal pain/vomiting/ obstipation, no redness or swelling. Past History - Past Medical History Allergies/Adverse Reactions: Allergies Allergy/AdvReac Type Severity Reaction Status Date / Time No Known Drug Allergies Allergy Severe Verified 06/23/18 07:32 bananas and vicoden together Allergy Severe ANAPHYLAXIS Uncoded 06/23/18 07:32 . Home Medications: Ambulatory Orders Oxycodone HCl/Acetaminophen [Percocet 10-325 mg Tablet] 1 each PO Q6H PRN #12 tablet MDD 4 07/17/17 Aspirin Coated [Ecotrin -] 81 mg PO DAILY tablet.ec 03/23/18 Atorvastatin Ca [Lipitor] 40 mg PO HS #30 tablet 03/23/18 Budesonide/Formeterol Fumarate [SYMBICORT 160/4.5mcg -] 2 puff IH BID #1 inhaler 03/23/18 Carvedilol [Coreg -] 25 mg PO BID #60 tablet 03/23/18 Clopidogrel Bisulfate [Plavix -] 75 mg PO DAILY #30 tablet 03/23/18 Nicotine [Nicoderm Cq] 1 each TD DAILY #30 patch.td24 03/23/18 Nifedipine ER [Procardia XL -] 60 mg PO BID #60 tab.er.24 03/23/18 Olmesartan Medoxomil [Benicar] 40 mg PO DAILY #60 tablet 03/23/18 Tiotropium [place] [Spiriva Respimat] 2 puff IH DAILY #1 inhaler 03/23/18 Venlafaxine HCl ER [Effexor Xr -] 37.5 mg PO DAILY cap.er.24h 03/23/18 Venlafaxine HCl ER [Effexor Xr -] 37.5 mg PO DAILY #30 cap.er.24h 03/23/18 hydrALAZINE HCL [Apresoline -] 100 mg PO TID #180 tablet 03/23/18 Meloxicam 15 mg PO DAILY PRN #30 tablet 06/23/18 CVA: Yes (tia) COPD: No HTN: Yes - Suicide/Smoking/Psychosocial Hx Smoking History: Never smoked Have you smoked in the past 12 months: Yes Number of Cigarettes Smoked Daily: 20 'Breaking Loose' booklet given: 11/23/16 Hx Alcohol Use: No Drug/Substance Use Hx: No Substance Use Type: Marijuana Hx Substance Use Treatment: No Review of Systems - Review of Systems Constitutional: No: Chills, Fever, Night Sweats ABD/GI: No: Constipated, Vomiting : No: Dysuria, Flank Pain, Hematuria, Incontinence Musculoskeletal: Yes: Joint Pain. No: Muscle Weakness Neurological: No: Numbness, Paresthesia, Tingling, Weakness All Other Systems: Reviewed and Negative *Physical Exam - Vital Signs Last Vital Signs Temp Pulse Resp BP Pulse Ox 98.6 F 83 17 148/103 H 95 06/23/18 07:33 06/23/18 07:33 06/23/18 07:33 06/23/18 07:33 06/23/18 07:33 - Physical Exam Comments: 06/23/18 08:34 afebrile. GENERAL: The patient is awake, alert, and fully oriented, in no acute distress until begins ranging L hip. HEAD: Normal with no signs of trauma. EYES: PERRL, EOMI. ENT: Moist mucous membranes. NECK: Normal range of motion, supple without JVD. HEART: Regular rate ABDOMEN: Soft/nontender/nondistended. BS wnl. No guarding or rebound. No palpable masses. EXTREMITIES: Normal except for L hip: full range of motion but with pain, antalgic gait favoring L hip, ttp along groin muscle and pinpoint at lateral L hip. no edema. 2+ distal pulses. No cords, erythema, or tenderness. No warmth/ erythema/effusion. No focal bony ttp. NEUROLOGICAL: Cranial nerves II through XII grossly intact. Normal speech, antalgic gait. 5/5 flex/extend at both hips/knees/ankles/toes. PSYCH: Normal mood, normal affect. SKIN: Warm, Dry, no rashes or lesions noted. Moderate Sedation - Procedure Monitoring Vital Signs: Procedure Monitoring Vital Signs Temperature 98.6 F 06/23/18 07:33 Pulse Rate 83 06/23/18 07:33 Respiratory Rate 17 06/23/18 07:33 Blood Pressure 148/103 H 06/23/18 07:33 O2 Sat by Pulse Oximetry (%) 95 06/23/18 07:33 ED Treatment Course - RADIOLOGY Radiology Studies Ordered: Category Date Time Status HIP & PELVIS-LEFT [RAD] Stat Radiology 06/23/18 08:28 Ordered Medical Decision Making - Medical Decision Making 06/23/18 08:37 53-year-old male immunocompetent with chronic low back pain presents with atraumatic left hip pain for 1 day, well-appearing with focal reproducible tenderness and positional exacerbations. Neurovascularly intact. Likely musculoskeletal hip strain versus bursitis, less likely fracture. Possibly radicular pain but also seems less likely. No evidence for infectious etiology. Left hip x-ray Toradol injection Reassess 06/23/18 10:02 markedly improved after toradol, ambulating much more comfortably without his cane. xray shows no acute pathology. agrees with d/c plan on meloxicam, understands return criteria, has f/u with his pcp. *DC/Admit/Observation/Transfer Diagnosis at time of Disposition: Left hip pain - Discharge Dispostion Disposition: HOME Condition at time of disposition: Improved - Prescriptions Prescriptions: Meloxicam 15 mg PO DAILY PRN #30 tablet PRN Reason: Pain - Referrals Referrals: Jessica Faulkner MD [Staff Physician] - Jack Rod DO [Staff Physician] - - Patient Instructions Printed Discharge Instructions: DI for Groin Strain Additional Instructions: Activity as tolerated. Stay hydrated. An x-ray today shows no acute abnormalities, the pain may be due to muscle or ligament sprain. Tylenol 1000 mg every 8 hours and/or meloxicam daily as prescribed for 3 days, then as needed for pain. Continue your medications as previously prescribed by your physician. You should follow up with your primary doctor as soon as possible regarding today's emergency department visit, consider calling Dr. Faulkner if you don't currently have a primary doctor. If symptoms persist, an MRI may be needed to further evaluate the cause. Return to the emergency department for any new or concerning symptoms, particularly worsening pain, fever/chills, redness or swelling, numbness or weakness. - Post Discharge Activity
[2018-06-23] MEDS ORDERED: KETOROLAC TROMETHAMINE 60 MG/2 ML VIAL ONE (08:46)
[2018-06-23 10:21] VITALS: BP 146/69; PULSE 89; TEMP 98.2
== END 2018-06-23 10:19 | disposition home or self-care (01) ==
LOC: JER 07:26
DX: M25.552 Pain in left hip (principal); M54.5 Low back pain; G89.29 Other chronic pain; I10 Essential (primary) hypertension; Z87.891 Personal history of nicotine dependence; Z86.73 Personal history of transient ischemic attack (TIA), and cerebral infarction without residual deficits
CPT/HCPCS: 73523-TC-FY; 99282-25

== ENCOUNTER 2018-07-03 21:15 | Emergency (ER) | payer OTHER ==
[2018-07-03 21:51] VITALS: PULSE 89; BMI 29.5
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
[2018-07-03] MEDS ORDERED: oxyCODONE HCL 5 MG TABLET PO ONE ×2 (23:17)
[2018-07-03] MEDS ORDERED: CLOPIDOGREL BISULFATE 75 MG TABLET (FP) PO ONE (23:19)
[2018-07-03] MEDS ORDERED: ATORVASTATIN CA 40 MG TABLET (FP) PO ONE (23:20)
[2018-07-03] MEDS ORDERED: AZITHROMYCIN 250 MG TABLET PO ONE (23:20)
[2018-07-04] MEDS ORDERED: oxyCODONE HCL 5 MG TABLET ONE (00:41)
[2018-07-04] MEDS ORDERED: CLOPIDOGREL BISULFATE 75 MG TABLET (FP) ONE (00:42)
[2018-07-04] MEDS ORDERED: AZITHROMYCIN 500 MG TABLET ONE (00:42)
[2018-07-04] MEDS ORDERED: ATORVASTATIN CA 40 MG TABLET (FP) ONE (00:42)
[2018-07-04 00:56] VITALS: BP 139/92; TEMP 98
[2018-07-04] MEDS ORDERED: ASPIRIN COATED 81 MG TABLET.EC PO SCH (10:00)
[2018-07-04] MEDS ORDERED: VARENICLINE TARTRATE 0.5 MG TAB PO ONE (23:44)
== END 2018-07-04 00:57 | disposition home or self-care (01) ==
LOC: JER 21:15 → JERFT 21:15 → JER 07-04 00:57
DX: M54.5 Low back pain (principal); G89.29 Other chronic pain; I10 Essential (primary) hypertension
CPT/HCPCS: 99281-25

== ENCOUNTER 2018-07-20 00:13 | Emergency (ER) | payer OTHER ==
[2018-07-20 00:27] VITALS: BP 143/98; TEMP 97.9; BMI 28.5
--- NOTE | 2018-07-20 00:37 | PDOC ---
Attending Attestation - HPI HPI: 07/20/18 01:03 The patient is a 53 year old male, with a significant past medical history of HTN, 2 episodes of TIA (2011), PR (2009), and chronic back pain who presents to the emergency department with tingling under his tongue and down his left arm that began at midnight. The patient notes his arm felt warm but his symptoms have now resolved. The patient denies vision changes. The patient denies facial drooping. The patient denies shortness of breath. He denies any weakness of the extremities. Allergies: NKDA Past surgical history: right knee replacement surgery Social history: Current everyday smoker (A pack a day). Marijuana use. Occasional alcohol use. - Physicial Exam PE: 07/20/18 01:03 Agreed with resident exam. <Satnam Mckoy - Last Filed: 07/20/18 01:03> - Medical Decision Making 07/20/18 02:[address] was reviewed by Dr. Bragg and over-read by Radiology. Impression: No acute pathology. <Alondra Van - Last Filed: 07/20/18 02:30> - Resident Resident Name: Armando Moe - ED Attending Attestation I have performed the following: I have examined & evaluated the patient, The case was reviewed & discussed with the resident, I agree w/resident's findings & plan - Medical Decision Making 53-year-old male with an episode of left facial and left arm tingling EKG showed no significant acute changes CT scan of the brain showed no acute pathology Due to patient's history and location of symptoms he was advised to stay for observation and serial enzymes, he is refusing stating he has to go home to get his children on the bus He has been asymptomatic in the emergency department Second troponin pending with plans for patient to sign out AGAINST MEDICAL ADVICE 07/20/18 03:26 <Shahnaz Bragg - Last Filed: 07/20/18 03:28> Attestations - Attestations 07/20/18 01:04 Documentation prepared by Satnam Mckoy, acting as medical scientist for Shahnaz Bragg DO, MD <Satnam Mckoy - Last Filed: 07/20/18 01:03>
[2018-07-20] MEDS ORDERED: ASPIRIN 81 MG CHEWABLE TABLETS PO ONE (00:49)
[2018-07-20] MEDS ORDERED: ASPIRIN 81 MG CHEWABLE TABLETS ONE (01:06)
[2018-07-20 01:32] LABS: EOS % 1.3 % (0-4.5); HEMATOCRIT 37.7 % (35.4-49); HEMOGLOBIN 13.1 GM/dL (11.7-16.9); LYMPH % 33.1 % (8-40); MCH 30.6 pg (25.7-33.7); MCHC 34.7 g/dl (32.0-35.9); MEAN CELL VOLUME 88.2 fl (80-96); MEAN PLT VOLUME 8.8 fl (7.5-11.1); MONO % 13.4 % (3.8-10.2); NEUT % 51.2 % (42.8-82.8); PLATELET COUNT 206 K/MM3 (134-434); RBC 4.28 M/mm3 (4.00-5.60); RDW 14.4 % (11.9-15.9); WHITE BLOOD COUNT 4.3 K/mm3 (4.0-10.0)
--- NOTE | 2018-07-20 01:38 | PDOC ---
History of Present Illness - General Chief Complaint: CVA/TIA Stated Complaint: POSSIBLE STROKE Time Seen by Provider: 07/20/18 00:35 History Source: Patient Exam Limitations: No Limitations - History of Present Illness Initial Comments: 07/20/18 01:47 Patient is a 53M with history of HTN, TIA (2011 x2), NE (2009 - no stents/cabg) here today complaining of a possible stroke. Patient states that he felt a tingling down his left arm with tingling around his tongue. He describes a sense of impending doom with this event. It lasted for less than 10 minutes, starting 20 minutes before arrival. Patient is asymptomatic at this time. Denies chest pain, shortness of breath, nausea, vomiting, fevers, and chills. Patient's girlfriend witnessed event, denies any confusion, word finding issues , facial droop, arm/leg weakness. Patient states that he takes aspirin and plavix at this time because of his cardiology history. Past History - Past Medical History Allergies/Adverse Reactions: Allergies Allergy/AdvReac Type Severity Reaction Status Date / Time No Known Drug Allergies Allergy Severe Verified 07/20/18 00:27 bananas and vicoden together Allergy Severe ANAPHYLAXIS Uncoded 07/20/18 00:27 . Home Medications: Ambulatory Orders Oxycodone HCl/Acetaminophen [Percocet 10-325 mg Tablet] 1 each PO Q6H PRN #12 tablet MDD 4 07/17/17 Aspirin Coated [Ecotrin -] 81 mg PO DAILY tablet.ec 03/23/18 Atorvastatin Ca [Lipitor] 40 mg PO HS #30 tablet 03/23/18 Budesonide/Formeterol Fumarate [SYMBICORT 160/4.5mcg -] 2 puff IH BID #1 inhaler 03/23/18 Carvedilol [Coreg -] 25 mg PO BID #60 tablet 03/23/18 Clopidogrel Bisulfate [Plavix -] 75 mg PO DAILY #30 tablet 03/23/18 Nicotine [Nicoderm Cq] 1 each TD DAILY #30 patch.td24 03/23/18 Nifedipine ER [Procardia XL -] 60 mg PO BID #60 tab.er.24 03/23/18 Olmesartan Medoxomil [Benicar] 40 mg PO DAILY #60 tablet 03/23/18 Tiotropium Jean [Spiriva Respimat] 2 puff IH DAILY #1 inhaler 03/23/18 Venlafaxine HCl ER [Effexor Xr -] 37.5 mg PO DAILY cap.er.24h 03/23/18 Venlafaxine HCl ER [Effexor Xr -] 37.5 mg PO DAILY #30 cap.er.24h 03/23/18 hydrALAZINE HCL [Apresoline -] 100 mg PO TID #180 tablet 03/23/18 Meloxicam 15 mg PO DAILY PRN #30 tablet 06/23/18 CVA: Yes (tia) COPD: No HTN: Yes - Suicide/Smoking/Psychosocial Hx Smoking History: Current every day smoker Have you smoked in the past 12 months: Yes Number of Cigarettes Smoked Daily: 20 Information on smoking cessation initiated: No 'Breaking Loose' booklet given: 11/23/16 Hx Alcohol Use: No Drug/Substance Use Hx: No Substance Use Type: Marijuana Hx Substance Use Treatment: No Review of Systems - Review of Systems Able to Perform ROS?: Yes Comments:: 07/20/18 01:51 GENERAL/CONSTITUTIONAL: No fever or chills. No weakness. HEAD, EYES, EARS, NOSE AND THROAT: No change in vision. No sore throat. CARDIOVASCULAR: No chest pain or shortness of breath RESPIRATORY: No cough, wheezing, or hemoptysis. GASTROINTESTINAL: No nausea, vomiting, diarrhea or constipation. GENITOURINARY: No dysuria, frequency, or change in urination. MUSCULOSKELETAL: No joint or muscle swelling or pain. No neck or back pain. SKIN: No rash NEUROLOGIC: No headache, vertigo, loss of consciousness, or change in strength, +tingling in arm/tongue ENDOCRINE: No increased thirst. No abnormal weight change HEMATOLOGIC/LYMPHATIC: No anemia, easy bleeding, or history of blood clots. ALLERGIC/IMMUNOLOGIC: No hives or skin allergy. *Physical Exam - Vital Signs Last Vital Signs Temp Pulse Resp BP Pulse Ox 97.9 F 91 H 18 143/98 95 07/20/18 00:22 07/20/18 00:22 07/20/18 00:22 07/20/18 00:22 07/20/18 00:22 - Physical Exam Comments: 07/20/18 01:52 GENERAL: Awake, alert, and fully oriented, in no acute distress HEAD: No signs of trauma, normocephalic, atraumatic EYES: PERRLA, EOMI, sclera anicteric, conjunctiva clear ENT: Auricles normal inspection, hearing grossly normal, nares patent, oropharynx clear without exudates. Moist mucosa NECK: Normal ROM, supple, no lymphadenopathy, JVD, or masses LUNGS: No distress, speaks full sentences, clear to auscultation bilaterally HEART: Regular rate and rhythm, normal S1 and S2, no murmurs, rubs or gallops, peripheral pulses normal and equal bilaterally. ABDOMEN: Soft, nontender, normoactive bowel sounds. No guarding, no rebound. No masses EXTREMITIES: Normal inspection, Normal range of motion, no edema. No clubbing or cyanosis. NEUROLOGICAL: Cranial nerves II through XII grossly intact. Normal speech, normal gait, no focal sensorimotor deficits SKIN: Warm, Dry, normal turgor, no rashes or lesions noted. NIH Stroke Scale - Last Known Well Date/Time & Onset Date Last Known Well: 07/20/18 Time Last Known Well: 00:15 - Initial Evaluation Level of consciousness: Alert Ask patient the month and their age: Answers both correctly Ask patient to open & close eyes; make fist and let go: Obeys both correctly Best gaze (horizontal eye movement): Normal Visual field testing: No visual field loss Facial paresis (Show teeth/raise eyebrows/close eyes tight): Normal symmetrical movement Motor Function: Left Arm: Normal Motor Function: Right Arm: Normal (extends arm 90 (or 45) degrees for 10 seconds without drift Motor Function: Left Leg: Normal (extends leg 30 degrees for 5 seconds without drift) Motor Function: Right Leg: Normal (extends leg 30 degrees for 5 seconds without drift) Limb Ataxia: No ataxia Sensory(Use pinprick test arms,legs,trunk,face/side to side): Normal Best language (Describe picture, name items, read sentences): No Aphasia Dysarthria (read several words): Normal articulation Extinction and Inattention: No abnormality - Total Score NIH Stroke Scale Score: 0 Moderate Sedation - Procedure Monitoring Vital Signs: Procedure Monitoring Vital Signs Temperature 97.9 F 07/20/18 00:22 Pulse Rate 91 H 07/20/18 00:22 Respiratory Rate 18 07/20/18 00:22 Blood Pressure 143/98 07/20/18 00:22 O2 Sat by Pulse Oximetry (%) 95 01/30/19 00:22 Critical Care Time/MDM Note - Medical Decision Making Note: 07/20/18 01:52 Patient is 53M with history of NE, TIAx2, HTN here today with arm/tongue changes , now resolved. Vitals normal and stable. Ddx includes, but is not limited to: TIA, acs, nerve compression. Presentation not typical for TIA. Dr Dietrich contacted from neuro, agrees with TIA workup. States that if negative patient can be discharged on aspirin 162 and plavix, will see patient on Wednesday. EKG shows normal sinus rhythm with rate of 88. No st elevations/depressions. Normal axis. Normal intervals. J point elevation same as in 03/20 in V2/V3. No significant t wave abnormalities. 07/20/18 02:02 CXR clear 07/20/18 03:48 CBC, CMP normal. Trop detectable, but 0.03. Patient offered admission, states that he does not want further workup because he has to take care of his children. Second trop drawn, patient leaving before result. Instructed to come back. Given instructions from neuro. *DC/Admit/Observation/Transfer Diagnosis at time of Disposition: TIA (transient ischemic attack) - Discharge Dispostion Disposition: AGAINST MEDICAL ADVICE Condition at time of disposition: Stable Decision to Admit order: No - Referrals Referrals: Viktoria Dietrich MD [Staff Physician] - - Patient Instructions Printed Discharge Instructions: DI for Transient Ischemic Attack Additional Instructions: Please take 162mg of aspirin instead of the 81mg dose. Please call neurology tomorrow to set an appointment, they will see you Wednesday. Please return at any time for further evaluation. - Post Discharge Activity
[2018-07-20 01:41] VITALS: PULSE 87
[2018-07-20 01:45] LABS: INR 1.03 (0.83-1.09); PROTHROMBIN TIME (PATIENT) 12.2 SEC (9.7-13.0)
[2018-07-20 02:00] LABS: ALBUMIN 3.6 g/dl (3.4-5.0); ALK PHOS 51 U/L (45-117); ANION GAP 5 MMOL/L (8-16); BILIRUBIN,TOTAL 0.3 mg/dL (0.2-1); BLOOD UREA NITROGEN 16 mg/dL (7-18); CALCIUM 8.5 mg/dL (8.5-10.1); CHLORIDE 106 mmol/L (98-107); CO2 30 mmol/L (21-32); CREATININE 1.1 mg/dL (0.55-1.3); GLUCOSE,RANDOM 88 mg/dL (74-106); MAGNESIUM 2.2 mg/dL (1.8-2.4); POTASSIUM 3.2 mmol/L (3.5-5.1); SGOT/AST 17 U/L (15-37); SGPT/ALT 19 U/L (13-61); SODIUM 141 mmol/L (136-145); TOT PROT 7.9 g/dl (6.4-8.2)
--- NOTE | 2018-07-20 14:57 | EKG ---
Test Reason : Blood Pressure : / mmHG Vent. Rate : 088 BPM Atrial Rate : 088 BPM P-R Int : 162 ms QRS Dur : 110 ms QT Int : 398 ms P-R-T Axes : 050 033 066 degrees QTc Int : 481 ms NORMAL SINUS RHYTHM MINIMAL VOLTAGE CRITERIA FOR LVH, MAY BE NORMAL VARIANT NONSPECIFIC T WAVE ABNORMALITY PROLONGED QT ABNORMAL ECG WHEN COMPARED WITH ECG OF 20-MAR-2018 13:01, PREMATURE VENTRICULAR COMPLEXES ARE NO LONGER PRESENT Confirmed by ZARA PEDERSON MD ([id number]) on 07/20/2018 2:56:36 PM Referred By: Confirmed By:ZARA PEDERSON MD
== END 2018-07-20 05:30 | disposition left against medical advice (07) ==
LOC: JER 00:13
DX: G45.9 Transient cerebral ischemic attack, unspecified (principal); I25.2 Old myocardial infarction; I10 Essential (primary) hypertension; F17.210 Nicotine dependence, cigarettes, uncomplicated
CPT/HCPCS: 36415; 70450-TC; 71045-TC-FY; 80053; 82550; 83735; 84484; 85025; 85610; 93005; 93010; 99284-25

== ENCOUNTER 2018-09-18 15:13 | Emergency (ER) | payer OTHER ==
[2018-09-18 15:19] VITALS: BP 137/94; PULSE 74; TEMP 98.3; BMI 32.5
[2018-09-18] MEDS ORDERED: KETOROLAC TROMETHAMINE 60 MG/2 ML VIAL IM ONE (16:21)
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
[2018-09-18] MEDS ORDERED: KETOROLAC TROMETHAMINE 60 MG/2 ML VIAL ONE (16:42)
== END 2018-09-18 16:59 | disposition home or self-care (01) ==
LOC: JERFT 15:13
PROC: 3E0233Z Introduction of Anti-inflammatory into Muscle, Percutaneous Approach (ICD-10-PCS; principal; 2018-09-18)
DX: M54.41 Lumbago with sciatica, right side (principal); G89.29 Other chronic pain; I10 Essential (primary) hypertension; Z86.73 Personal history of transient ischemic attack (TIA), and cerebral infarction without residual deficits
CPT/HCPCS: 96372; 99281-25

== ENCOUNTER 2018-12-04 11:15 | Emergency (ER) | payer OTHER ==
[2018-12-04 11:29] VITALS: BP 150/106; PULSE 83; TEMP 98.4; BMI 27.8
--- NOTE | 2018-12-04 11:31 | PDOC ---
History of Present Illness - General Chief Complaint: Pain Stated Complaint: LOWER BACK PAIN Time Seen by Provider: 12/04/18 11:31 History Source: Patient - History of Present Illness Initial Comments: 12/04/18 12:58 Chief complaint: Back pain Patient 53-year-old male with a history of chronic back problems, in pain management, and has history of hypertension, cardiac stent, on Plavix was recently taken off aspirin who is complaining of his typical right lower back pain since Wednesday. He took ibuprofen 800 mg once on Wednesday. He came to the ER today could see usually gets Toradol. Patient states that his pain management doctor gives him oxycodone 30 mg which she takes on the days when he really needs it but it makes him a little drowsy. Patient states he's going to a barbecue today and does not want to be drowsy. Patient denies any numbness, incontinence, saddle anesthesia. Patient denies any other complaints, fever, feeling ill. He states this is his typical pain GENERAL/CONSTITUTIONAL: No fever, weakness. dizziness HEAD, EYES, EARS, NOSE AND THROAT: No change in vision. No ear pain or discharge. No sore throat. CARDIOVASCULAR: No chest pain RESPIRATORY: No shortness of breath or cough GASTROINTESTINAL: No pain, nausea, vomiting, diarrhea or constipation GENITOURINARY: No dysuria MUSCULOSKELETAL: No neck, +back pain SKIN: No rash NEUROLOGIC: No headache, vertigo, loss of consciousness, or loss of sensation. GENERAL: The patient is awake, alert, and fully oriented, in no acute distress. HEAD: Normal with no signs of trauma. EYES: Pupils equal, round and reactive to light, sclera anicteric, conjunctiva clear. ENT: pharynx: no erythema, no exudate, uvula midline NECK: supple CHEST: clear, nontender, rr ABD: soft, nontender Back: Right SI tenderness into the buttocks EXTREMITIES: Normal range of motion, no edema. NEUROLOGICAL: Normal speech, normal gait. Drinks 5 out of 5 upper and lower extremities, bilaterally, neurovascular intact SKIN: Warm, Dry Past History - Past Medical History Allergies/Adverse Reactions: Allergies Allergy/AdvReac Type Severity Reaction Status Date / Time No Known Drug Allergies Allergy Severe Verified 12/04/18 11:29 bananas and vicoden together Allergy Severe ANAPHYLAXIS Uncoded 12/04/18 11:29 . Home Medications: Ambulatory Orders Oxycodone HCl/Acetaminophen [Percocet 10-325 mg Tablet] 1 each PO Q6H PRN #12 tablet MDD 4 07/17/17 Carvedilol [Coreg -] 25 mg PO BID #60 tablet 03/23/18 Nicotine [Nicoderm Cq] 1 each TD DAILY #30 patch.td24 03/23/18 Amlodipine Besylate [Norvasc -] 10 mg PO DAILY 09/18/18 CVA: Yes (tia) COPD: No HTN: Yes - Suicide/Smoking/Psychosocial Hx Smoking History: Current every day smoker Have you smoked in the past 12 months: Yes Number of Cigarettes Smoked Daily: 10 Information on smoking cessation initiated: No 'Breaking Loose' booklet given: 11/23/16 Hx Alcohol Use: No Drug/Substance Use Hx: No Substance Use Type: Marijuana Hx Substance Use Treatment: No *Physical Exam - Vital Signs Last Vital Signs Temp Pulse Resp BP Pulse Ox 98.4 F 83 18 150/106 H 99 12/04/18 11:26 12/04/18 11:26 12/04/18 11:26 12/04/18 11:26 12/04/18 11:26 Medical Decision Making - Medical Decision Making 12/04/18 13:03 53-year-old male with history of hypertension, cardiac stents, on Plavix who came into the ER for pain management of his chronic lower back pain for which she usually takes oxycodone 30 mg from his pain management doctor. He's had an exacerbation of pain since Wednesday. Patient is going to a barbecue today and does not want to be sedated from the oxycodone. He came in requesting Toradol shot and Percocet 10 mg 1 dose and no prescription. Discussed with patient the interaction of Plavix and Toradol. Patient took ibuprofen on Wednesday, none since. This gives discussed the risk of GI bleed and how Toradol was not the best medicine for him. Offered to give him the Percocet 10 mg. Patient insisted on getting Toradol. He states he's never had GI bleeding from this in the past and he does not do it very often. Discussed with Dr. Kirby. As long as patient understands risks, will give Toradol 30 mg IM 1 dose and instruct patient he shouldn't take any other NSAIDs or aspirin which doctor has taken him off recently. Patient's i stop was reviewed. Consistent with patient's story. Patient has appointment with pain management doctor on Wednesday and patient encouraged to discuss other options rather than NSAIDs, Toradol for exacerbation Discussed issues, findings, results, applicable medications and treatments and follow-up. All these were understood and all questions were answered *DC/Admit/Observation/Transfer Diagnosis at time of Disposition: Chronic low back pain Qualifiers: Back pain laterality: right Sciatica presence: without sciatica Qualified Code( s): M54.5 - Low back pain - Discharge Dispostion Disposition: HOME - Referrals - Patient Instructions Printed Discharge Instructions: DI for Low Back Pain Additional Instructions: Do not take any more ibuprofen, Advil or Aleve. As we discussed, the Toradol can increase risk of internal bleeding, return to the ER if black stool feeling dizzy or any other concerns. Follow-up with your pain management doctor on Wednesday and with your processing technician for monitoring of your blood pressure as instructed by him. No heavy lifting or bending Return to the nearest ER if numbness, weakness, severe pain, problems with urinating or having bowel movements. - Post Discharge Activity
[2018-12-04] MEDS ORDERED: KETOROLAC TROMETHAMINE 30 MG/1 ML VIAL IM ONE (11:56)
[2018-12-04] MEDS ORDERED: KETOROLAC TROMETHAMINE 30 MG/1 ML VIAL ONE (11:57)
== END 2018-12-04 12:02 | disposition home or self-care (01) ==
LOC: JERFT 11:15
PROC: 3E0233Z Introduction of Anti-inflammatory into Muscle, Percutaneous Approach (ICD-10-PCS; principal; 2018-12-04)
DX: M54.5 Low back pain (principal); I25.10 Atherosclerotic heart disease of native coronary artery without angina pectoris; I10 Essential (primary) hypertension; Z95.5 Presence of coronary angioplasty implant and graft; Z79.01 Long term (current) use of anticoagulants; F17.210 Nicotine dependence, cigarettes, uncomplicated; Z86.73 Personal history of transient ischemic attack (TIA), and cerebral infarction without residual deficits
CPT/HCPCS: 96372; 99281-25

== ENCOUNTER 2018-12-05 06:31 | Emergency (ER) | payer OTHER ==
[2018-12-05 06:44] VITALS: TEMP 98.5; BMI 29.8
[2018-12-05] MEDS ORDERED: ACETAMINOPHEN 325 MG TABLET (FP) PO ONE (07:30)
[2018-12-05] MEDS ORDERED: LIDOCAINE 5% TOPICAL PATCH TP ONE (07:30)
[2018-12-05] MEDS ORDERED: KETOROLAC TROMETHAMINE 30 MG/1 ML VIAL IVPUSH ONE (07:30)
--- NOTE | 2018-12-05 07:38 | PDOC ---
History of Present Illness - General Chief Complaint: Chest Pain Stated Complaint: CHEST PAIN Time Seen by Provider: 12/05/18 07:20 - History of Present Illness Initial Comments: The pt is a 53M w/ a history of HTN, previous cath, previous TIAs, and chronic low back pain who presents for evaluation of acute on chronic back pain for approximately 1 week. He states that the pain is R lower back/R buttock, described as spasm, intermittent, exacerbated by movement, and alleviated by Percocet/rest. He denies any new trauma or falls, changes in sensation or strength, or difficulty urinating. The pt also reports chest pain that occurred this morning while waiting for the ambulance. It occurred at rest, was described as non-radiating, substernal pressure associated with diaphoresis that resolved spontaneously. He was given an NTG SL by EMS but is unsure if the pain resolved before or after the NTG. Denies fevers/chills, MARIA, vision changes, SOB, abdominal pain, N/V/C/D, dysuria , hematuria, or blood in his stool. 12/05/18 07:33 Past History - Past Medical History Allergies/Adverse Reactions: Allergies Allergy/AdvReac Type Severity Reaction Status Date / Time No Known Drug Allergies Allergy Severe Verified 12/05/18 06:42 bananas and vicoden together Allergy Severe ANAPHYLAXIS Uncoded 12/05/18 06:42 . Home Medications: Ambulatory Orders Oxycodone HCl/Acetaminophen [Percocet 10-325 mg Tablet] 1 each PO Q6H PRN #12 tablet MDD 4 07/17/17 Carvedilol [Coreg -] 25 mg PO BID #60 tablet 03/23/18 Amlodipine Besylate [Norvasc -] 10 mg PO DAILY 09/18/18 CVA: Yes (tia) COPD: No HTN: Yes - Suicide/Smoking/Psychosocial Hx Smoking History: Former smoker Have you smoked in the past 12 months: No Number of Cigarettes Smoked Daily: 10 Information on smoking cessation initiated: No 'Breaking Loose' booklet given: 11/23/16 Hx Alcohol Use: No Drug/Substance Use Hx: No Substance Use Type: Marijuana Hx Substance Use Treatment: No Review of Systems - Review of Systems Able to Perform ROS?: Yes Comments:: GENERAL/CONSTITUTIONAL: No fever or chills. No weakness HEAD, EYES, EARS, NOSE AND THROAT: No change in vision. No ear pain or discharge. No sore throat CARDIOVASCULAR: No shortness of breath RESPIRATORY: Denies cough, hemoptysis GASTROINTESTINAL: No nausea, vomiting, diarrhea or constipation GENITOURINARY: No dysuria, frequency, or change in urination MUSCULOSKELETAL: +chronic low back pain SKIN: No rash NEUROLOGIC: No headache, vertigo, loss of consciousness, or change in strength/ sensation ENDOCRINE: No increased thirst. No abnormal weight change HEMATOLOGIC/LYMPHATIC: No anemia, easy bleeding, or history of blood clots ALLERGIC/IMMUNOLOGIC: No hives or skin allergy 12/05/18 07:31 Is the patient limited Wolof proficient: No *Physical Exam - Vital Signs Last Vital Signs Temp Pulse Resp BP Pulse Ox 98.5 F 76 19 147/93 98 12/05/18 06:35 12/05/18 06:35 12/05/18 06:35 12/05/18 06:35 12/05/18 06:35 - Physical Exam Comments: GENERAL: Awake, alert, and oriented to person/place/time, in no acute distress HEAD: No signs of trauma, normocephalic, atraumatic EYES: PERRLA, EOMI, sclera anicteric, conjunctiva clear ENT: Hearing grossly normal, nares patent, oropharynx clear without exudates. Moist mucosa LUNGS: No distress, speaks full sentences, clear to auscultation bilaterally HEART: Regular rate and rhythm, normal S1 and S2, no murmurs appreciated, peripheral pulses normal and equal bilaterally ABDOMEN: Soft, nontender, normoactive bowel sounds. No guarding, no rebound EXTREMITIES: +R gluteal TTP exacerbated with leg raise; moves all extremities independently NEUROLOGICAL: Cranial nerves II through XII grossly intact. Normal speech, no focal sensorimotor deficits SKIN: Warm, Dry 12/05/18 07:32 ED Treatment Course - LABORATORY CBC & Chemistry Diagram: 12/05/18 08:51 12/05/18 08:51 Medical Decision Making - Medical Decision Making The pt is a 53M w/ a history of CAD, HTN, HLD, preivous TIA, and chronic back pain that presents for evaluation of acute on chronic back pain as well as chest pain, the latter of which has since resolved. ED Course CMP, CBC, Trop I, UA CXR ECG Tylenol, Toradol, and Lidoderm patch for pain ECG w/ NSR, HR 68, QTc 463, evidence of LVH POCUS w/ evidence of LVH, EF grossly normal, no pericardial effusion 12/05/18 07:45 Ambulating independently in ED w/ stable gait. 12/05/18 12:28 No leukocytosis No anemia Hypokalemia, repleted No SAADIA LFTs unremarkable Trop I neg 12/05/18 18:25 Trop neg x2, pt w/o chest pain, SOB, or vision changes. Pt reports flank pain is improved. Plan for D/C w/ PCP f/u Discharge instructions and return precautions given Pt in agreement and verbalized understanding Dispo: home 12/05/18 18:55 *DC/Admit/Observation/Transfer Diagnosis at time of Disposition: Back pain Qualifiers: Back pain location: low back pain Chronicity: chronic Back pain laterality: right Sciatica presence: without sciatica Qualified Code(s): M54.5 - Low back pain - Discharge Dispostion Disposition: HOME Condition at time of disposition: Stable Decision to Admit order: No - Referrals Referrals: [facility] [place] [facility] at Section [Provider Group] ON STAFF,NOT [Primary Care Provider] - Rick Lew MD [Staff Physician] - - Patient Instructions Printed Discharge Instructions: DI for Low Back Pain Additional Instructions: You were seen in the Emergency Department for evaluation of back pain and chest pain. You labs were unremarkable. Please follow up with your primary care provider and maintain your appointment tomorrow. Review the handout provided at discharge. Return to the Emergency Department if you develop fevers/chills, chest pain, trouble breathing, nausea/vomiting, changes in sensation, trouble urinating, worsening symptoms, or any new/concerning symptoms. - Post Discharge Activity
--- NOTE | 2018-12-05 07:46 | PDOC ---
Attending Attestation - Resident Resident Name: Jassi Trevizo - ED Attending Attestation I have performed the following: I have examined & evaluated the patient, The case was reviewed & discussed with the resident, I agree w/resident's findings & plan, Exceptions are as noted - HPI HPI: 12/05/18 07:46 53y M hx of HTN, CAD (nonclussive cath in past), TIAs, chronic back pain presents with complaint of bcak pain for approx 1 week, pt describes the pain as onste of 12/28 last wednesday, but currently 02/28 - it is in the R lower back and seesm to radiates to his Hip/groin region. Notes the pain seeems worse when he is moving around. Pt notes some nausea yesterday, but non currently. No assoicated fever/chlls, vomiting, dysuria, hematuria, diarrhea, sob, diaphoresis. Pt endorsed a brief episode of CP this morning when waiting for the EMS that lasted for a few minutes that was not exertional, without associated sob/martinez. GENERAL: The patient is awake, alert, and fully oriented, Nontoxic, but appears to be uncomfortanble HEAD: Normocephalic, atraumatic. EYES: extraocular movements intact, sclera anicteric, conjunctiva clear. ENT: Normal voice, Moist mucous membranes. NECK: Normal range of motion, supple LUNGS: Breath sounds equal, clear to auscultation bilaterally. No wheezes, no rhonchi, no rales. HEART: Regular rate and rhythm, normal S1 and S2 without murmur, rub or gallop. ABDOMEN: Soft, nontender, normoactive bowel sounds. No guarding, no rebound. No CVA tenderness MSK: Moderate amoun tof tenderness ot palpation in R lower back EXTREMITIES: Normal range of motion, NEUROLOGICAL: No facial assymetry, Normal speech, PSYCH: Normal mood, normal affect. SKIN: Warm, Dry, normal turgor, ddx - msk vs kidney stones will ck basic labs, ua, cp - brief episode of cp - non exertional, no assoc sx, unlikely acs but will obtain screening ekg and trop q2h will give toradol for pain will erassess Heart Score/ECG Review - ECG Impressions Comment:: 12/05/18 07:57 Twelve-lead EKG was performed and reviewed by me. There is normal sinus rhythm with a normal rate. Rate of 68 Nonspecific intraventricular delay No acute ST changes appreciated
[2018-12-05] MEDS ORDERED: KETOROLAC TROMETHAMINE 30 MG/1 ML VIAL ONE (07:53)
[2018-12-05] MEDS ORDERED: ACETAMINOPHEN 325 MG TABLET (FP) ONE (07:53)
[2018-12-05] MEDS ORDERED: LIDOCAINE 5% TOPICAL PATCH ONE (07:53)
[2018-12-05 09:18] LABS: BASO % 0.5 % (0-2.0); EOS % 0.9 % (0-4.5); HEMATOCRIT 37.9 % (35.4-49); HEMOGLOBIN 12.8 GM/dL (11.7-16.9); LYMPH % 27.2 % (8-40); MCH 28.8 pg (25.7-33.7); MCHC 33.7 g/dl (32.0-35.9); MEAN CELL VOLUME 85.6 fl (80-96); MEAN PLT VOLUME 8.8 fl (7.5-11.1); MONO % 8.1 % (3.8-10.2); NEUT % 63.3 % (42.8-82.8); RBC 4.43 M/mm3 (4.00-5.60); RDW 15.8 % (11.9-15.9); WHITE BLOOD COUNT 5.4 K/mm3 (4.0-10.0)
[2018-12-05 09:41] LABS: PLATELET COUNT 249 K/MM3 (134-434)
[2018-12-05 09:51] LABS: ALBUMIN 3.3 g/dl (3.4-5.0); BILIRUBIN,TOTAL 0.3 mg/dL (0.2-1); BLOOD UREA NITROGEN 11.8 mg/dL (7-18); CALCIUM 8.9 mg/dL (8.5-10.1); CREATININE 0.9 mg/dL (0.55-1.3); POTASSIUM 3.2 mmol/L (3.5-5.1); TOT PROT 7.6 g/dl (6.4-8.2)
[2018-12-05 10:02] LABS: PH,URINE 7.5 (5.0-8.0); URINE APPEARANCE CLEAR; URINE BILIRUBIN NEGATIVE (NEGATIVE); URINE COLOR YELLOW; URINE GLUCOSE (UA) NEGATIVE (NEGATIVE); URINE KETONE NEGATIVE (NEGATIVE); URINE LEUK ESTERASE NEGATIVE (NEGATIVE); URINE NITRITE NEGATIVE (NEGATIVE); URINE PROTEIN TRACE (NEGATIVE); URINE UROBILINOGEN 0.2 mg/dL (0.2-1.0)
[2018-12-05] MEDS ORDERED: POTASSIUM CHLORIDE TABS 20 MEQ TABLET.ER (FP) PO ONE ×2 (10:02→12:25)
[2018-12-05] MEDS ORDERED: METHOCARBAMOL 750 MG TABLET PO ONE (11:45)
[2018-12-05] MEDS ORDERED: METHOCARBAMOL 500 MG TABLET ONE (12:25)
[2018-12-05 12:33] VITALS: BP 135/74; PULSE 77
--- NOTE | 2018-12-05 15:15 | EKG ---
Test Reason : Blood Pressure : / mmHG Vent. Rate : 068 BPM Atrial Rate : 068 BPM P-R Int : 154 ms QRS Dur : 118 ms QT Int : 436 ms P-R-T Axes : 053 017 046 degrees QTc Int : 463 ms SINUS RHYTHM WITH OCCASIONAL PREMATURE VENTRICULAR COMPLEXES POSSIBLE LEFT ATRIAL ENLARGEMENT NON-SPECIFIC INTRA-VENTRICULAR CONDUCTION DELAY NONSPECIFIC T WAVE ABNORMALITY PROLONGED QT ABNORMAL ECG WHEN COMPARED WITH ECG OF 20-JUL-2018 01:12, PREMATURE VENTRICULAR COMPLEXES ARE NOW PRESENT Confirmed by OSCAR RAMÍREZ MD ([id number]) on 12/05/2018 3:15:28 PM Referred By: Confirmed By:OSCAR RAMÍREZ MD
[2018-12-05] MEDS ORDERED: LIDOCAINE PATCH REMOVAL MC SCH (22:00)
== END 2018-12-05 12:40 | disposition home or self-care (01) ==
LOC: JER 06:31
PROC: 3E0333Z Introduction of Anti-inflammatory into Peripheral Vein, Percutaneous Approach (ICD-10-PCS; principal; 2018-12-05)
PROC: B246ZZZ Ultrasonography of Right and Left Heart (ICD-10-PCS; 2018-12-05)
DX: M54.5 Low back pain (principal); G89.29 Other chronic pain; E87.6 Hypokalemia; I10 Essential (primary) hypertension; Z86.73 Personal history of transient ischemic attack (TIA), and cerebral infarction without residual deficits
CPT/HCPCS: 36415; 71045-TC-FY; 80053; 81003; 84484; 85025; 93005; 93010; 93303; 96374; 99283-25

== ENCOUNTER 2019-04-30 01:22 | Emergency (ER) | payer OTHER ==
[2019-04-30 01:51] VITALS: PULSE 89; TEMP 98.3; BMI 27.1
--- NOTE | 2019-04-30 02:03 | PDOC ---
History of Present Illness - General Chief Complaint: Injury Stated Complaint: HIP PAIN Time Seen by Provider: 04/30/19 02:03 Past History - Past Medical History Allergies/Adverse Reactions: Allergies Allergy/AdvReac Type Severity Reaction Status Date / Time No Known Drug Allergies Allergy Severe Verified 12/05/18 06:42 bananas and vicoden together Allergy Severe ANAPHYLAXIS Uncoded 12/05/18 06:42 . Home Medications: Ambulatory Orders Oxycodone HCl/Acetaminophen [Percocet 10-325 mg Tablet] 1 each PO Q6H PRN #12 tablet MDD 4 07/17/17 Carvedilol [Coreg -] 25 mg PO BID #60 tablet 03/23/18 Amlodipine Besylate [Norvasc -] 10 mg PO DAILY 09/18/18 CVA: Yes (tia) COPD: No HTN: Yes - Immunization History Immunization Up to Date: Yes - Psycho Social/Smoking Cessation Hx Smoking History: Former smoker Have you smoked in the past 12 months: No Number of Cigarettes Smoked Daily: 10 If you are a former smoker, when did you quit?: 6 weeks ago Information on smoking cessation initiated: No 'Breaking Loose' booklet given: 11/23/16 Hx Alcohol Use: No Drug/Substance Use Hx: No Substance Use Type: Marijuana Hx Substance Use Treatment: No *Physical Exam - Vital Signs Last Vital Signs Temp Pulse Resp BP Pulse Ox 98.3 F 89 18 125/82 98 04/30/19 01:32 04/30/19 01:32 04/30/19 01:32 04/30/19 01:32 04/30/19 01:32 Discharge - Discharge Information Problems reviewed: Yes Clinical Impression/Diagnosis: Hip pain, right Condition: Stable Disposition: HOME - Admission No - Follow up/Referral Referrals: Alfredo Johnson [Primary Care Provider] - - Patient Discharge Instructions Patient Printed Discharge Instructions: DI for Hip Pain Additional Instructions: You were seen in the ER for hip pain and bruising. Your xrays were normal - no fracture in your hip or upper leg. We gave flexeril (a muscle relaxant) as well as medication for pain. The fall a few days ago may have caused the muscle tightness and hip pain. Please follow up with your primary care provider and pain specialist as soon as possible, in the next 3 days. Please return to the ER if you develop high fevers, weakness, confusion, chest pain, or trouble breathing. - Post Discharge Activity
--- NOTE | 2019-04-30 02:33 | PDOC ---
Attending Attestation - Resident Resident Name: Leighton Rojas - ED Attending Attestation I have performed the following: I have examined & evaluated the patient, The case was reviewed & discussed with the resident, I agree w/resident's findings & plan - HPI HPI: 04/30/19 02:40 Slip and fall 3 days ago right elbow and right hip. Pt has a bruise on his hamstring. - Physicial Exam PE: 04/30/19 04:12 Agree with resident exam - Medical Decision Making 04/30/19 04:12 XRAYS appear normal 04/30/19 04:28 Pt is in a considerable amount of pain. He is unable to extend the right hip and he has pain with palpation of the hip. 04/30/19 05:19 Patient Name: YASIR HARRELL THIS IS A PRELIMINARY REPORT FROM [facility] DATE OF SERVICE: 2019-04-30 02:45:39 IMAGES: 3 EXAM: Single view of the pelvis and 2 views of the right hip History: 54-year-old male, right hip pain status post fall a couple days ago Comparison: No available comparison exam Findings: The right proximal femur appears intact. Mild superior joint space narrowing in the right hip No evidence of acute pelvic fracture. The sacrum appears intact on limited frontal projection. Mild degenerative changes of the lumbar spine incompletely evaluated. The soft tissues are unremarkable. IMPRESSION: No acute findings. 04/30/19 05:19 Pt will be discharged home. 04/30/19 05:25 Patient Name: Yasir Harrell Date: 1965 Address: [address] [place] [address] Sex: Male Rx Written Rx Dispensed Drug Quantity Days Supply Prescriber Name 04/28/2019 04/28/2019 oxycodone hcl 30 mg tablet 90 30 BrownAle MD 03/24/2019 03/27/2019 oxycodone hcl 30 mg tablet 90 30 Ale Rodriguez MD 03/03/2019 03/03/2019 oxycodone hcl 30 mg tablet 90 30 Ale Rodriguez MD 02/03/2019 02/06/2019 oxycodone hcl 30 mg tablet 90 30 Ale Rodriguez MD 01/05/2019 01/09/2019 oxycodone hcl 30 mg tablet 90 30 Mitesh Valle 12/14/2018 12/14/2018 oxycodone hcl 30 mg tablet 90 30 BrownAle () 11/17/2018 11/17/2018 oxycodone hcl 30 mg tablet 90 30 Tasca, Mitesh JOLLEY 10/18/2018 10/18/2018 oxycodone hcl 30 mg tablet 90 30 Tasca, Mitesh 09/22/2018 09/22/2018 oxycodone hcl 30 mg tablet 90 30 Tasca, Mitesh 08/25/2018 08/25/2018 oxycodone hcl 30 mg tablet 90 30 Tasca, Mitesh 08/02/2018 08/02/2018 oxycodone hcl 30 mg tablet 90 30 Tasca, Mitesh 07/04/2018 07/04/2018 oxycodone hcl 30 mg tablet 90 30 Tasca, Mitesh 06/15/2018 06/15/2018 oxycodone hcl 30 mg tablet 90 30 Tasca, Mitesh JOLLEY 05/20/2018 05/20/2018 oxycodone hcl 30 mg tablet 90 30 TascaMitesh
[2019-04-30] MEDS ORDERED: CYCLOBENZAPRINE HCL 10 MG TABLET (FP) PO ONE (02:39)
[2019-04-30] MEDS ORDERED: CYCLOBENZAPRINE HCL 10 MG TABLET (FP) ONE (02:41)
[2019-04-30 02:47] VITALS: BP 125/83
[2019-04-30] MEDS ORDERED: LIDOCAINE 5% TOPICAL PATCH TP ONE (04:30)
[2019-04-30] MEDS ORDERED: LIDOCAINE 5% TOPICAL PATCH ONE (04:32)
[2019-04-30] MEDS ORDERED: LIDOCAINE PATCH REMOVAL MC SCH (22:00)
== END 2019-04-30 05:39 | disposition home or self-care (01) ==
LOC: JER 01:22
DX: M25.551 Pain in right hip (principal); W19.XXXA Unspecified fall, initial encounter; Y93.89 Activity, other specified; Y92.89 Other specified places as the place of occurrence of the external cause; Y99.8 Other external cause status; I10 Essential (primary) hypertension; Z86.73 Personal history of transient ischemic attack (TIA), and cerebral infarction without residual deficits; Z87.891 Personal history of nicotine dependence; Z91.018 Allergy to other foods; Z88.5 Allergy status to narcotic agent
CPT/HCPCS: 73523-TC-FY; 99282-25

== ENCOUNTER 2020-07-07 18:47 | Observation (INO) | payer OTHER ==
[2020-07-07] MEDS ORDERED: methylPREDNISolone NA SUCC 125 MG/2 ML VIAL IVPB ONE (20:03)
[2020-07-07] MEDS ORDERED: ASPIRIN 81 MG CHEWABLE TABLETS PO ONE (20:07)
[2020-07-07] MEDS ORDERED: ACETAMINOPHEN 1000 MG/100 ML VIAL (NON FORMULARY) IVPB ONE (20:11)
[2020-07-07] MEDS ORDERED: ALBUTEROL SO4 2.5/IPRATROPIUM 0.5 INH SOL 3 ML VIAL.NEB. NEB ONE (20:15)
[2020-07-07] MEDS ORDERED: ASPIRIN 81 MG CHEWABLE TABLETS ONE (20:16)
[2020-07-07] MEDS ORDERED: ACETAMINOPHEN INJECTION 100 ML IVPB ONE (20:16)
[2020-07-07] MEDS ORDERED: methylPREDNISolone NA SUCC 125 MG/2 ML VIAL ONE (20:16)
[2020-07-07 20:18] LABS: BASO % 0.7 % (0-2.0); EOS % 0.9 % (0-4.5); HEMOGLOBIN 12.6 GM/dL (11.7-16.9); LYMPH % 14.5 % (8-40); MCH 29.8 pg (25.7-33.7); MCHC 34.1 g/dl (32.0-35.9); MEAN CELL VOLUME 87.3 fl (80-96); MEAN PLT VOLUME 8.7 fl (7.5-11.1); MONO % 18.9 % (3.8-10.2); PLATELET COUNT 227 K/MM3 (134-434); RBC 4.24 M/mm3 (4.00-5.60); RDW 15.3 % (11.9-15.9); WHITE BLOOD COUNT 4.9 K/mm3 (4.0-10.0)
[2020-07-07 20:25] LABS: INR 1.11 (0.83-1.09); PROTHROMBIN TIME (PATIENT) 13.4 SEC (9.7-13.0)
[2020-07-07 20:27] LABS: ACTIVATED PTT 33.3 SECONDS (25.2-36.5)
[2020-07-07] MEDS: ALBUTEROL SO4 2.5/IPRATROPIUM 0.5 INH SOL 3 ML VIAL.NEB. NEB SCH ×2 (20:41→20:42)
[2020-07-07 20:45] LABS: ALBUMIN 3.4 g/dl (3.4-5.0); BLOOD UREA NITROGEN 22.5 mg/dL (7-18)
[2020-07-07 20:48] LABS: CREATININE 1.2 mg/dL (0.55-1.3)
[2020-07-07 20:50] LABS: BILIRUBIN,TOTAL 0.3 mg/dL (0.2-1)
[2020-07-08] MEDS ORDERED: ALBUTEROL SO4 2.5/IPRATROPIUM 0.5 INH SOL 3 ML VIAL.NEB. NEB PRN (02:30)
[2020-07-08] MEDS ORDERED: SODIUM CHLORIDE 1,000 ML with POTASSIUM CHLORIDE 40 MEQ IV SCH ×2 (03:00→20:13)
[2020-07-08 03:04] LABS: MAGNESIUM 1.9 mg/dL (1.8-2.4)
[2020-07-08 04:07] LABS: PH,URINE 5.5 (5.0-8.0); URINE APPEARANCE CLEAR; URINE BILIRUBIN NEGATIVE (NEGATIVE); URINE COLOR YELLOW; URINE GLUCOSE (UA) NEGATIVE (NEGATIVE); URINE KETONE NEGATIVE (NEGATIVE); URINE LEUK ESTERASE NEGATIVE (NEGATIVE); URINE NITRITE NEGATIVE (NEGATIVE); URINE PROTEIN TRACE (NEGATIVE); URINE UROBILINOGEN 0.2 mg/dL (0.2-1.0)
[2020-07-08 04:16] LABS: OPIATES, URI NEGATIVE ng/ml (CUTOFF=300); PHENCYCLIDINE,URINE NEGATIVE ng/ml (CUTOFF=25); URINE BENZODIAZEPINES NEGATIVE ng/ml (CUTOFF=200)
[2020-07-08 04:17] LABS: COCAINE, UR NEGATIVE ng/ml (CUTOFF=300)
[2020-07-08 04:38] LABS: METHADONE, UR NEGATIVE ng/ml (CUTOFF=300); URINE AMPHETAMINES NEGATIVE ng/ml (CUTOFF=500); URINE BARBITURATES NEGATIVE ng/ml (CUTOFF=200)
[2020-07-08 05:26] LABS: EPI CELLS 2 /uL (0-25.1); HYALINE CASTS 1 /uL (0-3.1); URINE BACTERIA 5 /uL (0-1359); URINE RBC 15 /uL (0-23.9); URINE WBC 2 /uL (0-25.8)
[2020-07-08 07:21] LABS: BASO % 0.2 % (0-2.0); HEMATOCRIT 38.3 % (35.4-49); HEMOGLOBIN 13.2 GM/dL (11.7-16.9); LYMPH % 10.9 % (8-40); MCH 29.8 pg (25.7-33.7); MCHC 34.5 g/dl (32.0-35.9); MEAN CELL VOLUME 86.5 fl (80-96); MEAN PLT VOLUME 8.7 fl (7.5-11.1); MONO % 2.7 % (3.8-10.2); NEUT % 86.2 % (42.8-82.8); PLATELET COUNT 242 K/MM3 (134-434); RBC 4.43 M/mm3 (4.00-5.60); RDW 15.4 % (11.9-15.9); WHITE BLOOD COUNT 3.8 K/mm3 (4.0-10.0)
[2020-07-08 07:31] LABS: POTASSIUM 3.5 mmol/L (3.5-5.1)
[2020-07-08 07:35] LABS: ALBUMIN 3.4 g/dl (3.4-5.0); BLOOD UREA NITROGEN 19.7 mg/dL (7-18); CALCIUM 9.2 mg/dL (8.5-10.1)
[2020-07-08 07:39] LABS: CREATININE 1.1 mg/dL (0.55-1.3); PHOSPHOROUS 4.6 mg/dL (2.5-4.9)
[2020-07-08 07:40] LABS: BILIRUBIN,TOTAL 0.8 mg/dL (0.2-1); TOT PROT 8.1 g/dl (6.4-8.2)
[2020-07-08] MEDS ORDERED: ENOXAPARIN NA (PORCINE) 40 MG/0.4 ML DISP.SYRIN SQ ONE (08:33)
[2020-07-08] MEDS ORDERED: methylPREDNISolone NA SUCC 40 MG/1 ML VIAL ONE (08:33)
[2020-07-08] MEDS ORDERED: AZITHROMYCIN IVPB 500 MG/250 ML BAG IVPB ONE (08:34)
[2020-07-08] MEDS: ENOXAPARIN NA (PORCINE) 40 MG/0.4 ML DISP.SYRIN SQ SCH (09:03)
[2020-07-08] MEDS: AZITHROMYCIN IVPB 500 MG/250 ML BAG IVPB SCH (09:04)
[2020-07-08] MEDS: BUDESONIDE/FORMETEROL FUMARATE 80/4.5 mcg INHALER IH SCH ×2 (09:04→22:42)
[2020-07-08] MEDS ORDERED: amLODIPine BESYLATE 5 MG TABLET (FP) ONE (09:46)
[2020-07-08] MEDS: CLOPIDOGREL BISULFATE 75 MG TABLET (FP) PO SCH (09:47)
[2020-07-08] MEDS: amLODIPine BESYLATE 10 MG TABLET (FP) PO SCH (09:47)
[2020-07-08] MEDS: CHLORTHALIDONE 25 MG TABLET PO SCH ×2 (09:48→22:41)
[2020-07-08] MEDS ORDERED: DEXAMETHASONE SOD PHOSPHATE 10 MG/1 ML VIAL IVPUSH SCH (10:00)
[2020-07-08] MEDS ORDERED: methylPREDNISolone NA SUCC 125 MG/2 ML VIAL IVPUSH SCH ×2 (10:00)
[2020-07-08] MEDS ORDERED: oxyCODONE HCL 40 MG SUSTAINED ACTING TABLET PO ONE (13:15)
[2020-07-08] MEDS: CARVEDILOL 12.5 MG TABLET (FP) PO SCH ×2 (13:28→22:40)
[2020-07-08] MEDS: hydrALAZINE HCL 50 MG TABLET (FP) PO SCH ×2 (13:28→22:42)
[2020-07-08] MEDS ORDERED: ALBUTEROL SO4 HFA INHALER IH PRN (15:59)
[2020-07-08 16:49] VITALS: BMI 27.3
[2020-07-08] MEDS ORDERED: PT OWN MED DRAWER 7, Y5N ONE (20:04)
[2020-07-08] MEDS ORDERED: oxyCODONE HCL 5 MG TABLET PO ONE (22:12)
[2020-07-09] MEDS: hydrALAZINE HCL 50 MG TABLET (FP) PO SCH ×3 (06:02→21:16)
[2020-07-09] MEDS ORDERED: oxyCODONE HCL 5 MG TABLET PO PRN ×2 (07:48→12:10)
[2020-07-09] MEDS ORDERED: PT OWN MED DRAWER 7, Y5N ONE (08:55)
[2020-07-09] MEDS: AZITHROMYCIN IVPB 500 MG/250 ML BAG IVPB SCH (09:02)
[2020-07-09] MEDS: CHLORTHALIDONE 25 MG TABLET PO SCH ×2 (09:03→21:16)
[2020-07-09] MEDS: CLOPIDOGREL BISULFATE 75 MG TABLET (FP) PO SCH (09:04)
[2020-07-09] MEDS: amLODIPine BESYLATE 10 MG TABLET (FP) PO SCH (09:04)
[2020-07-09] MEDS: ENOXAPARIN NA (PORCINE) 40 MG/0.4 ML DISP.SYRIN SQ SCH (09:04)
[2020-07-09] MEDS: CARVEDILOL 12.5 MG TABLET (FP) PO SCH ×2 (09:04→21:16)
[2020-07-09] MEDS: ACETAMINOPHEN 325 MG TABLET (FP) PO PRN ×2 (09:05→17:51)
[2020-07-09] MEDS: BUDESONIDE/FORMETEROL FUMARATE 80/4.5 mcg INHALER IH SCH ×2 (09:06→21:16)
[2020-07-09] MEDS ORDERED: OXYCODONE HCL 30 MG PO SCH (11:22)
[2020-07-09] MEDS: oxyCODONE HCL 5 MG TABLET PO PRN ×2 (12:23→22:48)
[2020-07-09 12:37] LABS: CALCIUM 8.4 mg/dL (8.5-10.1)
[2020-07-09 12:38] LABS: ALBUMIN 2.9 g/dl (3.4-5.0); BLOOD UREA NITROGEN 19.6 mg/dL (7-18)
[2020-07-09 12:41] LABS: CREATININE 0.9 mg/dL (0.55-1.3)
[2020-07-09 12:42] LABS: TOT PROT 6.9 g/dl (6.4-8.2)
[2020-07-09 12:43] LABS: BILIRUBIN,TOTAL 0.3 mg/dL (0.2-1)
[2020-07-09 12:59] LABS: POTASSIUM 2.9 mmol/L (3.5-5.1)
[2020-07-09] MEDS ORDERED: POTASSIUM CHLORIDE TABS 20 MEQ TABLET.ER (FP) PO ONE ×2 (13:03→23:49)
[2020-07-09] MEDS: ASCORBIC ACID 500 MG TABLET (FP) PO SCH ×2 (13:04→21:16)
[2020-07-09] MEDS: ZINC SULFATE 220 MG CAPSULE (FP) PO SCH (13:04)
[2020-07-09] MEDS: CHOLECALCIFEROL (VIT D3) 1,000 UNIT (25 MCG) TABLET PO SCH (13:04)
[2020-07-09] MEDS: KCL 10 MEQ IVPB 10 MEQ/100 ML INFUS.BAG IVPB SCH ×3 (14:16→16:00)
[2020-07-09] MEDS ORDERED: LACTATED RINGERS SOLUTION 1,000 ML/1,000 ML INFUS.BAG IV STA (20:32)
[2020-07-09 22:01] LABS: BASO % 0.1 % (0-2.0); HEMATOCRIT 34.3 % (35.4-49); HEMOGLOBIN 11.8 GM/dL (11.7-16.9); LYMPH % 18.1 % (8-40); MCH 29.9 pg (25.7-33.7); MCHC 34.4 g/dl (32.0-35.9); MEAN CELL VOLUME 86.8 fl (80-96); MEAN PLT VOLUME 8.9 fl (7.5-11.1); NEUT % 72.8 % (42.8-82.8); PLATELET COUNT 201 K/MM3 (134-434); RBC 3.95 M/mm3 (4.00-5.60); RDW 15.4 % (11.9-15.9); WHITE BLOOD COUNT 4.6 K/mm3 (4.0-10.0)
[2020-07-09 23:14] LABS: CALCIUM 8.8 mg/dL (8.5-10.1)
[2020-07-09 23:15] LABS: BLOOD UREA NITROGEN 17.8 mg/dL (7-18)
[2020-07-09 23:18] LABS: CREATININE 1.1 mg/dL (0.55-1.3)
[2020-07-09 23:20] LABS: BILIRUBIN,TOTAL 0.2 mg/dL (0.2-1); TOT PROT 7.2 g/dl (6.4-8.2)
[2020-07-09 23:24] LABS: POTASSIUM 2.9 mmol/L (3.5-5.1)
[2020-07-09 23:40] LABS: PH,URINE 5.5 (5.0-8.0); URINE APPEARANCE CLEAR; URINE BILIRUBIN NEGATIVE (NEGATIVE); URINE COLOR YELLOW; URINE GLUCOSE (UA) NEGATIVE (NEGATIVE); URINE KETONE NEGATIVE (NEGATIVE); URINE LEUK ESTERASE NEGATIVE (NEGATIVE); URINE NITRITE NEGATIVE (NEGATIVE); URINE PROTEIN NEGATIVE (NEGATIVE); URINE UROBILINOGEN 0.2 mg/dL (0.2-1.0)
[2020-07-10] MEDS: LACTATED RINGERS SOLUTION 1,000 ML/1,000 ML INFUS.BAG IV SCH ×2 (00:03→06:17)
[2020-07-10] MEDS: ACETAMINOPHEN 325 MG TABLET (FP) PO PRN (02:32)
[2020-07-10] MEDS: hydrALAZINE HCL 50 MG TABLET (FP) PO SCH ×2 (06:12→13:27)
[2020-07-10] MEDS ORDERED: POTASSIUM CHLORIDE TABS 20 MEQ TABLET.ER (FP) PO ONE (06:45)
[2020-07-10] MEDS ORDERED: LACTATED RINGERS SOLUTION 1,000 ML with POTASSIUM CHLORIDE 40 MEQ IV ONE ×3 (07:00→07:48)
[2020-07-10] MEDS ORDERED: LORazepam 1 MG TABLET PO PRN ×2 (08:39→11:52)
[2020-07-10 09:05] LABS: BASO % 0.2 % (0-2.0); EOS % 0.1 % (0-4.5); HEMATOCRIT 34.8 % (35.4-49); HEMOGLOBIN 11.9 GM/dL (11.7-16.9); LYMPH % 21.8 % (8-40); MCH 29.8 pg (25.7-33.7); MCHC 34.1 g/dl (32.0-35.9); MEAN CELL VOLUME 87.2 fl (80-96); MEAN PLT VOLUME 9.2 fl (7.5-11.1); MONO % 14.4 % (3.8-10.2); NEUT % 63.5 % (42.8-82.8); PLATELET COUNT 174 K/MM3 (134-434); RBC 3.99 M/mm3 (4.00-5.60); RDW 15.9 % (11.9-15.9); WHITE BLOOD COUNT 3.5 K/mm3 (4.0-10.0)
[2020-07-10] MEDS: AZITHROMYCIN IVPB 500 MG/250 ML BAG IVPB SCH (09:05)
[2020-07-10] MEDS: CHOLECALCIFEROL (VIT D3) 1,000 UNIT (25 MCG) TABLET PO SCH (09:06)
[2020-07-10] MEDS: ASCORBIC ACID 500 MG TABLET (FP) PO SCH (09:06)
[2020-07-10] MEDS: amLODIPine BESYLATE 10 MG TABLET (FP) PO SCH (09:06)
[2020-07-10] MEDS: CARVEDILOL 12.5 MG TABLET (FP) PO SCH (09:06)
[2020-07-10] MEDS: CLOPIDOGREL BISULFATE 75 MG TABLET (FP) PO SCH (09:06)
[2020-07-10] MEDS: ZINC SULFATE 220 MG CAPSULE (FP) PO SCH (09:06)
[2020-07-10] MEDS: oxyCODONE HCL 5 MG TABLET PO PRN (09:06)
[2020-07-10] MEDS: ENOXAPARIN NA (PORCINE) 40 MG/0.4 ML DISP.SYRIN SQ SCH (09:07)
[2020-07-10] MEDS: BUDESONIDE/FORMETEROL FUMARATE 80/4.5 mcg INHALER IH SCH (09:07)
[2020-07-10] MEDS: CHLORTHALIDONE 25 MG TABLET PO SCH (09:09)
[2020-07-10 09:30] LABS: POTASSIUM 3.6 mmol/L (3.5-5.1)
[2020-07-10 09:36] LABS: ALBUMIN 3.1 g/dl (3.4-5.0); BLOOD UREA NITROGEN 14.7 mg/dL (7-18)
[2020-07-10 09:41] LABS: BILIRUBIN,TOTAL 0.5 mg/dL (0.2-1); TOT PROT 7.2 g/dl (6.4-8.2)
[2020-07-10 11:27] LABS: INR 1.13 (0.83-1.09); PROTHROMBIN TIME (PATIENT) 13.8 SEC (9.7-13.0)
[2020-07-10 11:30] LABS: ACTIVATED PTT 36.4 SECONDS (25.2-36.5)
[2020-07-10 13:40] VITALS: BP 122/69; PULSE 89; TEMP 98.7
== END 2020-07-10 17:07 | disposition home or self-care (01) ==
LOC: JER 18:47 → JERBED 23:12 → J4S 07-08 11:35 → J6S 07-08 23:53
PROVIDERS: ADMIT Internal Medicine; ATTEND Student in an Organized Health Care Education/Training Program
PROC: 3E0F7GC Introduction of Other Therapeutic Substance into Respiratory Tract, Via Natural or Artificial Opening (ICD-10-PCS; principal; 2020-07-07)
PROC: 3E023GC Introduction of Other Therapeutic Substance into Muscle, Percutaneous Approach (ICD-10-PCS; 2020-07-07)
PROC: 3E03329 Introduction of Other Anti-infective into Peripheral Vein, Percutaneous Approach (ICD-10-PCS; 2020-07-07)
PROC: 3E033NZ Introduction of Analgesics, Hypnotics, Sedatives into Peripheral Vein, Percutaneous Approach (ICD-10-PCS; 2020-07-07)
PROC: 3E0337Z Introduction of Electrolytic and Water Balance Substance into Peripheral Vein, Percutaneous Approach (ICD-10-PCS; 2020-07-07)
DX: U07.1 COVID-19 (principal); R00.2 Palpitations; R50.9 Fever, unspecified; R79.89 Other specified abnormal findings of blood chemistry; I11.9 Hypertensive heart disease without heart failure; R07.89 Other chest pain; R00.0 Tachycardia, unspecified; I25.10 Atherosclerotic heart disease of native coronary artery without angina pectoris; Z96.653 Presence of artificial knee joint, bilateral; F12.10 Cannabis abuse, uncomplicated; G89.29 Other chronic pain; M54.5 Low back pain; J44.1 Chronic obstructive pulmonary disease with (acute) exacerbation; G45.9 Transient cerebral ischemic attack, unspecified; Z29.9 Encounter for prophylactic measures, unspecified; F17.210 Nicotine dependence, cigarettes, uncomplicated; Z88.8 Allergy status to other drugs, medicaments and biological substances
CPT/HCPCS: 36415; 71045-TC-FY; 71275-TC; 80053; 80307; 81003; 82550; 82553; 82728; 83615; 83735; 83880; 84100; 84484; 85025; 85379; 85610; 85730; 86140; 87040; 87086; 87804; 93005; 93010; 94640; 96361; 96365; 96372; 96375; 99285-25; C9803; G0378; J0131; U0003

== ENCOUNTER 2020-07-11 13:46 | Emergency (ER) | payer OTHER ==
[2020-07-11 14:08] VITALS: TEMP 98; BMI 27.1
[2020-07-11] MEDS ORDERED: BAMLANIVIMAB 700 MG in SODIUM CHLORIDE 180 ML IVPB ONE (15:34)
[2020-07-11 19:24] VITALS: BP 123/78; PULSE 82
== END 2020-07-11 19:25 | disposition home or self-care (01) ==
LOC: JER 13:46 → JCOVINFU 13:46
DX: U07.1 COVID-19 (principal)
CPT/HCPCS: 99284-25; M0239; Q0239

== ENCOUNTER 2020-09-09 23:11 | Emergency (ER) | payer OTHER ==
[2020-09-09 23:32] VITALS: BP 160/96; PULSE 82; TEMP 98.3; BMI 29.1
== END 2020-09-10 04:00 | disposition left against medical advice (07) ==
LOC: JER 23:11
DX: R60.9 Edema, unspecified (principal)
CPT/HCPCS: 71045-TC-FY; 93005; 93010; 93970-TC; 99285-25

== ENCOUNTER 2020-11-01 02:07 | Emergency (ER) | payer OTHER ==
[2020-11-01 02:45] VITALS: BP 168/79; PULSE 98; TEMP 98.4; BMI 27.7
[2020-11-01] MEDS ORDERED: VANCOMYCIN 1,500 MG in DEXTROSE 5%-WATER - 250 ML IVPB ONE (03:10)
[2020-11-01] MEDS ORDERED: VANCOMYCIN 500 MG VIAL (RESTRICTED TO ID ONLY) ONE (03:15)
[2020-11-01] MEDS ORDERED: VANCOMYCIN 1 GRAM (PRE-DOCKED) 1,000 MG/250 ML BAG IVPB ONE (03:16)
[2020-11-01 04:33] LABS: BASO % 0.5 % (0-2.0); EOS % 0.5 % (0-4.5); HEMATOCRIT 35.9 % (35.4-49); HEMOGLOBIN 12.2 GM/dL (11.7-16.9); LYMPH % 13.9 % (8-40); MCH 29.7 pg (25.7-33.7); MCHC 33.9 g/dl (32.0-35.9); MEAN CELL VOLUME 87.8 fl (80-96); MEAN PLT VOLUME 10.1 fl (7.5-11.1); MONO % 13.8 % (3.8-10.2); NEUT % 71.3 % (42.8-82.8); PLATELET COUNT 228 K/MM3 (134-434); RBC 4.09 M/mm3 (4.00-5.60); RDW 14.4 % (11.9-15.9); WHITE BLOOD COUNT 4.4 K/mm3 (4.0-10.0)
[2020-11-01 04:47] LABS: INR 1.13 (0.83-1.09); PROTHROMBIN TIME (PATIENT) 13.6 SEC (9.7-13.0)
[2020-11-01 04:49] LABS: ACTIVATED PTT 32.4 SECONDS (25.2-36.5)
[2020-11-01] MEDS ORDERED: ACETAMINOPHEN 325 MG TABLET (FP) PO ONE (04:50)
[2020-11-01] MEDS ORDERED: ACETAMINOPHEN 325 MG TABLET (FP) ONE (04:53)
[2020-11-01 04:56] LABS: ALBUMIN 2.9 g/dl (3.4-5.0); BLOOD UREA NITROGEN 16.4 mg/dL (7-18); CALCIUM 8.5 mg/dL (8.5-10.1)
[2020-11-01 05:01] LABS: BILIRUBIN,TOTAL 0.3 mg/dL (0.2-1); TOT PROT 8.3 g/dl (6.4-8.2)
[2020-11-01 05:04] LABS: N-TERMINAL BNP 2368.4 pg/ml (5-125)
== END 2020-11-01 05:04 | disposition left against medical advice (07) ==
LOC: JER 02:07
DX: R60.0 Localized edema (principal); L03.116 Cellulitis of left lower limb
CPT/HCPCS: 36415; 71046-TC-FY; 80053; 83880; 85025; 85610; 85730; 87040; 99285-25; C9803; U0003; U0005